=== PATIENT | female | born 1970 | race Caucasian/White ===

== ENCOUNTER 2017-01-28 08:25 | Emergency (ER) | payer BC ==
[~2017-01-28] VITALS: Ht 170.2 cm; Wt 136.0 kg
[~2017-01-28 08:25] MED LIST: ARIP1TAB15 PO; CLON1TAB21 PO; CRG625 PO; CYM60 PO; FRS/40 PO; GLIP10TA10 PO; INSUINJ4 SQ; LACT10SO17 PO; LEVO200T6 PO; LEVO25TA5 PO; MIRT15TA2 PO; OMEP40CA41 PO; RANI150T2 PO; RIFA550T2 PO; SITA1TAB27 PO; SPRN100 PO
[2017-01-28 08:39] VITALS: TEMP 36.5; O2SAT 95
[2017-01-28] MEDS ORDERED: VANCOMYCIN 1GM/270ML NSS IV STA (08:39)
[2017-01-28] MEDS ORDERED: LEVAQUIN 750MG / 150ML D5W IV STA (08:39)
[2017-01-28] MEDS ORDERED: PIPERACILLIN/TAZOBACTAM 4.5 GM/100ML D5W IV STA (08:39)
[2017-01-28] MEDS ORDERED: ALBUT/IPRATROP 3MG/0.5MG NEB 3 ML VIAL INH ONE (08:45)
--- NOTE | 2017-01-28 08:56 | EMERGENCY ROOM VISIT NOTE ---
History Report prepared by Yamil: Yadiel Allen Under the Supervision of: Dr. Allen Ravi M.D. First contact with patient: 08:30 Stated Complaint: U History of Present Illness The patient is a 46 year old female who presents to the Emergency Room with complaints of acute hypoxia that occurred this morning. The patient came to the ED from [facility], where she is seen for paracentesis. Her pulse oximeter reading dipped into the 50s on room air this morning. She does complain of shortness of breath. She currently complains of left rib pain s/p that is rated 5/10 in severity. The patient did not have anything for pain this morning. Complete history is limited secondary to dyspnea and altered mental status. Source of History: patient, nursing staff History Limited By: AMS, dyspnea Onset: this morning Position: other (respistory) Symptom Intensity: 50s pulse ox Quality: other (hypoxic) Timing: other (acute) Associated Symptoms: + SOB Review of Systems ROS is limited secondary to altered mental status. Past Medical & Surgical Medical Problems: (1) Ankle fracture (2) Anxiety (3) Ascites of liver (4) Chronic anemia (5) Depression (6) DM type 2 (diabetes mellitus, type 2) (7) Dyslipidemia (8) GERD (gastroesophageal reflux disease) (9) Hypothyroidism (10) Liver cirrhosis secondary to [place] (11) OCD (obsessive compulsive disorder) Surgical Problems: (1) History of esophagogastroduodenoscopy (EGD) (2) S/P TIPS (transjugular intrahepatic portosystemic shunt) Family History Unobtainable family history due to adoption Social History Smoking Status: Never Smoker Alcohol Use: none Drug Use: none Marital Status: Housing Status: lives with significant other Current/Historical Medications Scheduled Aripiprazole (Aripiprazole), 10 MG PO HS Carvedilol (Carvedilol), 6.25 MG PO BID Duloxetine HCl (Duloxetine HCl), 120 MG PO QAM Furosemide (Lasix), 80 MG PO BID Insulin Glargine (Lantus Solostar), 55 UNITS SC HS Mirtazapine Soltab (Remeron Soltab), 15 MG PO HS Rifaximin (Xifaxan), 550 MG PO BID Spironolactone (Aldactone), 200 MG PO BID Scheduled PRN Clonazepam (Clonazepam Odt), 1-2 MG PO HS PRN for Anxiety Lactulose (Chronulac), 30 GM PO DAILY PRN for Constipation Allergies Coded Allergies: Erythromycin (Verified Allergy, Mild, RASH, 01/17/17) Cat Dander (Verified Allergy, Unknown, UNKNOWN, 01/17/17) Ferrous Sulfate (Verified Allergy, Unknown, IRON SUPPLEMENT--RASH, ABD PAIN AND DIARRHEA, 01/17/17) Physical Exam Vital Signs Date Time Temp Pulse Resp B/P Pulse Ox O2 Delivery O2 Flow Rate FiO2 01/28/17 10:48 89 26 152/73 100 BiPAP 01/28/17 10:32 89 23 149/73 100 BiPAP 01/28/17 10:08 92 24 146/75 100 BiPAP 01/28/17 09:53 92 24 168/69 100 BiPAP 01/28/17 09:49 100 BiPAP 15.0 01/28/17 09:32 94 24 161/77 98 BiPAP 01/28/17 09:09 99 22 133/74 96 BiPAP 01/28/17 09:07 100 96 70 01/28/17 09:07 100 25 96 BiPAP/CPAP 70 01/28/17 08:44 98 01/28/17 08:39 95 Non-Rebreather 15.0 01/28/17 08:39 95 Non-Rebreather 01/28/17 08:39 36.5 98 28 165/87 82 Room Air 01/28/17 08:30 99 163/92 96 Non-Rebreather 15.0 Physical Exam GENERAL: Patient is confused appearing and in acute distress. HEAD: Normocephalic atraumatic EYES: Ocular movements intact pupils equal and react to light OROPHARYNX mucous membranes are moist no exudates present no erythema or edema present NECK: Supple no nuchal rigidity CHEST: Good equal expansion LUNGS: Lung sounds are absent on the left side. CARDIAC: Normal S1 and S2 ABDOMEN: Soft nontender no guarding BACK: No CVA tenderness EXTREMITIES: No pain upon palpation normal muscle strength in all groups no clubbing cyanosis or edema NEURO: Patient is following commands is answering questions appropriately. Alert and oriented x3 Cranial Nerves 2-12 grossly intact Medical Decision & Procedures ER Provider Diagnostic Interpretation: Radiology results as stated below per my review and radiologist interpretation: CHEST ONE VIEW PORTABLE CLINICAL HISTORY: Sepsis dyspnea COMPARISON STUDY: 10/10/2016 FINDINGS: Findings of asymmetric congestive failure. Interval development of a large left pleural effusion. Prominent pulmonary vasculature bilaterally. Cardiac enlargement. IMPRESSION: Asymmetric congestive heart failure. Large left pleural effusion. Electronically signed by: Franklin Serrano M.D. 01/28/2017 9:20 AM Dictated Date/Time: 01/28/2017 9:[address] ANGIOGRAM OF THE CHEST CLINICAL HISTORY: Dyspnea. COMPARISON STUDY: Chest CT dated 06/19/2013. TECHNIQUE: Following the IV administration of 100 cc of Optiray 320, CT angiogram of the chest was performed from the upper abdomen to the thoracic inlet utilizing the pulmonary embolus protocol. Images are reviewed in the axial, sagittal, and coronal planes. 3-D MIPS images are created and assessed. IV contrast was administered without complication. The examination is severely degraded by large body habitus, and by streak artifact from the patient's body wall abutting the CT gantry as well as by the patient's arms which could not be elevated above the abdomen. The examination is also degraded by motion artifact. CT DOSE: 1619.33 mGy.cm FINDINGS: Thyroid: Imaged portions of the thyroid gland are normal in size and attenuation. Thoracic aorta: The thoracic aorta is normal in caliber and demonstrates bovine variant arch anatomy. No dissection is seen. Pulmonary vasculature: The pulmonary trunk is dilated measuring 4.2 cm diameter. This suggests pulmonary artery hypertension. There is no evidence of central pulmonary embolus within the main or lobar pulmonary arteries. Evaluation of the peripheral vessels is severely degraded by streak and motion artifact. Heart: The heart is enlarged and without pericardial effusion. Lungs and pleural spaces: Evaluation of the lung parenchyma is significant degraded by respiratory motion artifact There is a large left pleural effusion with near-complete atelectasis of the left lung. There is a moderate right pleural effusion with near-complete atelectasis of the right lower lung. The visualized right upper lobe lung parenchyma appears clear. The trachea and central airways are patent. Mediastinum: There is no mediastinal lymphadenopathy. Lynn: Clear. Axillae: There is no axillary lymphadenopathy. Upper abdomen: The liver is cirrhotic in morphology and heterogeneous in attenuation. A TIPS catheter is noted. There is a moderate volume of upper abdominal ascites. The spleen appears enlarged. A hiatal hernia is identified. Esophageal varices are suspected. Skeletal structures: No lytic or blastic bony lesions are seen. There are mild superior endplate compression deformities of T4 and T5. Soft tissues: There is body wall edema. IMPRESSION: 1. Significantly motion and streak artifact degraded examination. 2. There is no evidence of central pulmonary embolus in the main or lobar pulmonary arteries. Evaluation of the peripheral vessels is severely degraded by streak and motion artifact. 3. Large left pleural effusion with near-complete atelectasis of the left lung. 4. Moderate right pleural effusion with significant atelectasis of the right lung. 5. Cirrhotic liver morphology with a moderate volume of upper abdominal ascites, a TIPS catheter, and suspect esophageal varices. Electronically signed by: Hayder Castaneda M.D. 01/28/2017 9:17 AM Dictated Date/Time: 01/28/2017 9:[address] CT DOSE: HISTORY: Altered mental status. Fall. TECHNIQUE: Multiaxial CT images of the head were performed without the use of intravenous contrast. Automated exposure control was utilized for this study. Comparison: None. 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 No fluid levels within the frontal sinuses. The mastoid air cells are clear. Mild left periorbital tissue swelling. The calvarium and skull base are intact. The ventricles and sulci are within normal limits. There is no mass, hematoma, midline shift, or acute infarct. Impression: No acute intracranial abnormality. Mild left periorbital soft tissue swelling. Electronically signed by: Austyn Locke M.D. 01/28/2017 9:16 AM Dictated Date/Time: 01/28/2017 9:11 AM Laboratory Results 01/28/17 08:35 Red Blood Count 4.30, Mean Corpuscular Volume 74.0, Mean Corpuscular Hemoglobin 21.2, Mean Corpuscular Hemoglobin Concent 28.6, Mean Platelet Volume 10.1, Neutrophils (%) (Auto) 83.6, Lymphocytes (%) (Auto) 7.7, Monocytes (%) (Auto) 7.2, Eosinophils (%) (Auto) 0.9, Basophils (%) (Auto) 0.1, Neutrophils # (Auto) 13.85, Lymphocytes # (Auto) 1.28, Monocytes # (Auto) 1.20, Eosinophils # (Auto) 0.15, Basophils # (Auto) 0.02 01/28/17 08:35 Test 01/28/17 08:35 01/28/17 09:26 01/28/17 09:45 White Blood Count 16.58 K/uL (4.8-10.8) Red Blood Count 4.30 M/uL (4.2-5.4) Hemoglobin 9.1 g/dL (12.0-16.0) Hematocrit 31.8 % (37-47) Mean Corpuscular Volume 74.0 fL (80-100) Mean Corpuscular Hemoglobin 21.2 pg (25-34) Mean Corpuscular Hemoglobin Concent 28.6 g/dl (32-36) Platelet Count 187 K/uL (130-400) Mean Platelet Volume 10.1 fL (7.4-10.4) Neutrophils (%) (Auto) 83.6 % Lymphocytes (%) (Auto) 7.7 % Monocytes (%) (Auto) 7.2 % Eosinophils (%) (Auto) 0.9 % Basophils (%) (Auto) 0.1 % Neutrophils # (Auto) 13.85 K/uL (1.4-6.5) Lymphocytes # (Auto) 1.28 K/uL (1.2-3.4) Monocytes # (Auto) 1.20 K/uL (0.11-0.59) Eosinophils # (Auto) 0.15 K/uL (0-0.5) Basophils # (Auto) 0.02 K/uL (0-0.2) RDW Standard Deviation 53.7 fL (36.4-46.3) RDW Coefficient of Variation 20.2 % (11.5-14.5) Immature Granulocyte % (Auto) 0.5 % Immature Granulocyte # (Auto) 0.08 K/uL (0.00-0.02) Polychromasia 1+ Anisocytosis PRESENT Prothrombin Time 12.5 SECONDS (9.0-12.0) Prothromb Time International Ratio 1.2 (0.9-1.1) Activated Partial Thromboplast Time 26.8 SECONDS (21.0-31.0) Partial Thromboplastin Ratio 1.0 Anion Gap 11.0 mmol/L (3-11) Est Creatinine Clear Calc Drug Dose 40.6 ml/min Estimated GFR () 25.8 Estimated GFR (Non- 22.3 BUN/Creatinine Ratio 23.9 (10-20) Calcium Level 8.3 mg/dl (8.5-10.1) Total Bilirubin 1.3 mg/dl (0.2-1) Aspartate Amino Transf (AST/SGOT) 17 U/L (15-37) Alanine Aminotransferase (ALT/SGPT) 26 U/L (12-78) Alkaline Phosphatase 347 U/L (45-117) Total Protein 8.4 gm/dl (6.4-8.2) Albumin 3.3 gm/dl (3.4-5.0) Globulin 5.1 gm/dl (2.5-4.0) Albumin/Globulin Ratio 0.6 (0.9-2) Bedside Lactic Acid Venous 1.25 mmol/L (0.90-1.70) Urine Color JENNA Urine Appearance SL CLOUDY (CLEAR) Urine pH 5.5 (4.5-7.5) Urine Specific Allred >= 1.030 (1.000-1.030) Urine Protein 2+ (NEG) Urine Glucose (UA) TRACE (NEG) Urine Ketones NEG (NEG) Urine Occult Blood TRACE (NEG) Urine Nitrite NEG (NEG) Urine Bilirubin NEG (NEG) Urine Urobilinogen NEG (NEG) Urine Leukocyte Esterase NEG (NEG) Urine RBC 0-4 /hpf (0-4) Urine WBC >30 /hpf (0-5) Urine Epithelial Cells >30 /lpf (0-5) Urine Calcium Oxalate Crystals PRESENT (NONE PRSENT) Urine Bacteria 1+ (NEG) Urine Hyaline Casts 5-10 /lpf (0-5) Urine Granular Casts 0-3 /lpf (0) Urine White Blood Cell Casts 1-5 /lpf (0) Labs reviewed by ED physician. Medications Administered Medications (Trade) Dose Ordered Sig/Ana Luisa Route Start Time Stop Time Status Last Admin Dose Admin Piperacillin Sod/ Tazobactam Sod (Zosyn Iv) 4.5 gm ONE STAT IV 01/28/17 08:39 01/28/17 08:43 DC 01/28/17 09:26 4.5 GM Vancomycin HCl (Vancomycin 1gm/ 270ml Nss) 1 gm ONE STAT IV 01/28/17 08:39 01/28/17 08:43 DC 01/28/17 09:51 1 GM Levofloxacin (Levaquin / D5W) 750 mg ONE STAT IV 01/28/17 08:39 01/28/17 08:43 DC 01/28/17 09:28 750 MG Albuterol/ Ipratropium (Duoneb) 12 ml ONE ONCE INH 01/28/17 08:45 01/28/17 08:46 DC 01/28/17 08:45 12 ML ECG Indication: SOB/dyspnea Rate (beats per minute): 97 Rhythm: normal sinus Findings: no acute ischemic change, no ectopy ED Course 0840: Past medical records reviewed. The patient was evaluated in room B1. A complete history and physical examination was performed. 0839: Levofloxacin 750 mg IV, Vancomycin HCl 1 gm IV, Zosyn 4.5 gm IV. 0845: DuoNeb 12 ml INH. 0917: Discussed the case with Dr. Thakur, Thoracic Surgeon. He says there is nothing he can do for the patient. 0924: Discussed the case with Dr. Jamil, Center Punch Operator. She is aware of the case. 0929: Discussed the case with TABATHA Mejia, [facility] Hospitalist. The patient will be evaluated. 0950: The medicine team believes the patient should be transferred to [facility] for a transplant team reevaluation. 1013: Spoke with Dr. Chaidez, [facility] Center Punch Operator. They will accept the patient. Transportation is being arranged. 1100: [facility] is taking the patient. She is currently hemodynamically stable. Medical Decision Differential diagnosis: Etiologies such as infections, reactive airway disease, pneumonia, pneumothorax , COPD, CHF, cardiac ischemia, pulmonary embolism, musculoskeletal, gastrointestinal, as well as others were entertained. This is a 46-year-old female who has history of Muhammad with TIPS procedure performed at [place] who presents to see department in acute distress and hypoxic. Based on the findings the patient was immediately placed on BiPAP and given an hour-long breathing treatment. She was sent for CT to rule out PE however this CT shows a large pleural effusion. Based on the findings I did discuss the case with thoracic surgeon on-call who based on the patient's past medical history believes that the patient should be urgently transferred to [place]. This is also discussed with the hospitalist as well as the pickle cutter who agreed. I did discuss the case with the intensive care doctor at [place] who agreed to accept the patient. The patient was started on Zosyn and Levaquin in the emergency department. She is in acute renal failure does have an elevation in her white blood count. She was placed on BiPAP. Repeat examination revealed improvement patient's symptoms. The patient was transferred via [facility]. Risks and benefits were explained to the family. The benefit of going to [place] is the transplant team. Risks were explained has a [facility]. The patient was given BiPAP for transport. Patient was in agreement with the treatment plan. Consults Time Called: 909 Consulting Physician: Dr. Thakur, Thoracic Surgeon. Returned Call: [phone]: Discussed the case with Dr. Thakur, Thoracic Surgeon. He says there is nothing he can do for the patient. Additional Consults: Time Called: 919 Consulted Physician: Dr. Jamil, Center Punch Operator. Returned Call: [phone] Additional Comments: 923: Discussed the case with Dr. Jamil, Center Punch Operator. She is aware of the case. Time Called: 919 Consulted Physician: TABATHA Mejia [facility] Hospitalist. Returned Call: [phone] Additional Comments: 09: Discussed the case with TABATHA Mejia [facility] Hospitalist. The patient will be evaluated. Impression Primary Impression: Pleural effusion, left Additional Impression: Hypoxia Critical Care I have personally spent greater than 90 minutes of critical care time in the direct management of this patient. This includes bedside care, interpretation of diagnostic studies, and testing, discussion with consultants, patient, and family members, and other required patient management activities. This 90 minutes is in excess of all separately billable procedures. Scribe Attestation The scribe's documentation has been prepared under my direction and personally reviewed by me in its entirety. I confirm that the note above accurately reflects all work, treatment, procedures, and medical decision making performed by me. Departure Information Dispostion Transfer Acute Care Facility Referrals [facility] (PCP) Problem Qualifiers
[2017-01-28 08:58] LABS: HEMATOCRIT 31.8 % (37-47); MEAN CORPUSCULAR HEMOGLOBIN 21.2 pg (25-34); MEAN CORPUSCULAR HGB CONC 28.6 g/dl (32-36); MEAN PLATELET VOLUME 10.1 fL (7.4-10.4); PLATELET COUNT 187 K/uL (130-400); WHITE BLOOD COUNT 16.58 K/uL (4.8-10.8)
[2017-01-28 09:06] LABS: BUN/CREATININE RATIO 23.9 (10-20); CALCIUM 8.3 mg/dl (8.5-10.1); CREATININE 2.5 mg/dl (0.60-1.20); POTASSIUM 5.4 mmol/L (3.5-5.1)
[2017-01-28 09:07] VITALS: PULSE 100; O2SAT 96
[2017-01-28 09:09] LABS: ALB/GLOB RATIO 0.6 (0.9-2); INR 1.2 (0.9-1.1); PROTHROMBIN TIME (PATIENT) 12.5 SECONDS (9.0-12.0)
--- NOTE | 2017-01-28 09:17 | DIAGNOSTIC IMAGING REPORT ---
HEAD CT NONCONTRAST CT DOSE: HISTORY: Altered mental status. Fall. TECHNIQUE: Multiaxial CT images of the head were performed without the use of intravenous contrast. Automated exposure control was utilized for this study. Comparison: None. 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 No fluid levels within the frontal sinuses. The mastoid air cells are clear. Mild left periorbital tissue swelling. The calvarium and skull base are intact. The ventricles and sulci are within normal limits. There is no mass, hematoma, midline shift, or acute infarct. Impression: No acute intracranial abnormality. Mild left periorbital soft tissue swelling. Electronically signed by: Austyn Locke M.D. 01/28/2017 9:16 AM Dictated Date/Time: 01/28/2017 9:11 AM
--- NOTE | 2017-01-28 09:18 | DIAGNOSTIC IMAGING REPORT ---
CT ANGIOGRAM OF THE CHEST CLINICAL HISTORY: Dyspnea. COMPARISON STUDY: Chest CT dated 06/19/2013. TECHNIQUE: Following the IV administration of 100 cc of Optiray 320, CT angiogram of the chest was performed from the upper abdomen to the thoracic inlet utilizing the pulmonary embolus protocol. Images are reviewed in the axial, sagittal, and coronal planes. 3-D MIPS images are created and assessed. IV contrast was administered without complication. The examination is severely degraded by large body habitus, and by streak artifact from the patient's body wall abutting the CT gantry as well as by the patient's arms which could not be elevated above the abdomen. The examination is also degraded by motion artifact. CT DOSE: 1619.33 mGy.cm FINDINGS: Thyroid: Imaged portions of the thyroid gland are normal in size and attenuation. Thoracic aorta: The thoracic aorta is normal in caliber and demonstrates bovine variant arch anatomy. No dissection is seen. Pulmonary vasculature: The pulmonary trunk is dilated measuring 4.2 cm diameter. This suggests pulmonary artery hypertension. There is no evidence of central pulmonary embolus within the main or lobar pulmonary arteries. Evaluation of the peripheral vessels is severely degraded by streak and motion artifact. Heart: The heart is enlarged and without pericardial effusion. Lungs and pleural spaces: Evaluation of the lung parenchyma is significant degraded by respiratory motion artifact There is a large left pleural effusion with near-complete atelectasis of the left lung. There is a moderate right pleural effusion with near-complete atelectasis of the right lower lung. The visualized right upper lobe lung parenchyma appears clear. The trachea and central airways are patent. Mediastinum: There is no mediastinal lymphadenopathy. Lynn: Clear. Axillae: There is no axillary lymphadenopathy. Upper abdomen: The liver is cirrhotic in morphology and heterogeneous in attenuation. A TIPS catheter is noted. There is a moderate volume of upper abdominal ascites. The spleen appears enlarged. A hiatal hernia is identified. Esophageal varices are suspected. Skeletal structures: No lytic or blastic bony lesions are seen. There are mild superior endplate compression deformities of T4 and T5. Soft tissues: There is body wall edema. IMPRESSION: 1. Significantly motion and streak artifact degraded examination. 2. There is no evidence of central pulmonary embolus in the main or lobar pulmonary arteries. Evaluation of the peripheral vessels is severely degraded by streak and motion artifact. 3. Large left pleural effusion with near-complete atelectasis of the left lung. 4. Moderate right pleural effusion with significant atelectasis of the right lung. 5. Cirrhotic liver morphology with a moderate volume of upper abdominal ascites, a TIPS catheter, and suspect esophageal varices. Electronically signed by: Hayder Castaneda M.D. 01/28/2017 9:17 AM Dictated Date/Time: 01/28/2017 9:09 AM
--- NOTE | 2017-01-28 09:21 | DIAGNOSTIC IMAGING REPORT ---
CHEST ONE VIEW PORTABLE CLINICAL HISTORY: Sepsis dyspnea COMPARISON STUDY: 10/10/2016 FINDINGS: Findings of asymmetric congestive failure. Interval development of a large left pleural effusion. Prominent pulmonary vasculature bilaterally. Cardiac enlargement. IMPRESSION: Asymmetric congestive heart failure. Large left pleural effusion. Electronically signed by: Franklin Serrano M.D. 01/28/2017 9:20 AM Dictated Date/Time: 01/28/2017 9:19 AM
[2017-01-28 09:40] LABS: ANISOCYTOSIS PRESENT; BASO % 0.1 %; BASO ABS # 0.02 K/uL (0-0.2); COMPLETE YES; EOS % 0.9 %; IG% 0.5 %; LYMPH % 7.7 %; LYMPH ABS # 1.28 K/uL (1.2-3.4); MONO % 7.2 %; NEUT % 83.6 %; POLYCHROMASIA 1+
[2017-01-28] MEDS ORDERED: INSDGIPEN SC (09:42)
[2017-01-28] MEDS ORDERED: SPIR100T PO (09:42)
[2017-01-28 09:49] VITALS: O2SAT 100; Ht 170.2 cm; Wt 136.0 kg
[2017-01-28 09:58] LABS: MANUAL MICROSCOPIC REQUIRED? YES; URINE APPEARANCE SL CLOUDY (CLEAR); URINE COLOR AMBER; URINE NITRITE NEG (NEG); URINE PH 5.5 (4.5-7.5); URINE SPECIFIC GRAVITY >= 1.030 (1.000-1.030); UROBILINOGEN NEG (NEG)
[2017-01-28 10:13] LABS: REVIEW REQ? NO; URINE BILIRUBIN NEG (NEG)
[2017-01-28 10:22] LABS: URINE GRANULAR CAST 0-3 /lpf (0)
[2017-01-28 10:23] LABS: URINE BACTERIA 1+ (NEG); URINE RBC 0-4 /hpf (0-4); URINE WBC >30 /hpf (0-5)
[2017-01-28 10:25] LABS: ZZURINE CULT IF INDIC CATH YES
[2017-01-28 10:48] VITALS: BP 152/73; PULSE 89; O2SAT 100
--- NOTE | 2017-01-28 15:00 | SURGICAL CONSULTATION ---
DATE OF CONSULTATION: 01/28/2017 REASON FOR CONSULTATION: Large bilateral pleural effusions, left greater than right. HISTORY OF PRESENT ILLNESS: This is an unfortunate 46-year-old female who has a history of MEIER and cirrhosis. She was been diagnosed with a hepatic hydrothorax several months ago. She presented for paracentesis today which is being done on a regular basis and was found to have a very low saturations and mental status changes. Her saturations were apparently in the mid 50s. She was started on CPAP. Her saturations are currently 100%. She is still quite confused. Her ammonia level is high. I was asked to evaluate her from a thoracic surgery standpoint given the fluid and the fact that her left lung is completely atelectatic. PAST MEDICAL HISTORY: 1. Cirrhosis. 2. MEIER. 3. Obesity. 4. Anxiety. 5. Chronic anemia. 6. Depression. 7. Diabetes mellitus. 8. Hypothyroidism. 9. Gastroesophageal reflux disease. 10. Dyslipidemia. 11. Obsessive compulsive disorder. PAST SURGICAL HISTORY: 1. Childbirth. 2. Status post TIPS (transjugular intrahepatic portosystemic shunt) with subsequently endovascular revision. 3. Multiple upper esophagogastroduodenoscopy. MEDICATIONS: 1. Aripiprazole. 2. Spironolactone. 3. Coreg. 4. Xifaxan. 5. Remeron. 6. Lantus. 7. Duloxetine. 8. Lasix. 9. Lantus insulin. ALLERGIES: 1. ERYTHROMYCIN. 2. FERROUS SULFATE? SOCIAL HISTORY: The patient lives with her family and her . She was accompanied by her daughter and her father who are very supportive. She has never smoked cigarettes. FAMILY MEDICAL HISTORY: Daughter is healthy. There is no one else in the family with a history of liver disease. It should be noted the patient was adopted. REVIEW OF SYSTEMS: The patient has been progressively worsening. This woman has been worked up at [facility] for a liver transplant. According to her father, she is on the transplant list but is "way way down the list". She currently has mental status changes and appears to be encephalopathic. She was also hypoxic, although this is better with the CPAP. Apparently, she has been moving her bowels, but takes lactulose daily. She has had hyperammonemia. She has had high ammonia level contributing to her confusion. She has been quite short of breath. Her mentation is also worsened. She has no open wounds. PHYSICAL EXAMINATION: GENERAL: This is a morbidly obese female who is currently on a BiPAP. She stands 5 feet 7 inches tall and weighs 300 pounds. HEENT: Her extraocular movements are intact. Her sclerae are quite injected but anicteric. She has a BiPAP on. Her tongue appears to be midline. Her oral mucosa is dry. NECK: Thick, but supple. She is morbidly obese; however. LUNGS: She does have breath sounds anteriorly in both apices although they are decreased definitely in the left more than the right at the base. HEART: Distant heart sounds, regular rate and rhythm with the heart rate in the 80s-90s. The blood pressure has been stable. ABDOMEN: Huge. It is fairly tense also. She does have some bowel sounds. She had some mild discomfort when we palpated her. EXTREMITIES: She has 2+ edema in her lower legs, but no hemosiderin deposition and I can palpate pulses. There are no joint effusions. NEUROLOGIC: She is moving everything, but she is very slow to respond and is quite confused. ASSESSMENT AND PLAN: Hepatic hydrothorax with a left pleural effusion greater than right. I had a long talk with the patient's daughter and father. Draining an hepatic hydrothorax is not going to gain much in the long run. This woman's transjugular intrahepatic portosystemic shunt does not appear that it helped her. She really needs a liver transplant. She has 100% saturation currently on CPAP. A thoracentesis could help her, but I have stressed to the family that this would only be temporizing. If she needs this done before transfer to [facility], I will be glad to do it. However, this woman needs a transplant or she is not going to survive. The frequency of her paracentesis has gone up dramatically. She is having to be drained for liters of fluid every 2 weeks. She needs more in depth evaluation by the fishing instructor at [facility]. In addition, it is unclear to me whether her transjugular intrahepatic portosystemic shunt is functioning. Unfortunately, other than temporizing with a thoracentesis, I have very little to offer. MTDD
--- NOTE | 2017-01-30 14:13 | Pharmacy Progress Note ---
ED Pharmacist Culture FollowUp Date of Service: Jan 30, 2017. Gardnerella-like bacilli growing in patient's urine cx from 01/28/17. UA revealed likely contamination of urine sample (>30 epis) with vaginal contents. Gardnerella likely normal lacho and not cause of UTI. No action required.
[2017-04-16] MEDS ORDERED: CIPR1TAB11 PO (11:40)
[2017-06-19] MEDS ORDERED: CYM/30 PO (17:19)
[2017-07-10] MEDS ORDERED: LSX40 PO (18:34)
[2017-07-10] MEDS ORDERED: DXY100 PO (18:34)
[2017-07-24] MEDS ORDERED: ROPI0.25 PO (11:42)
[2017-07-24] MEDS ORDERED: ESCI1TAB9 PO (11:42)
[2017-07-24] MEDS ORDERED: TRAM-10 PO (11:42)
[2017-07-24] MEDS ORDERED: CIPR1TAB11 PO (11:42)
[2017-07-24] MEDS ORDERED: RANI150T3 PO (11:42)
[2017-07-24] MEDS ORDERED: SPRN100 PO (11:45)
[2017-07-24] MEDS ORDERED: LCTL45 PO (11:45)
[2017-07-24] MEDS ORDERED: LSX40 PO (11:45)
[2017-07-24] MEDS ORDERED: LSX80 PO (11:45)
== END 2017-01-28 11:12 | disposition short-term general hospital (02) ==
LOC: EDSEX 08:25 → EDBD 08:25 → C.EDB 08:27
DX: R09.02 Hypoxemia (principal); J90 Pleural effusion, not elsewhere classified; K74.60 Unspecified cirrhosis of liver; R41.82 Altered mental status, unspecified; E11.9 Type 2 diabetes mellitus without complications; E03.9 Hypothyroidism, unspecified; Z79.4 Long term (current) use of insulin; E66.9 Obesity, unspecified; Z79.899 Other long term (current) drug therapy

== ENCOUNTER 2017-06-14 09:28 | Emergency (ER) | payer BC ==
[~2017-06-14] VITALS: Ht 170.2 cm; Wt 143.6 kg
[~2017-06-14 09:28] MED LIST changes: +CIPR1TAB11 PO; -CRG625 PO; -GLIP10TA10 PO; +INSDGIPEN SC; -INSUINJ4 SQ; -LEVO200T6 PO; -LEVO25TA5 PO; -OMEP40CA41 PO; -RANI150T2 PO; -SITA1TAB27 PO; +SPIR100T PO; -SPRN100 PO
[2017-06-14 09:39] VITALS: BP 143/66; PULSE 99; TEMP 36.8; O2SAT 97; Ht 170.2 cm; Wt 143.6 kg
[2017-06-14 10:01] VITALS: O2SAT 95
[2017-06-14 10:16] LABS: MEAN CORPUSCULAR HGB CONC 29.3 g/dl (32-36)
[2017-06-14 10:22] LABS: HEMATOCRIT 24.9 % (37-47); MEAN CELL VOLUME 71.8 fL (80-100); RED BLOOD COUNT 3.47 M/uL (4.2-5.4); WHITE BLOOD COUNT 6.76 K/uL (4.8-10.8)
[2017-06-14 10:33] LABS: ALT/SGPT 22 U/L (12-78); BLOOD UREA NITROGEN 59 mg/dl (7-18); BUN/CREATININE RATIO 32.8 (10-20); CARBON DIOXIDE 29 mmol/L (21-32); CHLORIDE 98 mmol/L (98-107); GLUCOSE 215 mg/dl (70-99); INR 1.1 (0.9-1.1); PROTHROMBIN TIME (PATIENT) 12.1 SECONDS (9.0-12.0); SODIUM 133 mmol/L (136-145)
[2017-06-14 10:37] LABS: MEAN PLATELET VOLUME 10.1 fL (7.4-10.4); PLATELET COUNT 122 K/uL (130-400)
[2017-06-14 10:38] LABS: ALB/GLOB RATIO 0.5 (0.9-2); ALKALINE PHOSPHATASE 370 U/L (45-117); ANISOCYTOSIS PRESENT; AST/SGOT 22 U/L (15-37); CKMB/CK RATIO 1.1 (0-3.0); COMPLETE YES; EOS % 0.4 %; HYPOCHROMIA PRESENT; IG% 0.3 %; LYMPH % 7.8 %; LYMPH ABS # 0.53 K/uL (1.2-3.4); MICROCYTOSIS PRESENT; MONO % 7.4 %; NEUT % 84.1 %; PLT ESTIMATE DECREASED
--- NOTE | 2017-06-14 10:58 | DIAGNOSTIC IMAGING REPORT ---
CHEST ONE VIEW PORTABLE CLINICAL HISTORY: sob dyspnea COMPARISON STUDY: 01/28/2017 FINDINGS: Moderate stable cardiomegaly. Mediastinal fullness unchanged in the prior study. Moderate prominence of the pulmonary vasculature. Persistent consolidative change left lung base versus left pleural effusion. This is improved from the prior exam. IMPRESSION: Moderate stable cardiomegaly. Consolidative change left lung base. Pulmonary vascular congestion. The above report was generated using voice recognition software. It may contain grammatical, syntax or spelling errors. Electronically signed by: Franklin Serrano M.D. 06/14/2017 10:57 AM Dictated Date/Time: 06/14/2017 10:55 AM
[2017-06-14] MEDS ORDERED: CONSULT PHARMACY STA (12:26)
[2017-06-14] MEDS ORDERED: POLYETHYLENE (MIRALAX) 17 GM PACK PO PRN (12:30)
[2017-06-14] MEDS ORDERED: ONDANSETRON INJ 2 MG/ML 2 ML VIAL IV PRN (12:30)
--- NOTE | 2017-06-14 12:34 | Gastrointestinal Consultation ---
Gastrointestinal Consultation Date of Consultation: Jun 14, 2017 Attending Physician: Carol Stanford Consulting Physician: Susana López Reason for Consultation: Hx of cirrhosis, volume overload History of Present Illness Patient is a 47 year old female who was referred to ED by TABATHA Duran from [facility] clinic for SOB, hypoxia. She has hx of NAFLD cirrhosis, complicated by refractory ascites despite TIPS placement, hx of hepatic encephalopathy, pleural effusions, non bleeding esophageal varices. She was previously evaluated by Liver Transplant team at [facility], but MELD score was low and thus not listed. Going to have another re-eval this month. She presented to GI clinic this AM for cirrhosis f/u. Had been c/o SOB since Saturday which is worse. Also feels dizzy, weak. She denies any fever, chills, cough, CP. Abd uncomfortable given ascites build up. In fact she is already scheduled for outpt paracentesis this AM. Last large volume paracentesis on 05/28 7.9L removed. She admits poor PO intake but keeping up with hydration, no n/v. Bowel habits unchanged. Admits compliance w home doses of Lactulose 30ml daily, Xifaxan 550mg BID, Lasix 80mg BID, Spironolactone 100mg BID; also on low salt diet. Denies any new med changes. Upon eval in ED, noted to have slight tachycardia, HR 99, O2 sat 76%, increased to 96% on 6L NC. Her CXR showed stable cardiomegaly, + pulmonary congestion, consolidative changes on L lung base. Labs showed no leukocytosis, Hgb 7.3 ( baseline close to 8). Na low at 133, Cr increased to 1.8 (a month ago was <1). LFTs stable: Tbili 1.1, AST/ALT 22/22, AP 370, BNP high at 2367. Past Medical/Surgical History Medical Problems: (1) Anemia Status: Acute (2) Ascites Status: Acute (3) Ascites Status: Acute (4) Diffuse abdominal pain Status: Acute (5) Dyspnea Status: Acute (6) Hypoxia Status: Acute (7) Liver failure Status: Acute (8) Pleural effusion Status: Acute (9) Pleural effusion, left Status: Acute (10) Serum ammonia increased Status: Acute (11) Shortness of breath Status: Acute Past Medical History: See above, also anxiety, chronic anemia, depression, DM II, dyslipidemia, GERD, hypothyroidism, OCD Past Surgical History: TIPS Family History Unobtainable family history due to adoption Social History Smoking Status: Never Smoker Alcohol Use: none Drug Use: none Marital Status: Housing Status: lives with significant other Allergies Coded Allergies: Ferrous Sulfate (Verified Allergy, Intermediate, IRON SUPPLEMENT--RASH, ABD PAIN AND DIARRHEA, 05/28/17) Cat Dander (Verified Allergy, Mild, rash, 05/28/17) Erythromycin (Verified Allergy, Mild, RASH, 05/28/17) Current Medications Home Meds and Scripts Medications Dose Route/Sig Max Daily Dose Days Date Category Dose Instructions Cipro (Ciprofloxacin) 250 Mg Tab 1 Tab PO DAILY 5 04/16/17 Reported Lantus Solostar (Insulin Glargine) 100 Unit/Ml Inj 55 Units SC HS 01/28/17 Reported Aldactone (Spironolactone) 100 Mg Tab 200 Mg PO BID 01/28/17 Reported Remeron Soltab (Mirtazapine) 15 Mg Soltab 15 Mg PO HS 12/19/16 Reported Lasix (Furosemide) 40 Mg Tab 80 Mg PO BID 10/10/16 Reported Chronulac (Lactulose) 10 Gm/15 Ml Syrp 30 Gm PO DAILY PRN 08/28/16 Reported takes additional dose to have 2 bowel movements per day Xifaxan (Rifaximin) 550 Mg Tab 550 Mg PO BID 06/18/16 Reported Aripiprazole 10 Mg Tab 10 Mg PO HS 06/18/16 Reported Duloxetine HCl 60 Mg Cap 120 Mg PO QAM 06/18/16 Reported Clonazepam Odt (Clonazepam) 1 Mg Tab 1-2 Mg PO HS PRN 12/14/15 Reported Review of Systems Constitutional: + weakness, No fever, No chills Respiratory: + shortness of breath, + dyspnea on exertion, + dyspnea at rest, No cough Cardiac: No chest pain, No orthopnea Abdomen: + pain, No nausea, No vomiting, No diarrhea Endo: + fatigue Skin: No rash, No itch, No jaundice Physical Exam Date Time Temp Pulse Resp B/P (MAP) Pulse Ox O2 Delivery O2 Flow Rate FiO2 06/14/17 10:01 95 Nasal Cannula 6.0 06/14/17 10:01 95 Nasal Cannula 6.0 06/14/17 09:39 75 Room Air 06/14/17 09:39 36.8 99 25 143/66 97 Nasal Cannula 6.0 06/14/17 09:33 99 General Appearance: + mild distress, + obese Eyes: normal inspection, PERRL, EOMI Neck: supple, no JVD, trachea midline Respiratory/Chest: + decreased breath sounds (especially on R base), + pertinent finding (slightly tachypnic, shallow inspirations) Cardiovascular: regular rate, rhythm, no gallop, no murmur Abdomen: normal bowel sounds, non tender, + distended (mild) Extremities: + swelling Neurologic/Psych: alert, normal mood/affect, oriented x 3 Skin: no jaundice, warm/dry, no rash, + pallor Laboratory Results Last 24 Hours Test 06/14/17 09:58 White Blood Count 6.76 K/uL Red Blood Count 3.47 M/uL Hemoglobin 7.3 g/dL Hematocrit 24.9 % Mean Corpuscular Volume 71.8 fL Mean Corpuscular Hemoglobin 21.0 pg Mean Corpuscular Hemoglobin Concent 29.3 g/dl Platelet Count 122 K/uL Mean Platelet Volume 10.1 fL Neutrophils (%) (Auto) 84.1 % Lymphocytes (%) (Auto) 7.8 % Monocytes (%) (Auto) 7.4 % Eosinophils (%) (Auto) 0.4 % Basophils (%) (Auto) 0.0 % Neutrophils # (Auto) 5.68 K/uL Lymphocytes # (Auto) 0.53 K/uL Monocytes # (Auto) 0.50 K/uL Eosinophils # (Auto) 0.03 K/uL Basophils # (Auto) 0.00 K/uL RDW Standard Deviation 44.8 fL RDW Coefficient of Variation 17.2 % Immature Granulocyte % (Auto) 0.3 % Immature Granulocyte # (Auto) 0.02 K/uL Platelet Estimate DECREASED Hypochromasia PRESENT Anisocytosis PRESENT Microcytosis PRESENT Prothrombin Time 12.1 SECONDS Prothromb Time International Ratio 1.1 Activated Partial Thromboplast Time 25.7 SECONDS Partial Thromboplastin Ratio 1.0 Sodium Level 133 mmol/L Potassium Level 4.0 mmol/L Chloride Level 98 mmol/L Carbon Dioxide Level 29 mmol/L Anion Gap 6.0 mmol/L Blood Urea Nitrogen 59 mg/dl Creatinine 1.80 mg/dl Est Creatinine Clear Calc Drug Dose 57.6 ml/min Estimated GFR () 38.2 Estimated GFR (Non- 32.9 BUN/Creatinine Ratio 32.8 Random Glucose 215 mg/dl Calcium Level 8.0 mg/dl Total Bilirubin 1.1 mg/dl Aspartate Amino Transf (AST/SGOT) 22 U/L Alanine Aminotransferase (ALT/SGPT) 22 U/L Alkaline Phosphatase 370 U/L Total Creatine Kinase 63 U/L Creatine Kinase MB 0.7 ng/ml Creatine Kinase MB Ratio 1.1 Troponin I < 0.015 ng/ml Pro-B-Type Natriuretic Peptide 2367 pg/ml Total Protein 8.0 gm/dl Albumin 2.7 gm/dl Globulin 5.3 gm/dl Albumin/Globulin Ratio 0.5 Impression Patient is a 47 year old female w NAFLD cirrhosis, complicated by hx of encephalopathy, varices w/o bleeding, refractory ascites despite TIPS placement admitted for volume overload (ascites, pulmonary congestion), and hypoxia, SOB. Noted to have ARF w Cr up to 1.8. MELD 13 Plan - Already arranged for u/s paracentesis w Albumin 25% 25g before and after procedure. Will continue Albumin 25% 12.5g q6hrs x 2 days. - U/S doppler to eval TIPS patency - Given increased Cr would decrease diuretic dose to Lasix 40mg BID, Spironolactone 200mg daily. Monitor renal function, electrolytes. Continue 2g low salt diet - Continue home doses of Xifaxan, Lactulose (to be titrated for goal BM 3-5x a day)., Omeprazole, Ranitidine Cipro for SBP prophylaxis. If tolerable may need to restart Nadolol 20mg BID for large varices. - Last EGD 02/2016: large non bleeding varices, GAVE. - Will benefit from blood transfusion, w cautious rate/volume given fluid overload. - ? possible pneumonia given L base consolidation. Consider infectious workup I saw and evaluated the patient. She has a long history of cirrhosis related to nonalcoholic fatty liver disease. She was sent to the hospital for evaluation of shortness of breath and worsening abdominal distention. Physical examination No obvious distress, obese impression history of cirrhosis with complications of volume overload and hepatic encephalopathy. Recommendations: Low-sodium diet Continue present dosing of diuretics Albumin as noted above Please call with questions or concerns over the weekend Coverage to resume on Saturday with Dr. Cantu.
[2017-06-14] MEDS ORDERED: VANCOMYCIN CONSULT ACTIVE PRN (12:45)
[2017-06-14] MEDS ORDERED: PIPERACILLIN/TAZOBACTAM 4.5 GM/100ML D5W IV ONE (12:45)
[2017-06-14] MEDS ORDERED: PIPERACILL/TAZOBAC CONSULT ACTIVE PRN (12:45)
[2017-06-14] MEDS ORDERED: VANCOMYCIN INJ 2,700 MG in SODIUM CHLORIDE 0.9% 500ML 500 ML IV ONE (12:52)
[2017-06-14] MEDS ORDERED: PIPERACILL/TAZOBAC IV 4.5 GM in DEXTROSE 5% 100ML 100 ML IV ONE (13:00)
--- NOTE | 2017-06-14 16:15 | EMERGENCY ROOM VISIT NOTE ---
History Report prepared by Yamil: Madeleine Paiz Under the Supervision of: Dr. Allen Paz D.O. First contact with patient: 09:41 Chief Complaint: SHORTNESS OF BREATH Stated Complaint: SHORTNESS OF BREATH History of Present Illness The patient is a 47 year old female who presents to the Emergency Room with complaints of persistent SOB starting several days ago. The patient went to her GI doctor today for an appointment where they found that she was hypoxic. They put her on oxygen and decided to send her to the ED. She notes that she has been weak, SOB, and dizzy for the past several days. She denies any fever or recent illness. The patient has a history of MEIER cirrhosis and has paracentesis regularly. She is on diuretics and a low sodium diet. Her last paracentesis was 2 weeks ago. She is scheduled for paracentesis today at 1000. She usually does not get swelling in her legs. She wears 2L of oxygen NC as needed at 5L CPAP at night. Patient had an echocardiogram 2 weeks ago. Source of History: patient Onset: several days ago Position: other (global) Quality: other (SOB) Timing: other (persistent) Associated Symptoms: + weakness, No fevers Note: Pt reports dizziness. Review of Systems See HPI for pertinent positives & negatives. A total of 10 systems reviewed and were otherwise negative. 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 (12) OCD (obsessive compulsive disorder) (13) Shortness of breath Surgical Problems: (1) History of esophagogastroduodenoscopy (EGD) (2) S/P TIPS (transjugular intrahepatic portosystemic shunt) Family History Unobtainable family history due to adoption Social History Smoking Status: Never Smoker Alcohol Use: none Drug Use: none Marital Status: Housing Status: lives with significant other Current/Historical Medications Scheduled Aripiprazole (Aripiprazole), 10 MG PO HS Ciprofloxacin Tab (Cipro), 1 TAB PO DAILY Duloxetine HCl (Duloxetine HCl), 120 MG PO QAM Furosemide (Lasix), 80 MG PO BID Insulin Glargine (Lantus Solostar), 55 UNITS SC HS Mirtazapine Soltab (Remeron Soltab), 15 MG PO HS Rifaximin (Xifaxan), 550 MG PO BID Spironolactone (Aldactone), 200 MG PO BID Scheduled PRN Clonazepam (Clonazepam Odt), 1-2 MG PO HS PRN for Anxiety Lactulose (Chronulac), 30 GM PO DAILY PRN for Constipation Allergies Coded Allergies: Ferrous Sulfate (Verified Allergy, Intermediate, IRON SUPPLEMENT--RASH, ABD PAIN AND DIARRHEA, 05/28/17) Cat Dander (Verified Allergy, Mild, rash, 05/28/17) Erythromycin (Verified Allergy, Mild, RASH, 05/28/17) Physical Exam Vital Signs Date Time Temp Pulse Resp B/P (MAP) Pulse Ox O2 Delivery O2 Flow Rate FiO2 06/14/17 10:01 95 Nasal Cannula 6.0 06/14/17 10:01 95 Nasal Cannula 6.0 06/14/17 09:39 75 Room Air 06/14/17 09:39 36.8 99 25 143/66 97 Nasal Cannula 6.0 06/14/17 09:33 99 Physical Exam CONSTITUTIONAL/VITAL SIGNS: Reviewed / noted above. GENERAL: Non-toxic in appearance. INTEGUMENTARY: Warm, dry, and [place]. HEAD: Normocephalic. EYES: without scleral icterus or trauma. ENT/OROPHARYNX: clear and moist. LYMPHADENOPATHY/NECK: Is supple without lymphadenopathy or meningismus. RESPIRATORY: Diminished breath sounds bilaterally, crackles at the bases bilaterally. CARDIOVASCULAR: Regular rate and rhythm. GI/ABDOMEN: Soft and nontender. No organomegaly or pulsatile mass. No rebound or guarding. Normal bowel sounds. EXTREMITIES: Warm and well perfused. Pedal edema bilaterally. BACK: No CVA tenderness. NEUROLOGICAL: Intact without focal deficits. PSYCHIATRIC: normal affect. MUSCULOSKELETAL: Normally developed with good muscle tone. Medical Decision & Procedures ER Provider Diagnostic Interpretation: X ray results and stated below per my interpretation and radiology interpretation. CHEST ONE VIEW PORTABLE CLINICAL HISTORY: sob dyspnea COMPARISON STUDY: 01/28/2017 FINDINGS: Moderate stable cardiomegaly. Mediastinal fullness unchanged in the prior study. Moderate prominence of the pulmonary vasculature. Persistent consolidative change left lung base versus left pleural effusion. This is improved from the prior exam. IMPRESSION: Moderate stable cardiomegaly. Consolidative change left lung base. Pulmonary vascular congestion. The above report was generated using voice recognition software. It may contain grammatical, syntax or spelling errors. Electronically signed by: Franklin Serrano M.D. 06/14/2017 10:57 AM Dictated Date/Time: 06/14/2017 10:55 AM Laboratory Results 06/14/17 09:58 Red Blood Count 3.47, Mean Corpuscular Volume 71.8, Mean Corpuscular Hemoglobin 21.0, Mean Corpuscular Hemoglobin Concent 29.3, Mean Platelet Volume 10.1, Neutrophils (%) (Auto) 84.1, Lymphocytes (%) (Auto) 7.8, Monocytes (%) (Auto) 7.4, Eosinophils (%) (Auto) 0.4, Basophils (%) (Auto) 0.0, Neutrophils # (Auto) 5.68, Lymphocytes # (Auto) 0.53, Monocytes # (Auto) 0.50, Eosinophils # (Auto) 0.03, Basophils # (Auto) 0.00 06/14/17 09:58 Test 06/14/17 09:58 White Blood Count 6.76 K/uL (4.8-10.8) Red Blood Count 3.47 M/uL (4.2-5.4) Hemoglobin 7.3 g/dL (12.0-16.0) Hematocrit 24.9 % (37-47) Mean Corpuscular Volume 71.8 fL (80-100) Mean Corpuscular Hemoglobin 21.0 pg (25-34) Mean Corpuscular Hemoglobin Concent 29.3 g/dl (32-36) Platelet Count 122 K/uL (130-400) Mean Platelet Volume 10.1 fL (7.4-10.4) Neutrophils (%) (Auto) 84.1 % Lymphocytes (%) (Auto) 7.8 % Monocytes (%) (Auto) 7.4 % Eosinophils (%) (Auto) 0.4 % Basophils (%) (Auto) 0.0 % Neutrophils # (Auto) 5.68 K/uL (1.4-6.5) Lymphocytes # (Auto) 0.53 K/uL (1.2-3.4) Monocytes # (Auto) 0.50 K/uL (0.11-0.59) Eosinophils # (Auto) 0.03 K/uL (0-0.5) Basophils # (Auto) 0.00 K/uL (0-0.2) RDW Standard Deviation 44.8 fL (36.4-46.3) RDW Coefficient of Variation 17.2 % (11.5-14.5) Immature Granulocyte % (Auto) 0.3 % Immature Granulocyte # (Auto) 0.02 K/uL (0.00-0.02) Platelet Estimate DECREASED Hypochromasia PRESENT Anisocytosis PRESENT Microcytosis PRESENT Prothrombin Time 12.1 SECONDS (9.0-12.0) Prothromb Time International Ratio 1.1 (0.9-1.1) Activated Partial Thromboplast Time 25.7 SECONDS (21.0-31.0) Partial Thromboplastin Ratio 1.0 Anion Gap 6.0 mmol/L (3-11) Est Creatinine Clear Calc Drug Dose 57.6 ml/min Estimated GFR () 38.2 Estimated GFR (Non- 32.9 BUN/Creatinine Ratio 32.8 (10-20) Calcium Level 8.0 mg/dl (8.5-10.1) Total Bilirubin 1.1 mg/dl (0.2-1) Aspartate Amino Transf (AST/SGOT) 22 U/L (15-37) Alanine Aminotransferase (ALT/SGPT) 22 U/L (12-78) Alkaline Phosphatase 370 U/L (45-117) Total Creatine Kinase 63 U/L (26-192) Creatine Kinase MB 0.7 ng/ml (0.5-3.6) Creatine Kinase MB Ratio 1.1 (0-3.0) Troponin I < 0.015 ng/ml (0-0.045) Pro-B-Type Natriuretic Peptide 2367 pg/ml (0-450) Total Protein 8.0 gm/dl (6.4-8.2) Albumin 2.7 gm/dl (3.4-5.0) Globulin 5.3 gm/dl (2.5-4.0) Albumin/Globulin Ratio 0.5 (0.9-2) Laboratory results as stated above per my review. ECG Indication: SOB/dyspnea Rate (beats per minute): 95 Rhythm: normal sinus Findings: no ectopy, other (no acute injury) ED Course 0942: Previous medical records were reviewed. The patient was evaluated in room B7. A complete history and physical examination was performed. 1116: I discussed the patient's case with Laura Johnston. The patient will be evaluated for further treatment and disposition. Medical Decision the differential was considered includes acute myocardial infarction, acute coronary syndrome, myocarditis, pericarditis, pericardial effusions /tamponade, esophageal perforation, pulmonary embolism, pneumonia, pneumothorax, cardiomyopathy, congestive heart, anemia , COPD/asthma exacerbation. This is a 47-year-old female who presents to the ED with a chief complaint of shortness of breath. The patient is to have an outpatient thoracentesis today. She was seen by her GI doctor who was ordering the labs and she was found to be hypoxic with oxygen saturations of 75% on room air. The patient was sent to the emergency department for evaluation and to have her thoracentesis done. The patient states that she has been feeling increasingly short of breath over the past couple of weeks and feels somewhat similar to just prior to receiving thoracentesis in the past. She also complains of some weakness and dizziness. The patient's physical exam reveals some diminished breath sounds bilaterally. She has some bibasilar crackles. Chest x-ray reveals consolidation of the left base and some pulmonary vascular congestion. Hemoglobin was 7.3. The BUN is 59 and creatinine is 1.8. The BNP is elevated at 2367. Troponin was negative. EKG shows a normal sinus rhythm. The patient was initially evaluated here. She was stable on oxygen with oxygen saturations in the mid 90s. The patient was sent to the EMT you to have her procedure performed. When the results came back, I spoke with Dr. Stanford about the patient. The patient will be [facility] from [facility]. She will have her procedure done. The patient will likely require antibiotics as well as blood transfusion. Dr. Stanford will place orders for admission for the patient from the [facility]. Medication Reconcilliation Current Medication List: was personally reviewed by me Blood Pressure Screening Patient's blood pressure: Elevated blood pressure Blood pressure disposition: Elevated BP felt to be situational Consults Time Called: 1112 Consulting Physician: Laura Johnstonist Returned Call: [phone] Discussed the patient's case. The patient will be evaluated for further treatment and disposition. Impression Primary Impression: Hypoxia Additional Impressions: Pneumonia CHF (congestive heart failure) THANH (acute kidney injury) Anemia Scribe Attestation The scribe's documentation has been prepared under my direction and personally reviewed by me in its entirety. I confirm that the note above accurately reflects all work, treatment, procedures, and medical decision making performed by me. Departure Information Dispostion Being Evaluated By Hospitalist Referrals Leo Scott M.D. (PCP) Patient Instructions [facility] Problem Qualifiers
[2017-06-15] MEDS ORDERED: LEVO200T6 PO (11:32)
[2017-06-15] MEDS ORDERED: LEVO25TA5 PO (11:32)
[2017-06-15] MEDS ORDERED: SITA50TA3 PO (11:32)
[2017-06-15] MEDS ORDERED: GLIP10TA9 PO (11:33)
[2017-06-15] MEDS ORDERED: OMEP40CA41 PO (11:34)
[2017-06-15] MEDS ORDERED: ROPI0.25 PO (11:34)
[2017-06-19] MEDS ORDERED: CYM/30 PO (17:19)
[2017-07-10] MEDS ORDERED: DXY100 PO (18:34)
[2017-07-10] MEDS ORDERED: LSX40 PO (18:34)
[2017-07-24] MEDS ORDERED: ESCI1TAB9 PO (11:42)
[2017-07-24] MEDS ORDERED: CIPR1TAB11 PO (11:42)
[2017-07-24] MEDS ORDERED: ROPI0.25 PO (11:42)
[2017-07-24] MEDS ORDERED: TRAM-10 PO (11:42)
[2017-07-24] MEDS ORDERED: RANI150T3 PO (11:42)
[2017-07-24] MEDS ORDERED: LSX40 PO (11:45)
[2017-07-24] MEDS ORDERED: LSX80 PO (11:45)
[2017-07-24] MEDS ORDERED: SPRN100 PO (11:45)
[2017-07-24] MEDS ORDERED: LCTL45 PO (11:45)
== END 2017-06-14 11:36 | disposition home or self-care (01) ==
LOC: EDSEX 09:28 → EDBD 09:28 → C.EDB 09:30
DX: J18.9 Pneumonia, unspecified organism (principal); R09.02 Hypoxemia; I50.9 Heart failure, unspecified; N17.9 Acute kidney failure, unspecified; D64.9 Anemia, unspecified; E11.9 Type 2 diabetes mellitus without complications; E78.5 Hyperlipidemia, unspecified; K21.9 Gastro-esophageal reflux disease without esophagitis; F41.9 Anxiety disorder, unspecified; E03.9 Hypothyroidism, unspecified; K74.60 Unspecified cirrhosis of liver; Z87.81 Personal history of (healed) traumatic fracture; Z79.4 Long term (current) use of insulin; Z79.899 Other long term (current) drug therapy; Z88.3 Allergy status to other anti-infective agents; Z88.8 Allergy status to other drugs, medicaments and biological substances; Z91.09 Other allergy status, other than to drugs and biological substances

== ENCOUNTER 2017-06-14 09:30 | Inpatient (IN) | payer BC ==
[2017-06-14] VITALS (18 sets, daily range): BP systolic 111–157; BP diastolic 62–82; PULSE 88–102; TEMP 36.3–37.2; O2SAT 92–97; BMI 49.0; BMI 49.7
[~2017-06-14] VITALS: Ht 170.2 cm; Wt 136.4 kg
[2017-06-14] MEDS: ALBUMIN HUMAN 25% 12.5 GM/50 ML VIAL IV SCH ×5 (11:00→22:00)
[2017-06-14 11:41] LABS: INR 1.1 (0.9-1.1); PARTIAL THROMBOPLASTIN RATIO 0.9; PROTHROMBIN TIME (PATIENT) 12.1 SECONDS (9.0-12.0)
[2017-06-14 12:06] LABS: HEMATOCRIT 24.7 % (37-47); MEAN CORPUSCULAR HEMOGLOBIN 20.7 pg (25-34); MEAN CORPUSCULAR HGB CONC 28.7 g/dl (32-36); MEAN PLATELET VOLUME 9.8 fL (7.4-10.4); PLATELET COUNT 111 K/uL (130-400); RED BLOOD COUNT 3.43 M/uL (4.2-5.4); WHITE BLOOD COUNT 6.66 K/uL (4.8-10.8)
[2017-06-14] MEDS ORDERED: ONDANSETRON INJ 2 MG/ML 2 ML VIAL IV PRN (13:30)
[2017-06-14] MEDS ORDERED: POLYETHYLENE (MIRALAX) 17 GM PACK PO PRN (14:15)
--- NOTE | 2017-06-14 14:19 | Discharge Instructions ---
Discharge Instructions Procedure Procedure Date: Jun 14, 2017. Reason for visit: Pre/Post Albumin Liver Cirrhosis. Discharge Discharge Date: Jun 14, 2017. Discharge Diagnosis: ascites Instructions Activity Recommendations: 1 Day-May resume regular activity Return to School/Work: no limitations Recommended Home Diet: Resume Previous Diet Allergies Coded Allergies: Ferrous Sulfate (Verified Allergy, Intermediate, IRON SUPPLEMENT--RASH, ABD PAIN AND DIARRHEA, 05/28/17) Cat Dander (Verified Allergy, Mild, rash, 05/28/17) Erythromycin (Verified Allergy, Mild, RASH, 05/28/17) [place] Recommendations: Call your doctor if: * Temperature above 101 degrees * Pain not relieved by pain medicine ordered * There is increased drainage or redness from any incision * You have any unanswered questions or concerns. Your Doctors Instructions noted above were prepared by provider Chuck Jurado. Patient Signature Section: Patient Instructions Signature Page Liliana Martinez Patient (or Guardian) Signature/Date: I have read and understand the instructions given to me by my caregivers. Caregiver/RN/Doctor Signature/Date: The above-named patient and/or guardian has received patient instructions on this date. + Original Patient Signature Page (only) stays with chart. Please make copy for patient.
--- NOTE | 2017-06-14 14:21 | DIAGNOSTIC IMAGING REPORT ---
PARACENTESIS UNDER ULTRASOUND GUIDANCE CLINICAL HISTORY: ASCITES COMPARISON STUDY: No previous studies for comparison. FINDINGS: The risks, benefits, and alternatives to the procedure were discussed with the patient. Written informed consent was obtained. Following real-time ultrasound localization, the skin was prepped and draped. Following local anesthesia with Xylocaine, the sheath paracentesis needle was inserted and approximately 4.4 liters of straw-colored fluid was removed by vacuum suction. A right lower quadrant approach was utilized. The patient tolerated the procedure well and left the department in satisfactory condition. IMPRESSION: Successful ultrasound-guided paracentesis with removal of approximately 4.4 liters of ascitic fluid. Electronically signed by: Chuck Jurado M.D. 06/14/2017 2:20 PM Dictated Date/Time: 06/14/2017 2:19 PM
[2017-06-14] MEDS ORDERED: VANCOMYCIN CONSULT ACTIVE PRN (14:22)
[2017-06-14] MEDS ORDERED: PIPERACILL/TAZOBAC CONSULT ACTIVE PRN (14:30)
--- NOTE | 2017-06-14 14:44 | DIAGNOSTIC IMAGING REPORT ---
DUPLEX PORTAL HEPATIC VEINS CLINICAL HISTORY: EVAL TIPS PATENCY TECHNIQUE: Doppler ultrasound COMPARISON STUDY: None FINDINGS: The tips region is patent. No evidence for thrombosis. IMPRESSION: Patent TIPS. Unremarkable venous flow The above report was generated using voice recognition software. It may contain grammatical, syntax or spelling errors. Electronically signed by: Franklin Serrano M.D. 06/14/2017 2:43 PM Dictated Date/Time: 06/14/2017 2:41 PM
[2017-06-14 15:25] LABS: PERIT FL WBC 726 /uL (0-300); PERITONEAL FLUID RBC 15000 /uL
--- NOTE | 2017-06-14 15:27 | Pharmacy Progress Note ---
Pharmacy Abx Initial Consult Date of Service Jun 14, 2017. Pharmacy Dosing Scope Date of Consult: 06/14/17 Consultation requested by: Dr. Stanford Pharmacy is consulted to initiate vancomycin and Zosyn IV dosing therapy, order appropriate labs and adjust drug dose/frequency. Subjective The patient is a 47 year old female admitted on 06/14/2017 for SOB. Objective Height (Feet): 5 Height (Inches): 7 Weight (Kilograms): 144 Vital Signs (Past 12Hrs) Vital Signs Past 12 Hours Date Time Temp Pulse Resp B/P (MAP) Pulse Ox O2 Delivery O2 Flow Rate FiO2 06/14/17 14:40 37.2 95 24 157/67 94 Nasal Cannula 4 06/14/17 11:09 36.8 97 30 137/62 (87) 97 Nasal Cannula 4 Lab Results (24Hrs) Laboratory Tests (24 Hours) Test 06/14/17 11:11 White Blood Count 6.66 K/uL (4.8-10.8) Micro Results Date/Time Source Procedure Growth Status 06/14/17 15:12 Blood Blood Culture Pending Gerardo Batch 06/14/17 13:26 Blood Blood Culture Pending Gerardo Batch 06/14/17 14:38 Nasal MRSA DNA Surveillance Screen Pending Ordered 06/14/17 13:26 Stool Shiga Toxin Test Pending Ordered 06/14/17 13:26 Stool Stool Culture Pending Ordered 06/14/17 13:26 Sputum Expectorated Sputum Gram Stain Pending Ordered 06/14/17 13:26 Sputum Expectorated Sputum Sputum Culture Pending Ordered Risk Factors for Resistance * NAFLD with cirrhosis. Assessment & Plan Assessment 47 year old female with a PMH of NAFLD with cirrhosis s/p TIPS. She was directly admitted from GI office due to SOB. She underwent a paracentesis today which removed 4.4 L after which the patient stated her breathing felt better. Plan vancomycin/Zosyn for treatment of possible PNA Vancomycin IV * Loading dose: 2700 mg (18 mg/kg) * Maintenance dose: 1900 mg IV (13.2 mg/kg) every 16 hours * Goal trough level for pneumonia : 15 to 20 mcg/mL * Trough ordered for prior to the fourth dose * A less than traditional dose has been selected due to likelihood of drug accumulation in obese patient. Piperacillin/tazobactam * 4.5 g bolus administered over 30 minutes, then 4.5 g IV extended infusion every 8 hours for CrCl greater than 20 mL/min * Aggressive dosing selected due to BMI 35. Pharmacy will continue to follow and will adjust dose/frequency as necessary. Thank you.
[2017-06-14] MEDS ORDERED: VANCOMYCIN INJ 2,700 MG in SODIUM CHLORIDE 0.9% 500ML 500 ML IV ONE (17:30)
[2017-06-14] MEDS ORDERED: PIPERACILL/TAZOBAC IV 4.5 GM in DEXTROSE 5% 100ML 100 ML IV ONE (17:30)
[2017-06-14] MEDS ORDERED: LACTULOSE SYRUP 30 GM/45 ML UDP PO PRN (18:00)
--- NOTE | 2017-06-14 18:25 | History and Physical ---
History & Physical Date & Time of Service: Jun 14, 2017 at 18:20 Chief Complaint: Pre/Post Albumin Liver Cirrhosis Primary Care Physician: Leo Scott M.D. History of Present Illness Source: patient, hospital records Patient is a 47 yo female who presented to the ER today after being seen by GI outpatient; she has had a week of cough, worsening SOB, and weakness as well as generalized malaise. She reports gaining about 20 lbs in the last 2 weeks but states she has not been eating or drinking more, and also that she has been taking her diuretics and medications without missing doses. She was scheduled for outpatient paracentesis today which was done and had 4.4 L of fluid removed. She also reports that her urine output has been slightly less this week than previously. No other complaints at this time. She has some abdominal pain which she feels might be worse. She typically gets some SOB before she is due for a paracentesis but this time she states her SOB was more severe than before and was associated with a non-productive cough. She also reports having some dizziness/lightheadedness. Past Medical/Surgical History Medical Problems: (1) Ankle fracture Permanent Comment: s/p repair Status: Chronic (2) Anxiety Status: Chronic (3) Chronic anemia Status: Chronic (4) Depression Status: Chronic (5) DM type 2 (diabetes mellitus, type 2) Status: Chronic (6) Dyslipidemia Status: Chronic (7) GERD (gastroesophageal reflux disease) Status: Chronic (8) Hypothyroidism Status: Chronic (9) Liver cirrhosis secondary to MEIER Status: Chronic (10) OCD (obsessive compulsive disorder) Status: Chronic Surgical Problems: (1) History of esophagogastroduodenoscopy (EGD) Permanent Comment: 02/2016 - large esophageal varices, GAVE Status: Chronic (2) S/P TIPS (transjugular intrahepatic portosystemic shunt) Permanent Comment: 04/2016 then revised in 06/2016 Status: Chronic Family History Unobtainable family history due to adoption Social History Smoking Status: Never Smoker Drug Use: none Marital Status: Immunizations History of Influenza Vaccine: Yes Influenza Vaccine Date: Oct 06, 2014 History of Tetanus Vaccine?: Yes Tetanus Immunization Date: Feb 22, 2009 History of Pneumococcal: Yes Pneumococcal Date: Apr 27, 2009 History of Hepatitis B Vaccine: Yes Hepatitis Immunization Date: March 15, 2014 Allergies Coded Allergies: Ferrous Sulfate (Verified Allergy, Intermediate, IRON SUPPLEMENT--RASH, ABD PAIN AND DIARRHEA, 05/28/17) Cat Dander (Verified Allergy, Mild, rash, 05/28/17) Erythromycin (Verified Allergy, Mild, RASH, 05/28/17) Home Medications Scheduled Aripiprazole (Aripiprazole), 10 MG PO HS Ciprofloxacin Tab (Cipro), 1 TAB PO DAILY Duloxetine HCl (Duloxetine HCl), 120 MG PO QAM Furosemide (Lasix), 80 MG PO BID Insulin Glargine (Lantus Solostar), 55 UNITS SC HS Mirtazapine Soltab (Remeron Soltab), 15 MG PO HS Rifaximin (Xifaxan), 550 MG PO BID Spironolactone (Aldactone), 200 MG PO BID Scheduled PRN Clonazepam (Clonazepam Odt), 1-2 MG PO HS PRN for Anxiety Lactulose (Chronulac), 30 GM PO DAILY PRN for Constipation Review of Systems Constitutional: + weakness, + fatigue, No fever, No chills, No sweats Eyes: No worsening of vision, No eye pain, No redness, No diplopia ENT: No hearing loss, No nasal symptoms, No sore throat, No trouble swallowing Respiratory: + cough, + shortness of breath, + dyspnea on exertion, No sputum, No wheezing, No hemoptysis Cardiovascular: + edema, No chest pain, No claudication, No palpitations Abdomen: + pain, No nausea, No vomiting, No diarrhea, No constipation, No GI bleeding Musculoskeletal: + swelling, No joint pain, No muscle pain, No calf pain Genitourinary - Female: No dysuria, No urinary frequency, No urinary urgency, No urinary incontinence Neurologic: No memory loss, No paralysis, No numbness/tingling, No vertigo Psychiatric: No problem reported Endocrine: No problem reported Hematologic / Lymphatic: No problem reported Integumentary: No rash, No itch, No bleeding, No problem reported Physical Exam Vital Signs Date Time Temp Pulse Resp B/P (MAP) Pulse Ox O2 Delivery O2 Flow Rate FiO2 06/14/17 18:00 88 126/79 (95) 06/14/17 17:29 36.6 88 18 121/73 (89) 96 Nasal Cannula 5.0 06/14/17 17:03 36.9 95 16 111/69 (83) 96 Nasal Cannula 5.0 06/14/17 16:30 36.6 98 18 133/74 (93) 95 Nasal Cannula 5.0 06/14/17 14:40 37.2 95 24 157/67 94 Nasal Cannula 4 06/14/17 11:09 36.8 97 30 137/62 (87) 97 Nasal Cannula 4 General Appearance: WD/WN, no apparent distress Head: normocephalic, atraumatic Eyes: PERRL, EOMI, sclerae normal ENT: hearing grossly normal Neck: supple, no JVD, no carotid bruits, trachea midline Respiratory/Chest: chest non-tender, no respiratory distress, no accessory muscle use, + decreased breath sounds (bilateral bases diminished) Cardiovascular: regular rate, rhythm, no gallop, no JVD, no murmur Abdomen/GI: normal bowel sounds, soft, no organomegaly, + tenderness, + pertinent finding (ascites/distension) Back: no CVA tenderness, normal range of motion Extremities/Musculoskelatal: no calf tenderness, normal capillary refill, + pedal edema Neurologic/Psych: no motor/sensory deficits, alert, normal mood/affect, oriented x 3 Skin: warm/dry, no rash, + pallor Diagnostics Laboratory Results Results Past 24 Hours Test 06/14/17 00:00 06/14/17 11:11 06/14/17 13:26 06/14/17 16:59 Range/Units Peritoneal Fluid Color YELLOW Peritoneal Fluid Appearance BLOODY Peritoneal Fluid WBC 726 0-300 /uL Peritoneal Fluid RBC 57974 /uL Peritoneal Fld Mononuclear WBCs (%) 95.4 % Peritoneal Fld Polynuclear WBCs (%) 4.6 % White Blood Count 6.66 4.8-10.8 K/uL Red Blood Count 3.43 4.2-5.4 M/uL Hemoglobin 7.1 12.0-16.0 g/dL Hematocrit 24.7 37-47 % Mean Corpuscular Volume 72.0 80-100 fL Mean Corpuscular Hemoglobin 20.7 25-34 pg Mean Corpuscular Hemoglobin Concent 28.7 32-36 g/dl RDW Standard Deviation 44.9 36.4-46.3 fL RDW Coefficient of Variation 17.0 11.5-14.5 % Platelet Count 111 130-400 K/uL Mean Platelet Volume 9.8 7.4-10.4 fL Prothrombin Time 12.1 9.0-12.0 SECONDS Prothromb Time International Ratio 1.1 0.9-1.1 Activated Partial Thromboplast Time 23.4 21.0-31.0 SECONDS Partial Thromboplastin Ratio 0.9 Bedside Glucose 182 70-90 mg/dl Microbiology Results 06/14/17 Blood Culture, Received Pending 06/14/17 Blood Culture, Received Pending 06/14/17 MRSA DNA Surveillance Screen, Received Pending 06/14/17 Shiga Toxin Test, Ordered Pending 06/14/17 Stool Culture, Ordered Pending 06/14/17 Gram Stain, Ordered Pending 06/14/17 Sputum Culture, Ordered Pending Impression Assessment and Plan WORSENING SOB: POSSIBLE PNEUMONIA PER CXR -patient reports more severe SOB for the past week than she normally gets prior to a paracentesis -CXR: left base consolidative change, pulmonary vascular congestion, mild cardiomegaly -start on empiric abx for HCAP with zosyn + vanco; obtain MRSA swab -no significant improvement following paracentesis -repeat CXR in AM, has had previous thoracentesis, if CXR worsens, may need CT chest to determine if pleural effusion increasing -sputum culture if patient able to produce ANEMIA: ACUTE ON CHRONIC ANEMIA: -Hb 7.1 which is below her baseline of ~9 -will transfuse with 2 units PRBCs -no reports of melena or hematochezia to suggest bleeding -does have a hx of non bleeding esophageal varices, and is to go back on nadolol per GI when able to tolerate -monitor closely -may require additional lasix in between units of blood NAFLD CIRRHOSIS: -has refractory ascites despite previous TIPS placement; US done to check patency of TIPS catheter -also has a prior hx of hepatic encephalopathy but presently at baseline and ammonia is not elevated; continue lactulose and rifaximin -also had pleural effusions previously but does not appear on CXR from today -has non bleeding esophageal varices from previous endoscopy, to return on Nadolol per GI -was previously evaluated by Liver Transplant team at [facility] but was told her MELD score was too low; is scheduled for another evaluation this month per GI -GI consulted -spironolactone and lasix continued -on albumin infusions pre and post paracentesis for 2 days -paracentesis drained 4.4 L and previous paracentesis on May 28 yielded 7.9 L THANH: -Cr elevated to 1.8, and baseline is usually below 1 -possibly related to intravascular depletion or as a result of portal HTN -will monitor closely on albumin + diuretics -check UA -avoid nephrotoxins DM TYPE II: -resume lantus insulin -diabetic diet -BSG AC and HS DEPRESSION AND OCD: -continue home meds Level of Care Med/Surg Resuscitation Status FULL RESUSCITATION VTE Prophylaxis VTE Risk Assessment Done? Y/N: Yes Risk Level: Moderate Given or contraindicated: SCD's
[2017-06-14] MEDS: FUROSEMIDE 40 MG TAB PO SCH (18:52)
[2017-06-14] MEDS ORDERED: DEXTROSE 50% 50 ML SYR IV PRN (19:00)
[2017-06-14] MEDS ORDERED: GLUCOSE 40% GEL 15 GM TUBE PO PRN (19:00)
[2017-06-14] MEDS ORDERED: GLUCOSE 10 TABS/TUBE PO PRN (19:00)
[2017-06-14] MEDS ORDERED: GLUCAGON FOR INJ 1 MG VIAL SQ PRN (19:00)
[2017-06-14] MEDS ORDERED: FUROSEMIDE INJ 20 MG in SYRINGE 0 ML IV ONE (19:30)
[2017-06-14] MEDS ORDERED: INSULIN GLARGINE SOLOSTAR 100 UNITS/ML 3 ML PEN SC SCH (21:00)
[2017-06-14] MEDS: MIRTAZAPINE TAB 15 MG TAB PO SCH (22:35)
[2017-06-14] MEDS: CLONAZEPAM 1 MG TAB PO PRN (22:35)
[2017-06-14] MEDS: ARIPIprazole TAB 10 MG TAB PO SCH (22:35)
[2017-06-14] MEDS: RIFAXIMIN TAB 550 MG TAB PO SCH (22:35)
[2017-06-14] MEDS: PIPERACILL/TAZOBAC IV 4.5 GM in DEXTROSE 5% 100ML 100 ML IV SCH (23:01)
[2017-06-15] VITALS (15 sets, daily range): BP systolic 112–159; BP diastolic 58–82; PULSE 91–100; TEMP 36.4–36.8; O2SAT 88–100
[2017-06-15] MEDS: ALBUMIN HUMAN 25% 12.5 GM/50 ML VIAL IV SCH ×2 (01:58→07:15)
[2017-06-15 03:47] LABS: URINE APPEARANCE CLEAR (CLEAR); URINE BILIRUBIN NEG (NEG); URINE COLOR YELLOW; URINE NITRITE NEG (NEG); URINE SPECIFIC GRAVITY 1.021 (1.000-1.030); UROBILINOGEN NEG (NEG); ZZUR CULT IF INDIC CLEAN CATCH NO
[2017-06-15 03:50] LABS: MANUAL MICROSCOPIC REQUIRED? NO; REVIEW REQ? NO
[2017-06-15] MEDS: PIPERACILL/TAZOBAC IV 4.5 GM in DEXTROSE 5% 100ML 100 ML IV SCH ×3 (05:59→22:18)
[2017-06-15 06:21] LABS: HEMATOCRIT 27.7 % (37-47); MEAN CELL VOLUME 74.7 fL (80-100); MEAN CORPUSCULAR HEMOGLOBIN 22.1 pg (25-34); MEAN CORPUSCULAR HGB CONC 29.6 g/dl (32-36); MEAN PLATELET VOLUME 10.2 fL (7.4-10.4); PLATELET COUNT 115 K/uL (130-400); RED BLOOD COUNT 3.71 M/uL (4.2-5.4)
[2017-06-15 06:50] LABS: BUN/CREATININE RATIO 31.6 (10-20); CALCIUM 7.9 mg/dl (8.5-10.1); CREATININE 1.7 mg/dl (0.60-1.20)
[2017-06-15] MEDS: DULOXETINE HCL 60 MG CAP PO SCH (08:49)
[2017-06-15] MEDS: RIFAXIMIN TAB 550 MG TAB PO SCH ×2 (08:50→21:09)
[2017-06-15] MEDS: FUROSEMIDE 40 MG TAB PO SCH (08:51)
[2017-06-15] MEDS ORDERED: SPIRONOLACTONE 100 MG TAB PO SCH ×2 (09:00→17:00)
[2017-06-15] MEDS ORDERED: VANCOMYCIN INJ 1,900 MG in SODIUM CHLORIDE 0.9% 500ML 500 ML IV SCH (10:00)
--- NOTE | 2017-06-15 10:53 | DIAGNOSTIC IMAGING REPORT ---
CHEST ONE VIEW PORTABLE CLINICAL HISTORY: respiratory distress COMPARISON STUDY: 06/14/2017 FINDINGS: The heart remains enlarged. There is dilatation of the main pulmonary artery segment. There is radiographic evidence of congestive failure/fluid overload. There are left lung airspace opacities, likely representing asymmetric edema. A pneumonia could appear similar. There is a suspected left pleural effusion.[ IMPRESSION: Cardiomegaly and radiographic evidence of congestive failure/fluid overload. Small left pleural effusion. Left lung airspace opacities likely reflecting a symmetric edema although a pneumonia could appear similar Electronically signed by: Chuck Jurado M.D. 06/15/2017 10:52 AM Dictated Date/Time: 06/15/2017 10:50 AM
[2017-06-15] MEDS ORDERED: FUROSEMIDE INJ 40 MG in SYRINGE 0 ML IV ONE (11:30)
[2017-06-15] MEDS ORDERED: LEVO200T6 PO (11:32)
[2017-06-15] MEDS ORDERED: LEVO25TA5 PO (11:32)
[2017-06-15] MEDS ORDERED: SITA50TA3 PO (11:32)
[2017-06-15] MEDS ORDERED: GLIP10TA9 PO (11:33)
[2017-06-15] MEDS ORDERED: ROPI0.25 PO (11:34)
[2017-06-15] MEDS ORDERED: OMEP40CA41 PO (11:34)
[2017-06-15] MEDS ORDERED: LEVOTHYROXINE 25 MCG TAB PO ONE (11:35)
[2017-06-15] MEDS ORDERED: LEVOTHYROXINE 200 MCG TAB PO ONE (11:35)
[2017-06-15] MEDS ORDERED: DEXTROSE 50% 50 ML SYR IV PRN (11:45)
[2017-06-15] MEDS ORDERED: GLUCOSE 40% GEL 15 GM TUBE PO PRN (11:45)
[2017-06-15] MEDS ORDERED: GLUCOSE 10 TABS/TUBE PO PRN (11:45)
[2017-06-15] MEDS ORDERED: GLUCAGON FOR INJ 1 MG VIAL SQ PRN (11:45)
[2017-06-15] MEDS: PANTOprazole SOD 40 MG TAB PO SCH (12:19)
[2017-06-15] MEDS: INSULIN GLARGINE SOLOSTAR 100 UNITS/ML 3 ML PEN SC SCH ×2 (12:21→21:13)
[2017-06-15] MEDS: INSULIN ASPART 100 UNITS/ML 3 ML PEN SC SCH ×3 (13:04→21:00)
--- NOTE | 2017-06-15 14:39 | GASTROENTEROLOGY PROGRESS NOTE ---
DATE: 06/15/2017 AGE: 47. SEX: Female. RACE: . SUBJECTIVE: I had the pleasure of seeing Liliana Martinez at her bedside today. She has a history of MEIER cirrhosis and is complicated by refractory ascites, status post TIPS placement. She also has a history of hepatic encephalopathy, bilateral pleural effusions and nonbleeding esophageal varices. She has been seen by [facility] transplant service at [place] and she has not required transplantation as of this time secondary to low MELD score. She presented to the Department of Emergency Medicine yesterday and was tachycardic and had increased oxygen requirements. Her hemoglobin was noted to be 7.3. Her BNP was noted to be 2367. I was contacted by Dr. Hanson this morning regarding her diuretics as she has continued to have increasing O2 requirements since she has been here and she was placed on Zosyn and vancomycin therapy for questionable left-sided pneumonia. She had a liver ultrasound yesterday to evaluate patency of her TIPS, which was patent and no other remarkable findings were noticed. Since I saw the patient, she continues to complain of some shortness of breath. She did have a Valentin catheter placed and did receive an additional dose of Lasix today of 80 mg IV x1. She states that she has had some improvement in her breathing, though continues to have dyspnea at present. Her ascitic fluid showed no evidence of SBP. She denies any hematemesis, melena, hematochezia, fevers, chills, nausea or vomiting. She does complain of some mild abdominal pain, which she describes as a chronic ache in the left lower quadrant, 3/10 in intensity, nonradiating. She has no further complaints. REVIEW OF SYSTEMS: Negative x10 system review other than pertinent positives listed in the HPI. PHYSICAL EXAMINATION: VITAL SIGNS: Include a temp of 36.8, pulse 91, respirations 22, blood pressure 127/58, and pulse ox 93% on 4 liters via nasal cannula. GENERAL: She is awake, cooperative, and obese. No acute distress. HEAD: Normocephalic and atraumatic. CHEST: Decreased breath sounds at bilateral bases. CARDIOVASCULAR SYSTEM: Regular rate and rhythm. ABDOMEN: Soft. Tender in left lower quadrant. Nondistended. There are positive bowel sounds. There is no appreciable hepatosplenomegaly. EXTREMITIES: No clubbing, cyanosis, or edema. LABORATORY STUDIES: From today include a hemoglobin of 8.2, hematocrit of 27.7. This is following blood transfusion of 2 units yesterday. IMPRESSION: A 47-year-old female with nonalcoholic steatohepatitis cirrhosis complicated by refractory ascites despite TIPS placement and esophageal varices as well as hepatic encephalopathy. PLAN: At the present time, I would recommend that the patient have measurement of strict I's and O's. I also discussed this case with Dr. Hanson and did agree with the additional dose of IV Lasix and we will attempt to increase her diuretic therapy slowly during this hospitalization to see if this will improve her symptoms. If she has worsening symptoms or progression of her ascites, consideration could be given to performing large volume paracentesis to aid in removal of ascitic fluid. I did recommend also that we decrease her albumin therapy at this time as it may be contributing to volume overload status. I will follow her clinical course and make further recommendations as needed. Once again, thanks for allowing me to participate in the care of this patient. If you have any further questions, please do not hesitate in contacting me.
[2017-06-15] MEDS: FUROSEMIDE INJ 80 MG in SYRINGE 0 ML IV SCH (17:09)
[2017-06-15] MEDS: ARIPIprazole TAB 10 MG TAB PO SCH (21:09)
[2017-06-15] MEDS: MIRTAZAPINE TAB 15 MG TAB PO SCH (21:10)
[2017-06-15] MEDS: CLONAZEPAM 1 MG TAB PO PRN (21:13)
[2017-06-15] MEDS ORDERED: PNEUMOCOCCAL POLYSACCHARIDES 25 MCG/0.5 ML VIAL/SYR IM. ONE (21:15)
[2017-06-15] MEDS ORDERED: PNEUMOCOCCAL ADMINISTRATION CHARGE ONE (21:15)
--- NOTE | 2017-06-15 23:10 | Progress Note ---
Medicine Progress Note Date & Time of Visit: Jun 15, 2017 at 11:43. Subjective 47 yo with h/o MEIER cirrhosis presents s/p paracentesis for worsened respiratory distress and anemia. -pt is on nasal canula at this time and not working hard to breathe -no conversational dyspnea is present right now -she reports feeling more short of breath over the last week -denies fevers or chills -denies chest pain -increased swelling over the past week Objective Last 8 Hrs Date Time Temp Pulse Resp B/P (MAP) Pulse Ox O2 Delivery O2 Flow Rate FiO2 06/15/17 11:26 36.5 95 22 92 2.0 06/15/17 10:39 36.5 95 22 149/82 (104) 92 Nasal Cannula 2.0 06/15/17 08:14 36.6 96 24 135/78 (97) 98 Nasal Cannula 5.0 06/15/17 07:32 36.5 99 16 159/72 (101) 100 5.0 06/15/17 07:19 36.5 94 18 149/78 (101) 99 Oxymask 5.0 Humidified Oxygen Physical Exam: GEN: obese, in no acute distress, alert and appropriate, nasal canula in place HEENT: NC/AT, PERRL, normal sclerae CARDIO: reg rate, S1/2 heard without m/g/r, no edema LUNGS: coarse rhonchi throughout, no wheezes or rales. ABD: soft, non-tender, non-distended, no rebound or guarding, +fluid wave. EXTREMITY: RP and DP palpable 2+ bilat, extremities are warm and well-perfused NEURO: CN 2-12 grossly intact, sensation intact throughout, no gross focal deficits MUSC: moves all extremities equally SKIN: warm and dry Laboratory Results: 06/15/17 05:56 06/15/17 05:56 Test 06/14/17 00:00 06/14/17 11:11 06/15/17 03:00 06/15/17 05:56 Peritoneal Fluid Color YELLOW Peritoneal Fluid Appearance BLOODY Peritoneal Fluid WBC 726 /uL (0-300) Peritoneal Fluid RBC 80682 /uL Peritoneal Fld Mononuclear WBCs (%) 95.4 % Peritoneal Fld Polynuclear WBCs (%) 4.6 % Prothrombin Time 12.1 SECONDS (9.0-12.0) Prothromb Time International Ratio 1.1 (0.9-1.1) Activated Partial Thromboplast Time 23.4 SECONDS (21.0-31.0) Partial Thromboplastin Ratio 0.9 Urine Color YELLOW Urine Appearance CLEAR (CLEAR) Urine pH 5.0 (4.5-7.5) Urine Specific [place] 1.021 (1.000-1.030) Urine Protein NEG (NEG) Urine Glucose (UA) NEG (NEG) Urine Ketones NEG (NEG) Urine Occult Blood NEG (NEG) Urine Nitrite NEG (NEG) Urine Bilirubin NEG (NEG) Urine Urobilinogen NEG (NEG) Urine Leukocyte Esterase NEG (NEG) Red Blood Count 3.71 M/uL (4.2-5.4) Mean Corpuscular Volume 74.7 fL (80-100) Mean Corpuscular Hemoglobin 22.1 pg (25-34) Mean Corpuscular Hemoglobin Concent 29.6 g/dl (32-36) RDW Standard Deviation 48.5 fL (36.4-46.3) RDW Coefficient of Variation 17.5 % (11.5-14.5) Mean Platelet Volume 10.2 fL (7.4-10.4) Anion Gap 6.0 mmol/L (3-11) Est Creatinine Clear Calc Drug Dose 61.1 ml/min Estimated GFR () 40.9 Estimated GFR (Non- 35.3 BUN/Creatinine Ratio 31.6 (10-20) Calcium Level 7.9 mg/dl (8.5-10.1) Test 06/15/17 13:26 06/15/17 16:00 06/15/17 20:07 Urine Random Sodium 6 mEq/L Bedside Glucose 167 mg/dl (70-90) Date/Time Source Procedure Growth Status 06/14/17 15:26 Blood Blood Culture Pending Received 06/14/17 17:30 Nasal MRSA DNA Surveillance Screen - Final Specimen Negative for MRSA by DNA Probe Complete Last 24 Hours Test 06/14/17 13:26 06/14/17 16:59 06/14/17 22:23 06/15/17 03:00 Bedside Glucose 182 mg/dl 212 mg/dl Urine Color YELLOW Urine Appearance CLEAR Urine pH 5.0 Urine Specific [place] 1.021 Urine Protein NEG Urine Glucose (UA) NEG Urine Ketones NEG Urine Occult Blood NEG Urine Nitrite NEG Urine Bilirubin NEG Urine Urobilinogen NEG Urine Leukocyte Esterase NEG Test 06/15/17 05:56 06/15/17 08:07 White Blood Count 7.80 K/uL Red Blood Count 3.71 M/uL Hemoglobin 8.2 g/dL Hematocrit 27.7 % Mean Corpuscular Volume 74.7 fL Mean Corpuscular Hemoglobin 22.1 pg Mean Corpuscular Hemoglobin Concent 29.6 g/dl RDW Standard Deviation 48.5 fL RDW Coefficient of Variation 17.5 % Platelet Count 115 K/uL Mean Platelet Volume 10.2 fL Sodium Level 135 mmol/L Potassium Level 4.0 mmol/L Chloride Level 100 mmol/L Carbon Dioxide Level 29 mmol/L Anion Gap 6.0 mmol/L Blood Urea Nitrogen 54 mg/dl Creatinine 1.70 mg/dl Est Creatinine Clear Calc Drug Dose 61.1 ml/min Estimated GFR () 40.9 Estimated GFR (Non- 35.3 BUN/Creatinine Ratio 31.6 Random Glucose 200 mg/dl Calcium Level 7.9 mg/dl Bedside Glucose 233 mg/dl Date/Time Source Procedure Growth Status 06/14/17 15:26 Blood Blood Culture Pending Received 06/14/17 15:12 Blood Blood Culture Pending Received 06/14/17 17:30 Nasal MRSA DNA Surveillance Screen - Final Specimen Negative for MRSA by DNA Probe Complete Assessment & Plan 47 yo with h/o MEIER cirrhosis presents s/p paracentesis for worsened respiratory distress and anemia. 1. Acute respiratory distress 2/2 acute diastolic heart failure 2/2 volume overload in setting of possible HCAP-diuretics were adjusted to her home doses and Lasix was made IV. Albumin was stopped. On broad spectrum abx in setting of a cough for the last week, however, she denies fevers or chills and is not ill-appearing. Will cont abx for now until her respiratory status improves. Pt was moved to telemetry with waxing and waning respiratory distress requiring supplemental oxygen by facemask overnight. Feel diuresis will help with this, but should be monitored more closely. 2. 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 Appreciate recs. 3. ACD-blood transfusion day of admission and she was receiving scheduled albumin every 6 hours-stopped albumin now, discussed with GI who agrees with this. No reports of melena or hematochezia to suggest bleeding. Does have a hx of non bleeding esophageal varices, and is to go back on nadolol per GI when able to tolerate Blood products likely contributing to fluid overload, cont diuretics as above. CBC in am. 4. NAFLD CIRRHOSIS: has refractory ascites despite previous TIPS placement; US done to check patency of TIPS catheter which is in the correct spot. Has h/ o HE, not present now, ammonia WNL, continue lactulose and rifaximin. Has non bleeding esophageal varices from previous endoscopy, to return on Nadolol per GI. Was previously evaluated by Liver Transplant team at [facility]. Paracentesis drained 4.4 L yesterday and previous paracentesis on May 28 yielded 7.9 L 5. DMII-No coverage given since admission, Lantus given last night, however, she is trending up >220 this morning. Will change Lantus to BID and Novolog for ISS/carb coverage. 6. Hypothyroidism-Synthroid at 225mcg PO daily-added to regimen and Home Meds list. 7. Depression/Anxiety-appears stable, Cont home Cymbalta at 120mg daily, Remeron and Abilify-both taken nightly. Clonazepam PRN 8. Obesity Full Code DVT prophylaxis-SCDs while pt anemic and requiring transfusions. Apprec GI input into the need for heparin in her case. Dispo-to telemetry. Discussed the move with her who was in the room at the time of transfer. Natalya Hanson DO [facility] Hospitalist Consultants: GI-Case Nephro-Oncu Current Inpatient Medications: Current Inpatient Medications Medications (Trade) Dose Ordered Sig/Ana Luisa Route Start Time Stop Time Status Last Admin Dose Admin Polyethylene (Miralax Powder Packet) 17 gm DAILY PRN PO 06/14/17 14:15 07/14/17 14:14 Ondansetron HCl (Zofran Inj) 4 mg Q6H PRN IV 06/14/17 13:30 07/14/17 13:29 06/14/17 22:22 4 MG Vancomycin HCl (Consult) 1 ea UD PRN N/A 06/14/17 14:22 07/14/17 14:21 Piperacillin Sod/ Tazobactam Sod (Consult) 1 ea UD PRN N/A 06/14/17 14:30 07/14/17 14:29 Vancomycin HCl 1900 mg/Sodium Chloride 538 ml @ 200 mls/hr Q16H IV 06/15/17 10:00 06/22/17 09:59 06/15/17 09:48 200 MLS/HR Piperacillin Sod/ Tazobactam Sod 4.5 gm/Dextrose 120 ml @ 30 mls/hr Q8H IV 06/14/17 22:00 06/21/17 21:59 06/15/17 05:59 30 MLS/HR Aripiprazole (Abilify Tab) 10 mg HS PO 06/14/17 21:00 07/14/17 20:59 06/14/17 22:35 10 MG Clonazepam (Klonopin Tab) 1 mg HS PRN PO 06/14/17 18:00 07/14/17 17:59 06/14/17 22:35 1 MG Duloxetine HCl (Cymbalta Cap) 120 mg QAM PO 06/15/17 09:00 07/15/17 08:59 06/15/17 08:49 120 MG Insulin Glargine (Lantus Solostar Pen) 55 units HS SC 06/14/17 21:00 07/14/17 20:59 06/14/17 22:37 55 UNITS Lactulose (Chronulac Syrup) 30 gm DAILY PRN PO 06/14/17 18:00 07/14/17 17:59 Rifaximin (Xifaxan Tab) 550 mg BID PO 06/14/17 21:00 07/14/17 20:59 06/15/17 08:50 550 MG Mirtazapine (Remeron Tab) 15 mg HS PO 06/14/17 21:00 07/14/17 20:59 06/14/17 22:35 15 MG Glucose (Glucose 40% Gel) 15-30 GRAMS 15 GRAMS... UD PRN PO 06/14/17 19:00 07/14/17 18:59 Glucose (Glucose Chew Tab) 4-8 Tablets 4 Tabl... UD PRN PO 06/14/17 19:00 07/14/17 18:59 Dextrose (Dextrose 50% 50ML Syringe) 25-50ML OF 50% DW IV FOR... UD PRN IV 06/14/17 19:00 07/14/17 18:59 Glucagon (Glucagon Inj) 1 mg UD PRN SQ 06/14/17 19:00 07/14/17 18:59 Furosemide 80 mg/ Syringe 8 ml @ 4 mls/min BID17 IV 06/15/17 17:00 07/15/17 16:59 Spironolactone (Aldactone Tab) 100 mg BID17 PO 06/16/17 09:00 07/15/17 16:59 UNV
[2017-06-16 00:17] VITALS: BP 127/57; PULSE 100; TEMP 37.5; O2SAT 95
[2017-06-16] MEDS ORDERED: ACETAMINOPHEN 325 MG TAB PO PRN (03:30)
[2017-06-16] MEDS ORDERED: TRAMADOL HCL 50 MG TAB PO PRN (03:30)
[2017-06-16 04:40] VITALS: BP 142/60; PULSE 102; TEMP 36.8; O2SAT 95
[2017-06-16] MEDS: LEVOTHYROXINE 200 MCG TAB PO SCH (06:27)
[2017-06-16] MEDS: LEVOTHYROXINE 25 MCG TAB PO SCH (06:27)
[2017-06-16] MEDS: PIPERACILL/TAZOBAC IV 4.5 GM in DEXTROSE 5% 100ML 100 ML IV SCH ×2 (06:28→14:52)
[2017-06-16 07:41] LABS: HEMATOCRIT 27.1 % (37-47); MEAN CELL VOLUME 75.5 fL (80-100); MEAN CORPUSCULAR HEMOGLOBIN 21.7 pg (25-34); MEAN CORPUSCULAR HGB CONC 28.8 g/dl (32-36); MEAN PLATELET VOLUME 10.2 fL (7.4-10.4); PLATELET COUNT 104 K/uL (130-400); RED BLOOD COUNT 3.59 M/uL (4.2-5.4); WHITE BLOOD COUNT 6.92 K/uL (4.8-10.8)
[2017-06-16 07:47] VITALS: BP 132/65; PULSE 102; TEMP 37.3; O2SAT 93
[2017-06-16 07:53] LABS: BUN/CREATININE RATIO 34.2 (10-20); CALCIUM 7.9 mg/dl (8.5-10.1); CREATININE 1.3 mg/dl (0.60-1.20); POTASSIUM 4.1 mmol/L (3.5-5.1)
[2017-06-16] MEDS: FUROSEMIDE INJ 80 MG in SYRINGE 0 ML IV SCH ×2 (09:35→18:27)
[2017-06-16] MEDS: SPIRONOLACTONE 100 MG TAB PO SCH ×2 (09:36→17:52)
[2017-06-16] MEDS: PANTOprazole SOD 40 MG TAB PO SCH (09:36)
[2017-06-16] MEDS: RIFAXIMIN TAB 550 MG TAB PO SCH ×2 (09:55→21:08)
[2017-06-16] MEDS: DULOXETINE HCL 60 MG CAP PO SCH (09:55)
[2017-06-16] MEDS: INSULIN GLARGINE SOLOSTAR 100 UNITS/ML 3 ML PEN SC SCH ×2 (09:57→21:23)
[2017-06-16] MEDS: INSULIN ASPART 100 UNITS/ML 3 ML PEN SC SCH ×4 (09:58→21:23)
--- NOTE | 2017-06-16 10:27 | NEPHROLOGY CONSULTATION ---
DATE OF CONSULTATION: 06/16/2017 ATTENDING OF RECORD: Dr. Hanson. REASON FOR CONSULTATION: Hepatorenal syndrome. HISTORY OF PRESENT ILLNESS: This is a 47-year-old female who has liver cirrhosis secondary to MEIER, who presented with worsening weight gain, gained about 20 pounds in last 2 weeks with poor appetite and decrease in urination. The patient's shoulder was bothering her from her previous injury and the patient was taking Motrin twice a day for the past 2 weeks prior to coming in. The patient underwent a paracentesis, where they removed over 4 liters, which has helped with her abdominal distention. The patient also is requiring chronic oxygen at home at 2 liters and then wears a CPAP at night to help her sleep. The patient states that shortness of breath is okay at rest, but worsens with exertion. The patient was given 25 grams of albumin b.i.d. on the 4th and then 12.5 IV q. 6 hours on the 5th. The patient also received 20 of IV Lasix on the 4th as well as 40 of IV Lasix on the as well as 2 more additional dose of 80 IV b.i.d. Lasix on the . The patient was negative 600 mL on the 6th so far, but still positive 2 liters based on the I's and O's; however, is down 3 kilos based on weights. PAST MEDICAL HISTORY: Type 2 diabetes for over 10 years, hyperlipidemia, hypothyroidism, liver cirrhosis secondary to MEIER, and being evaluated for liver transplant at the end of this month. PAST SURGICAL HISTORY: TIPS. 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 FAMILY HISTORY: The patient is adopted. SOCIAL HISTORY: No smoking, no alcohol, and no drugs. . HOME MEDICATIONS: Significant for Lasix 80 mg p.o. b.i.d. and spironolactone 200 mg p.o. b.i.d. CURRENT MEDICATIONS: Abilify 10 mg at night, Cymbalta 120 p.o. daily, Lasix 80 IV b.i.d., sliding scale insulin, levothyroxine 225 mcg daily, Remeron 15 mg at night, Protonix 40 mg p.o. daily, Zosyn 4.5 grams IV q. 8 hours, rifaximin 550 mg p.o. b.i.d., and spironolactone 100 mg p.o. b.i.d. REVIEW OF SYSTEMS: Positive fatigue. Positive shortness of breath with exertion. No chest pain. No nausea or vomiting. No diarrhea or constipation. Urinating well with a Valentin catheter. No headaches. No blurry vision. No dysphagia. No itching. All other review of systems otherwise negative. PHYSICAL EXAMINATION: VITAL SIGNS: Temperature 37.3, pulse 102, respiratory rate is 20, blood pressure 132/65, and satting 93% on 4 liters. GENERAL: Awake, alert, and oriented x3, obese. EYES: No scleral icterus. ENT: Moist mucous membranes. NECK: Supple. PULMONARY: Decreased breath sounds at the bases. CARDIAC: Tachy. ABDOMEN: Bowel sounds positive. Soft. Mildly distended. EXTREMITIES: No clubbing, cyanosis or edema noted. NEUROLOGICALLY: Nonfocal. DERMATOLOGIC: No rash or ulcers noted. LABORATORY DATA: Sodium level is 135, potassium 4.1, chloride is 100, bicarbonate is 32, BUN is 44, creatinine is 1.3, glucose 166, and calcium 7.9. White count 6.9, H&H 7.8 and 27.1, and platelet count 104. INR is 1.1. Urine random sodium of 6 on the 5th. UA was bland with specific gravity of 1.021. Chest x-ray shows cardiomegaly with radiographic evidence of congestive failure, fluid overload, and small left pleural effusion on the 4th. Blood cultures are negative. ASSESSMENT AND PLAN: THANH-The patient presents with elevated creatinine of 1.8 on the 4th. It was 1.7 on the 5th and is now 1.3. Previous baselines appear to be around 0.8-0.9 as of last year. The patient with signs of congestive heart failure and was given albumin and Lasix and continues with spironolactone and lasix. The patient's breathing is better, but still has shortness of breath with exertion, which is worse than her baseline. Would like to continue the Lasix and albumin in addition to the spironolactone. Random urine sodium is low; however, would continue with the albumin and hold off on the midodrine and octreotide since creatinine is improving. Perhaps, creatinine will continue to improve with the albumin, difficult to probate judge volume status in this morbidly obese patient. There are signs of volume overload on chest x-ray. For now, restart the albumin and would continue the Lasix and spironolactone, trying to optimize her breathing even more. We will discuss the case further with the primary hospitalist. Difficult and complicated patient with multiple comorbidities with signs of volume overload as well as worsening kidney function, both of which have improved up to this point. Would like to eventually get the creatinine back down to baseline of 0.8-0.9 with use of albumin plus or minus Lasix to help optimize breathing. The patient will hopefully get back down to baseline. I appreciate the consultation. PHOEBE
[2017-06-16] MEDS: ALBUMIN HUMAN 25% 12.5 GM/50 ML VIAL IV SCH ×2 (10:37→21:09)
[2017-06-16 13:48] VITALS: BP 135/55; PULSE 98; TEMP 37.1; O2SAT 93
[2017-06-16 15:58] VITALS: BP 128/61; PULSE 99; TEMP 36.5; O2SAT 91
--- NOTE | 2017-06-16 16:32 | GASTROENTEROLOGY PROGRESS NOTE ---
DATE: 06/16/2017 Cross coverage for [facility]. RACE: . I had the pleasure of seeing Liliana Martinez at her bedside today. She states that she does feel slightly improved and is not having any shortness of breath at present. She is eating her lunch without difficulty and denies any hematemesis, melena, or hematochezia. She denies any further complaints overnight. REVIEW OF SYSTEMS: Negative [id number] review other than pertinent positives listed in the HPI. PHYSICAL EXAMINATION: VITAL SIGNS: Include a temp of 37.3, pulse 102, respirations 20, blood pressure 132/65, and pulse ox 92% on 4 liters via nasal cannula. GENERAL: She is awake, cooperative, chronic ill appearing, in no acute distress. CHEST: Decreased breath sounds at bilateral bases. CARDIOVASCULAR SYSTEM: Regular rate and rhythm. ABDOMEN: Soft, nontender, and nondistended. Positive bowel sounds. There is no appreciable hepatosplenomegaly. EXTREMITIES: No clubbing, cyanosis, or edema. LABORATORY STUDIES: From today include an H&H of 7.8 and 27.1. Her sodium is 135, potassium 4.1, chloride 100, bicarb 32, BUN 44, creatinine 1.3 and blood glucose level of 200. IMPRESSION: A 47-year-old female with nonalcoholic steatohepatitis induced cirrhosis, complicated by refractory ascites despite TIPS placement, esophageal varices, hepatic encephalopathy and shortness of breath. PLAN: The patient did improve overnight following additional administration of Lasix with most likely cause being worsening of heart failure. She was seen by nephrology and I appreciate their input. I would recommend continuing her on her current regimen of Lasix, Aldactone and albumin as per nephrology's guidance. I will follow along and [facility] will resume her care on Saturday. If you have any further questions, please do not hesitate in contacting me.
[2017-06-16] MEDS ORDERED: PHARMACY GLYCEMIC MGMT CONSULT SCH (16:37)
[2017-06-16] MEDS ORDERED: VANCOMYCIN TROUGH SCH (17:30)
[2017-06-16] MEDS ORDERED: LACTULOSE SYRUP 30 GM/45 ML UDP PO STA (18:16)
--- NOTE | 2017-06-16 18:18 | Progress Note ---
Medicine Progress Note Date & Time of Visit: Jun 16, 2017 at 11:57. Subjective 47 yo with h/o MEIER cirrhosis presents s/p paracentesis for worsened respiratory distress and anemia. -reports her breathing has improved since yesterday -she slept well and is tolerating PO -she has not been out of bed yet and is encouraged to get OOB to chair and ambulate with assist. PT/OT ordered -denies pain -noted no BM since admission-starting Lactulose scheduled -still requiring oxygen--at home requires oxygen intermittently Objective Last 8 Hrs Date Time Temp Pulse Resp B/P (MAP) Pulse Ox O2 Delivery O2 Flow Rate FiO2 06/16/17 07:47 37.3 102 20 132/65 (87) 93 Nasal Cannula 4.0 06/16/17 04:40 36.8 102 18 142/60 (87) 95 Nasal Cannula 06/16/17 04:00 Nasal Cannula 4.0 Physical Exam: GEN: obese, in no acute distress, alert and appropriate, nasal canula in place HEENT: NC/AT, PERRL, normal sclerae CARDIO: reg rate, S1/2 heard without m/g/r, no edema LUNGS: coarse rhonchi throughout, no wheezes or rales. ABD: soft, non-tender, non-distended, no rebound or guarding, +fluid wave. EXTREMITY: RP and DP palpable 2+ bilat, extremities are warm and well-perfused NEURO: CN 2-12 grossly intact, sensation intact throughout, no gross focal deficits MUSC: moves all extremities equally SKIN: warm and dry Laboratory Results: 06/16/17 07:08 06/16/17 07:08 Test 06/14/17 00:00 06/14/17 11:11 06/15/17 03:00 06/15/17 16:00 Peritoneal Fluid Color YELLOW Peritoneal Fluid Appearance BLOODY Peritoneal Fluid WBC 726 /uL (0-300) Peritoneal Fluid RBC [address] /uL Peritoneal Fld Mononuclear WBCs (%) 95.4 % Peritoneal Fld Polynuclear WBCs (%) 4.6 % Prothrombin Time 12.1 SECONDS (9.0-12.0) Prothromb Time International Ratio 1.1 (0.9-1.1) Activated Partial Thromboplast Time 23.4 SECONDS (21.0-31.0) Partial Thromboplastin Ratio 0.9 Urine Color YELLOW Urine Appearance CLEAR (CLEAR) Urine pH 5.0 (4.5-7.5) Urine Specific [place] 1.021 (1.000-1.030) Urine Protein NEG (NEG) Urine Glucose (UA) NEG (NEG) Urine Ketones NEG (NEG) Urine Occult Blood NEG (NEG) Urine Nitrite NEG (NEG) Urine Bilirubin NEG (NEG) Urine Urobilinogen NEG (NEG) Urine Leukocyte Esterase NEG (NEG) Urine Random Sodium 6 mEq/L Test 06/16/17 07:08 06/16/17 13:26 06/16/17 16:00 Red Blood Count 3.59 M/uL (4.2-5.4) Mean Corpuscular Volume 75.5 fL (80-100) Mean Corpuscular Hemoglobin 21.7 pg (25-34) Mean Corpuscular Hemoglobin Concent 28.8 g/dl (32-36) RDW Standard Deviation 48.5 fL (36.4-46.3) RDW Coefficient of Variation 17.7 % (11.5-14.5) Mean Platelet Volume 10.2 fL (7.4-10.4) Anion Gap 3.0 mmol/L (3-11) Est Creatinine Clear Calc Drug Dose 79.0 ml/min Estimated GFR () 56.6 Estimated GFR (Non- 48.8 BUN/Creatinine Ratio 34.2 (10-20) Calcium Level 7.9 mg/dl (8.5-10.1) Bedside Glucose 213 mg/dl (70-90) Date/Time Source Procedure Growth Status 06/14/17 15:26 Blood Blood Culture - Preliminary NO GROWTH TO DATE. Resulted 06/14/17 17:30 Nasal MRSA DNA Surveillance Screen - Final Specimen Negative for MRSA by DNA Probe Complete Last 24 Hours Test 06/15/17 12:24 06/15/17 13:26 06/15/17 16:00 06/15/17 16:14 Bedside Glucose 211 mg/dl 174 mg/dl Urine Random Sodium 6 mEq/L Test 06/15/17 20:07 06/16/17 06:56 06/16/17 07:08 06/16/17 11:34 Bedside Glucose 167 mg/dl 170 mg/dl 200 mg/dl White Blood Count 6.92 K/uL Red Blood Count 3.59 M/uL Hemoglobin 7.8 g/dL Hematocrit 27.1 % Mean Corpuscular Volume 75.5 fL Mean Corpuscular Hemoglobin 21.7 pg Mean Corpuscular Hemoglobin Concent 28.8 g/dl RDW Standard Deviation 48.5 fL RDW Coefficient of Variation 17.7 % Platelet Count 104 K/uL Mean Platelet Volume 10.2 fL Sodium Level 135 mmol/L Potassium Level 4.1 mmol/L Chloride Level 100 mmol/L Carbon Dioxide Level 32 mmol/L Anion Gap 3.0 mmol/L Blood Urea Nitrogen 44 mg/dl Creatinine 1.30 mg/dl Est Creatinine Clear Calc Drug Dose 79.0 ml/min Estimated GFR () 56.6 Estimated GFR (Non- 48.8 BUN/Creatinine Ratio 34.2 Random Glucose 166 mg/dl Calcium Level 7.9 mg/dl Assessment & Plan 47 yo with h/o MEIER cirrhosis presents s/p paracentesis for worsened respiratory distress and anemia. 1. Acute respiratory distress 2/2 acute diastolic heart failure 2/2 volume overload in setting of possible HCAP-diuretics were adjusted to her home doses and Lasix was made IV. Albumin was stopped yesterday and restarted again today in the setting of HRS. Stopped Zosyn at this time--no cough, fevers, chills present. Pt was moved to telemetry with waxing and waning respiratory distress requiring supplemental oxygen by facemask overnight--she is breathing somewhat easier after 3-4 L out in last 24 hours, however, she still has an oxygen requirement and rhonchi throughout all lung rivero. Will cont diuresis with current meds for one more day as there is improvement in both her breathing and her kidney function, and will be more aggressive if needed tomorrow. 2. 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 At this time restarted albumin per Nephro who feels no role for midodrine or octreotide at this point. Improved today from 2 to 1.3. PRP in am. 3. ACD-blood transfusion day of admission and she was receiving scheduled albumin every 6 hours-albumin stopped yesterday and r/s today as above. No reports of melena or hematochezia to suggest bleeding. Does have a hx of non bleeding esophageal varices, and is to go back on nadolol per GI when able to tolerate. Would cont to hold as respiratory status is still not optimized. 4. NAFLD CIRRHOSIS: has refractory ascites despite previous TIPS placement; Doppler US performed on admission and TIPS catheter is patent. Continue lactulose and rifaximin. Has non bleeding esophageal varices from previous endoscopy, to return on Nadolol per GI. Was previously evaluated by Liver Transplant team at [facility]. Paracentesis drained 4.4 L just LE[facility] and previous paracentesis on May 28 yielded 7.9 L 5. DMII-uncontrolled on current dosing but not by much. Pharmacy consult requested to titrate Lantus and ISS while inpatient. Appreciate recs. 6. Hypothyroidism-Synthroid at 225mcg PO daily 7. Depression/Anxiety-appears stable, Cont home Cymbalta at 120mg daily, Remeron and Abilify-both taken nightly. Clonazepam PRN 8. Obesity Full Code DVT prophylaxis-SCDs while pt anemic and requiring transfusions. Apprec GI input into the need for heparin in her case. Dispo-telemetry until hypoxia resolves [facility] Hospital[facility] Consultants: GI-Case Nephro-Oncu Current Inpatient Medications: Current Inpatient Medications Medications (Trade) Dose Ordered Sig/Ana Luisa Route Start Time Stop Time Status Last Admin Dose Admin Polyethylene (Miralax Powder Packet) 17 gm DAILY PRN PO 06/14/17 14:15 07/14/17 14:14 Ondansetron HCl (Zofran Inj) 4 mg Q6H PRN IV 06/14/17 13:30 07/14/17 13:29 06/14/17 22:22 4 MG Piperacillin Sod/ Tazobactam Sod (Consult) 1 ea UD PRN N/A 06/14/17 14:30 07/14/17 14:29 Piperacillin Sod/ Tazobactam Sod 4.5 gm/Dextrose 120 ml @ 30 mls/hr Q8H IV 06/14/17 22:00 06/21/17 21:59 06/16/17 06:28 30 MLS/HR Aripiprazole (Abilify Tab) 10 mg HS PO 06/14/17 21:00 07/14/17 20:59 06/15/17 21:09 10 MG Clonazepam (Klonopin Tab) 1 mg HS PRN PO 06/14/17 18:00 07/14/17 17:59 06/15/17 21:13 1 MG Duloxetine HCl (Cymbalta Cap) 120 mg QAM PO 06/15/17 09:00 07/15/17 08:59 06/16/17 09:55 120 MG Lactulose (Chronulac Syrup) 30 gm DAILY PRN PO 06/14/17 18:00 07/14/17 17:59 Rifaximin (Xifaxan Tab) 550 mg BID PO 06/14/17 21:00 07/14/17 20:59 06/16/17 09:55 550 MG Mirtazapine (Remeron Tab) 15 mg HS PO 06/14/17 21:00 07/14/17 20:59 06/15/17 21:10 15 MG Furosemide 80 mg/ Syringe 8 ml @ 4 mls/min BID17 IV 06/15/17 17:00 07/15/17 16:59 06/16/17 09:35 4 MLS/MIN Spironolactone (Aldactone Tab) 100 mg BID17 PO 06/16/17 09:00 07/15/17 16:59 06/16/17 09:36 100 MG Levothyroxine Sodium (Synthroid Tab) 25 mcg DAILYBB PO 06/16/17 06:00 07/16/17 05:59 06/16/17 06:27 25 MCG Levothyroxine Sodium (Synthroid Tab) 200 mcg DAILYBB PO 06/16/17 06:00 07/16/17 05:59 06/16/17 06:27 200 MCG Pantoprazole Sodium (Protonix Tab) 40 mg QAM PO 06/15/17 11:45 07/15/17 11:44 06/16/17 09:36 40 MG Insulin Glargine (Lantus Solostar Pen) 25 units Q12 SC 06/15/17 11:45 07/15/17 11:44 06/16/17 09:57 25 UNITS Insulin Aspart (novoLOG ASPART) SLIDING SCALE If C... ACHS SC 06/15/17 12:00 07/15/17 11:59 06/16/17 09:58 6 UNITS Glucose (Glucose 40% Gel) 15-30 GRAMS 15 GRAMS... UD PRN PO 06/15/17 11:45 07/15/17 11:44 Glucose (Glucose Chew Tab) 4-8 Tablets 4 Tabl... UD PRN PO 06/15/17 11:45 07/15/17 11:44 Dextrose (Dextrose 50% 50ML Syringe) 25-50ML OF 50% DW IV FOR... UD PRN IV 06/15/17 11:45 07/15/17 11:44 Glucagon (Glucagon Inj) 1 mg UD PRN SQ 06/15/17 11:45 07/15/17 11:44 Acetaminophen (Tylenol Tab) 325 mg Q6H PRN PO 06/16/17 03:30 07/16/17 03:29 Tramadol HCl (Ultram Tab) 25 mg Q6H PRN PO 06/16/17 03:30 07/16/17 03:29 06/16/17 04:30 25 MG Albumin Human (Albumin 25%) 25 gm BID IV 06/16/17 10:00 06/19/17 20:59 06/16/17 10:37 25 GM
--- NOTE | 2017-06-16 19:09 | Pharmacy Progress Note ---
Glycemic Control Intl Consult Date of Service Jun 16, 2017. Scope Glycemic Pharmacist consulted by Dr Hanson on 06/16/17 for glycemic control and to write orders per [facility] inpatient glycemic control protocol Objective Weight (Kilograms): 141.400 Accuchecks BSG (last 24hrs): Test 06/15/17 20:07 06/16/17 06:56 06/16/17 07:08 06/16/17 11:34 Bedside Glucose 167 mg/dl (70-90) 170 mg/dl (70-90) 200 mg/dl (70-90) Random Glucose 166 mg/dl (70-99) Test 06/16/17 16:00 Bedside Glucose 213 mg/dl (70-90) Laboratory Data (last 24hrs) Test 06/16/17 07:08 Anion Gap 3.0 mmol/L BUN/Creatinine Ratio 34.2 Blood Urea Nitrogen 44 mg/dl Creatinine 1.30 mg/dl Potassium Level 4.1 mmol/L Sodium Level 135 mmol/L White Blood Count 6.92 K/uL Recent Pertinent Medications Outpatient Anti-diabetic Regimen: * Lantus 55 units HS * A1c = 5.6 % 08/29/16 - updated A1c ordered with AM labs The patient is currently receiving: * Basal insulin: Lantus 25 units every 12 hours * Correctional Insulin: Novolog Correction per scale ACHS Goal Range: Low 140 mg/dL - High 180 mg/dL Correction Factor: 25 mg/dL/unit * Prandial insulin: Per carb ratio of 1 unit per 5 grams CHO consumed Risk Factors for Insulin Resistance: * Infection: was previously on IV Vancomycin and Zosyn * Diet: Type 2 DM Assessment & Plan ASSESSMENT: * 47 yo with h/o MEIER cirrhosis presents s/p paracentesis for worsened respiratory distress and anemia * Type 2 diabetic, pretty well controlled so far as inpatient, just requires tighter correction and a slight increase in basal. * Also check a blood sugar overnight to determine if patient needs additional basal. * A1c from 08/2016, ordered for AM labs tomorrow * ADA & AACE recommend a goal blood sugar range 140-180 mg/dl for the majority of critically ill & non-critically ill patients. However, more stringent targets may be selected in individual cases. Will use 110-140mg/dL for patient' s age. PLAN FOR INPATIENT GLYCEMIC CONTROL: * Increasing Lantus to 28 units SQ BID * Changing correction factor to 15 mg/dl/unit * Continue carb ratio: 1 unit per 5 grams CHO consumed * Changing goal range to Low 110 mg/dL - High 140 mg/dL * additional accucheck overnight tonight at 0200 * Please note that the plan above was derived based on current level of insulin resistance and hospital stress. These recommendations are appropriate for inpatient admission only. Plan of care upon discharge will need to be reassessed to avoid potential outpatient hypo/hyperglycemia. Thank you.
[2017-06-16 20:08] VITALS: BP 135/63; PULSE 100; TEMP 36.9; O2SAT 92
[2017-06-16] MEDS: MIRTAZAPINE TAB 15 MG TAB PO SCH (21:08)
[2017-06-16] MEDS: CLONAZEPAM 1 MG TAB PO PRN (21:08)
[2017-06-16] MEDS: ARIPIprazole TAB 10 MG TAB PO SCH (21:08)
[2017-06-17] VITALS: BP 148/68; PULSE 98; TEMP 36.7; O2SAT 93
[2017-06-17] MEDS ORDERED: INSULIN ASPART 100 UNITS/ML 3 ML PEN SC SCH (02:00)
[2017-06-17 03:49] VITALS: BP 138/62; PULSE 98; TEMP 36.7; O2SAT 92
[2017-06-17] MEDS: LEVOTHYROXINE 200 MCG TAB PO SCH (06:27)
[2017-06-17] MEDS: LEVOTHYROXINE 25 MCG TAB PO SCH (06:27)
--- NOTE | 2017-06-17 08:00 | Nephrology Progress Note ---
Nephrology Progress Note Date of Service: Jun 17, 2017. Subjective 47 yo female with thanh/HRS with signs of volume overload. currently on spironolactone/lasix/albumin-pt breathing better and eating breakfast this morning. pt states she feels good enough to go home now. Objective Date Time Temp Pulse Resp B/P (MAP) Pulse Ox O2 Delivery O2 Flow Rate FiO2 06/17/17 04:00 Nasal Cannula 4.0 06/17/17 03:49 36.7 98 18 138/62 (87) 92 Nasal Cannula 4.0 06/17/17 00:00 36.7 98 18 148/68 (94) 93 Nasal Cannula 4.0 06/17/17 00:00 Nasal Cannula 4.0 06/16/17 20:08 36.9 100 20 135/63 (87) 92 Nasal Cannula 3.0 06/16/17 20:00 Nasal Cannula 4.0 06/16/17 16:00 Nasal Cannula 4.0 06/16/17 15:58 36.5 99 20 128/61 (83) 91 Nasal Cannula 4.0 06/16/17 13:48 37.1 98 20 135/55 (81) 93 Nasal Cannula 4.0 06/16/17 12:00 Nasal Cannula 4.0 06/16/17 08:00 Nasal Cannula 4.0 Physical Exam: General-aaox3, obese Eyes-no scleral icterus ENT-mmm Neck-supple Lungs-cta Heart-rrr Abdomen-bs+ s/nt/nd Extremities-no c/c/e Neuro-nonfocal Current Inpatient Medications Medications (Trade) Dose Ordered Sig/Ana Luisa Route Start Time Stop Time Status Last Admin Dose Admin Polyethylene (Miralax Powder Packet) 17 gm DAILY PRN PO 06/14/17 14:15 07/14/17 14:14 Ondansetron HCl (Zofran Inj) 4 mg Q6H PRN IV 06/14/17 13:30 07/14/17 13:29 06/14/17 22:22 4 MG Aripiprazole (Abilify Tab) 10 mg HS PO 06/14/17 21:00 07/14/17 20:59 06/16/17 21:08 10 MG Clonazepam (Klonopin Tab) 1 mg HS PRN PO 06/14/17 18:00 07/14/17 17:59 06/16/17 21:08 1 MG Duloxetine HCl (Cymbalta Cap) 120 mg QAM PO 06/15/17 09:00 07/15/17 08:59 06/16/17 09:55 120 MG Rifaximin (Xifaxan Tab) 550 mg BID PO 06/14/17 21:00 07/14/17 20:59 06/16/17 21:08 550 MG Mirtazapine (Remeron Tab) 15 mg HS PO 06/14/17 21:00 07/14/17 20:59 06/16/17 21:08 15 MG Furosemide 80 mg/ Syringe 8 ml @ 4 mls/min BID17 IV 06/15/17 17:00 07/15/17 16:59 06/16/17 18:27 4 MLS/MIN Spironolactone (Aldactone Tab) 100 mg BID17 PO 06/16/17 09:00 07/15/17 16:59 06/16/17 17:52 100 MG Levothyroxine Sodium (Synthroid Tab) 25 mcg DAILYBB PO 06/16/17 06:00 07/16/17 05:59 06/17/17 06:27 25 MCG Levothyroxine Sodium (Synthroid Tab) 200 mcg DAILYBB PO 06/16/17 06:00 07/16/17 05:59 06/17/17 06:27 200 MCG Pantoprazole Sodium (Protonix Tab) 40 mg QAM PO 06/15/17 11:45 07/15/17 11:44 06/16/17 09:36 40 MG Insulin Aspart (novoLOG ASPART) SLIDING SCALE If C... ACHS SC 06/15/17 12:00 07/15/17 11:59 06/16/17 21:23 5 UNITS Glucose (Glucose 40% Gel) 15-30 GRAMS 15 GRAMS... UD PRN PO 06/15/17 11:45 07/15/17 11:44 Glucose (Glucose Chew Tab) 4-8 Tablets 4 Tabl... UD PRN PO 06/15/17 11:45 07/15/17 11:44 Dextrose (Dextrose 50% 50ML Syringe) 25-50ML OF 50% DW IV FOR... UD PRN IV 06/15/17 11:45 07/15/17 11:44 Glucagon (Glucagon Inj) 1 mg UD PRN SQ 06/15/17 11:45 07/15/17 11:44 Acetaminophen (Tylenol Tab) 325 mg Q6H PRN PO 06/16/17 03:30 07/16/17 03:29 Tramadol HCl (Ultram Tab) 25 mg Q6H PRN PO 06/16/17 03:30 07/16/17 03:29 06/16/17 04:30 25 MG Albumin Human (Albumin 25%) 25 gm BID IV 06/16/17 10:00 06/19/17 20:59 06/16/17 21:09 25 GM Miscellaneous Information (Consult Glycemic Management Pharmacy) 1 ea UD N/A 06/16/17 16:37 07/16/17 16:36 Insulin Glargine (Lantus Solostar Pen) 28 units Q12 SC 06/16/17 21:00 07/16/17 20:59 06/16/17 21:23 28 UNITS Lactulose (Chronulac Syrup) 30 gm 0800 PO 06/17/17 08:00 07/17/17 07:59 Last 24 Hours Test 06/16/17 11:34 06/16/17 16:00 06/16/17 20:10 06/17/17 02:21 Bedside Glucose 200 mg/dl 213 mg/dl 206 mg/dl 172 mg/dl Test 06/17/17 05:56 06/17/17 06:30 06/17/17 07:49 Bedside Glucose 161 mg/dl Assessment & Plan THANH/HRS-bmp pending for this am. currently on lasix/albumin/spironolactone. creatinine improving and volume status also improved. breathing better. continue current regimen till deemed stable to go home. pt clinically improving.
[2017-06-17 08:11] VITALS: BP 148/68; PULSE 102; TEMP 36.7; O2SAT 93
[2017-06-17 08:15] LABS: ESTIMATED AVERAGE GLUCOSE 189 mg/dl; HA1C FLAG Normal (Normal)
--- NOTE | 2017-06-17 08:37 | Gastroenterology Progress Note ---
Progress Note Date of Service: Jun 17, 2017 Subjective Pt evaluation today including: conversation w/ patient, physical exam, chart review, lab review Pt was sen and evaluated this AM. She tells me she feels well from a GI standpoint. She is moving her bowels well, no black/bloody stools. No abdominal pain. Paracentesis on Saturday without any evidence of SBP. She is still having mildly increased SOB. Nephrology is following for suspected HRS. Wants to go home. No fever, chills, chest pain, abdominal pain, black/bloody stools. Review of Systems Constitutional: No fever, No chills Respiratory: + shortness of breath, No cough Cardiac: No chest pain Abdomen: No pain, No nausea, No vomiting, No diarrhea, No constipation, No GI bleeding Medications Current Inpatient Medications Medications (Trade) Dose Ordered Sig/Ana Luisa Route Start Time Stop Time Status Last Admin Dose Admin Polyethylene (Miralax Powder Packet) 17 gm DAILY PRN PO 06/14/17 14:15 07/14/17 14:14 Ondansetron HCl (Zofran Inj) 4 mg Q6H PRN IV 06/14/17 13:30 07/14/17 13:29 06/14/17 22:22 4 MG Aripiprazole (Abilify Tab) 10 mg HS PO 06/14/17 21:00 07/14/17 20:59 06/16/17 21:08 10 MG Clonazepam (Klonopin Tab) 1 mg HS PRN PO 06/14/17 18:00 07/14/17 17:59 06/16/17 21:08 1 MG Duloxetine HCl (Cymbalta Cap) 120 mg QAM PO 06/15/17 09:00 07/15/17 08:59 06/16/17 09:55 120 MG Rifaximin (Xifaxan Tab) 550 mg BID PO 06/14/17 21:00 07/14/17 20:59 06/16/17 21:08 550 MG Mirtazapine (Remeron Tab) 15 mg HS PO 06/14/17 21:00 07/14/17 20:59 06/16/17 21:08 15 MG Furosemide 80 mg/ Syringe 8 ml @ 4 mls/min BID17 IV 06/15/17 17:00 07/15/17 16:59 06/16/17 18:27 4 MLS/MIN Spironolactone (Aldactone Tab) 100 mg BID17 PO 06/16/17 09:00 07/15/17 16:59 06/16/17 17:52 100 MG Levothyroxine Sodium (Synthroid Tab) 25 mcg DAILYBB PO 06/16/17 06:00 07/16/17 05:59 06/17/17 06:27 25 MCG Levothyroxine Sodium (Synthroid Tab) 200 mcg DAILYBB PO 06/16/17 06:00 07/16/17 05:59 06/17/17 06:27 200 MCG Pantoprazole Sodium (Protonix Tab) 40 mg QAM PO 06/15/17 11:45 07/15/17 11:44 06/16/17 09:36 40 MG Insulin Aspart (novoLOG ASPART) SLIDING SCALE If C... ACHS SC 06/15/17 12:00 07/15/17 11:59 06/16/17 21:23 5 UNITS Glucose (Glucose 40% Gel) 15-30 GRAMS 15 GRAMS... UD PRN PO 06/15/17 11:45 07/15/17 11:44 Glucose (Glucose Chew Tab) 4-8 Tablets 4 Tabl... UD PRN PO 06/15/17 11:45 07/15/17 11:44 Dextrose (Dextrose 50% 50ML Syringe) 25-50ML OF 50% DW IV FOR... UD PRN IV 06/15/17 11:45 07/15/17 11:44 Glucagon (Glucagon Inj) 1 mg UD PRN SQ 06/15/17 11:45 07/15/17 11:44 Acetaminophen (Tylenol Tab) 325 mg Q6H PRN PO 06/16/17 03:30 07/16/17 03:29 Tramadol HCl (Ultram Tab) 25 mg Q6H PRN PO 06/16/17 03:30 07/16/17 03:29 06/16/17 04:30 25 MG Albumin Human (Albumin 25%) 25 gm BID IV 06/16/17 10:00 06/19/17 20:59 06/16/17 21:09 25 GM Miscellaneous Information (Consult Glycemic Management Pharmacy) 1 ea UD N/A 06/16/17 16:37 07/16/17 16:36 Insulin Glargine (Lantus Solostar Pen) 28 units Q12 SC 06/16/17 21:00 07/16/17 20:59 06/16/17 21:23 28 UNITS Lactulose (Chronulac Syrup) 30 gm 0800 PO 06/17/17 08:00 07/17/17 07:59 Objective Vital Signs Date Time Temp Pulse Resp B/P (MAP) Pulse Ox O2 Delivery O2 Flow Rate FiO2 06/17/17 08:11 36.7 102 20 148/68 (94) 93 Nasal Cannula 4.0 06/17/17 04:00 Nasal Cannula 4.0 06/17/17 03:49 36.7 98 18 138/62 (87) 92 Nasal Cannula 4.0 06/17/17 00:00 36.7 98 18 148/68 (94) 93 Nasal Cannula 4.0 06/17/17 00:00 Nasal Cannula 4.0 06/16/17 20:08 36.9 100 20 135/63 (87) 92 Nasal Cannula 3.0 06/16/17 20:00 Nasal Cannula 4.0 06/16/17 16:00 Nasal Cannula 4.0 06/16/17 15:58 36.5 99 20 128/61 (83) 91 Nasal Cannula 4.0 06/16/17 13:48 37.1 98 20 135/55 (81) 93 Nasal Cannula 4.0 06/16/17 12:00 Nasal Cannula 4.0 Physical Exam General Appearance: no apparent distress Eyes: PERRL ENT: hearing grossly normal Neck: supple Respiratory/Chest: lungs clear Cardiovascular: regular rate, rhythm Abdomen: normal bowel sounds, non tender, soft, + pertinent finding (obese) Neurologic/Psych: alert, normal mood/affect, oriented x 3 Skin: normal color Laboratory Results Last 24 Hours Test 06/16/17 11:34 06/16/17 16:00 06/16/17 20:10 06/17/17 02:21 Bedside Glucose 200 mg/dl 213 mg/dl 206 mg/dl 172 mg/dl Test 06/17/17 05:56 06/17/17 06:30 06/17/17 07:49 Estimated Average Glucose 189 mg/dl Hemoglobin A1c 8.2 % Bedside Glucose 161 mg/dl Assessment and Plan 47 year old female with MEIER cirrhosis decompensated by varices, hepatic encephalopathy and ascites s/p TIPS with refractory ascites. MELD admitted follow outpatient paracentesis w/ sherly/HRS with signs of volume overload. Kidney function slowly improved overnight. Nephrology is following and is currently on spironolactone/lasix/albumin. - Low NA diet as tolerated - Continue lasix/spironolactone/albumin per nephrology - Continue lactulose/xifaxain - NO BM in 2 days, increase lactulose or add miralax Please call with any questions or concerns. GI will watch peripherally. ATTESTATION: I have performed a history and physical examination of this patient and reviewed the electronic record. Specifically, on physical examination patient is alert and oriented and abdomen is soft and non tender. I have discussed the case with TABATHA Cormier. The above note reflects my findings, conclusions, and recommendations. Greg Cantu MD
[2017-06-17] MEDS ORDERED: FUROSEMIDE INJ 40 MG in SYRINGE 0 ML IV SCH (09:00)
[2017-06-17 09:08] LABS: BUN/CREATININE RATIO 29.6 (10-20); CALCIUM 8.3 mg/dl (8.5-10.1); CREATININE 1.3 mg/dl (0.60-1.20); POTASSIUM 4.1 mmol/L (3.5-5.1)
[2017-06-17] MEDS: ALBUMIN HUMAN 25% 12.5 GM/50 ML VIAL IV SCH ×2 (09:34→21:45)
[2017-06-17] MEDS: PANTOprazole SOD 40 MG TAB PO SCH (09:35)
[2017-06-17] MEDS: RIFAXIMIN TAB 550 MG TAB PO SCH ×2 (09:35→21:45)
[2017-06-17] MEDS: FUROSEMIDE INJ 80 MG in SYRINGE 0 ML IV SCH ×2 (09:35→17:59)
[2017-06-17] MEDS: LACTULOSE SYRUP 30 GM/45 ML UDP PO SCH (09:35)
[2017-06-17] MEDS: DULOXETINE HCL 60 MG CAP PO SCH (09:35)
[2017-06-17] MEDS: SPIRONOLACTONE 100 MG TAB PO SCH ×2 (09:36→17:59)
[2017-06-17] MEDS: INSULIN ASPART 100 UNITS/ML 3 ML PEN SC SCH ×4 (09:40→21:47)
[2017-06-17] MEDS: INSULIN GLARGINE SOLOSTAR 100 UNITS/ML 3 ML PEN SC SCH ×2 (09:42→21:47)
[2017-06-17 12:09] VITALS: BP 136/65; PULSE 106; TEMP 36.4; O2SAT 91
[2017-06-17 13:07] VITALS: Ht 170.2 cm; Wt 136.4 kg
[2017-06-17] MEDS ORDERED: GLIP5TAB11 PO (13:59)
[2017-06-17 16:03] VITALS: BP 157/64; PULSE 98; TEMP 36.7; O2SAT 95
[2017-06-17] MEDS: POLYETHYLENE (MIRALAX) 17 GM PACK PO SCH (17:00)
[2017-06-17 20:53] VITALS: BP 147/72; PULSE 101; TEMP 36.4; O2SAT 94
--- NOTE | 2017-06-17 21:14 | Progress Note ---
Medicine Progress Note Date & Time of Visit: Jun 17, 2017 at 1500. Subjective 47 yo with h/o MEIER cirrhosis presents s/p paracentesis for worsened respiratory distress and anemia. -asymptomatic at this time -tolerating PO -denies CP or SOB but still has oxygen requirement -not ambulating much-PT/OT ordered to evaluate -no BM since admission-scheduled lactulose started last night. Objective Last 8 Hrs Date Time Temp Pulse Resp B/P (MAP) Pulse Ox O2 Delivery O2 Flow Rate FiO2 06/17/17 16:03 36.7 98 22 157/64 (95) 95 Nasal Cannula 4.0 06/17/17 16:00 Nasal Cannula 4.0 06/17/17 12:09 36.4 106 22 136/65 (88) 91 Nasal Cannula 4.0 06/17/17 12:00 Nasal Cannula 4.0 Physical Exam: GEN: obese, in no acute distress, alert and appropriate, nasal canula in place, no conversational dyspnea HEENT: NC/AT, normal sclerae, MMM CARDIO: reg rate, S1/2 heard without m/g/r, no edema LUNGS: CTAB, no crackles, wheezes or rales. ABD: soft, non-tender, non-distended, no rebound or guarding, +fluid wave., +BS EXTREMITY: RP and DP palpable 2+ bilat, extremities are warm and well-perfused NEURO: +asterixis, CN 2-12 grossly intact, sensation intact throughout, no gross focal deficits, mentating clearly MUSC: moves all extremities equally SKIN: warm and dry Laboratory Results: 06/16/17 07:08 06/17/17 05:56 Test 06/14/17 00:00 06/14/17 11:11 06/15/17 03:00 06/15/17 16:00 Peritoneal Fluid Color YELLOW Peritoneal Fluid Appearance BLOODY Peritoneal Fluid WBC 726 /uL (0-300) Peritoneal Fluid RBC 84190 /uL Peritoneal Fld Mononuclear WBCs (%) 95.4 % Peritoneal Fld Polynuclear WBCs (%) 4.6 % Prothrombin Time 12.1 SECONDS (9.0-12.0) Prothromb Time International Ratio 1.1 (0.9-1.1) Activated Partial Thromboplast Time 23.4 SECONDS (21.0-31.0) Partial Thromboplastin Ratio 0.9 Urine Color YELLOW Urine Appearance CLEAR (CLEAR) Urine pH 5.0 (4.5-7.5) Urine Specific [place] 1.021 (1.000-1.030) Urine Protein NEG (NEG) Urine Glucose (UA) NEG (NEG) Urine Ketones NEG (NEG) Urine Occult Blood NEG (NEG) Urine Nitrite NEG (NEG) Urine Bilirubin NEG (NEG) Urine Urobilinogen NEG (NEG) Urine Leukocyte Esterase NEG (NEG) Urine Random Sodium 6 mEq/L Test 06/16/17 07:08 06/17/17 05:56 06/17/17 20:55 Red Blood Count 3.59 M/uL (4.2-5.4) Mean Corpuscular Volume 75.5 fL (80-100) Mean Corpuscular Hemoglobin 21.7 pg (25-34) Mean Corpuscular Hemoglobin Concent 28.8 g/dl (32-36) RDW Standard Deviation 48.5 fL (36.4-46.3) RDW Coefficient of Variation 17.7 % (11.5-14.5) Mean Platelet Volume 10.2 fL (7.4-10.4) Anion Gap 4.0 mmol/L (3-11) Est Creatinine Clear Calc Drug Dose 78.9 ml/min Estimated GFR () 56.6 Estimated GFR (Non- 48.8 BUN/Creatinine Ratio 29.6 (10-20) Estimated Average Glucose 189 mg/dl Hemoglobin A1c 8.2 % (4.5-5.6) Calcium Level 8.3 mg/dl (8.5-10.1) Bedside Glucose 194 mg/dl (70-90) Date/Time Source Procedure Growth Status 06/14/17 15:26 Blood Blood Culture - Preliminary NO GROWTH TO DATE. Resulted 06/14/17 17:30 Nasal MRSA DNA Surveillance Screen - Final Specimen Negative for MRSA by DNA Probe Complete Last 24 Hours Test 06/16/17 20:10 06/17/17 02:21 06/17/17 05:56 06/17/17 06:30 Bedside Glucose 206 mg/dl 172 mg/dl 161 mg/dl Sodium Level 138 mmol/L Potassium Level 4.1 mmol/L Chloride Level 99 mmol/L Carbon Dioxide Level 35 mmol/L Anion Gap 4.0 mmol/L Blood Urea Nitrogen 39 mg/dl Creatinine 1.30 mg/dl Est Creatinine Clear Calc Drug Dose 78.9 ml/min Estimated GFR () 56.6 Estimated GFR (Non- 48.8 BUN/Creatinine Ratio 29.6 Random Glucose 153 mg/dl Estimated Average Glucose 189 mg/dl Hemoglobin A1c 8.2 % Calcium Level 8.3 mg/dl Test 06/17/17 11:13 06/17/17 16:04 Bedside Glucose 209 mg/dl 188 mg/dl Assessment & Plan 47 yo with h/o MEIER cirrhosis presents s/p paracentesis for worsened respiratory distress and anemia. 1. Acute respiratory distress 2/2 acute diastolic heart failure 2/2 volume overload in setting of possible HCAP-diuretics were adjusted to her home doses and Lasix was made IV. Albumin was stopped yesterday and restarted again today in the setting of HRS. Stopped Zosyn at this time--no cough, fevers, chills present. Pt was moved to telemetry with waxing and waning respiratory distress requiring supplemental oxygen by facemask overnight--she is breathing somewhat easier after 3-4 L out in last 24 hours, however, she still has an oxygen requirement and rhonchi throughout all lung rivero. Will cont diuresis with current meds for one more day as there is improvement in both her breathing and her kidney function, and will be more aggressive if needed tomorrow. 06/17: diuresed well overnight, lungs sound clear today, however, she still has a consistent oxygen requirement. No decompensation since stopping the abx. 2. 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 Continued albumin per Nephro with stable creatinine at 1.3 today. 3. ACD-s/p 2 Units PLODDER OPERATOR on day of admission. No reports of melena or hematochezia to suggest bleeding. Does have a hx of non bleeding esophageal varices, and is to go back on nadolol per GI when able to tolerate. Would cont to hold until respiratory status is optimized. 4. Hepatic encephalopathy 2/2 NAFLD CIRRHOSIS: has refractory ascites despite previous TIPS placement; Doppler US performed on admission and TIPS catheter is patent. Continue lactulose and rifaximin. Has non bleeding esophageal varices from previous endoscopy, to return on Nadolol per GI. Was previously evaluated by Liver Transplant team at [facility]. Paracentesis drained 4.4 L just PLODDER OPERATOR and previous paracentesis on May 28 yielded 7.9 L. 06/17: somewhat more confused today; still no BM after several doses of lactulose , which are scheduled. GI put her on Miralax daily. Fall precautions. 5. DMII-uncontrolled with A1C 8.2. adaptive physical educator saw patient today and recommends taking FSG more often at home on discharge for better titration as outpatient. Pharmacy consult requested to titrate Lantus and ISS while inpatient. Appreciate recs. 6. Hypothyroidism-Synthroid at 225mcg PO daily 7. Depression/Anxiety-appears stable, Cont home Cymbalta at 120mg daily, Remeron and Abilify-both taken nightly. Clonazepam PRN 8. Obesity Full Code DVT prophylaxis-SCDs while pt anemic and requiring transfusions. Apprec GI input into the need for heparin in her case. Dispo-telemetry until hypoxia resolves DO [email or web address] Consultants: GI-Case Nephro-Oncu Current Inpatient Medications: Current Inpatient Medications Medications (Trade) Dose Ordered Sig/[place] Route Start Time Stop Time Status Last Admin Dose Admin Ondansetron HCl (Zofran Inj) 4 mg Q6H PRN IV 06/14/17 13:30 07/14/17 13:29 06/14/17 22:22 4 MG Aripiprazole (Abilify Tab) 10 mg HS PO 06/14/17 21:00 07/14/17 20:59 06/16/17 21:08 10 MG Clonazepam (Klonopin Tab) 1 mg HS PRN PO 06/14/17 18:00 07/14/17 17:59 06/16/17 21:08 1 MG Duloxetine HCl (Cymbalta Cap) 120 mg QAM PO 06/15/17 09:00 07/15/17 08:59 06/17/17 09:35 120 MG Rifaximin (Xifaxan Tab) 550 mg BID PO 06/14/17 21:00 07/14/17 20:59 06/17/17 09:35 550 MG Mirtazapine (Remeron Tab) 15 mg HS PO 06/14/17 21:00 07/14/17 20:59 06/16/17 21:08 15 MG Furosemide 80 mg/ Syringe 8 ml @ 4 mls/min BID17 IV 06/15/17 17:00 07/15/17 16:59 06/17/17 17:59 4 MLS/MIN Spironolactone (Aldactone Tab) 100 mg BID17 PO 06/16/17 09:00 07/15/17 16:59 06/17/17 17:59 100 MG Levothyroxine Sodium (Synthroid Tab) 25 mcg DAILYBB PO 06/16/17 06:00 07/16/17 05:59 06/17/17 06:27 25 MCG Levothyroxine Sodium (Synthroid Tab) 200 mcg DAILYBB PO 06/16/17 06:00 07/16/17 05:59 06/17/17 06:27 200 MCG Pantoprazole Sodium (Protonix Tab) 40 mg QAM PO 06/15/17 11:45 07/15/17 11:44 06/17/17 09:35 40 MG Insulin Aspart (novoLOG ASPART) SLIDING SCALE If C... ACHS SC 06/15/17 12:00 07/15/17 11:59 06/17/17 18:05 12 UNITS Glucose (Glucose 40% Gel) 15-30 GRAMS 15 GRAMS... UD PRN PO 06/15/17 11:45 07/15/17 11:44 Glucose (Glucose Chew Tab) 4-8 Tablets 4 Tabl... UD PRN PO 06/15/17 11:45 07/15/17 11:44 Dextrose (Dextrose 50% 50ML Syringe) 25-50ML OF 50% DW IV FOR... UD PRN IV 06/15/17 11:45 07/15/17 11:44 Glucagon (Glucagon Inj) 1 mg UD PRN SQ 06/15/17 11:45 07/15/17 11:44 Acetaminophen (Tylenol Tab) 325 mg Q6H PRN PO 06/16/17 03:30 07/16/17 03:29 Tramadol HCl (Ultram Tab) 25 mg Q6H PRN PO 06/16/17 03:30 07/16/17 03:29 06/16/17 04:30 25 MG Albumin Human (Albumin 25%) 25 gm BID IV 06/16/17 10:00 06/19/17 20:59 06/17/17 09:34 25 GM Miscellaneous Information (Consult Glycemic Management Pharmacy) 1 ea UD N/A 06/16/17 16:37 07/16/17 16:36 Insulin Glargine (Lantus Solostar Pen) 28 units Q12 SC 06/16/17 21:00 07/16/17 20:59 06/17/17 09:42 28 UNITS Lactulose (Chronulac Syrup) 30 gm 0800 PO 06/17/17 08:00 07/17/17 07:59 06/17/17 09:35 30 GM Polyethylene (Miralax Powder Packet) 17 gm DAILY PO 06/17/17 17:00 07/17/17 16:59
[2017-06-17] MEDS: MIRTAZAPINE TAB 15 MG TAB PO SCH (21:45)
[2017-06-17] MEDS: ARIPIprazole TAB 10 MG TAB PO SCH (22:19)
[2017-06-18] VITALS (28 sets, daily range): BP systolic 123–171; BP diastolic 55–88; PULSE 100–114; TEMP 36.8–37.3; O2SAT 91–96
[2017-06-18] MEDS: LEVOTHYROXINE 25 MCG TAB PO SCH (05:57)
[2017-06-18] MEDS: LEVOTHYROXINE 200 MCG TAB PO SCH (05:57)
[2017-06-18 07:06] LABS: MEAN CELL VOLUME 75.8 fL (80-100); MEAN CORPUSCULAR HEMOGLOBIN 21.1 pg (25-34); MEAN CORPUSCULAR HGB CONC 27.8 g/dl (32-36); PLATELET COUNT 96 K/uL (130-400); PLT ESTIMATE DECREASED; RED BLOOD COUNT 3.56 M/uL (4.2-5.4); WHITE BLOOD COUNT 8.24 K/uL (4.8-10.8)
[2017-06-18 07:09] LABS: CALCIUM 8.7 mg/dl (8.5-10.1); CREATININE 0.98 mg/dl (0.60-1.20)
[2017-06-18] MEDS: DULOXETINE HCL 60 MG CAP PO SCH (07:55)
[2017-06-18] MEDS: PANTOprazole SOD 40 MG TAB PO SCH (07:55)
[2017-06-18] MEDS: RIFAXIMIN TAB 550 MG TAB PO SCH ×2 (07:55→22:07)
[2017-06-18] MEDS: FUROSEMIDE INJ 80 MG in SYRINGE 0 ML IV SCH (07:56)
[2017-06-18] MEDS: LACTULOSE SYRUP 30 GM/45 ML UDP PO SCH (07:56)
[2017-06-18] MEDS: INSULIN ASPART 100 UNITS/ML 3 ML PEN SC SCH ×4 (08:01→22:05)
[2017-06-18] MEDS: CLONAZEPAM 1 MG TAB PO PRN (08:02)
[2017-06-18] MEDS: INSULIN GLARGINE SOLOSTAR 100 UNITS/ML 3 ML PEN SC SCH ×2 (08:02→22:16)
[2017-06-18] MEDS: SPIRONOLACTONE 100 MG TAB PO SCH ×2 (08:03→16:51)
[2017-06-18] MEDS: POLYETHYLENE (MIRALAX) 17 GM PACK PO SCH (08:03)
[2017-06-18] MEDS: ALBUMIN HUMAN 25% 12.5 GM/50 ML VIAL IV SCH (08:03)
--- NOTE | 2017-06-18 09:00 | Gastroenterology Progress Note ---
Progress Note Date of Service: Jun 18, 2017 Subjective Pt evaluation today including: conversation w/ patient, physical exam, chart review, lab review Pt was seen and examined this AM. She tells me around 2am she started having worsening SOB. This AM she is SOB, and diaphoretic. She is not wearing her O2. Dr. Hanson aware and pt is going for imaging to rule out PE. Respiratory paged. Blood sugar rechecked and WNL. Had BMs last night w/ scheduled lactulose. Denies any abdominal pain, no black/ bloody stools. H&H continues to drop. Mentation is improved. Review of Systems Constitutional: No fever Respiratory: + shortness of breath, + dyspnea at rest, No cough Cardiac: No chest pain Abdomen: No pain, No nausea, No vomiting, No diarrhea, No constipation, No GI bleeding Medications Current Inpatient Medications Medications (Trade) Dose Ordered Sig/[place] Route Start Time Stop Time Status Last Admin Dose Admin Ondansetron HCl (Zofran Inj) 4 mg Q6H PRN IV 06/14/17 13:30 07/14/17 13:29 06/14/17 22:22 4 MG Aripiprazole (Abilify Tab) 10 mg HS PO 06/14/17 21:00 07/14/17 20:59 06/17/17 22:19 10 MG Clonazepam (Klonopin Tab) 1 mg HS PRN PO 06/14/17 18:00 07/14/17 17:59 06/18/17 08:02 1 MG Duloxetine HCl (Cymbalta Cap) 120 mg QAM PO 06/15/17 09:00 07/15/17 08:59 06/18/17 07:55 120 MG Rifaximin (Xifaxan Tab) 550 mg BID PO 06/14/17 21:00 07/14/17 20:59 06/18/17 07:55 550 MG Mirtazapine (Remeron Tab) 15 mg HS PO 06/14/17 21:00 07/14/17 20:59 06/17/17 21:45 15 MG Furosemide 80 mg/ Syringe 8 ml @ 4 mls/min BID17 IV 06/15/17 17:00 07/15/17 16:59 06/18/17 07:56 4 MLS/MIN Spironolactone (Aldactone Tab) 100 mg BID17 PO 06/16/17 09:00 07/15/17 16:59 06/18/17 08:03 100 MG Levothyroxine Sodium (Synthroid Tab) 25 mcg DAILYBB PO 06/16/17 06:00 07/16/17 05:59 06/18/17 05:57 25 MCG Levothyroxine Sodium (Synthroid Tab) 200 mcg DAILYBB PO 06/16/17 06:00 07/16/17 05:59 06/18/17 05:57 200 MCG Pantoprazole Sodium (Protonix Tab) 40 mg QAM PO 06/15/17 11:45 07/15/17 11:44 06/18/17 07:55 40 MG Insulin Aspart (novoLOG ASPART) SLIDING SCALE If C... ACHS SC 06/15/17 12:00 07/15/17 11:59 06/18/17 08:01 7 UNITS Glucose (Glucose 40% Gel) 15-30 GRAMS 15 GRAMS... UD PRN PO 06/15/17 11:45 07/15/17 11:44 Glucose (Glucose Chew Tab) 4-8 Tablets 4 Tabl... UD PRN PO 06/15/17 11:45 07/15/17 11:44 Dextrose (Dextrose 50% 50ML Syringe) 25-50ML OF 50% DW IV FOR... UD PRN IV 06/15/17 11:45 07/15/17 11:44 Glucagon (Glucagon Inj) 1 mg UD PRN SQ 06/15/17 11:45 07/15/17 11:44 Acetaminophen (Tylenol Tab) 325 mg Q6H PRN PO 06/16/17 03:30 07/16/17 03:29 Tramadol HCl (Ultram Tab) 25 mg Q6H PRN PO 06/16/17 03:30 07/16/17 03:29 06/16/17 04:30 25 MG Miscellaneous Information (Consult Glycemic Management Pharmacy) 1 ea UD N/A 06/16/17 16:37 07/16/17 16:36 Insulin Glargine (Lantus Solostar Pen) 28 units Q12 SC 06/16/17 21:00 07/16/17 20:59 06/18/17 08:02 28 UNITS Lactulose (Chronulac Syrup) 30 gm 0800 PO 06/17/17 08:00 07/17/17 07:59 06/18/17 07:56 30 GM Polyethylene (Miralax Powder Packet) 17 gm DAILY PO 06/17/17 17:00 07/17/17 16:59 Objective Vital Signs Date Time Temp Pulse Resp B/P (MAP) Pulse Ox O2 Delivery O2 Flow Rate FiO2 06/18/17 07:12 37.3 105 20 131/66 (87) 93 Nasal Cannula 4.0 06/18/17 04:33 36.9 106 20 124/59 (80) 93 Nasal Cannula 4.0 06/18/17 04:00 Nasal Cannula 4.0 06/18/17 00:19 36.9 102 18 133/56 (81) 91 Nasal Cannula 06/18/17 00:00 Nasal Cannula 4.0 06/17/17 20:53 36.4 101 20 147/72 (97) 94 Nasal Cannula 4.0 06/17/17 20:00 Nasal Cannula 4.0 06/17/17 16:03 36.7 98 22 157/64 (95) 95 Nasal Cannula 4.0 06/17/17 16:00 Nasal Cannula 4.0 06/17/17 12:09 36.4 106 22 136/65 (88) 91 Nasal Cannula 4.0 06/17/17 12:00 Nasal Cannula 4.0 Physical Exam General Appearance: + moderate distress (SOB, diaphoretic) Eyes: PERRL ENT: hearing grossly normal Neck: supple Respiratory/Chest: + decreased breath sounds Cardiovascular: no murmur, + tachycardia Abdomen: normal bowel sounds, non tender, soft, no organomegaly Neurologic/Psych: alert, oriented x 3, + pertinent finding (anxious) Skin: normal color Laboratory Results Last 24 Hours Test 06/17/17 11:13 06/17/17 16:04 06/17/17 20:55 06/18/17 06:16 Bedside Glucose 209 mg/dl 188 mg/dl 194 mg/dl White Blood Count 8.24 K/uL Red Blood Count 3.56 M/uL Hemoglobin 7.5 g/dL Hematocrit 27.0 % Mean Corpuscular Volume 75.8 fL Mean Corpuscular Hemoglobin 21.1 pg Mean Corpuscular Hemoglobin Concent 27.8 g/dl RDW Standard Deviation 51.6 fL RDW Coefficient of Variation 18.9 % Platelet Count 96 K/uL Mean Platelet Volume 10.0 fL Platelet Estimate DECREASED Sodium Level 138 mmol/L Potassium Level 4.0 mmol/L Chloride Level 99 mmol/L Carbon Dioxide Level 34 mmol/L Anion Gap 5.0 mmol/L Blood Urea Nitrogen 35 mg/dl Creatinine 0.98 mg/dl Est Creatinine Clear Calc Drug Dose 104.8 ml/min Estimated GFR () 79.6 Estimated GFR (Non- 68.7 BUN/Creatinine Ratio 36.0 Random Glucose 158 mg/dl Calcium Level 8.7 mg/dl Test 06/18/17 06:19 06/18/17 06:38 Ammonia 71.0 umol/L Bedside Glucose 179 mg/dl Assessment and Plan 47 year old female with MEIER cirrhosis decompensated by varices, hepatic encephalopathy and ascites s/p TIPS with refractory ascites. MELD admitted follow outpatient paracentesis w/ sherly/HRS with signs of volume overload. Kidney function slowly improved overnight. Nephrology is following and is currently on spironolactone/lasix/albumin. - Rule out PE - Low NA diet as tolerated - Continue lasix/spironolactone/albumin per nephrology - Continue scheduled lactulose/Xifaxan - Trend H&H - No S/S of GI blood loss - Consider transfusion I have seen , examined and agree with the plan as outlined by TABATHA Do as above. -Clinical decompensation today with hypoxia -Now with clinical left upper lobe infiltrate -Recommend continuation of IV diuresis -ABG -Echo with contrast or aggitated saline to evaluation for Hepatopulmonary Syndrome -If has HRS would get 22 MELD exception points and would transfer patient to OLT center ([facility] [place]) -BL paracentesis is quite unconventional and may cause persistent draining via cutaneous -Cardiac enzymes
[2017-06-18] MEDS ORDERED: OPTIRAY 320 IV PRN (09:15)
[2017-06-18] MEDS ORDERED: ALPRAZOLAM 0.5 MG TAB PO SCH (09:45)
--- NOTE | 2017-06-18 10:08 | DIAGNOSTIC IMAGING REPORT ---
CT ANGIOGRAM OF THE CHEST CLINICAL HISTORY: Shortness of breath. Cirrhosis. COMPARISON STUDY: 01/28/2017 TECHNIQUE: Following the IV administration of 106 mL of Optiray-320, CT angiogram of the thorax was performed from the thoracic inlet to the lung bases utilizing the pulmonary embolus protocol. Images are reviewed in the axial, sagittal, and coronal planes. IV contrast was administered without complication. MIP imaging was performed. A dose lowering technique was utilized adhering to the principles of ALARA. CT DOSE: 719.98 mGy.cm FINDINGS: The liver has a cirrhotic morphology. There is upper abdominal ascites. There is splenomegaly. There is indwelling TIPS catheter. No pathologically enlarged axillary mediastinal or hilar lymph nodes were visualized. There was no evidence of thoracic aortic dilatation. There is significant motion artifact. No central emboli are visualized. There are moderate bilateral pleural effusions right larger than left. There are by basilar compressive atelectatic changes. There are extensive left upper lobe airspace opacities, infectious versus asymmetric edema. Groundglass opacities are also present within the right upper lobe. IMPRESSION: 1. No central emboli identified. Limited evaluation of segmental and subsegmental artery branches 2. Moderate bilateral pleural effusions right greater than left 3. Bilateral asymmetric airspace opacities left greater than right. Asymmetric edema versus pneumonia. Clinical and radiographic follow-up is recommended 4. Cirrhosis, splenomegaly and ascites. Electronically signed by: Chuck Jurado M.D. 06/18/2017 10:07 AM Dictated Date/Time: 06/18/2017 10:03 AM
[2017-06-18] MEDS ORDERED: INSULIN GLARGINE SOLOSTAR 100 UNITS/ML 3 ML PEN SC ONE (10:30)
--- NOTE | 2017-06-18 12:56 | Pharmacy Progress Note ---
Glycemic: Assessment & Plan Date of Service Jun 18, 2017. Assessment & Plan ASSESSMENT: * Patient received a total of 101 units of insulin yesterday, with BSGs persistently above goal range, despite increase to basal insulin and tightening of correction factor. * Will provide supplemental dose of Lantus x1 and then increase scheduled dose moving forward. If this is insufficient, will adjust Novolog parameters tomorrow and consider further increasing Lantus. PLAN: * Basal insulin: Lantus 30 units SQ BID - plus additional 5 units today at ~noon * Correctional Insulin: Novolog Correction per scale ACHS Goal Range: Low 110 mg/dL - High 140 mg/dL Correction Factor: 15 mg/dL/unit * Prandial insulin: Per carb ratio of 1 unit per 5 grams CHO consumed Considerations for discharge: * Patient's current A1c (8.2%) suggests that her glycemic management is suboptimal as an outpatient. * Might consider adjustment in Lantus dose on discharge, or maximizing her oral agents (as long as renal function remains appropriate). * Recommend close f/u with PCP and increased monitoring after any changes. Pharmacy will continue to monitor patient daily and write orders per [facility] inpatient glycemic control protocol. Thanks. * Please note that the plan above was derived based on current level of insulin resistance and hospital stress. These recommendations are appropriate for inpatient admission only. Plan of care upon discharge will need to be reassessed to avoid potential outpatient hypo/hyperglycemia.
[2017-06-18] MEDS: FUROSEMIDE INJ 120 MG in SYRINGE 0 ML IV SCH ×2 (13:00→22:08)
[2017-06-18] MEDS ORDERED: METOLAZONE 5 MG TAB PO ONE (13:00)
--- NOTE | 2017-06-18 13:20 | Critical Care Consultation ---
Critical Care Consultation Date of Consultation: Jun 18, 2017. Attending Physician: Natalya Hanson DO Reason for Consultation: respiratory failure. Past Medical/Surgical History MEIER, s/p TIPPS procedure with recurrent ascites, s/p paracentesis, now in HRS . diabetes. depression. hx of sbp. Family History Unobtainable family history due to adoption Social History Smoking Status: Never Smoker Drug Use: none Marital Status: Housing Status: lives with significant other Allergies Coded Allergies: Ferrous Sulfate (Verified Allergy, Intermediate, IRON SUPPLEMENT--RASH, ABD PAIN AND DIARRHEA, 05/28/17) Cat Dander (Verified Allergy, Mild, rash, 05/28/17) Erythromycin (Verified Allergy, Mild, RASH, 05/28/17) Home Medications Scheduled Aripiprazole (Aripiprazole), 10 MG PO HS Ciprofloxacin Tab (Cipro), 1 TAB PO DAILY Duloxetine HCl (Duloxetine HCl), 120 MG PO QAM Furosemide (Lasix), 80 MG PO BID Glipizide (Glucotrol), 0.5 TAB PO BID Insulin Glargine (Lantus Solostar), 55 UNITS SC HS Levothyroxine Sodium (Levothyroxine Sodium), 1 TAB PO QAM@0600 Levothyroxine Sodium (Levothyroxine Sodium), 1 TAB PO QAM@0600 Mirtazapine Soltab (Remeron Soltab), 15 MG PO HS Omeprazole (Prilosec), 40 MG PO DAILY Rifaximin (Xifaxan), 550 MG PO BID Ropinirole Hydrochloride (Requip), 0.25 MG PO HS Sitagliptin (Januvia), 50 MG PO DAILY Spironolactone (Aldactone), 100 MG PO BID Scheduled PRN Clonazepam (Clonazepam Odt), 1-2 MG PO HS PRN for Anxiety Lactulose (Chronulac), 30 GM PO DAILY PRN for Constipation Current Inpatient Medications Current Inpatient Medications Medications (Trade) Dose Ordered Sig/[place] Route Start Time Stop Time Status Last Admin Dose Admin Ondansetron HCl (Zofran Inj) 4 mg Q6H PRN IV 06/14/17 13:30 07/14/17 13:29 06/14/17 22:22 4 MG Aripiprazole (Abilify Tab) 10 mg HS PO 06/14/17 21:00 07/14/17 20:59 06/17/17 22:19 10 MG Clonazepam (Klonopin Tab) 1 mg HS PRN PO 06/14/17 18:00 07/14/17 17:59 06/18/17 08:02 1 MG Duloxetine HCl (Cymbalta Cap) 120 mg QAM PO 06/15/17 09:00 07/15/17 08:59 06/18/17 07:55 120 MG Rifaximin (Xifaxan Tab) 550 mg BID PO 06/14/17 21:00 07/14/17 20:59 06/18/17 07:55 550 MG Mirtazapine (Remeron Tab) 15 mg HS PO 06/14/17 21:00 07/14/17 20:59 06/17/17 21:45 15 MG Spironolactone (Aldactone Tab) 100 mg BID17 PO 06/16/17 09:00 07/15/17 16:59 06/18/17 08:03 100 MG Levothyroxine Sodium (Synthroid Tab) 25 mcg DAILYBB PO 06/16/17 06:00 07/16/17 05:59 06/18/17 05:57 25 MCG Levothyroxine Sodium (Synthroid Tab) 200 mcg DAILYBB PO 06/16/17 06:00 07/16/17 05:59 06/18/17 05:57 200 MCG Pantoprazole Sodium (Protonix Tab) 40 mg QAM PO 06/15/17 11:45 07/15/17 11:44 06/18/17 07:55 40 MG Insulin Aspart (novoLOG ASPART) SLIDING SCALE If C... ACHS SC 06/15/17 12:00 07/15/17 11:59 06/18/17 11:48 9 UNITS Glucose (Glucose 40% Gel) 15-30 GRAMS 15 GRAMS... UD PRN PO 06/15/17 11:45 07/15/17 11:44 Glucose (Glucose Chew Tab) 4-8 Tablets 4 Tabl... UD PRN PO 06/15/17 11:45 07/15/17 11:44 Dextrose (Dextrose 50% 50ML Syringe) 25-50ML OF 50% DW IV FOR... UD PRN IV 06/15/17 11:45 07/15/17 11:44 Glucagon (Glucagon Inj) 1 mg UD PRN SQ 06/15/17 11:45 07/15/17 11:44 Acetaminophen (Tylenol Tab) 325 mg Q6H PRN PO 06/16/17 03:30 07/16/17 03:29 Tramadol HCl (Ultram Tab) 25 mg Q6H PRN PO 06/16/17 03:30 07/16/17 03:29 06/16/17 04:30 25 MG Miscellaneous Information (Consult Glycemic Management Pharmacy) 1 ea UD N/A 06/16/17 16:37 07/16/17 16:36 Lactulose (Chronulac Syrup) 30 gm 0800 PO 06/17/17 08:00 07/17/17 07:59 06/18/17 07:56 30 GM Polyethylene (Miralax Powder Packet) 17 gm DAILY PO 06/17/17 17:00 07/17/17 16:59 Alprazolam (Xanax Tab) 0.5 mg TODAY@0945 PO 06/18/17 09:45 06/18/17 18:00 Ioversol (Optiray 320) 100 ml UD PRN IV 06/18/17 09:15 06/22/17 09:14 Insulin Glargine (Lantus Solostar Pen) 30 units Q12 SC 06/18/17 21:00 07/18/17 20:59 Furosemide 120 mg/ Syringe 12 ml @ 4 mls/min Q8H IV 06/18/17 14:00 07/18/17 12:29 06/18/17 13:00 4 MLS/MIN Review of Systems Constitutional: + fatigue Eyes: No worsening of vision, No eye pain, No redness, No discharge, No diplopia, No problem reported ENT: No hearing loss, No unusual epistaxis, No nasal symptoms, No sore throat, No tinnitus, No dental problems, No trouble swallowing, No problem reported Respiratory: + cough, + shortness of breath, + dyspnea on exertion, + dyspnea at rest Cardiovascular: No chest pain, No orthopnea, No PND, No edema, No claudication , No palpitations, No problem reported Abdomen: + problem reported Musculoskeletal: No joint pain, No muscle pain, No swelling, No calf pain, No problem reported Genitourinary - Female: + urinary urgency Neurologic: + memory loss, + numbness/tingling Psychiatric: + depression symptoms Endocrine: + fatigue Integumentary: No rash, No itch, No new/changing skin lesions, No color change , No bleeding, No problem reported Allergic / Immunologic: No environmental allergies, No seasonal allergies, No pet sensitivities, No food allergies, No hives, No frequent infections, No poor healing, No prolonged convalescence, No problem reported Physical Exam Date Time Temp Pulse Resp B/P (MAP) Pulse Ox O2 Delivery O2 Flow Rate FiO2 06/18/17 12:00 91 Oxymask 6.0 06/18/17 11:35 37.2 114 20 157/72 (100) 06/18/17 08:00 91 Nasal Cannula 4.0 06/18/17 07:12 37.3 105 20 131/66 (87) 93 Nasal Cannula 4.0 06/18/17 04:33 36.9 106 20 124/59 (80) 93 Nasal Cannula 4.0 06/18/17 04:00 Nasal Cannula 4.0 06/18/17 00:19 36.9 102 18 133/56 (81) 91 Nasal Cannula 06/18/17 00:00 Nasal Cannula 4.0 06/17/17 20:53 36.4 101 20 147/72 (97) 94 Nasal Cannula 4.0 06/17/17 20:00 Nasal Cannula 4.0 06/17/17 16:03 36.7 98 22 157/64 (95) 95 Nasal Cannula 4.0 06/17/17 16:00 Nasal Cannula 4.0 General Appearance: moderate distress Eyes: PERRLA, no discharge, EOMI ENT: normal sinus exam, epistaxsis present Neck: normal range of motion Respiratory: rales Cardiovasular: regular rate/rhythm, normal S1S2, no M/G/R, no murmur, no gallop Abdomen: non tender, hemorrhoids, hernia, other Back: normal inspection Upper Extremities: edema Edema: Bilateral UE (2+) Neuro: alert, oriented x 3, normal motor exam, normal sensation Psychiatric: normal affect Laboratory Results Last 24 Hours Test 06/17/17 16:04 06/17/17 20:55 06/18/17 06:16 06/18/17 06:19 Bedside Glucose 188 mg/dl 194 mg/dl White Blood Count 8.24 K/uL Red Blood Count 3.56 M/uL Hemoglobin 7.5 g/dL Hematocrit 27.0 % Mean Corpuscular Volume 75.8 fL Mean Corpuscular Hemoglobin 21.1 pg Mean Corpuscular Hemoglobin Concent 27.8 g/dl RDW Standard Deviation 51.6 fL RDW Coefficient of Variation 18.9 % Platelet Count 96 K/uL Mean Platelet Volume 10.0 fL Platelet Estimate DECREASED Sodium Level 138 mmol/L Potassium Level 4.0 mmol/L Chloride Level 99 mmol/L Carbon Dioxide Level 34 mmol/L Anion Gap 5.0 mmol/L Blood Urea Nitrogen 35 mg/dl Creatinine 0.98 mg/dl Est Creatinine Clear Calc Drug Dose 104.8 ml/min Estimated GFR () 79.6 Estimated GFR (Non- 68.7 BUN/Creatinine Ratio 36.0 Random Glucose 158 mg/dl Calcium Level 8.7 mg/dl Ammonia 71.0 umol/L Test 06/18/17 06:38 06/18/17 08:50 Bedside Glucose 179 mg/dl 189 mg/dl Diagnostic Results ct chest reviewed personally with no evidence of PE, bilateral pleural effusion , ascites, HSM. small atelectasis bilaterally. Assessment & Plan 1- fluid overloaded secondary to liver cirrhosis. 2- HRS. 3- diabetes. 4- acute resp failure due to pleural effusion. 5- morbid obesity. Plan: 1- agree with ICU transfer. 2- appreciate Dr. Sainz and Dr. Hanson input. 3- aggressive diuresis. 4- thoracentesis, urgent. 5- continue O2 via cool mist. 6- continue current meds and adjust to renal function. 7- renal diet. 8- daily labs. 9- DVT prophylaxis and Gi prophylaxis. 10- discussed in details with the staff and with Dr. Hanson. CCT 45 min excluding procedure time.
[2017-06-18 16:31] LABS: PLEURAL FLUID GLUCOSE 163 mg/dl
--- NOTE | 2017-06-18 16:31 | DIAGNOSTIC IMAGING REPORT ---
CHEST ONE VIEW PORTABLE CLINICAL HISTORY: thoracentesis right sided postthoracentesis COMPARISON STUDY: 06/15/2017 FINDINGS: No evidence pneumothorax status post thoracentesis. Persistent parenchymal infiltrative changes bilaterally. Stable cardiomegaly. IMPRESSION: No evidence pneumothorax status post thoracentesis. Persistent findings of congestive failure versus pulmonary edema The above report was generated using voice recognition software. It may contain grammatical, syntax or spelling errors. Electronically signed by: Franklin Serrano M.D. 06/18/2017 4:30 PM Dictated Date/Time: 06/18/2017 4:29 PM
[2017-06-18 16:36] LABS: PLEURAL FLUID TOTAL PROTEIN 3.1 g/dl
--- NOTE | 2017-06-18 16:52 | Procedure Note ---
Procedure Note Procedure Date Jun 18, 2017. Procedure Description Procedure Name: thoracentesis. consent verbally from the pt and her at the bed side. agreed to the procedure. the pt placed in upright position. US used with findings consisted with multipocketed septated pleural effusion on the right and the left. under strict sterile field , at the level of the 8th ICS posteriorly, the skin was prepped with chlorhexidine then injected with 10 ml of 1% lido, scalple used and a catheter with Medversant tech, the catheter inserted into the right pleural space, dark yellow fluid aspirated using Arrow system with 1500 ml removed, the catheter emoved afterward and pressure applied to the insertion site without bleeding, tolerated the procedure well. although there is pleural effusion with septation on the left she elected not to have done. CXR is pending, will review, will send the fluid for analysis.
[2017-06-18 16:55] LABS: PLEURAL FLUID APPEARANCE CLOUDY; PLEURAL FLUID COLOR AMBER; PLEURAL FLUID MONONUC RELAT 96.1 %; PLEURAL FLUID POLYNUC 3.9 %; PLEURAL FLUID WBC (A) 342 /uL
[2017-06-18 17:05] LABS: PLEURAL FLUID SOURCE RIGHT LUNG
[2017-06-18] MEDS: ARIPIprazole TAB 10 MG TAB PO SCH (22:07)
[2017-06-19] VITALS (31 sets, daily range): BP systolic 98–151; BP diastolic 49–71; PULSE 99–105; TEMP 36.6–36.9; O2SAT 91–97
[2017-06-19 05:25] LABS: HEMATOCRIT 24.7 % (37-47); MEAN CELL VOLUME 76.2 fL (80-100); MEAN CORPUSCULAR HEMOGLOBIN 21.9 pg (25-34); MEAN CORPUSCULAR HGB CONC 28.7 g/dl (32-36); MEAN PLATELET VOLUME 9.5 fL (7.4-10.4); PLATELET COUNT 81 K/uL (130-400); RED BLOOD COUNT 3.24 M/uL (4.2-5.4); WHITE BLOOD COUNT 5.55 K/uL (4.8-10.8)
[2017-06-19 05:27] LABS: BUN/CREATININE RATIO 34.3 (10-20); CALCIUM 8.6 mg/dl (8.5-10.1); POTASSIUM 3.7 mmol/L (3.5-5.1)
[2017-06-19] MEDS: FUROSEMIDE INJ 120 MG in SYRINGE 0 ML IV SCH ×2 (05:40→14:38)
[2017-06-19] MEDS: LEVOTHYROXINE 200 MCG TAB PO SCH ×2 (05:43→06:42)
[2017-06-19] MEDS: LEVOTHYROXINE 25 MCG TAB PO SCH ×2 (05:43→06:42)
[2017-06-19] MEDS: INSULIN ASPART 100 UNITS/ML 3 ML PEN SC SCH ×3 (06:09→17:13)
--- NOTE | 2017-06-19 08:19 | Nephrology Progress Note ---
Nephrology Progress Note Date of Service: Jun 19, 2017. Subjective 47 yo female with sherly/HRS with signs of volume overload and elevated creatinine on admission and diuresed aggressively and given albumin. creatinine improved to normal. pt yesterday became suddenly sob. no pe. pt transferred to icu and underwent thoracentesis on the right side and found to have exudative effusion. we also increased diuretics aggressively. pt eating well this morning and much more alert and comfortable. Objective Date Time Temp Pulse Resp B/P (MAP) Pulse Ox O2 Delivery O2 Flow Rate FiO2 06/19/17 06:01 101 24 135/57 (83) 95 CPAP 8.0 06/19/17 05:46 99 25 123/61 (81) 97 CPAP 8.0 06/19/17 05:31 100 19 141/56 (84) 96 CPAP 8.0 06/19/17 05:16 100 25 121/55 (77) 95 CPAP 8.0 06/19/17 05:01 101 18 98/60 (73) 97 CPAP 8.0 06/19/17 04:46 101 21 121/65 (83) 96 CPAP 8.0 06/19/17 04:31 100 23 123/56 (78) 95 CPAP 8.0 06/19/17 04:30 100 96 8.0 06/19/17 04:16 36.8 100 23 125/60 (81) 97 CPAP 8.0 06/19/17 04:01 99 23 123/54 (77) 94 CPAP 8.0 06/19/17 04:00 CPAP 8.0 06/19/17 03:46 99 23 121/49 (73) 95 CPAP 8.0 06/19/17 03:31 99 24 113/51 (71) 95 CPAP 8.0 06/19/17 03:16 100 21 124/51 (75) 95 CPAP 8.0 06/19/17 03:04 100 43 117/71 (86) 94 CPAP 8.0 06/19/17 02:20 104 23 118/62 (80) 95 CPAP 8.0 06/19/17 02:01 103 23 131/57 (81) 91 CPAP 8.0 06/19/17 01:46 103 24 131/55 (80) 91 CPAP 8.0 06/19/17 01:31 103 24 127/58 (81) 92 CPAP 8.0 8/9/17 01:16 102 21 146/57 (86) 92 CPAP 8.0 8/9/17 01:16 36.8 102 21 146/57 (86) 92 8/9/17 01:01 102 23 129/60 (83) 92 CPAP 8.0 8/9/17 00:46 102 22 133/59 (83) 92 CPAP 8.0 8/9/17 00:31 104 26 129/57 (81) 92 CPAP 8.0 8/9/17 00:16 102 21 128/58 (81) 93 CPAP 8.0 8/9/17 00:01 CPAP 8.0 8/9/17 00:01 36.9 101 21 123/61 (81) 96 CPAP 8.0 8/8/17 23:46 102 20 129/59 (82) 96 CPAP 8.0 8/8/17 23:31 101 21 133/63 (86) 94 CPAP 8.0 8/8/17 23:18 101 95 8.0 8/8/17 23:16 101 22 137/59 (85) 94 CPAP 8.0 8/8/17 23:01 102 21 137/65 (89) 94 CPAP 8.0 8/8/17 22:46 100 30 152/76 (101) 92 CPAP 8.0 8/8/17 22:31 100 23 139/59 (85) 95 CPAP 8.0 8/8/17 22:16 102 24 123/56 (78) 96 CPAP 8.0 8/8/17 22:01 102 24 132/60 (84) 95 CPAP 8.0 8/8/17 21:46 102 23 129/59 (82) 92 CPAP 8.0 8/8/17 21:31 102 26 136/57 (83) 94 CPAP 8.0 8/8/17 21:16 102 26 134/55 (81) 92 CPAP 8.0 8/8/17 21:13 102 27 127/58 (81) 92 CPAP 8.0 8/8/17 21:01 100 24 168/71 (103) 93 CPAP 8.0 8/8/17 20:57 103 24 171/69 (103) 93 CPAP 8.0 8/8/17 20:56 104 94 8.0 8/8/17 20:01 36.8 105 28 151/76 (101) 95 CPAP 8.0 8/8/17 20:00 93 CPAP 8.0 06/18/17 19:01 107 35 148/88 (108) 93 Oxymask 8.0 06/18/17 18:16 37.0 106 24 126/65 (85) 94 Nasal Cannula 6.0 06/18/17 16:00 Oxymask 10.0 06/18/17 16:00 37.0 108 20 168/80 (109) 95 Oxymask 10.0 06/18/17 14:24 37.2 114 20 91 6.0 06/18/17 12:00 91 Oxymask 6.0 06/18/17 11:35 37.2 114 20 157/72 (100) Physical Exam: General-aaox3, obese Eyes-no scleral icterus ENT-mmm Neck-supple Lungs-decreased at both bases Heart-tachy Abdomen-bs+ s/nt/nd Extremities-no c/c/e Neuro-nonfocal Current Inpatient Medications Medications (Trade) Dose Ordered Sig/[place] Route Start Time Stop Time Status Last Admin Dose Admin Ondansetron HCl (Zofran Inj) 4 mg Q6H PRN IV 06/14/17 13:30 07/14/17 13:29 06/14/17 22:22 4 MG Aripiprazole (Abilify Tab) 10 mg HS PO 06/14/17 21:00 07/14/17 20:59 06/17/17 22:19 10 MG Clonazepam (Klonopin Tab) 1 mg HS PRN PO 06/14/17 18:00 07/14/17 17:59 06/18/17 08:02 1 MG Rifaximin (Xifaxan Tab) 550 mg BID PO 06/14/17 21:00 07/14/17 20:59 06/18/17 07:55 550 MG Spironolactone (Aldactone Tab) 100 mg BID17 PO 06/16/17 09:00 07/15/17 16:59 06/18/17 16:51 100 MG Levothyroxine Sodium (Synthroid Tab) 25 mcg DAILYBB PO 06/16/17 06:00 07/16/17 05:59 06/19/17 06:42 25 MCG Levothyroxine Sodium (Synthroid Tab) 200 mcg DAILYBB PO 06/16/17 06:00 07/16/17 05:59 06/19/17 06:42 200 MCG Pantoprazole Sodium (Protonix Tab) 40 mg QAM PO 06/15/17 11:45 07/15/17 11:44 06/18/17 07:55 40 MG Insulin Aspart (novoLOG ASPART) SLIDING SCALE If C... ACHS SC 06/15/17 12:00 07/15/17 11:59 06/18/17 22:05 2 UNITS Glucose (Glucose 40% Gel) 15-30 GRAMS 15 GRAMS... UD PRN PO 06/15/17 11:45 07/15/17 11:44 Glucose (Glucose Chew Tab) 4-8 Tablets 4 Tabl... UD PRN PO 06/15/17 11:45 07/15/17 11:44 Dextrose (Dextrose 50% 50ML Syringe) 25-50ML OF 50% DW IV FOR... UD PRN IV 06/15/17 11:45 07/15/17 11:44 Glucagon (Glucagon Inj) 1 mg UD PRN SQ 06/15/17 11:45 07/15/17 11:44 Acetaminophen (Tylenol Tab) 325 mg Q6H PRN PO 06/16/17 03:30 07/16/17 03:29 Tramadol HCl (Ultram Tab) 25 mg Q6H PRN PO 06/16/17 03:30 07/16/17 03:29 06/16/17 04:30 25 MG Miscellaneous Information (Consult Glycemic Management Pharmacy) 1 ea UD N/A 06/16/17 16:37 07/16/17 16:36 Lactulose (Chronulac Syrup) 30 gm 0800 PO 06/17/17 08:00 07/17/17 07:59 06/18/17 07:56 30 GM Polyethylene (Miralax Powder Packet) 17 gm DAILY PO 06/17/17 17:00 07/17/17 16:59 Ioversol (Optiray 320) 100 ml UD PRN IV 06/18/17 09:15 06/22/17 09:14 Insulin Glargine (Lantus Solostar Pen) 30 units Q12 SC 06/18/17 21:00 07/18/17 20:59 06/18/17 22:16 30 UNITS Furosemide 120 mg/ Syringe 12 ml @ 4 mls/min Q8H IV 06/18/17 14:00 07/18/17 12:29 06/19/17 05:40 4 MLS/MIN Last 24 Hours Test 06/18/17 08:50 06/18/17 11:34 06/18/17 15:30 06/18/17 16:22 Bedside Glucose 189 mg/dl 178 mg/dl 175 mg/dl Pleural Fluid Source RIGHT LUNG Pleural Fluid Color JENNA Pleural Fluid Appearance CLOUDY Pleural Fluid WBC 342 /uL Pleural Fluid RBC 53727 /uL Pleural Fluid pH 7.44 Pleural Fluid Polynuclear WBCs % 3.9 % Pleural Fluid Mononuclear WBCs % 96.1 % Pleural Fluid Total Protein 3.1 g/dl Pleural Fluid Albumin 1.4 g/dl Pleural Fluid LDH 104 IU Pleural Fluid Glucose 163 mg/dl Pleural Fluid Triglycerides 29 mg/dl Test 06/18/17 17:14 06/18/17 21:19 06/19/17 05:04 06/19/17 06:07 Lactate Dehydrogenase 159 U/L Total Protein 7.6 gm/dl Bedside Glucose 165 mg/dl 138 mg/dl White Blood Count 5.55 K/uL Red Blood Count 3.24 M/uL Hemoglobin 7.1 g/dL Hematocrit 24.7 % Mean Corpuscular Volume 76.2 fL Mean Corpuscular Hemoglobin 21.9 pg Mean Corpuscular Hemoglobin Concent 28.7 g/dl RDW Standard Deviation 53.6 fL RDW Coefficient of Variation 19.4 % Platelet Count 81 K/uL Mean Platelet Volume 9.5 fL Sodium Level 142 mmol/L Potassium Level 3.7 mmol/L Chloride Level 102 mmol/L Carbon Dioxide Level 38 mmol/L Anion Gap 2.0 mmol/L Blood Urea Nitrogen 34 mg/dl Creatinine 1.00 mg/dl Est Creatinine Clear Calc Drug Dose 102.7 ml/min Estimated GFR () 77.7 Estimated GFR (Non- 67.0 BUN/Creatinine Ratio 34.3 Random Glucose 122 mg/dl Calcium Level 8.6 mg/dl Ammonia 73.0 umol/L Test 06/19/17 08:08 Date/Time Source Procedure Growth Status 06/18/17 15:30 Pleural Fluid (Thoracentesis) Right Gram Stain Pending Received 06/18/17 15:30 Pleural Fluid (Thoracentesis) Right Bacterial Culture Pending Received Assessment & Plan SHERLY/HRS-creatinine has normalized. pt though at risk for contrast induced nephrotoxicity with the ct scan with contrast and concominant but necessary diuresis. continue to diurese on lasix 120 iv q8 to help optimize volume status. creatinine stable. will monitor creatinine, likely to see worsening creatinine in the next day or two if any contrast injury. Exudative effusion-defer to primary hospitalist and pulmonary. checking random prot/cr ratio to be thorough. will also check an spep with the anemia and low albumin.
[2017-06-19] MEDS ORDERED: DULOXETINE (CYMBALTA) 30 MG CAP PO SCH (09:00)
[2017-06-19] MEDS: POLYETHYLENE (MIRALAX) 17 GM PACK PO SCH (09:52)
[2017-06-19] MEDS: PANTOprazole SOD 40 MG TAB PO SCH (09:52)
[2017-06-19] MEDS: RIFAXIMIN TAB 550 MG TAB PO SCH (09:52)
[2017-06-19] MEDS: SPIRONOLACTONE 100 MG TAB PO SCH ×2 (09:52→17:12)
[2017-06-19] MEDS: LACTULOSE SYRUP 30 GM/45 ML UDP PO SCH (09:53)
[2017-06-19] MEDS: INSULIN GLARGINE SOLOSTAR 100 UNITS/ML 3 ML PEN SC SCH (09:54)
--- NOTE | 2017-06-19 10:02 | Gastroenterology Progress Note ---
Progress Note Date of Service: Jun 19, 2017 Subjective Pt evaluation today including: conversation w/ patient, physical exam, chart review, lab review Pt was seen and evaluated. No acute events overnight. Yesterday decompensation from a respiratory standpoint - no evidence of PE but bilateral pleural effusions. Had right thoracentesis - fluid sent and pending. She is feeling better this am. No chest pain, SOB, abdominal pain, black/bloody stools.Diuretic increased by Dr. Sainz. Discussed transfer at length today - transfer candidate for liver transplant evaluation and for TIPS management as she should not be requiring paracentesis following this procedure. She is not agreeable to transfer at this time. Has a lot of financial concerns and tells me she cannot make [place] a reality unless absolutely necessary. Review of Systems Constitutional: No fever Respiratory: No cough, No shortness of breath Cardiac: No chest pain Abdomen: No pain, No nausea, No vomiting, No diarrhea Medications Current Inpatient Medications Medications (Trade) Dose Ordered Sig/Ana Luisa Route Start Time Stop Time Status Last Admin Dose Admin Ondansetron HCl (Zofran Inj) 4 mg Q6H PRN IV 06/14/17 13:30 07/14/17 13:29 06/14/17 22:22 4 MG Aripiprazole (Abilify Tab) 10 mg HS PO 06/14/17 21:00 07/14/17 20:59 06/17/17 22:19 10 MG Clonazepam (Klonopin Tab) 1 mg HS PRN PO 06/14/17 18:00 07/14/17 17:59 06/18/17 08:02 1 MG Rifaximin (Xifaxan Tab) 550 mg BID PO 06/14/17 21:00 07/14/17 20:59 06/18/17 07:55 550 MG Spironolactone (Aldactone Tab) 100 mg BID17 PO 06/16/17 09:00 07/15/17 16:59 06/18/17 16:51 100 MG Levothyroxine Sodium (Synthroid Tab) 25 mcg DAILYBB PO 06/16/17 06:00 07/16/17 05:59 06/19/17 06:42 25 MCG Levothyroxine Sodium (Synthroid Tab) 200 mcg DAILYBB PO 06/16/17 06:00 07/16/17 05:59 06/19/17 06:42 200 MCG Pantoprazole Sodium (Protonix Tab) 40 mg QAM PO 06/15/17 11:45 07/15/17 11:44 06/18/17 07:55 40 MG Insulin Aspart (novoLOG ASPART) SLIDING SCALE If C... ACHS SC 06/15/17 12:00 07/15/17 11:59 06/18/17 22:05 2 UNITS Glucose (Glucose 40% Gel) 15-30 GRAMS 15 GRAMS... UD PRN PO 06/15/17 11:45 07/15/17 11:44 Glucose (Glucose Chew Tab) 4-8 Tablets 4 Tabl... UD PRN PO 06/15/17 11:45 07/15/17 11:44 Dextrose (Dextrose 50% 50ML Syringe) 25-50ML OF 50% DW IV FOR... UD PRN IV 06/15/17 11:45 07/15/17 11:44 Glucagon (Glucagon Inj) 1 mg UD PRN SQ 06/15/17 11:45 07/15/17 11:44 Acetaminophen (Tylenol Tab) 325 mg Q6H PRN PO 06/16/17 03:30 07/16/17 03:29 Tramadol HCl (Ultram Tab) 25 mg Q6H PRN PO 06/16/17 03:30 07/16/17 03:29 06/16/17 04:30 25 MG Miscellaneous Information (Consult Glycemic Management Pharmacy) 1 ea UD N/A 06/16/17 16:37 07/16/17 16:36 Lactulose (Chronulac Syrup) 30 gm 0800 PO 06/17/17 08:00 07/17/17 07:59 06/18/17 07:56 30 GM Polyethylene (Miralax Powder Packet) 17 gm DAILY PO 06/17/17 17:00 07/17/17 16:59 Ioversol (Optiray 320) 100 ml UD PRN IV 06/18/17 09:15 06/22/17 09:14 Insulin Glargine (Lantus Solostar Pen) 30 units Q12 SC 06/18/17 21:00 07/18/17 20:59 06/18/17 22:16 30 UNITS Furosemide 120 mg/ Syringe 12 ml @ 4 mls/min Q8H IV 06/18/17 14:00 07/18/17 12:29 06/19/17 05:40 4 MLS/MIN Objective Vital Signs Date Time Temp Pulse Resp B/P (MAP) Pulse Ox O2 Delivery O2 Flow Rate FiO2 06/19/17 06:01 101 24 135/57 (83) 95 CPAP 8.0 06/19/17 05:46 99 25 123/61 (81) 97 CPAP 8.0 06/19/17 05:31 100 19 141/56 (84) 96 CPAP 8.0 06/19/17 05:16 100 25 121/55 (77) 95 CPAP 8.0 06/19/17 05:01 101 18 98/60 (73) 97 CPAP 8.0 06/19/17 04:46 101 21 121/65 (83) 96 CPAP 8.0 06/19/17 04:31 100 23 123/56 (78) 95 CPAP 8.0 06/19/17 04:30 100 96 8.0 06/19/17 04:16 36.8 100 23 125/60 (81) 97 CPAP 8.0 06/19/17 04:01 99 23 123/54 (77) 94 CPAP 8.0 06/19/17 04:00 CPAP 8.0 06/19/17 03:46 99 23 121/49 (73) 95 CPAP 8.0 06/19/17 03:31 99 24 113/51 (71) 95 CPAP 8.0 06/19/17 03:16 100 21 124/51 (75) 95 CPAP 8.0 06/19/17 03:04 100 43 117/71 (86) 94 CPAP 8.0 06/19/17 02:20 104 23 118/62 (80) 95 CPAP 8.0 06/19/17 02:01 103 23 131/57 (81) 91 CPAP 8.0 06/19/17 01:46 103 24 131/55 (80) 91 CPAP 8.0 06/19/17 01:31 103 24 127/58 (81) 92 CPAP 8.0 06/19/17 01:16 102 21 146/57 (86) 92 CPAP 8.0 06/19/17 01:16 36.8 102 21 146/57 (86) 92 06/19/17 01:01 102 23 129/60 (83) 92 CPAP 8.0 8/9/17 00:46 102 22 133/59 (83) 92 CPAP 8.0 8/9/17 00:31 104 26 129/57 (81) 92 CPAP 8.0 8/9/17 00:16 102 21 128/58 (81) 93 CPAP 8.0 8/9/17 00:01 CPAP 8.0 8/9/17 00:01 36.9 101 21 123/61 (81) 96 CPAP 8.0 8/8/17 23:46 102 20 129/59 (82) 96 CPAP 8.0 8/8/17 23:31 101 21 133/63 (86) 94 CPAP 8.0 8/8/17 23:18 101 95 8.0 8/8/17 23:16 101 22 137/59 (85) 94 CPAP 8.0 8/8/17 23:01 102 21 137/65 (89) 94 CPAP 8.0 8/8/17 22:46 100 30 152/76 (101) 92 CPAP 8.0 8/8/17 22:31 100 23 139/59 (85) 95 CPAP 8.0 8/8/17 22:16 102 24 123/56 (78) 96 CPAP 8.0 8/8/17 22:01 102 24 132/60 (84) 95 CPAP 8.0 8/8/17 21:46 102 23 129/59 (82) 92 CPAP 8.0 8/8/17 21:31 102 26 136/57 (83) 94 CPAP 8.0 8/8/17 21:16 102 26 134/55 (81) 92 CPAP 8.0 8/8/17 21:13 102 27 127/58 (81) 92 CPAP 8.0 8/8/17 21:01 100 24 168/71 (103) 93 CPAP 8.0 8/8/17 20:57 103 24 171/69 (103) 93 CPAP 8.0 8/8/17 20:56 104 94 8.0 8/8/17 20:01 36.8 105 28 151/76 (101) 95 CPAP 8.0 8/8/17 20:00 93 CPAP 8.0 8/8/17 19:01 107 35 148/88 (108) 93 Oxymask 8.0 8/8/17 18:16 37.0 106 24 126/65 (85) 94 Nasal Cannula 6.0 06/18/17 16:00 Oxymask 10.0 06/18/17 16:00 37.0 108 20 168/80 (109) 95 Oxymask 10.0 06/18/17 14:24 37.2 114 20 91 6.0 06/18/17 12:00 91 Oxymask 6.0 06/18/17 11:35 37.2 114 20 157/72 (100) Physical Exam General Appearance: no apparent distress Eyes: PERRL Respiratory/Chest: lungs clear, normal breath sounds Cardiovascular: regular rate, rhythm Abdomen: normal bowel sounds, non tender, soft, no organomegaly Neurologic/Psych: alert, normal mood/affect, oriented x 3 Skin: normal color Laboratory Results Last 24 Hours Test 06/18/17 11:34 06/18/17 15:30 06/18/17 16:22 06/18/17 17:14 Bedside Glucose 178 mg/dl 175 mg/dl Pleural Fluid Source RIGHT LUNG Pleural Fluid Color JENNA Pleural Fluid Appearance CLOUDY Pleural Fluid WBC 342 /uL Pleural Fluid RBC 89972 /uL Pleural Fluid pH 7.44 Pleural Fluid Polynuclear WBCs % 3.9 % Pleural Fluid Mononuclear WBCs % 96.1 % Pleural Fluid Total Protein 3.1 g/dl Pleural Fluid Albumin 1.4 g/dl Pleural Fluid LDH 104 IU Pleural Fluid Glucose 163 mg/dl Pleural Fluid Triglycerides 29 mg/dl Lactate Dehydrogenase 159 U/L Total Protein 7.6 gm/dl Test 06/18/17 21:19 06/19/17 05:04 06/19/17 06:07 06/19/17 08:08 Bedside Glucose 165 mg/dl 138 mg/dl White Blood Count 5.55 K/uL Red Blood Count 3.24 M/uL Hemoglobin 7.1 g/dL Hematocrit 24.7 % Mean Corpuscular Volume 76.2 fL Mean Corpuscular Hemoglobin 21.9 pg Mean Corpuscular Hemoglobin Concent 28.7 g/dl RDW Standard Deviation 53.6 fL RDW Coefficient of Variation 19.4 % Platelet Count 81 K/uL Mean Platelet Volume 9.5 fL Sodium Level 142 mmol/L Potassium Level 3.7 mmol/L Chloride Level 102 mmol/L Carbon Dioxide Level 38 mmol/L Anion Gap 2.0 mmol/L Blood Urea Nitrogen 34 mg/dl Creatinine 1.00 mg/dl Est Creatinine Clear Calc Drug Dose 102.7 ml/min Estimated GFR () 77.7 Estimated GFR (Non- 67.0 BUN/Creatinine Ratio 34.3 Random Glucose 122 mg/dl Calcium Level 8.6 mg/dl Ammonia 73.0 umol/L Assessment and Plan 47 year old female with MEIER cirrhosis decompensated by varices, hepatic encephalopathy and ascites s/p TIPS with refractory ascites. MELD admitted follow outpatient paracentesis w/ sherly/HRS with signs of volume overload. Kidney function slowly improved overnight. Nephrology is following and is currently on spironolactone/lasix/albumin. Respiratory decompensation yesterday secondary to fluid overload --> transferred to ICU with right sided thoracentesis. Fluid to the lab. Diuretics increased by Dr. Sainz. - Low NA diet as tolerated - Continue lasix/spironolactone/albumin per Dr. Sainz - Continue scheduled lactulose/Xifaxan - Trend H&H - Transfuse as needed when fluid status is achieved - No S/S of GI blood loss - Consider transfusion for TIPS and transplant evaluation - discussed at length this AM and she is currently not agreeable. Please call with any questions or concerns. GI will watch peripherally. ATTESTATION: I have performed a history and physical examination of this patient and reviewed the electronic record. Specifically, on physical examination patient is alert and oriented without abdominal tenderness. After review of hospital course and discussion with primary hospitalist, I have recommended transfer to [facility] I have discussed the case with TABATHA Cormier. The above note reflects my findings, conclusions, and recommendations. Greg Cantu MD
--- NOTE | 2017-06-19 11:00 | Critical Care Progress Note ---
Critical Care Progress Note Date of Service Jun 19, 2017. ICU Day ICU Day Number: [address] Briggs Subjective Patient is a 47-year-old female who was transferred to the ICU last evening secondary to respiratory distress in the setting of suspected volume overload coupled with hepatorenal syndrome. Patient underwent emergent RIGHT-sided thoracentesis with market improvement in symptoms. There were no overnight events reported. The patient is much more alert today. She complains of no pain at this time. She feels her breathing is much better, however she does not remember being transferred to the ICU last evening. She is currently eating her breakfast and appears generally well. She denies any headaches, dizziness, chest pain, palpitations, shortness of breath, pleuritic pain, nausea, vomiting, or abdominal pain. Objective VITAL SIGNS - Vital signs and nursing notes were reviewed. GENERAL - 47-year-old female appearing her stated age who is in no acute distress. Communicates well with provider. Patient is alert to year and name. She knows her PCPs name. She is unsure of the date. EYES - PERRL with EOMI bilaterally. Sclera anicteric. Palpebral conjunctiva pink and moist with no injection noted. MOUTH/OROPHARYNX - Without perioral cyanosis. Buccal mucosa pink and dry. NECK - Neck with FROM. Supple to palpation. No nuchal rigidity. LUNGS - Chest wall symmetric without accessory muscle use, intercostals retractions, or central cyanosis. Normal vesicular breath sounds CTA B/L. Improved RIGHT sided lung sounds. LEFT sided basilar rales appreciated. No wheezes or rhonchi noted. CARDIAC - RRR with S1/S2. No murmur, rubs, or gallops appreciated. ABDOMEN - Abdominal contour obese and without pulsations or visible masses. BS normoactive all four quadrants. No tenderness to palpation appreciated throughout. EXTREMITIES - No clubbing or peripheral cyanosis. No pretibial edema present. +3 /5 radial and dorsalis pedis pulses palpated throughout. PSYCH - A&O to person and place. Unsure of date. Knows the year. Cooperates fully with examiner. Pt is very pleasant and interacts well with examiner. Much improved from yesterday. Current SOFA Score SOFA Score Response (Comments) Value Platelets (x10) < 100 2 Bilirubin (mg/dL) < 1.2 0 Fabiana Coma Score 13 - 14 1 Level of Hypotension No Hypotension 0 Creatinine (mg/dL) < 1.2 0 Total 3 Assessment & Plan (1) Exudative pleural effusion (2) Hypoxia (3) Ascites of liver (4) Shortness of breath (5) Anemia (6) THANH (acute kidney injury) (7) Liver cirrhosis secondary to MEIER (8) S/P TIPS (transjugular intrahepatic portosystemic shunt) (9) DM type 2 (diabetes mellitus, type 2) Reason Critically Ill: 47-year-old female in acute respiratory failure secondary to volume overload and exudative pleural effusions. Neuro - * Mentating much better today. Appears more comfortable. Able to carry on a conversation, however she does become confused with certain answers at times. * Complaining of no pain at this point. * Discontinued Cymbalta, Xanax, Remeron. Questionable contribute to the patient 's altered level of consciousness yesterday. Cardiac - * No history of cardiac disease reported. * Blood pressures remained stable. * Continue to monitor on telemetry. Respiratory - * Bilateral pleural effusions resulting in need for thoracentesis. RIGHT-sided thoracentesis reveals exudative pleural effusion. * Breathing greatly improved. * Continue to monitor. * Consider LEFT sided thoracentesis if respiratory status decompensates. * Continue to titrate to home O2 levels. GI - * History of MEIER Cirrhosis s/p TIPS procedure. * Currently Hepatorenal Syndrome - Managed by Nephro/GI. * Ammonia Level 73 - Uncertain of baseline. On current aggressive treatment with Lactulose/Xifaxan. * Continue per GI recommendations. * Apparently patient currently opposed to transfer to [place] at this time for transplant evaluation. Will follow per GI recommendation. RENAL/LYTES - * HRS - managed by Nephro/GI. * Continue aggressive diuresis per Nephro - 120 mg Lasix q8h. * Monitor Cr for renal insult 2/2 IV contrast. - * Valentin Catheter remains for strict I&O assessment. ENDO - * h/o DM * ISS as needed. HEME - * H&H low but stable per baseline at 7.1/24.7. * 2 U PRBCs made on hold overnight. * Transfuse if needed. * Currently asymptomatic. ID - * No indication for antibiotics at this point. * Continue to monitor fever curve. LINES/IV ACCESS - * PIVs intact. * Valentin Catheter in place. I have personally spent 35 minutes of critical care time in the direct management of this patient. This is a life/limb threatening event. This includes time spent evaluating patient, direct bedside care, chart review, placing orders, interpretation of diagnostic studies, discussion with consultants, patient, and family members, as well as other required patient management activities. This time is exclusive of all separately billable procedures, and teaching time and separate from and in addition to any other critical care service time. Thank you for this consultation allow us to be part of this patient's care. Please refer to my attending physician's documentation for any further recommendations. Attending note. the pt was seen , examined independently, chart reviewed with the staff on rounds, the pt is more awake today, following commands, no chest pain or sob, slept overnight with her own cpap. PE: VSS, sat 92% on oxygen ( 4 lpm , home dose). S1S2 RRR, lungs with distant bs bilaterally. abdomen is benign, edema in the periphery. neuro is more alert, non focal. Labs reviewed , ammonia 73 ( BL). pleural fluid are EXUDATE, not transudate, repeated US with Dr. Hanson , showed the septated complex pleural effusion on the left. the fluid are predominantly Monocytes, awaiting cytology. A/P: 1- complex parapneumonia effusion, exudative by Light criteria and by US criteria. 2- hepatic encephalopathy and also Iatrogenic ( Duloxetine, Remeron...). 3- MEIER . 4- HRS. 5- likely PNA with bilateral effusion. 6- dominant Monocytes on the pleural fluid awaiting determination by cell block. 7- JAQUELINE on CPAP of 14 with 4 lpm. Plan: 1- follow pleural fluid cytology. 2- Thoracic consult. Drain, Vs TPA Vs VATS. this type of pleural fluid are diuretic resistant. 3- dc Remeron. 4- dc Cymbalta. 5- dc Tramadol. 6- Continue Klonopin to avoid Benzos withdrawal. 7- oral feeding. 8- continue diuresis per HRS treatment. will not be effective for pleural effusion . 9- Rifaximin. 10- Avoid SSRI except Quetiapine ( not renally excreted). 11- appreciate Dr. Sainz, Dr. Hanson and Dr. Freeman input. 12- disposition plan per the principle team. 13- continue Home CPAP nocturnally. discussed with the staff on rounds and with the family in details. CCT 45 min. Consults & Procedures Consultants: GI - Dr. Dorado/TABATHA Bethea Nephro - [facility] Hospitalist - Dr. Hanson Procedures: None Data Medications: Current Inpatient Medications Medications (Trade) Dose Ordered Sig/Ana Luisa Route Start Time Stop Time Status Last Admin Dose Admin Ondansetron HCl (Zofran Inj) 4 mg Q6H PRN IV 06/14/17 13:30 07/14/17 13:29 06/14/17 22:22 4 MG Aripiprazole (Abilify Tab) 10 mg HS PO 06/14/17 21:00 07/14/17 20:59 06/17/17 22:19 10 MG Clonazepam (Klonopin Tab) 1 mg HS PRN PO 06/14/17 18:00 07/14/17 17:59 06/18/17 08:02 1 MG Rifaximin (Xifaxan Tab) 550 mg BID PO 06/14/17 21:00 07/14/17 20:59 06/19/17 09:52 550 MG Spironolactone (Aldactone Tab) 100 mg BID17 PO 06/16/17 09:00 07/15/17 16:59 06/19/17 09:52 100 MG Levothyroxine Sodium (Synthroid Tab) 25 mcg DAILYBB PO 06/16/17 06:00 07/16/17 05:59 06/19/17 06:42 25 MCG Levothyroxine Sodium (Synthroid Tab) 200 mcg DAILYBB PO 06/16/17 06:00 07/16/17 05:59 06/19/17 06:42 200 MCG Pantoprazole Sodium (Protonix Tab) 40 mg QAM PO 06/15/17 11:45 07/15/17 11:44 06/19/17 09:52 40 MG Insulin Aspart (novoLOG ASPART) SLIDING SCALE If C... ACHS SC 06/15/17 12:00 07/15/17 11:59 06/18/17 22:05 2 UNITS Glucose (Glucose 40% Gel) 15-30 GRAMS 15 GRAMS... UD PRN PO 06/15/17 11:45 07/15/17 11:44 Glucose (Glucose Chew Tab) 4-8 Tablets 4 Tabl... UD PRN PO 06/15/17 11:45 07/15/17 11:44 Dextrose (Dextrose 50% 50ML Syringe) 25-50ML OF 50% DW IV FOR... UD PRN IV 06/15/17 11:45 07/15/17 11:44 Glucagon (Glucagon Inj) 1 mg UD PRN SQ 06/15/17 11:45 07/15/17 11:44 Acetaminophen (Tylenol Tab) 325 mg Q6H PRN PO 06/16/17 03:30 07/16/17 03:29 Tramadol HCl (Ultram Tab) 25 mg Q6H PRN PO 06/16/17 03:30 07/16/17 03:29 06/16/17 04:30 25 MG Miscellaneous Information (Consult Glycemic Management Pharmacy) 1 ea UD N/A 06/16/17 16:37 07/16/17 16:36 Lactulose (Chronulac Syrup) 30 gm 0800 PO 06/17/17 08:00 07/17/17 07:59 06/19/17 09:53 30 GM Polyethylene (Miralax Powder Packet) 17 gm DAILY PO 06/17/17 17:00 07/17/17 16:59 06/19/17 09:52 17 GM Ioversol (Optiray 320) 100 ml UD PRN IV 06/18/17 09:15 06/22/17 09:14 Insulin Glargine (Lantus Solostar Pen) 30 units Q12 SC 06/18/17 21:00 07/18/17 20:59 06/19/17 09:54 30 UNITS Furosemide 120 mg/ Syringe 12 ml @ 4 mls/min Q8H IV 06/18/17 14:00 07/18/17 12:29 06/19/17 05:40 4 MLS/MIN Vital Signs: Date Time Temp Pulse Resp B/P (MAP) Pulse Ox O2 Delivery O2 Flow Rate FiO2 06/19/17 10:00 103 31 116/62 (80) 94 Nasal Cannula 4.0 06/19/17 08:00 36.7 102 30 126/53 (77) 92 Nasal Cannula 4.0 06/19/17 06:01 101 24 135/57 (83) 95 CPAP 8.0 06/19/17 05:46 99 25 123/61 (81) 97 CPAP 8.0 8/9/17 05:31 100 19 141/56 (84) 96 CPAP 8.0 8/9/17 05:16 100 25 121/55 (77) 95 CPAP 8.0 8/9/17 05:01 101 18 98/60 (73) 97 CPAP 8.0 8/9/17 04:46 101 21 121/65 (83) 96 CPAP 8.0 8/9/17 04:31 100 23 123/56 (78) 95 CPAP 8.0 8/9/17 04:30 100 96 8.0 8/9/17 04:16 36.8 100 23 125/60 (81) 97 CPAP 8.0 8/9/17 04:01 99 23 123/54 (77) 94 CPAP 8.0 8/9/17 04:00 CPAP 8.0 8/9/17 03:46 99 23 121/49 (73) 95 CPAP 8.0 8/9/17 03:31 99 24 113/51 (71) 95 CPAP 8.0 8/9/17 03:16 100 21 124/51 (75) 95 CPAP 8.0 8/9/17 03:04 100 43 117/71 (86) 94 CPAP 8.0 8/9/17 02:20 104 23 118/62 (80) 95 CPAP 8.0 8/9/17 02:01 103 23 131/57 (81) 91 CPAP 8.0 8/9/17 01:46 103 24 131/55 (80) 91 CPAP 8.0 8/9/17 01:31 103 24 127/58 (81) 92 CPAP 8.0 8/9/17 01:16 102 21 146/57 (86) 92 CPAP 8.0 8/9/17 01:16 36.8 102 21 146/57 (86) 92 8/9/17 01:01 102 23 129/60 (83) 92 CPAP 8.0 8/9/17 00:46 102 22 133/59 (83) 92 CPAP 8.0 8/9/17 00:31 104 26 129/57 (81) 92 CPAP 8.0 8/9/17 00:16 102 21 128/58 (81) 93 CPAP 8.0 8/9/17 00:01 CPAP 8.0 8/9/17 00:01 36.9 101 21 123/61 (81) 96 CPAP 8.0 88/17 23:46 102 20 129/59 (82) 96 CPAP 8.0 8/8/17 23:31 101 21 133/63 (86) 94 CPAP 8.0 8/8/17 23:18 101 95 8.0 8/8/17 23:16 101 22 137/59 (85) 94 CPAP 8.0 8/817 23:01 102 21 137/65 (89) 94 CPAP 8.0 88/17 22:46 100 30 152/76 (101) 92 CPAP 8.0 8817 22:31 100 23 139/59 (85) 95 CPAP 8.0 8/8/17 22:16 102 24 123/56 (78) 96 CPAP 8.0 8817 22:01 102 24 132/60 (84) 95 CPAP 8.0 88/17 21:46 102 23 129/59 (82) 92 CPAP 8.0 8817 21:31 102 26 136/57 (83) 94 CPAP 8.0 8817 21:16 102 26 134/55 (81) 92 CPAP 8.0 88/17 21:13 102 27 127/58 (81) 92 CPAP 8.0 8817 21:01 100 24 168/71 (103) 93 CPAP 8.0 17 20:57 103 24 171/69 (103) 93 CPAP 8.0 8 20:56 104 94 8.0 06/18/17 20:01 36.8 105 28 151/76 (101) 95 CPAP 8.0 17 20:00 93 CPAP 8.0 8817 19:01 107 35 148/88 (108) 93 Oxymask 8.0 06/18/17 18:16 37.0 106 24 126/65 (85) 94 Nasal Cannula 6.0 06/18/17 16:00 Oxymask 10.0 06/18/17 16:00 37.0 108 20 168/80 (109) 95 Oxymask 10.0 06/18/17 14:24 37.2 114 20 91 6.0 06/18/17 12:00 91 Oxymask 6.0 8/8/17 11:35 37.2 114 20 157/72 (100) Laboratory Results: Last 24 Hours Test 06/18/17 11:34 06/18/17 15:30 06/18/17 16:22 06/18/17 17:14 Bedside Glucose 178 mg/dl 175 mg/dl Pleural Fluid Source RIGHT LUNG Pleural Fluid Color JENNA Pleural Fluid Appearance CLOUDY Pleural Fluid WBC 342 /uL Pleural Fluid RBC 27516 /uL Pleural Fluid pH 7.44 Pleural Fluid Polynuclear WBCs % 3.9 % Pleural Fluid Mononuclear WBCs % 96.1 % Pleural Fluid Total Protein 3.1 g/dl Pleural Fluid Albumin 1.4 g/dl Pleural Fluid LDH 104 IU Pleural Fluid Glucose 163 mg/dl Pleural Fluid Triglycerides 29 mg/dl Lactate Dehydrogenase 159 U/L Total Protein 7.6 gm/dl Test 06/18/17 21:19 06/19/17 05:04 06/19/17 06:07 06/19/17 08:08 Bedside Glucose 165 mg/dl 138 mg/dl White Blood Count 5.55 K/uL Red Blood Count 3.24 M/uL Hemoglobin 7.1 g/dL Hematocrit 24.7 % Mean Corpuscular Volume 76.2 fL Mean Corpuscular Hemoglobin 21.9 pg Mean Corpuscular Hemoglobin Concent 28.7 g/dl RDW Standard Deviation 53.6 fL RDW Coefficient of Variation 19.4 % Platelet Count 81 K/uL Mean Platelet Volume 9.5 fL Sodium Level 142 mmol/L Potassium Level 3.7 mmol/L Chloride Level 102 mmol/L Carbon Dioxide Level 38 mmol/L Anion Gap 2.0 mmol/L Blood Urea Nitrogen 34 mg/dl Creatinine 1.00 mg/dl Est Creatinine Clear Calc Drug Dose 102.7 ml/min Estimated GFR () 77.7 Estimated GFR (Non- 67.0 BUN/Creatinine Ratio 34.3 Random Glucose 122 mg/dl Calcium Level 8.6 mg/dl Ammonia 73.0 umol/L Problem Qualifiers (1) Anemia: Anemia type: unspecified type Qualified Codes: D64.9 - Anemia, unspecified (2) DM type 2 (diabetes mellitus, type 2): Diabetes mellitus complication status: with unspecified complications
[2017-06-19 16:47] LABS: URINE TOTAL PROTEIN < 5.0 mg/dl (0-11.9)
[2017-06-19] MEDS ORDERED: CYM/30 PO (17:19)
--- NOTE | 2017-06-19 17:38 | Discharge Instructions ---
Discharge Instructions Date of Service Jun 19, 2017. Admission Reason for Admission: Pre/Post Albumin Liver Cirrhosis Discharge Discharge Diagnosis / Problem: Hepatorenal syndrome, cirrhosis, hepatopulmonary syndrome Discharge Goals Goal(s): Therapeutic intervention Activity Recommendations Activity Level: Assistance Required . Additional Information Patient informed of condition: Yes Advance Directives: No DNR: No Level of Care: Other (inpatient SCU) Communicable Disease: No Prognosis: Deteriorating Oxygen at (LPM): 4-5 Valentin Catheter: Yes Instructions / Follow-Up Instructions / Follow-Up ADMIT/TRANSFER: [facility] (Accepting physician is Dr. Mary Pat) DIAGNOSIS: Hepatorenal syndrome, Hepatopulmonary syndrome, Anemia CONDITION: guarded DIET: ADA (diabetic), low sodium INS AND OUTS: routine IVF: KVO DRAINS: Valentin to gravity MEDS: see attached list. ALLERGIES: cat dander, erythromycin, Ferrous sulfate RESPIRATORY CARE: 4L via NC, titrate to maintain to keep oxygen sat >92% Current Inpatient Medications Medications (Trade) Dose Ordered Sig/Ana Luisa Route Start Time Stop Time Status Last Admin Dose Admin Ondansetron HCl (Zofran Inj) 4 mg Q6H PRN IV 06/14/17 13:30 07/14/17 13:29 06/14/17 22:22 4 MG Aripiprazole (Abilify Tab) 10 mg HS PO 06/14/17 21:00 07/14/17 20:59 06/17/17 22:19 10 MG Clonazepam (Klonopin Tab) 1 mg HS PRN PO 06/14/17 18:00 07/14/17 17:59 06/18/17 08:02 1 MG Rifaximin (Xifaxan Tab) 550 mg BID PO 06/14/17 21:00 07/14/17 20:59 06/19/17 09:52 550 MG Spironolactone (Aldactone Tab) 100 mg BID17 PO 06/16/17 09:00 07/15/17 16:59 06/19/17 17:12 100 MG Levothyroxine Sodium (Synthroid Tab) 25 mcg DAILYBB PO 06/16/17 06:00 07/16/17 05:59 06/19/17 06:42 25 MCG Levothyroxine Sodium (Synthroid Tab) 200 mcg DAILYBB PO 06/16/17 06:00 07/16/17 05:59 06/19/17 06:42 200 MCG Pantoprazole Sodium (Protonix Tab) 40 mg QAM PO 06/15/17 11:45 07/15/17 11:44 06/19/17 09:52 40 MG Insulin Aspart (novoLOG ASPART) SLIDING SCALE If C... ACHS SC 06/15/17 12:00 07/15/17 11:59 06/19/17 17:13 9 UNITS Glucose (Glucose 40% Gel) 15-30 GRAMS 15 GRAMS... UD PRN PO 06/15/17 11:45 07/15/17 11:44 Glucose (Glucose Chew Tab) 4-8 Tablets 4 Tabl... UD PRN PO 06/15/17 11:45 07/15/17 11:44 Dextrose (Dextrose 50% 50ML Syringe) 25-50ML OF 50% DW IV FOR... UD PRN IV 06/15/17 11:45 07/15/17 11:44 Glucagon (Glucagon Inj) 1 mg UD PRN SQ 06/15/17 11:45 07/15/17 11:44 Acetaminophen (Tylenol Tab) 325 mg Q6H PRN PO 06/16/17 03:30 07/16/17 03:29 Miscellaneous Information (Consult Glycemic Management Pharmacy) 1 ea UD N/A 06/16/17 16:37 07/16/17 16:36 Lactulose (Chronulac Syrup) 30 gm 0800 PO 06/17/17 08:00 07/17/17 07:59 06/19/17 09:53 30 GM Polyethylene (Miralax Powder Packet) 17 gm DAILY PO 06/17/17 17:00 07/17/17 16:59 06/19/17 09:52 17 GM Ioversol (Optiray 320) 100 ml UD PRN IV 06/18/17 09:15 06/22/17 09:14 Insulin Glargine (Lantus Solostar Pen) 30 units Q12 SC 06/18/17 21:00 07/18/17 20:59 06/19/17 09:54 30 UNITS Furosemide 120 mg/ Syringe 12 ml @ 4 mls/min Q8H IV 06/18/17 14:00 07/18/17 12:29 06/19/17 14:38 4 MLS/MIN Current Hospital Diet Patient's current hospital diet: Low Sodium Diet (2gm Na), Diabetes Type 2 Diet Discharge Diet Recommended Diet: AHA Diet (Heart Healthy), Low Sodium Diet (2gm Na) Procedures Procedures Performed: 06/19/17: R Thoracentesis with 1.5L out Pending Studies Studies pending at discharge: yes List of pending studies: Pleural fluid culture-pending at discharge Preliminary blood cultures are negative; final read pending. Laboratory Results Hemoglobin A1c Test 06/17/17 05:56 Range/Units Estimated Average Glucose 189 mg/dl Hemoglobin A1c 8.2 H 4.5-5.6 % Medical Emergencies . Who to Call and When: Medical Emergencies: If at any time you feel your situation is an emergency, please call 911 immediately. . Non-Emergent Contact Non-Emergency issues call your: Primary Care Provider . . "Provider Documentation" section prepared by Natalya Hanson. . Core Measure Problem Core Measures: None
--- NOTE | 2017-06-19 17:59 | Discharge Summary ---
Discharge Summary Date of Service Jun 19, 2017. Discharge Summary Admission Date: Jun 14, 2017 at 13:28 Discharge Date: Jun 19, 2017 Discharge Disposition: Acute care facility Principal Diagnosis: Acute respiratory distress 2/2 hepatopulmonary syndrome THANH 2/2 hepatorenal syndrome Anemia-multifactorial including ACD, acute blood loss anemia NAFLD cirrhosis Hepatic encephalopathy 2/2 constipation-resolved DMII Hypothyroidism Depression/Anxiety Obesity Procedures: paracentesis on 06/14 2 units pRBCs on 06/14 R thoracentesis on 06/19 Vaccinations: None. Consultations: GI-Case Nephro-Oncu Pending Studies/Follow-Up: see instructions below. Medication Reconciliation New Medications: Duloxetine HCl (Cymbalta) 30 Mg Cap 1 CAP PO DAILY for 30 Days, #30 CAP Continued Medications: Aripiprazole (Aripiprazole) 10 Mg Tab 10 MG PO HS Ciprofloxacin Tab (Cipro) 250 Mg Tab 1 TAB PO DAILY for 5 Days, #5 TAB Clonazepam (Clonazepam Odt) 1 Mg Tab 1-2 MG PO HS PRN for Anxiety Furosemide (Lasix) 40 Mg Tab 80 MG PO BID, TAB Glipizide (Glucotrol) 5 Mg Tab 0.5 TAB PO BID for 30 Days, #30 TAB 3 Refills Insulin Glargine (Lantus Solostar) 100 Unit/Ml Inj 55 UNITS SC HS, PEN Lactulose (Chronulac) 10 Gm/15 Ml Syrp 30 GM PO DAILY PRN for Constipation takes additional dose to have 2 bowel movements per day Levothyroxine Sodium (Levothyroxine Sodium) 25 Mcg Tab 1 TAB PO QAM@0600, TAB 5 Refills Take total 225mcg PO daily Levothyroxine Sodium (Levothyroxine Sodium) 200 Mcg Tab 1 TAB PO QAM@0600 Take total 225mcg PO daily. Omeprazole (Prilosec) 40 Mg Cap 40 MG PO DAILY, CAP Rifaximin (Xifaxan) 550 Mg Tab 550 MG PO BID Sitagliptin (Januvia) 50 Mg Tab 50 MG PO DAILY, TAB Spironolactone (Aldactone) 100 Mg Tab 100 MG PO BID, TAB Discontinued Medications: Duloxetine HCl (Duloxetine HCl) 60 Mg Cap 120 MG PO QAM Mirtazapine Soltab (Remeron Soltab) 15 Mg Soltab 15 MG PO HS, TAB Ropinirole Hydrochloride (Requip) 0.25 Mg Tab 0.25 MG PO HS, TAB Admission Information HPI (per Admitting provider): Patient is a 47 yo female who presented to the ER today after being seen by GI outpatient; she has had a week of cough, worsening SOB, and weakness as well as generalized malaise. She reports gaining about 20 lbs in the last 2 weeks but states she has not been eating or drinking more, and also that she has been taking her diuretics and medications without missing doses. She was scheduled for outpatient paracentesis today which was done and had 4.4 L of fluid removed. She also reports that her urine output has been slightly less this week than previously. No other complaints at this time. She has some abdominal pain which she feels might be worse. She typically gets some SOB before she is due for a paracentesis but this time she states her SOB was more severe than before and was associated with a non-productive cough. She also reports having some dizziness/lightheadedness. Physical Exam (per Admitting): General Appearance: WD/WN, no apparent distress Head: normocephalic, atraumatic Eyes: PERRL, EOMI, sclerae normal ENT: hearing grossly normal Neck: supple, no JVD, no carotid bruits, trachea midline Respiratory/Chest: chest non-tender, no respiratory distress, no accessory muscle use, + decreased breath sounds (bilateral bases diminished) Cardiovascular: regular rate, rhythm, no gallop, no JVD, no murmur Abdomen/GI: normal bowel sounds, soft, no organomegaly, + tenderness, + pertinent finding (ascites/distension) Back: no CVA tenderness, normal range of motion Extremities/Musculoskelatal: no calf tenderness, normal capillary refill, + pedal edema Neurologic/Psych: no motor/sensory deficits, alert, normal mood/affect, oriented x 3 Skin: warm/dry, no rash, + pallor Hospital Course 47 yo F who arrived from the GI outpatient clinic where she had been schedueld for a paracentesis. Approx 4.4L was removed and she was noted to be significantly more tachypneic than usual. She also reported lightheadedness and dizziness. Labs revealed an H/H 7.1/24 and she was transfused 2 units of PRBCs. She has a n/o MEIER cirrhosis with nonbleeding esophageal varices. CXR also revealed some pulmonary congestions and left base consolidation, so she was started on HCAP therapy with broad spectrum abx. For refractory ascites she underwent a TIPS catheter placement, and an US with Doppler revealed the catheter was open. Creatinine was also noted to be elevated to 1.8 from 1. GI was consulted. As patient was not improved, she was placed on more aggrressive diuresis and schedueld albumin was stopped. Nephrology was consulted and started treatment for hepatorenal syndrome ([place] was 6). Over the next couple of days, her creatinine improved to baseline and her lungs became more clear, however, she was still significantly short of breath. A CTA revealed no blood clot but showed a significant amount of volume. At this point, she was becoming difficult to oxygenate and was sent down to the ICU and placed on CPAP. She underwent a thoracentesis taking 1.5 L off on the right side. Pleural fluid appeared to be transudative, however, the question of an exudate was present because of septations noted around both lungs. complicated parapneumonic effusion was entertained. On further examination of the lung imaging by our wet end operator, however, it appeared to be more consistent with bilateral trapped lung with likely hepatopulmonary syndrome. On day of disharge to the ICU she had her Lasix increased from 80mg IV q12 to 120mg IV q6h with one dose of metolazone given. She remains on this with only some improvement in breathing and still hypoxic. She was thought to benefit from transfer to a higher level of care in order to expedite reevaluation for possible liver transplant with the progression of her disease process. Total time spent on discharge = 60 minutes This includes examination of the patient, discharge planning, medication reconciliation, and communication with other providers. Discharge Instructions [facility] [address] [place] [address] Discharge Transfer Non-Acute Patient Name: Liliana Martinez Unit Number: [id number] Date of : 1970 Patient Status: Admitted Inpatient Attending Doctor: Natalya Hanson DO DI: Transfer Non Acute v4 Discharge Instructions Date of Service Jun 19, 2017. Admission Reason for Admission: Pre/Post Albumin Liver Cirrhosis Discharge Discharge Diagnosis / Problem: Hepatorenal syndrome, cirrhosis, hepatopulmonary syndrome Discharge Goals Goal(s): Therapeutic intervention Activity Recommendations Activity Level: Assistance Required . Additional Information Patient informed of condition: Yes Advance Directives: No DNR: No Level of Care: Other (inpatient SCU) Communicable Disease: No Prognosis: Deteriorating Oxygen at (LPM): 4-5 Valentin Catheter: Yes Instructions / Follow-Up Instructions / Follow-Up ADMIT/TRANSFER: [facility] (Accepting physician is Dr. Mary Pat) DIAGNOSIS: Hepatorenal syndrome, Hepatopulmonary syndrome, Anemia CONDITION: guarded DIET: ADA (diabetic), low sodium INS AND OUTS: routine IVF: KVO DRAINS: Valentin to gravity MEDS: see attached list. ALLERGIES: cat dander, erythromycin, Ferrous sulfate RESPIRATORY CARE: 4L via NC, titrate to maintain to keep oxygen sat >92% Current Inpatient Medications Medications (Trade) Dose Ordered Sig/Ana Luisa Route Start Time Stop Time Status Last Admin Dose Admin Ondansetron HCl (Zofran Inj) 4 mg Q6H PRN IV 06/14/17 13:30 07/14/17 13:29 06/14/17 22:22 4 MG Aripiprazole (Abilify Tab) 10 mg HS PO 06/14/17 21:00 07/14/17 20:59 06/17/17 22:19 10 MG Clonazepam (Klonopin Tab) 1 mg HS PRN PO 06/14/17 18:00 07/14/17 17:59 06/18/17 08:02 1 MG Rifaximin (Xifaxan Tab) 550 mg BID PO 06/14/17 21:00 07/14/17 20:59 06/19/17 09:52 550 MG Spironolactone (Aldactone Tab) 100 mg BID17 PO 06/16/17 09:00 07/15/17 16:59 06/19/17 17:12 100 MG Levothyroxine Sodium (Synthroid Tab) 25 mcg DAILYBB PO 06/16/17 06:00 07/16/17 05:59 06/19/17 06:42 25 MCG Levothyroxine Sodium (Synthroid Tab) 200 mcg DAILYBB PO 06/16/17 06:00 07/16/17 05:59 06/19/17 06:42 200 MCG Pantoprazole Sodium (Protonix Tab) 40 mg QAM PO 06/15/17 11:45 07/15/17 11:44 06/19/17 09:52 40 MG Insulin Aspart (novoLOG ASPART) SLIDING SCALE If C... ACHS SC 06/15/17 12:00 07/15/17 11:59 06/19/17 17:13 9 UNITS Glucose (Glucose 40% Gel) 15-30 GRAMS 15 GRAMS... UD PRN PO 06/15/17 11:45 07/15/17 11:44 Glucose (Glucose Chew Tab) 4-8 Tablets 4 Tabl... UD PRN PO 06/15/17 11:45 07/15/17 11:44 Dextrose (Dextrose 50% 50ML Syringe) 25-50ML OF 50% DW IV FOR... UD PRN IV 06/15/17 11:45 07/15/17 11:44 Glucagon (Glucagon Inj) 1 mg UD PRN SQ 06/15/17 11:45 07/15/17 11:44 Acetaminophen (Tylenol Tab) 325 mg Q6H PRN PO 06/16/17 03:30 07/16/17 03:29 Miscellaneous Information (Consult Glycemic Management Pharmacy) 1 ea UD N/A 06/16/17 16:37 07/16/17 16:36 Lactulose (Chronulac Syrup) 30 gm 0800 PO 06/17/17 08:00 07/17/17 07:59 06/19/17 09:53 30 GM Polyethylene (Miralax Powder Packet) 17 gm DAILY PO 06/17/17 17:00 07/17/17 16:59 06/19/17 09:52 17 GM Ioversol (Optiray 320) 100 ml UD PRN IV 06/18/17 09:15 06/22/17 09:14 Insulin Glargine (Lantus Solostar Pen) 30 units Q12 SC 06/18/17 21:00 07/18/17 20:59 06/19/17 09:54 30 UNITS Furosemide 120 mg/ Syringe 12 ml @ 4 mls/min Q8H IV 06/18/17 14:00 07/18/17 12:29 06/19/17 14:38 4 MLS/MIN Current Hospital Diet Patient's current hospital diet: Low Sodium Diet (2gm Na), Diabetes Type 2 Diet Discharge Diet Recommended Diet: AHA Diet (Heart Healthy), Low Sodium Diet (2gm Na) Procedures Procedures Performed: 06/19/17: R Thoracentesis with 1.5L out Pending Studies Studies pending at discharge: yes List of pending studies: Pleural fluid culture-pending at discharge Preliminary blood cultures are negative; final read pending. Laboratory Results Hemoglobin A1c Test 06/17/17 05:56 Range/Units Estimated Average Glucose 189 mg/dl Hemoglobin A1c 8.2 H 4.5-5.6 % Medical Emergencies . Who to Call and When: Medical Emergencies: If at any time you feel your situation is an emergency, please call 911 immediately. . Non-Emergent Contact Non-Emergency issues call your: Primary Care Provider . . "Provider Documentation" section prepared by Natalya Hanson. . Core Measure Problem Core Measures: None Additional Copies To Leo Scott M.D.
[2017-06-19] MEDS: CLONAZEPAM 1 MG TAB PO PRN (19:18)
--- NOTE | 2017-06-19 23:36 | Progress Note ---
Medicine Progress Note Date & Time of Visit: Jun 18, 2017 at 09:57. Subjective worsening shortness of breath and difficulty laying flat. After 2 days of diuresis want to evaluate for PE. She will also nee 2 more units of blood today with Lasix in bete. -albumin stopped by renal. -pt not coughing and without fevers and chills -3 BMs last night with improvement in confusion today despite elevated NH3 level. Cont to titrate for 2-3 BMs daily Objective Last 8 Hrs Date Time Temp Pulse Resp B/P (MAP) Pulse Ox O2 Delivery O2 Flow Rate FiO2 06/18/17 08:00 91 Nasal Cannula 4.0 06/18/17 07:12 37.3 105 20 131/66 (87) 93 Nasal Cannula 4.0 06/18/17 04:33 36.9 106 20 124/59 (80) 93 Nasal Cannula 4.0 06/18/17 04:00 Nasal Cannula 4.0 Physical Exam: GEN: obese, in slight respiratory distress/appears somewhat anxious, alert and appropriate, oxymask in place. HEENT: NC/AT, normal sclerae, MMM CARDIO: reg rate, S1/2 heard without m/g/r, no edema LUNGS: CTAB except for sparse rhonchi at the bases. ABD: soft, non-tender, non-distended, no rebound or guarding, +fluid wave., +BS EXTREMITY: RP and DP palpable 2+ bilat, extremities are warm and well-perfused NEURO: CN 2-12 grossly intact, sensation intact throughout, no gross focal deficits, mentating clearly MUSC: moves all extremities equally SKIN: warm and dry Laboratory Results: 06/19/17 05:04 06/19/17 05:04 Test 06/14/17 00:00 06/14/17 11:11 06/15/17 03:00 06/15/17 16:00 Peritoneal Fluid Color YELLOW Peritoneal Fluid Appearance BLOODY Peritoneal Fluid WBC 726 /uL (0-300) Peritoneal Fluid RBC 71155 /uL Peritoneal Fld Mononuclear WBCs (%) 95.4 % Peritoneal Fld Polynuclear WBCs (%) 4.6 % Prothrombin Time 12.1 SECONDS (9.0-12.0) Prothromb Time International Ratio 1.1 (0.9-1.1) Activated Partial Thromboplast Time 23.4 SECONDS (21.0-31.0) Partial Thromboplastin Ratio 0.9 Urine Color YELLOW Urine Appearance CLEAR (CLEAR) Urine pH 5.0 (4.5-7.5) Urine Specific [place] 1.021 (1.000-1.030) Urine Protein NEG (NEG) Urine Glucose (UA) NEG (NEG) Urine Ketones NEG (NEG) Urine Occult Blood NEG (NEG) Urine Nitrite NEG (NEG) Urine Bilirubin NEG (NEG) Urine Urobilinogen NEG (NEG) Urine Leukocyte Esterase NEG (NEG) Urine Random Sodium 6 mEq/L Test 06/17/17 05:56 06/18/17 06:16 06/18/17 15:30 06/18/17 17:14 Estimated Average Glucose 189 mg/dl Hemoglobin A1c 8.2 % (4.5-5.6) Platelet Estimate DECREASED Pleural Fluid Source RIGHT LUNG Pleural Fluid Color JENNA Pleural Fluid Appearance CLOUDY Pleural Fluid WBC 342 /u[place] [address] /uL Pleural Fluid pH 7.44 (7.3-7.4) Pleural Fluid Polynuclear WBCs % 3.9 % Pleural Fluid Mononuclear WBCs % 96.1 % Pleural Fluid Total Protein 3.1 g/dl Pleural Fluid Albumin 1.4 g/dl Pleural Fluid LDH 104 IU Pleural Fluid Glucose 163 mg/dl Pleural Fluid Triglycerides 29 mg/dl Lactate Dehydrogenase 159 U/L (84-246) Total Protein 7.6 gm/dl (6.4-8.2) Test 06/19/17 05:04 06/19/17 16:00 06/19/17 16:17 Red Blood Count 3.24 M/uL (4.2-5.4) Mean Corpuscular Volume 76.2 fL (80-100) Mean Corpuscular Hemoglobin 21.9 pg (25-34) Mean Corpuscular Hemoglobin Concent 28.7 g/dl (32-36) RDW Standard Deviation 53.6 fL (36.4-46.3) RDW Coefficient of Variation 19.4 % (11.5-14.5) Mean Platelet Volume 9.5 fL (7.4-10.4) Anion Gap 2.0 mmol/L (3-11) Est Creatinine Clear Calc Drug Dose 102.7 ml/min Estimated GFR () 77.7 Estimated GFR (Non- 67.0 BUN/Creatinine Ratio 34.3 (10-20) Calcium Level 8.6 mg/dl (8.5-10.1) Ammonia 73.0 umol/L (11-32) Urine Random Creatinine 16.0 mg/dl Urine Random Total Protein < 5.0 mg/dl (0-11.9) Urine Protein/Creatinine Ratio (0-0.2) Bedside Glucose 161 mg/dl (70-90) Date/Time Source Procedure Growth Status 06/14/17 15:26 Blood Blood Culture - Preliminary NO GROWTH TO DATE. Resulted 06/14/17 17:30 Nasal MRSA DNA Surveillance Screen - Final Specimen Negative for MRSA by DNA Probe Complete 06/18/17 15:30 Pleural Fluid (Thoracentesis) Right Gram Stain - Final Resulted 06/18/17 15:30 Pleural Fluid (Thoracentesis) Right Bacterial Culture - Preliminary NO GROWTH TO DATE. Resulted 06/18/17 06:16 06/18/17 06:16 Test 06/14/17 00:00 06/14/17 11:11 06/15/17 03:00 06/15/17 16:00 Peritoneal Fluid Color YELLOW Peritoneal Fluid Appearance BLOODY Peritoneal Fluid WBC 726 /uL (0-300) Peritoneal Fluid RBC [address]605 /uL Peritoneal Fld Mononuclear WBCs (%) 95.4 % Peritoneal Fld Polynuclear WBCs (%) 4.6 % Prothrombin Time 12.1 SECONDS (9.0-12.0) Prothromb Time International Ratio 1.1 (0.9-1.1) Activated Partial Thromboplast Time 23.4 SECONDS (21.0-31.0) Partial Thromboplastin Ratio 0.9 Urine Color YELLOW Urine Appearance CLEAR (CLEAR) Urine pH 5.0 (4.5-7.5) Urine Specific [place] 1.021 (1.000-1.030) Urine Protein NEG (NEG) Urine Glucose (UA) NEG (NEG) Urine Ketones NEG (NEG) Urine Occult Blood NEG (NEG) Urine Nitrite NEG (NEG) Urine Bilirubin NEG (NEG) Urine Urobilinogen NEG (NEG) Urine Leukocyte Esterase NEG (NEG) Urine Random Sodium 6 mEq/L Test 06/17/17 05:56 06/18/17 06:16 06/18/17 06:19 06/18/17 08:50 Estimated Average Glucose 189 mg/dl Hemoglobin A1c 8.2 % (4.5-5.6) Red Blood Count 3.56 M/uL (4.2-5.4) Mean Corpuscular Volume 75.8 fL (80-100) Mean Corpuscular Hemoglobin 21.1 pg (25-34) Mean Corpuscular Hemoglobin Concent 27.8 g/dl (32-36) RDW Standard Deviation 51.6 fL (36.4-46.3) RDW Coefficient of Variation 18.9 % (11.5-14.5) Mean Platelet Volume 10.0 fL (7.4-10.4) Platelet Estimate DECREASED Anion Gap 5.0 mmol/L (3-11) Est Creatinine Clear Calc Drug Dose 104.8 ml/min Estimated GFR () 79.6 Estimated GFR (Non- 68.7 BUN/Creatinine Ratio 36.0 (10-20) Calcium Level 8.7 mg/dl (8.5-10.1) Ammonia 71.0 umol/L (11-32) Bedside Glucose 189 mg/dl (70-90) Date/Time Source Procedure Growth Status 06/14/17 15:26 Blood Blood Culture - Preliminary NO GROWTH TO DATE. Resulted 06/14/17 17:30 Nasal MRSA DNA Surveillance Screen - Final Specimen Negative for MRSA by DNA Probe Complete Last 24 Hours Test 06/17/17 11:13 06/17/17 16:04 06/17/17 20:55 06/18/17 06:16 Bedside Glucose 209 mg/dl 188 mg/dl 194 mg/dl White Blood Count 8.24 K/uL Red Blood Count 3.56 M/uL Hemoglobin 7.5 g/dL Hematocrit 27.0 % Mean Corpuscular Volume 75.8 fL Mean Corpuscular Hemoglobin 21.1 pg Mean Corpuscular Hemoglobin Concent 27.8 g/dl RDW Standard Deviation 51.6 fL RDW Coefficient of Variation 18.9 % Platelet Count 96 K/uL Mean Platelet Volume 10.0 fL Platelet Estimate DECREASED Sodium Level 138 mmol/L Potassium Level 4.0 mmol/L Chloride Level 99 mmol/L Carbon Dioxide Level 34 mmol/L Anion Gap 5.0 mmol/L Blood Urea Nitrogen 35 mg/dl Creatinine 0.98 mg/dl Est Creatinine Clear Calc Drug Dose 104.8 ml/min Estimated GFR () 79.6 Estimated GFR (Non- 68.7 BUN/Creatinine Ratio 36.0 Random Glucose 158 mg/dl Calcium Level 8.7 mg/dl Test 06/18/17 06:19 06/18/17 06:38 06/18/17 08:50 Ammonia 71.0 umol/L Bedside Glucose 179 mg/dl 189 mg/dl Diagnostic Imaging: CT ANGIOGRAM OF THE CHEST CLINICAL HISTORY: Shortness of breath. Cirrhosis. COMPARISON STUDY: 01/28/2017 TECHNIQUE: Following the IV administration of 106 mL of Optiray-320, CT angiogram of the thorax was performed from the thoracic inlet to the lung bases utilizing the pulmonary embolus protocol. Images are reviewed in the axial, sagittal, and coronal planes. IV contrast was administered without complication. MIP imaging was performed. A dose lowering technique was utilized adhering to the principles of ALARA. CT DOSE: 719.98 mGy.cm FINDINGS: The liver has a cirrhotic morphology. There is upper abdominal ascites. There is splenomegaly. There is indwelling TIPS catheter. No pathologically enlarged axillary mediastinal or hilar lymph nodes were visualized. There was no evidence of thoracic aortic dilatation. There is significant motion artifact. No central emboli are visualized. There are moderate bilateral pleural effusions right larger than left. There are by basilar compressive atelectatic changes. There are extensive left upper lobe airspace opacities, infectious versus asymmetric edema. Groundglass opacities are also present within the right upper lobe. IMPRESSION: 1. No central emboli identified. Limited evaluation of segmental and subsegmental artery branches 2. Moderate bilateral pleural effusions right greater than left 3. Bilateral asymmetric airspace opacities left greater than right. Asymmetric edema versus pneumonia. Clinical and radiographic follow-up is recommended 4. Cirrhosis, splenomegaly and ascites. Electronically signed by: Chuck Jurado M.D. 06/18/2017 10:07 AM Dictated Date/Time: 06/18/2017 10:03 AM Assessment & Plan 47 yo with h/o MEIER cirrhosis presents s/p paracentesis for worsened respiratory distress and anemia. 1. Acute respiratory distress 2/2 acute diastolic heart failure 2/2 volume overload in setting of possible HCAP-diuretics were adjusted to her home doses and Lasix was made IV. Albumin was stopped yesterday and restarted again today in the setting of HRS. Stopped Zosyn at this time--no cough, fevers, chills present. Pt was moved to telemetry with waxing and waning respiratory distress requiring supplemental oxygen by facemask overnight--she is breathing somewhat easier after 3-4 L out in last 24 hours, however, she still has an oxygen requirement and rhonchi throughout all lung rivero. Will cont diuresis with current meds for one more day as there is improvement in both her breathing and her kidney function, and will be more aggressive if needed tomorrow. 06/17: diuresed well overnight, lungs sound clear today, however, she still has a consistent oxygen requirement. No decompensation since stopping the abx. 06/18: worsening SOB with significant respiratory distress--required transfer to ICU, PE considered but CTA performed and was negative. Thoracentesis planned per ICU team. CPAP for respiratory support. Cont diuresis efforts. 2. 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 Continued albumin per Nephro with stable creatinine at 1.3 today. 3. ACD-s/p 2 Units [employer] on day of admission. No reports of melena or hematochezia to suggest bleeding. Does have a hx of non bleeding esophageal varices, and is to go back on nadolol per GI when able to tolerate. Would cont to hold until respiratory status is optimized. 4. Hepatic encephalopathy 2/2 NAFLD CIRRHOSIS: has refractory ascites despite previous TIPS placement; Doppler US performed on admission and TIPS catheter is patent. Continue lactulose and rifaximin. Has non bleeding esophageal varices from previous endoscopy, to return on Nadolol per GI. Was previously evaluated by Liver Transplant team at [facility]. Paracentesis drained 4.4 L just [employer] and previous paracentesis on May 28 yielded 7.9 L. 06/17: somewhat more confused today; still no BM after several doses of lactulose , which are scheduled. GI put her on Miralax daily. Fall precautions. 06/18: confusion has resolved. Multiple home psychotropic meds were stopped by ICU attending with good result. 5. DMII-uncontrolled with A1C 8.2. para educator saw patient today and recommends taking FSG more often at home on discharge for better titration as outpatient. Pharmacy consult requested to titrate Lantus and ISS while inpatient. Appreciate recs. 6. Hypothyroidism-Synthroid at 225mcg PO daily 7. Depression/Anxiety-appears stable, Cont home Cymbalta at 120mg daily, Remeron and Abilify-both taken nightly. Clonazepam PRN 8. Obesity Full Code DVT prophylaxis-SCDs while pt anemic and requiring transfusions. Apprec GI input into the need for heparin in her case. Dispo-telemetry until hypoxia resolves DO [facility] Hospitalist Consultants: GI-Case Nephro-Oncu Current Inpatient Medications: Current Inpatient Medications Medications (Trade) Dose Ordered Sig/[place] Route Start Time Stop Time Status Last Admin Dose Admin Ondansetron HCl (Zofran Inj) 4 mg Q6H PRN IV 06/14/17 13:30 07/14/17 13:29 06/14/17 22:22 4 MG Aripiprazole (Abilify Tab) 10 mg HS PO 06/14/17 21:00 07/14/17 20:59 06/17/17 22:19 10 MG Clonazepam (Klonopin Tab) 1 mg HS PRN PO 06/14/17 18:00 07/14/17 17:59 06/18/17 08:02 1 MG Duloxetine HCl (Cymbalta Cap) 120 mg QAM PO 06/15/17 09:00 07/15/17 08:59 06/18/17 07:55 120 MG Rifaximin (Xifaxan Tab) 550 mg BID PO 06/14/17 21:00 07/14/17 20:59 06/18/17 07:55 550 MG Mirtazapine (Remeron Tab) 15 mg HS PO 06/14/17 21:00 07/14/17 20:59 06/17/17 21:45 15 MG Furosemide 80 mg/ Syringe 8 ml @ 4 mls/min BID17 IV 06/15/17 17:00 07/15/17 16:59 06/18/17 07:56 4 MLS/MIN Spironolactone (Aldactone Tab) 100 mg BID17 PO 06/16/17 09:00 07/15/17 16:59 06/18/17 08:03 100 MG Levothyroxine Sodium (Synthroid Tab) 25 mcg DAILYBB PO 06/16/17 06:00 07/16/17 05:59 06/18/17 05:57 25 MCG Levothyroxine Sodium (Synthroid Tab) 200 mcg DAILYBB PO 06/16/17 06:00 07/16/17 05:59 06/18/17 05:57 200 MCG Pantoprazole Sodium (Protonix Tab) 40 mg QAM PO 06/15/17 11:45 07/15/17 11:44 06/18/17 07:55 40 MG Insulin Aspart (novoLOG ASPART) SLIDING SCALE If C... ACHS SC 06/15/17 12:00 07/15/17 11:59 06/18/17 08:01 7 UNITS Glucose (Glucose 40% Gel) 15-30 GRAMS 15 GRAMS... UD PRN PO 06/15/17 11:45 07/15/17 11:44 Glucose (Glucose Chew Tab) 4-8 Tablets 4 Tabl... UD PRN PO 06/15/17 11:45 07/15/17 11:44 Dextrose (Dextrose 50% 50ML Syringe) 25-50ML OF 50% DW IV FOR... UD PRN IV 06/15/17 11:45 07/15/17 11:44 Glucagon (Glucagon Inj) 1 mg UD PRN SQ 06/15/17 11:45 07/15/17 11:44 Acetaminophen (Tylenol Tab) 325 mg Q6H PRN PO 06/16/17 03:30 07/16/17 03:29 Tramadol HCl (Ultram Tab) 25 mg Q6H PRN PO 06/16/17 03:30 07/16/17 03:29 06/16/17 04:30 25 MG Miscellaneous Information (Consult Glycemic Management Pharmacy) 1 ea UD N/A 06/16/17 16:37 07/16/17 16:36 Insulin Glargine (Lantus Solostar Pen) 28 units Q12 SC 06/16/17 21:00 07/16/17 20:59 06/18/17 08:02 28 UNITS Lactulose (Chronulac Syrup) 30 gm 0800 PO 06/17/17 08:00 07/17/17 07:59 06/18/17 07:56 30 GM Polyethylene (Miralax Powder Packet) 17 gm DAILY PO 06/17/17 17:00 07/17/17 16:59 Alprazolam (Xanax Tab) 0.5 mg TODAY@0945 PO 06/18/17 09:45 06/18/17 18:00 Ioversol (Optiray 320) 100 ml UD PRN IV 06/18/17 09:15 06/22/17 09:14
[2017-07-10] MEDS ORDERED: LSX40 PO (18:34)
[2017-07-10] MEDS ORDERED: DXY100 PO (18:34)
[2017-07-24] MEDS ORDERED: ROPI0.25 PO (11:42)
[2017-07-24] MEDS ORDERED: CIPR1TAB11 PO (11:42)
[2017-07-24] MEDS ORDERED: TRAM-10 PO (11:42)
[2017-07-24] MEDS ORDERED: ESCI1TAB9 PO (11:42)
[2017-07-24] MEDS ORDERED: RANI150T3 PO (11:42)
[2017-07-24] MEDS ORDERED: LSX80 PO (11:45)
[2017-07-24] MEDS ORDERED: LSX40 PO (11:45)
[2017-07-24] MEDS ORDERED: SPRN100 PO (11:45)
[2017-07-24] MEDS ORDERED: LCTL45 PO (11:45)
== END 2017-06-19 20:03 | disposition short-term general hospital (02) | DRG 441 ==
LOC: C.ACU 09:30 → C.MSN 13:28 → ENRESERV 15:13 → C.2E 06-15 12:01 → ENRESERV 06-18 14:27 → C.MSICU 06-18 14:28
PROVIDERS: ADMIT Internal Medicine; ATTEND Hospitalist
PROC: 0W993ZX Drainage of Right Pleural Cavity, Percutaneous Approach, Diagnostic (ICD-10-PCS; principal; 2017-06-18)
DX: K76.7 Hepatorenal syndrome (principal); I50.31 Acute diastolic (congestive) heart failure; K57.81 Diverticulitis of intestine, part unspecified, with perforation and abscess with bleeding; J18.9 Pneumonia, unspecified organism; N17.9 Acute kidney failure, unspecified; D62 Acute posthemorrhagic anemia; Z68.42 Body mass index [BMI] 45.0-49.9, adult; R18.8 Other ascites; J90 Pleural effusion, not elsewhere classified; I85.00 Esophageal varices without bleeding; K76.81 Hepatopulmonary syndrome; D63.8 Anemia in other chronic diseases classified elsewhere; K72.90 Hepatic failure, unspecified without coma; K59.00 Constipation, unspecified; E11.9 Type 2 diabetes mellitus without complications; R06.00 Dyspnea, unspecified; E03.9 Hypothyroidism, unspecified; F32.9 Major depressive disorder, single episode, unspecified; F41.9 Anxiety disorder, unspecified; F42.9 Obsessive-compulsive disorder, unspecified; E66.01 Morbid (severe) obesity due to excess calories; K74.60 Unspecified cirrhosis of liver; R09.02 Hypoxemia; E87.70 Fluid overload, unspecified; G47.33 Obstructive sleep apnea (adult) (pediatric); Z99.89 Dependence on other enabling machines and devices; Z96.89 Presence of other specified functional implants; Z79.899 Other long term (current) drug therapy; Z79.84 Long term (current) use of oral hypoglycemic drugs; Z79.4 Long term (current) use of insulin; I50.9 Heart failure, unspecified; D64.9 Anemia, unspecified; E78.5 Hyperlipidemia, unspecified; K21.9 Gastro-esophageal reflux disease without esophagitis; Z87.81 Personal history of (healed) traumatic fracture; Z88.3 Allergy status to other anti-infective agents; Z88.8 Allergy status to other drugs, medicaments and biological substances; Z91.09 Other allergy status, other than to drugs and biological substances

== ENCOUNTER 2017-07-07 21:50 | Inpatient (IN) | payer BC ==
[~2017-07-07] VITALS: Ht 170.2 cm; Wt 125.8 kg
[~2017-07-07 21:50] MED LIST changes: +CYM/30 PO; -CYM60 PO; +GLIP5TAB11 PO; +LEVO200T6 PO; +LEVO25TA5 PO; -MIRT15TA2 PO; +OMEP40CA41 PO; +SITA50TA3 PO
[2017-07-07] MEDS ORDERED: GLIP10TA3 PO (22:21)
--- NOTE | 2017-07-07 22:25 | EMERGENCY ROOM VISIT NOTE ---
History Report prepared by Yamil: Kaitlynn Barragan Under the Supervision of: Dr. Greg Kelly D.O. First contact with patient: 22:08 Chief Complaint: SHORTNESS OF BREATH Stated Complaint: FLUID IN LUNGS, CANT BREATH Nursing Triage Summary: pt c/o non alcoholic cirrhosis. pt c/o increased stomach bloating and SOB. pt [id number] at home usually. patient states she had to increase oxygen to 3LNC since yesterday. History of Present Illness The patient is a 47 year old female who presents to the Emergency Room with complaints of persistent shortness of breath that began prior to arrival. She currently rates her discomfort as 3/10 in severity. The patient states that she has a history of MEIER sclerosis. She states that recently she has noticed that her abdomen is increasingly distended and harder, but denies any abdominal pain. The patient states that recently she has had increased difficulty breathing with lying down and chest pain. The patient's reports that she had a paracentesis done on June and was then evaluated in the hospital. He states that the patient was transferred to [place] for several weeks, noting that she had a catheterization and was started on diuretics. The patient states that she previously has had fluid drained from her lungs. She states that she is typically on 2 liters of supplemental nasal cannula oxygen, but states that recently she bumped up her use. The patient states that she has noticed a dry cough and has been urinating less than usual. She denies any fever. Source of History: patient, spouse/significant other () Onset: prior to arrival Position: other (global) Symptom Intensity: 3/10 Quality: other (shortness of breath) Timing: other (persistent) Associated Symptoms: + chest pain, + urinary symptoms (urinating less than usual), No abdominal pain Note: Associated Symptoms: abdominal distension Review of Systems See HPI for pertinent positives & negatives. A total of 10 systems reviewed and were otherwise negative. 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 (12) OCD (obsessive compulsive disorder) (13) Pleural effusion (14) SOB (shortness of breath) Surgical Problems: (1) History of esophagogastroduodenoscopy (EGD) (2) S/P TIPS (transjugular intrahepatic portosystemic shunt) Family History Unobtainable family history due to adoption Social History Smoking Status: Never Smoker Alcohol Use: none Drug Use: none Marital Status: Housing Status: lives with significant other Current/Historical Medications Scheduled Aripiprazole (Aripiprazole), 10 MG PO HS Ciprofloxacin Tab (Cipro), 250 MG PO DAILY Furosemide (Lasix), 80 MG PO BID Glipizide (Glucotrol), 10 MG PO BID Insulin Glargine (Lantus Solostar), 55 UNITS SC HS Levothyroxine Sodium (Levothyroxine Sodium), 1 TAB PO QAM@0600 Levothyroxine Sodium (Levothyroxine Sodium), 1 TAB PO QAM@0600 Omeprazole (Prilosec), 40 MG PO DAILY Rifaximin (Xifaxan), 550 MG PO BID Sitagliptin (Januvia), 50 MG PO DAILY Spironolactone (Aldactone), 100 MG PO BID Scheduled PRN Clonazepam (Clonazepam Odt), 1-2 MG PO HS PRN for Anxiety Lactulose (Chronulac), 30 GM PO DAILY PRN for Constipation Allergies Coded Allergies: Ferrous Sulfate (Verified Allergy, Intermediate, IRON SUPPLEMENT--RASH, ABD PAIN AND DIARRHEA, 07/07/17) Cat Dander (Verified Allergy, Mild, rash, 07/07/17) Erythromycin (Verified Allergy, Mild, RASH, 07/07/17) Physical Exam Vital Signs Date Time Temp Pulse Resp B/P (MAP) Pulse Ox O2 Delivery O2 Flow Rate FiO2 07/07/17 23:25 85 33 97 Nasal Cannula 3.0 07/07/17 23:20 84 25 07/07/17 23:01 128/61 07/07/17 22:50 85 27 07/07/17 22:31 122/57 07/07/17 22:20 94 Nasal Cannula 3.0 07/07/17 22:20 85 20 07/07/17 22:11 85 07/07/17 22:09 94 Nasal Cannula 3.0 07/07/17 22:09 Nasal Cannula 3.0 07/07/17 22:06 87 36 129/66 90 Nasal Cannula 2.0 07/07/17 22:06 129/66 07/07/17 22:00 91 Nasal Cannula 3.0 07/07/17 21:56 36.8 84 24 117/68 91 Nasal Cannula 3.0 Physical Exam GENERAL: Patient is awake, alert, and in no acute distress. Patient is resting comfortably and showing no signs of anxiety EYES: The conjunctivae are clear. The pupils are round and reactive. EARS, NOSE, MOUTH AND THROAT: The nose is without any evidence of any deformity. Mucous membranes are moist tongue is midline NECK: The neck is nontender and supple. RESPIRATORY: Shallow respirations noted, diminished breath sounds noted in both lower lung rivero. CARDIOVASCULAR: Heart sounds are distant with regular rate and rhythm noted to auscultation GASTROINTESTINAL: Abdomen is moderately tender but soft, no tenderness, guarding , or rigidity. MUSCULOSKELETAL/EXTREMITIES: There is no evidence of gross deformity full range of motion is noted in the hips and shoulders SKIN: There is no obvious evidence of any rash. There are no petechiae, pallor or cyanosis noted. NEUROLOGIC: Patient is awake alert and oriented x3. Medical Decision & Procedures ER Provider Diagnostic Interpretation: X-ray results as stated below per interpretation by me and the radiologist. CHEST ONE VIEW PORTABLE HISTORY: 47 years-old Female EVALUATE RESPIRATORY DISTRESS.DYSPNEA follow-up study. COMPARISON: Portable chest radiograph and CTA of the chest 06/18/2017 TECHNIQUE: Portable upright AP view of the chest FINDINGS: Cardiac silhouette is again enlarged. There is pulmonary vascular congestion with background interstitial coarsening. No pneumothorax. Lungs are somewhat mildly hypoinflated with persistent right basilar and multifocal left lung alveolar opacities. Small left and trace right pleural effusions are present. There is improved aeration of the bilateral lungs from comparison study. The bones are grossly intact. IMPRESSION: 1. Improved aeration of the bilateral lungs. 2. Cardiomegaly with persistent left greater than right mixed interstitial alveolar and opacities with small left and trace right pleural effusions. Again, these findings suggest pulmonary edema with atelectasis and/or multifocal pneumonia. The above report was generated using voice recognition software. It may contain grammatical, syntax or spelling errors. Electronically signed by: Rinku Stock M.D. 07/07/2017 10:52 PM Dictated Date/Time: 07/07/2017 10:49 PM Laboratory Results 07/07/17 22:20 Red Blood Count 3.54, Mean Corpuscular Volume 74.3, Mean Corpuscular Hemoglobin 21.8, Mean Corpuscular Hemoglobin Concent 29.3, Mean Platelet Volume 10.2, Neutrophils (%) (Auto) 82.5, Lymphocytes (%) (Auto) 7.4, Monocytes (%) (Auto) 8.4, Eosinophils (%) (Auto) 1.3, Basophils (%) (Auto) 0.1, Neutrophils # (Auto) 5.69, Lymphocytes # (Auto) 0.51, Monocytes # (Auto) 0.58, Eosinophils # (Auto) 0.09, Basophils # (Auto) 0.01 07/07/17 22:20 Test 07/07/17 22:20 07/08/17 00:00 White Blood Count 6.90 K/uL (4.8-10.8) Red Blood Count 3.54 M/uL (4.2-5.4) Hemoglobin 7.7 g/dL (12.0-16.0) Hematocrit 26.3 % (37-47) Mean Corpuscular Volume 74.3 fL (80-100) Mean Corpuscular Hemoglobin 21.8 pg (25-34) Mean Corpuscular Hemoglobin Concent 29.3 g/dl (32-36) Platelet Count 122 K/uL (130-400) Mean Platelet Volume 10.2 fL (7.4-10.4) Neutrophils (%) (Auto) 82.5 % Lymphocytes (%) (Auto) 7.4 % Monocytes (%) (Auto) 8.4 % Eosinophils (%) (Auto) 1.3 % Basophils (%) (Auto) 0.1 % Neutrophils # (Auto) 5.69 K/uL (1.4-6.5) Lymphocytes # (Auto) 0.51 K/uL (1.2-3.4) Monocytes # (Auto) 0.58 K/uL (0.11-0.59) Eosinophils # (Auto) 0.09 K/uL (0-0.5) Basophils # (Auto) 0.01 K/uL (0-0.2) RDW Standard Deviation 58.6 fL (36.4-46.3) RDW Coefficient of Variation 21.8 % (11.5-14.5) Immature Granulocyte % (Auto) 0.3 % Immature Granulocyte # (Auto) 0.02 K/uL (0.00-0.02) Polychromasia 1+ Hypochromasia PRESENT Microcytosis PRESENT Prothrombin Time 12.4 SECONDS (9.0-12.0) Prothromb Time International Ratio 1.2 (0.9-1.1) Activated Partial Thromboplast Time 25.6 SECONDS (21.0-31.0) Partial Thromboplastin Ratio 1.0 Anion Gap 6.0 mmol/L (3-11) Est Creatinine Clear Calc Drug Dose 81.2 ml/min Estimated GFR () 62.3 Estimated GFR (Non- 53.8 BUN/Creatinine Ratio 40.8 (10-20) Calcium Level 8.3 mg/dl (8.5-10.1) Total Bilirubin 1.0 mg/dl (0.2-1) Aspartate Amino Transf (AST/SGOT) 27 U/L (15-37) Alanine Aminotransferase (ALT/SGPT) 31 U/L (12-78) Alkaline Phosphatase 401 U/L (45-117) Total Creatine Kinase 25 U/L (26-192) Creatine Kinase MB < 0.5 ng/ml (0.5-3.6) Creatine Kinase MB Ratio (0-3.0) Troponin I < 0.015 ng/ml (0-0.045) Pro-B-Type Natriuretic Peptide 970 pg/ml (0-450) Total Protein 8.4 gm/dl (6.4-8.2) Albumin 2.9 gm/dl (3.4-5.0) Globulin 5.5 gm/dl (2.5-4.0) Albumin/Globulin Ratio 0.5 (0.9-2) Urine Color YELLOW Urine Appearance CLEAR (CLEAR) Urine pH 5.0 (4.5-7.5) Urine Specific [place] 1.021 (1.000-1.030) Urine Protein NEG (NEG) Urine Glucose (UA) NEG (NEG) Urine Ketones NEG (NEG) Urine Occult Blood NEG (NEG) Urine Nitrite NEG (NEG) Urine Bilirubin NEG (NEG) Urine Urobilinogen NEG (NEG) Urine Leukocyte Esterase TRACE (NEG) Urine WBC (Auto) 1-5 /hpf (0-5) Urine RBC (Auto) 0-4 /hpf (0-4) Urine Hyaline Casts (Auto) 10-30 /lpf (0-5) Urine Epithelial Cells (Auto) >30 /lpf (0-5) Urine Bacteria (Auto) NEG (NEG) Laboratory results per my review. Medications Administered Medications (Trade) Dose Ordered Sig/Ana Luisa Route Start Time Stop Time Status Last Admin Dose Admin Furosemide (Lasix Inj) 40 mg STK-MED ONCE .ROUTE 07/08/17 00:13 07/08/17 00:14 DC 07/08/17 00:15 40 MG ECG Indication: SOB/dyspnea Rate (beats per minute): 84 Rhythm: normal sinus Findings: RBBB (incomplete), no ectopy Comparison ECG Date: 06/14/17 ED Course 2213: The patient was evaluated in room B3B. A complete history and physical examination were performed. 2320: I reevaluated the patient and she is resting. I discussed the exam findings with her and I discussed the treatment plan. She verbalized complete understanding and agreement. She is going to be evaluated for further treatment. 2331: I discussed the patient's case with Laura Chin. She is going to evaluate the patient for further treatment. Medical Decision Differential diagnosis: Etiologies such as infections, reactive airway disease, pneumonia, pneumothorax , COPD, CHF, cardiac ischemia, pulmonary embolism, musculoskeletal, gastrointestinal, as well as others were entertained. Nursing notes reviewed. The patient's previous electronic medical records reviewed. The patient is a 47-year-old female who has a history of underlying liver disorder. She presented to the emergency department for an evaluation of shortness of breath. The patient has a history of pleural effusions as well as ascites because of her underlying liver condition. She was recently admitted to our facility and had paracentesis as well as thoracentesis she has continued and worsening symptoms at this time. Currently the patient does use supplemental oxygen but she states it she's needed to increase her oxygen because of worsening dyspnea on exertion. The patient's oxygen saturation was low but acceptable at rest. The patient does become very short of breath with any movement. I discussed the patient's laboratory and radiographic studies with her. I also discussed her case with the on-call Laura hospitalist group. They've agreed to evaluate the patient in emergency apartment for further management and disposition. Medication Reconcilliation Current Medication List: was personally reviewed by me Blood Pressure Screening Patient's blood pressure: Normal blood pressure Blood pressure disposition: Did not require urgent referral Consults Time Called: [phone] Consulting Physician: Laura Chin Returned Call: [phone] I discussed the patient's case with Laura Chin. She is going to evaluate the patient for further treatment. Impression Primary Impression: Shortness of breath Additional Impressions: Pleural effusion Anemia Hypoxia Scribe Attestation The scribe's documentation has been prepared under my direction and personally reviewed by me in its entirety. I confirm that the note above accurately reflects all work, treatment, procedures, and medical decision making performed by me. Departure Information Dispostion Being Evaluated By Hospitalist Referrals Leo Scott M.D. (PCP) Problem Qualifiers Additional Impressions: Anemia Anemia type: unspecified type Qualified Codes: D64.9 - Anemia, unspecified
[2017-07-07 22:50] LABS: BASO % 0.1 %; BASO ABS # 0.01 K/uL (0-0.2); EOS % 1.3 %; HEMATOCRIT 26.3 % (37-47); IG% 0.3 %; LYMPH % 7.4 %; LYMPH ABS # 0.51 K/uL (1.2-3.4); MEAN CELL VOLUME 74.3 fL (80-100); MEAN CORPUSCULAR HEMOGLOBIN 21.8 pg (25-34); MEAN CORPUSCULAR HGB CONC 29.3 g/dl (32-36); MEAN PLATELET VOLUME 10.2 fL (7.4-10.4); MONO % 8.4 %; NEUT % 82.5 %; PLATELET COUNT 122 K/uL (130-400); RED BLOOD COUNT 3.54 M/uL (4.2-5.4)
--- NOTE | 2017-07-07 22:54 | DIAGNOSTIC IMAGING REPORT ---
CHEST ONE VIEW PORTABLE HISTORY: 47 years-old Female EVALUATE RESPIRATORY DISTRESS.DYSPNEA follow-up study. COMPARISON: Portable chest radiograph and CTA of the chest 06/18/2017 TECHNIQUE: Portable upright AP view of the chest FINDINGS: Cardiac silhouette is again enlarged. There is pulmonary vascular congestion with background interstitial coarsening. No pneumothorax. Lungs are somewhat mildly hypoinflated with persistent right basilar and multifocal left lung alveolar opacities. Small left and trace right pleural effusions are present. There is improved aeration of the bilateral lungs from comparison study. The bones are grossly intact. IMPRESSION: 1. Improved aeration of the bilateral lungs. 2. Cardiomegaly with persistent left greater than right mixed interstitial alveolar and opacities with small left and trace right pleural effusions. Again, these findings suggest pulmonary edema with atelectasis and/or multifocal pneumonia. The above report was generated using voice recognition software. It may contain grammatical, syntax or spelling errors. Electronically signed by: Rinku Stock M.D. 07/07/2017 10:52 PM Dictated Date/Time: 07/07/2017 10:49 PM
[2017-07-07 23:07] LABS: INR 1.2 (0.9-1.1); PROTHROMBIN TIME (PATIENT) 12.4 SECONDS (9.0-12.0)
[2017-07-07 23:13] LABS: COMPLETE YES; HYPOCHROMIA PRESENT; MICROCYTOSIS PRESENT; POLYCHROMASIA 1+
[2017-07-07 23:14] LABS: ALT/SGPT 31 U/L (12-78); AST/SGOT 27 U/L (15-37); BLOOD UREA NITROGEN 49 mg/dl (7-18); BUN/CREATININE RATIO 40.8 (10-20); CALCIUM 8.3 mg/dl (8.5-10.1); CARBON DIOXIDE 33 mmol/L (21-32); CHLORIDE 95 mmol/L (98-107); GLUCOSE 193 mg/dl (70-99); POTASSIUM 4.9 mmol/L (3.5-5.1); SODIUM 134 mmol/L (136-145)
[2017-07-07 23:20] LABS: ALB/GLOB RATIO 0.5 (0.9-2); ALKALINE PHOSPHATASE 401 U/L (45-117)
[2017-07-08] VITALS (16 sets, daily range): BP systolic 120–165; BP diastolic 69–80; PULSE 84–93; TEMP 36.3–36.9; O2SAT 90–96; Ht 170.2 cm; Wt 125.8 kg
[2017-07-08] MEDS ORDERED: FUROSEMIDE 40 MG/4 ML VIAL IV STA (00:08)
[2017-07-08] MEDS ORDERED: FUROSEMIDE 40 MG/4 ML VIAL ONE (00:13)
[2017-07-08 00:16] LABS: URINE APPEARANCE CLEAR (CLEAR); URINE BILIRUBIN NEG (NEG); URINE COLOR YELLOW; URINE EPITHELIAL CELL AUTO >30 /lpf (0-5); URINE NITRITE NEG (NEG); URINE SPECIFIC GRAVITY 1.021 (1.000-1.030); UROBILINOGEN NEG (NEG)
[2017-07-08 00:22] LABS: MANUAL MICROSCOPIC REQUIRED? NO; REVIEW REQ? NO
[2017-07-08] MEDS ORDERED: DEXTROSE 50% 50 ML SYR IV PRN (04:15)
[2017-07-08] MEDS ORDERED: LACTULOSE SYRUP 30 GM/45 ML UDP PO PRN (04:15)
[2017-07-08] MEDS ORDERED: MAGNESIUM HYDROXIDE SUSP 30 ML UDC PO PRN (04:15)
[2017-07-08] MEDS ORDERED: CLONAZEPAM 1 MG TAB PO PRN (04:15)
[2017-07-08] MEDS ORDERED: GLUCOSE 40% GEL 15 GM TUBE PO PRN (04:15)
[2017-07-08] MEDS ORDERED: ALUMINUM/MAGNESIUM/SIMETH (MAALOX MAX) 30 ML UDC PO PRN (04:15)
[2017-07-08] MEDS ORDERED: GLUCOSE 10 TABS/TUBE PO PRN (04:15)
[2017-07-08] MEDS ORDERED: ONDANSETRON INJ 2 MG/ML 2 ML VIAL IV PRN (04:15)
[2017-07-08] MEDS ORDERED: GLUCAGON FOR INJ 1 MG VIAL SQ PRN (04:15)
[2017-07-08] MEDS ORDERED: POLYETHYLENE (MIRALAX) 17 GM PACK PO PRN (04:15)
--- NOTE | 2017-07-08 04:19 | History and Physical ---
History & Physical Date & Time of Service: Jul 08, 2017 at 04:18 Chief Complaint: Pleural Effusion, Sob Primary Care Physician: Leo Scott M.D. History of Present Illness Source: patient This is a 47 yo F with complex medical hx of MEIER Cirrhosis . Esophageal varices /GAVE s/p TIPS procedure on 04/2016 then revised on 06/2016 . anemia of chronic disease , chronic pleural effusion , chronic respiratory failure on 2 L o2 via nasal canula , Type 2 DM , GERD . Hypothyroidism , Depression /OCD presented to ED with progressive SOB , WALKER , worsening of abdominal girth , swelling , wt gain Pt had prior thoracentesis and paracentesis most recent was on 06/14 with paracentesis of 4.4 L of ascitic fluid ; had rt sided thoracentesis on 06/15/17 was transported to [place] for possible hepatorenal syndrome pt later developed severe depression , suicidal ideation -required inpatient Psych admission Pt presents to ED with similar symptoms like previous admission , WALKER, Orthopnea , increased abdominal girth , wt gain was found to be Hypoxic Spo2 86 % , required increased 02 supplement Cxray shows bilateral pleural effusion , will be admitted to [facility] chest USG ordered to assess pleural effusion , Pulmonology consulted for thoracentesis given extra dose of IV Lasix in ED Past Medical/Surgical History Medical Problems: (1) Ankle fracture Permanent Comment: s/p repair Status: Chronic (2) Anxiety Status: Chronic (3) Ascites of liver Status: Chronic (4) Chronic anemia Status: Chronic (5) Depression Status: Chronic (6) DM type 2 (diabetes mellitus, type 2) Status: Chronic (7) Dyslipidemia Status: Chronic (8) GERD (gastroesophageal reflux disease) Status: Chronic (9) Hypothyroidism Status: Chronic (10) Liver cirrhosis secondary to MEIER Status: Chronic (11) OCD (obsessive compulsive disorder) Status: Chronic Surgical Problems: (1) History of esophagogastroduodenoscopy (EGD) Permanent Comment: 02/2016 - large esophageal varices, GAVE Status: Chronic (2) S/P TIPS (transjugular intrahepatic portosystemic shunt) Permanent Comment: 04/2016 then revised in 06/2016 Status: Chronic Family History Unobtainable family history due to adoption Social History Smoking Status: Never Smoker Drug Use: none Marital Status: Immunizations History of Influenza Vaccine: Yes Influenza Vaccine Date: Oct 06, 2014 History of Tetanus Vaccine?: Yes Tetanus Immunization Date: Feb 22, 2009 History of Pneumococcal: Yes Pneumococcal Date: Apr 27, 2009 History of Hepatitis B Vaccine: Yes Hepatitis Immunization Date: March 15, 2014 Allergies Coded Allergies: Ferrous Sulfate (Verified Allergy, Intermediate, IRON SUPPLEMENT--RASH, ABD PAIN AND DIARRHEA, 07/07/17) Cat Dander (Verified Allergy, Mild, rash, 07/07/17) Erythromycin (Verified Allergy, Mild, RASH, 07/07/17) Home Medications Scheduled Aripiprazole (Aripiprazole), 10 MG PO HS Ciprofloxacin Tab (Cipro), 250 MG PO DAILY Furosemide (Lasix), 80 MG PO BID Glipizide (Glucotrol), 10 MG PO BID Insulin Glargine (Lantus Solostar), 55 UNITS SC HS Levothyroxine Sodium (Levothyroxine Sodium), 1 TAB PO QAM@0600 Levothyroxine Sodium (Levothyroxine Sodium), 1 TAB PO QAM@0600 Omeprazole (Prilosec), 40 MG PO DAILY Rifaximin (Xifaxan), 550 MG PO BID Sitagliptin (Januvia), 50 MG PO DAILY Spironolactone (Aldactone), 100 MG PO BID Scheduled PRN Clonazepam (Clonazepam Odt), 1-2 MG PO HS PRN for Anxiety Lactulose (Chronulac), 30 GM PO DAILY PRN for Constipation Review of Systems Constitutional: + weakness, + fatigue Respiratory: + cough, + sputum, + wheezing, + shortness of breath, + dyspnea on exertion, + dyspnea at rest Cardiovascular: + chest pain, + orthopnea, + edema, + palpitations Abdomen: + pain, + problem reported (increased abdominal disention /ascities ) Neurologic: + weakness, + numbness/tingling, + vertigo, + balance problems Psychiatric: + depression symptoms, + anxiety Endocrine: + fatigue Physical Exam Vital Signs Date Time Temp Pulse Resp B/P (MAP) Pulse Ox O2 Delivery O2 Flow Rate FiO2 07/08/17 01:12 Nasal Cannula 3.0 07/08/17 00:36 87 27 96 3.0 07/08/17 00:31 128/62 07/08/17 00:25 86 26 96 3.0 07/08/17 00:02 132/62 07/07/17 23:55 87 30 07/07/17 23:31 127/60 07/07/17 23:25 85 34 97 3.0 07/07/17 23:25 85 33 97 Nasal Cannula 3.0 07/07/17 23:20 84 25 07/07/17 23:01 128/61 07/07/17 22:50 85 27 07/07/17 22:31 122/57 07/07/17 22:20 94 Nasal Cannula 3.0 07/07/17 22:20 85 20 07/07/17 22:11 85 07/07/17 22:09 94 Nasal Cannula 3.0 07/07/17 22:09 Nasal Cannula 3.0 07/07/17 22:06 87 36 129/66 90 Nasal Cannula 2.0 07/07/17 22:06 129/66 07/07/17 22:00 91 Nasal Cannula 3.0 07/07/17 21:56 36.8 84 24 117/68 91 Nasal Cannula 3.0 General Appearance: + pertinent finding (chronically ill appearing ) Eyes: normal inspection Neck: + JVD Respiratory/Chest: + decreased breath sounds, + crackles, + rales Cardiovascular: regular rate, rhythm, + JVD Abdomen/GI: + distended Extremities/Musculoskelatal: + pedal edema, + swelling Neurologic/Psych: alert, oriented x 3, + depressed affect Diagnostics Laboratory Results Results Past 24 Hours Test 07/07/17 22:20 07/08/17 00:00 07/08/17 04:11 Range/Units White Blood Count 6.90 4.8-10.8 K/uL Red Blood Count 3.54 4.2-5.4 M/uL Hemoglobin 7.7 12.0-16.0 g/dL Hematocrit 26.3 37-47 % Mean Corpuscular Volume 74.3 80-100 fL Mean Corpuscular Hemoglobin 21.8 25-34 pg Mean Corpuscular Hemoglobin Concent 29.3 32-36 g/dl Platelet Count 122 130-400 K/uL Mean Platelet Volume 10.2 7.4-10.4 fL Neutrophils (%) (Auto) 82.5 % Lymphocytes (%) (Auto) 7.4 % Monocytes (%) (Auto) 8.4 % Eosinophils (%) (Auto) 1.3 % Basophils (%) (Auto) 0.1 % Neutrophils # (Auto) 5.69 1.4-6.5 K/uL Lymphocytes # (Auto) 0.51 1.2-3.4 K/uL Monocytes # (Auto) 0.58 0.11-0.59 K/uL Eosinophils # (Auto) 0.09 0-0.5 K/uL Basophils # (Auto) 0.01 0-0.2 K/uL RDW Standard Deviation 58.6 36.4-46.3 fL RDW Coefficient of Variation 21.8 11.5-14.5 % Immature Granulocyte % (Auto) 0.3 % Immature Granulocyte # (Auto) 0.02 0.00-0.02 K/uL Polychromasia 1+ Hypochromasia PRESENT Microcytosis PRESENT Prothrombin Time 12.4 9.0-12.0 SECONDS Prothromb Time International Ratio 1.2 0.9-1.1 Activated Partial Thromboplast Time 25.6 21.0-31.0 SECONDS Partial Thromboplastin Ratio 1.0 Sodium Level 134 136-145 mmol/L Potassium Level 4.9 3.5-5.1 mmol/L Chloride Level 95 98-107 mmol/L Carbon Dioxide Level 33 21-32 mmol/L Anion Gap 6.0 3-11 mmol/L Blood Urea Nitrogen 49 7-18 mg/dl Creatinine 1.20 0.60-1.20 mg/dl Est Creatinine Clear Calc Drug Dose 81.2 ml/min Estimated GFR () 62.3 Estimated GFR (Non- 53.8 BUN/Creatinine Ratio 40.8 10-20 Random Glucose 193 70-99 mg/dl Calcium Level 8.3 8.5-10.1 mg/dl Total Bilirubin 1.0 0.2-1 mg/dl Aspartate Amino Transf (AST/SGOT) 27 15-37 U/L Alanine Aminotransferase (ALT/SGPT) 31 12-78 U/L Alkaline Phosphatase 401 45-117 U/L Total Creatine Kinase 25 26-192 U/L Creatine Kinase MB < 0.5 0.5-3.6 ng/ml Creatine Kinase MB Ratio 0-3.0 Troponin I < 0.015 0-0.045 ng/ml Pro-B-Type Natriuretic Peptide 970 0-450 pg/ml Total Protein 8.4 6.4-8.2 gm/dl Albumin 2.9 3.4-5.0 gm/dl Globulin 5.5 2.5-4.0 gm/dl Albumin/Globulin Ratio 0.5 0.9-2 Urine Color YELLOW Urine Appearance CLEAR CLEAR Urine pH 5.0 4.5-7.5 Urine Specific [place] 1.021 1.000-1.030 Urine Protein NEG NEG Urine Glucose (UA) NEG NEG Urine Ketones NEG NEG Urine Occult Blood NEG NEG Urine Nitrite NEG NEG Urine Bilirubin NEG NEG Urine Urobilinogen NEG NEG Urine Leukocyte Esterase TRACE NEG Urine WBC (Auto) 1-5 0-5 /hpf Urine RBC (Auto) 0-4 0-4 /hpf Urine Hyaline Casts (Auto) 10-30 0-5 /lpf Urine Epithelial Cells (Auto) >30 0-5 /lpf Urine Bacteria (Auto) NEG NEG Diagnostic Radiology CHEST XRAY : IMPRESSION: 1. Improved aeration of the bilateral lungs. 2. Cardiomegaly with persistent left greater than right mixed interstitial alveolar and opacities with small left and trace right pleural effusions. Again, these findings suggest pulmonary edema with atelectasis and/or multifocal pneumonia. Impression Assessment and Plan HYPOXIA/RESPIRATORY DISTRESS /BILATERAL PLEURAL EFFUSION : cont Lasix 80 mg BID given extra 40 mg IV Lasix in ED possible transudative due to decompensated liver disease /hypoalbuminemia hx of CHF with Diastolic dysfunction ECHO ordered will y need thoracentesis USG of lung Pulmonology eval requested cont 02 supplement will add empiric Abx with Doxycycline as Cxray mentions of possible infiltrate suggestive of pneumonia MEIER CIRRHOSIS : with advanced CLD with hepatorenal syndrome , esophageal varices, GAVE has refractory ascites despite previous TIPS procedure on 04/2016 , s/p revision on 06/2016 -GI eval requested -pt follows with Dr Dorado will need paracentesis pt is continued with rifaximin , Aldactone , lactulose on Lasix 80 mg BID Cont on Nadolol -hx of non bleeding esophageal varices -Low Na diet pt been evaluated by transplant team in [facility] CKD STAGE 3 : Renal function approx baseline follow PRP TYPE 2 DM ; cont Basal Lantus , insulin SSI hold oral hypoglycemics ordered for HB A1c to be checked HYPOTHYROIDISM : Cont Levothyroxine DEPRESSION : Recent in patient admission in [place] for suicidal ideation pt denies of any suicidal ideation at present depressed due to ongoing illness cont Abilify ANEMIA OF CHRONIC DISEASE : monitor H&H FULL CODE very poor prognosis Code status may need to be addressed by GI team DVT PROPHYLAXIS: SCD AND TEDS anticoagulation avoided due to thrombocytopenia associated with chronic liver disease DISPOSITION : to be determined very advanced liver disease with multiple co -morbidities very poor functional status PT/OT eval prior to discharge Social service consulted for discharge planning Level of Care Telemetry Advanced Directives Existing Living Will: No Existing Power of Fitting Supervisor: No Resuscitation Status FULL RESUSCITATION VTE Prophylaxis VTE Risk Assessment Done? Y/N: Yes Risk Level: Moderate Given or contraindicated: Elizabeth Stockings, SCD's Additional Copies To Tre Dorado MD
[2017-07-08 05:10] LABS: HEMATOCRIT 25.1 % (37-47); MEAN CORPUSCULAR HEMOGLOBIN 21.5 pg (25-34); MEAN CORPUSCULAR HGB CONC 29.1 g/dl (32-36); MEAN PLATELET VOLUME 9.7 fL (7.4-10.4); PLATELET COUNT 118 K/uL (130-400); RED BLOOD COUNT 3.39 M/uL (4.2-5.4); WHITE BLOOD COUNT 7.16 K/uL (4.8-10.8)
[2017-07-08] MEDS: LEVOTHYROXINE 25 MCG TAB PO SCH (05:30)
[2017-07-08] MEDS: LEVOTHYROXINE 200 MCG TAB PO SCH (05:31)
[2017-07-08] MEDS: DOXYCYCLINE HYCLATE 100 MG CAP PO SCH ×3 (05:31→21:23)
[2017-07-08 05:34] LABS: BUN/CREATININE RATIO 41.6 (10-20); CALCIUM 8.4 mg/dl (8.5-10.1); CREATININE 1.2 mg/dl (0.60-1.20); POTASSIUM 4.7 mmol/L (3.5-5.1)
--- NOTE | 2017-07-08 07:04 | DIAGNOSTIC IMAGING REPORT ---
EFFUSION-CHEST/MEDIASTINUM ultrasound CLINICAL HISTORY: PLEURAL EFFUSUSION /short of breath COMPARISON STUDY: Chest 07/07/2017. FINDINGS: Left pleural effusion with a volume of 445 cc. This appears to be multi septated. There is a right pleural effusion with 670 cc. Neither site was marked for thoracentesis. IMPRESSION: Bilateral pleural effusions, right greater than left as described above. The left pleural effusion is multiseptated. Electronically signed by: Austyn Locke M.D. 07/08/2017 7:03 AM Dictated Date/Time: 07/08/2017 7:01 AM
[2017-07-08] MEDS ORDERED: PERFLUTREN LIPID MICROSPHERE (DEFINITY) IV ONE (07:33)
[2017-07-08 07:57] LABS: ESTIMATED AVERAGE GLUCOSE 160 mg/dl; HA1C FLAG Normal (Normal)
[2017-07-08] MEDS: RIFAXIMIN TAB 550 MG TAB PO SCH ×2 (08:37→21:24)
[2017-07-08] MEDS: PANTOprazole SOD 40 MG TAB PO SCH (08:37)
[2017-07-08] MEDS: SPIRONOLACTONE 100 MG TAB PO SCH ×2 (08:40→19:00)
[2017-07-08] MEDS: INSULIN ASPART 100 UNITS/ML 3 ML PEN SC SCH ×4 (08:42→21:48)
[2017-07-08] MEDS ORDERED: FUROSEMIDE 40 MG TAB PO SCH (09:00)
[2017-07-08] MEDS ORDERED: CIPROFLOXACIN 250 MG TAB PO SCH (09:00)
--- NOTE | 2017-07-08 09:53 | DIAGNOSTIC IMAGING REPORT ---
CHEST ONE VIEW PORTABLE CLINICAL HISTORY: SOB COMPARISON STUDY: 07/07/2017 FINDINGS: The heart remains enlarged. There is mild mediastinal prominence. There are bilateral pleural effusions. There are bilateral pulmonary airspace opacities left greater than right.[ IMPRESSION: No significant change from the prior study. Persistent cardiomegaly, bilateral pulmonary airspace opacities/edema. Bilateral pleural effusions. Electronically signed by: Chuck Jurado M.D. 07/08/2017 9:52 AM Dictated Date/Time: 07/08/2017 9:50 AM
--- NOTE | 2017-07-08 11:43 | Procedure Note ---
Procedure Note Date of Service Jul 08, 2017. Procedure Note Procedures: Left sided Thoracentesis Consent: obtained via the patient and placed into the chart Pre-Procedural Dx: Left-sided pleural effusion Post-Procedural Dx: Left-sided loculated pleural effusion Analgesia: 8cc of 1% Liquid Lidocaine Procedure: The patient was placed in an upright position and thoracic US was used to select a spot for the procedure. A spot along the posterior axillary line was marked in the 7th intercostal space. The patient was then draped and prepped in a sterile fashion. A modified Seldinger technique was then used for catheter placement. No fluid was aspirated. The patient was then cleaned and placed at a 60 degree angle in the bed were the US was used to evaluate for possible pneumothorax. The US showed good lung sliding and [place] signs. Post procedure chest x-ray was ordered. EBL: none Complications: none
--- NOTE | 2017-07-08 12:08 | Pulmonary Consultation ---
History General Date of Service: Jul 08, 2017. Stated Complaint: Pleural Effusion, Sob HPI The patient is a 47 year old female who presents to [facility] with complaints of Pleural Effusion, Sob. The patient's primary care provider is Leo Scott M.D.. Ms. Martinez is a 47-year-old female with past medical history of MEIER, complicated by esophageal varices s/p TIPS, hepatic encephalopathy, ascites and recurrent pleural effusions, JAQUELINE on CPAP, chronic hypoxemic respiratory failure currently on 2 L nasal home oxygen who presents to [facility] with complaints of worsening shortness of breath and increased oxygen requirements to 2 L nasal cannula. She denies any fevers, chills, or chest pain. She states that the shortness of breath is exacerbated with lying flat and exertion. She also endorses a dry nonproductive cough. She also states that she's noticed that she's had increasing abdominal girth but denies any abdominal pain. Vital signs on admission showed a temperature 36.8C, pulse is 84, respiratory rate of 24 blood pressure 117/68 saturating 91% on 3 L nasal cannula. CBC on admission showed a white blood cell count of 6.9, hemoglobin of 7.7, and a platelet count of 122. Chemistry showed sodium of 134, potassium 4.9, chloride 95, carbon dioxide level of 33, BUS of 49 and creatinine of 1.2. Her random glucose was 193, calcium 8.3 total bili 1, AST 27, ALTs 31, alkaline phosphatase 401. Troponin was less than 0.015, pro-BNP 970, total protein 8.4, and albumin 2.9. Chest x-ray on 07/07/2017 showed persistent left greater than right with mixed interstitial alveolar opacities. There is also small left and trace right pleural effusions. Patient had thoracic ultrasound done on any 07/08/2017 which showed a left pleural effusion the volume of about 445 mL with multiple septae and a right pleural effusion with 670 mL. She was admitted for acute on chronic respiratory insufficiency secondary to bilateral pleural effusions. She is current medications reviewed and she is on omeprazole 10 mg by mouth at bedtime, insulin glargine 55 units subcutaneous at bedtime, insulin sliding scale, Cipro 250 mg by mouth daily, Lasix 80 mg twice a day, rifaximin 550 mg twice a day, spironolactone 100 mg twice a day, pantoprazole 40 mg by mouth daily, Synthroid tab to 225 g by mouth a.m., and doxycycline 100 mg by mouth twice a day. Of note, she was recently admitted on 06/14/2017 at that time she was noted to have large volume ascites and underwent paracentesis of 4.4 L. She also had bilateral pleural effusions, greater on the right than the left with respiratory distress and transferred to ICU. 1500 mL pleural fluid was removed by right thoracentesis on 06/18/2017 which met Light's criteria for exudate, showed no bacterial growth and was negative for malignant cells. The left pleural effusion was noted to have septations at that time, but she elected not to have left thoracentesis done. She was also managed for hepatorenal syndrome at that time and transferred to [facility] for further management. Previous studies: Thoracentesis 06/30/2017-no bacterial growth Thoracentesis 06/08/2016-no bacterial growth, no fungal growth, no acid-fast bacilli associated Onset: just prior to arrival Severity: moderate Complaint Status: persistent Review of Systems Constitutional: + fatigue Eyes: No worsening of vision, No eye pain, No redness, No discharge, No diplopia, No problem reported ENT: No hearing loss, No unusual epistaxis, No nasal symptoms, No sore throat, No tinnitus, No dental problems, No trouble swallowing, No problem reported Respiratory: + cough, + shortness of breath, + dyspnea on exertion, + dyspnea at rest Cardiovascular: No chest pain, No orthopnea, No PND, No edema, No claudication , No palpitations, No problem reported Abdomen: + problem reported Musculoskeletal: No joint pain, No muscle pain, No swelling, No calf pain, No problem reported Genitourinary - Female: + urinary urgency Neurologic: + memory loss, + numbness/tingling Psychiatric: + depression symptoms Endocrine: + fatigue Integumentary: No rash, No itch, No new/changing skin lesions, No color change , No bleeding, No problem reported Allergic / Immunologic: No environmental allergies, No seasonal allergies, No pet sensitivities, No food allergies, No hives, No frequent infections, No poor healing, No prolonged convalescence, No problem reporte Past Medical History Past Medical History: Type 2 diabetes Hyperlipidemia Hypothyroidism Liver 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 Social History Past medical history she is a lifetime nonsmoker, denies any alcohol abuse or drug abuse. She is and lives with . Hx Tobacco Use In Past Year?: No Smoking Status: Never Smoker Marital status: Immunizations History of Influenza Vaccine: Yes Influenza Vaccine Date: Oct 06, 2014 History of Tetanus Vaccine?: Yes Tetanus Immunization Date: Feb 22, 2009 History of Pneumococcal: Yes Pneumococcal Date: Apr 27, 2009 History of Hepatitis B Vaccine: Yes Hepatitis Immunization Date: March 15, 2014 Allergies Coded Allergies: Ferrous Sulfate (Verified Allergy, Intermediate, IRON SUPPLEMENT--RASH, ABD PAIN AND DIARRHEA, 07/07/17) Cat Dander (Verified Allergy, Mild, rash, 07/07/17) Erythromycin (Verified Allergy, Mild, RASH, 07/07/17) Current Medications Reported Home Medications Medications Dose Route/Sig Max Daily Dose Days Date Category Dose Instructions Glucotrol (Glipizide) 10 Mg Tab 10 Mg PO BID 07/07/17 Reported Prilosec (Omeprazole) 40 Mg Cap 40 Mg PO DAILY 06/15/17 Reported Levothyroxine Sodium 200 Mcg Tab 1 Tab PO QAM@0600 06/15/17 Reported Take total 225mcg PO daily. Levothyroxine Sodium 25 Mcg Tab 1 Tab PO QAM@0600 06/15/17 Reported Take total 225mcg PO daily Januvia (Sitagliptin) 50 Mg Tab 50 Mg PO DAILY 06/15/17 Reported Cipro (Ciprofloxacin) 250 Mg Tab 250 Mg PO DAILY 5 04/16/17 Reported Lantus Solostar (Insulin Glargine) 100 Unit/Ml Inj 55 Units SC HS 01/28/17 Reported Aldactone (Spironolactone) 100 Mg Tab 100 Mg PO BID 01/28/17 Reported Lasix (Furosemide) 40 Mg Tab 80 Mg PO BID 10/10/16 Reported Chronulac (Lactulose) 10 Gm/15 Ml Syrp 30 Gm PO DAILY PRN 08/28/16 Reported takes additional dose to have 2 bowel movements per day Xifaxan (Rifaximin) 550 Mg Tab 550 Mg PO BID 06/18/16 Reported Aripiprazole 10 Mg Tab 10 Mg PO HS 06/18/16 Reported Clonazepam Odt (Clonazepam) 1 Mg Tab 1-2 Mg PO HS PRN 12/14/15 Reported Physical Physical Exam Vital Signs: Date Time Temp Pulse Resp B/P (MAP) Pulse Ox O2 Delivery O2 Flow Rate FiO2 07/08/17 07:25 36.3 84 20 130/79 (96) 94 Nasal Cannula 3.0 07/08/17 04:30 36.3 88 22 120/80 (93) 96 Room Air 07/08/17 04:00 Nasal Cannula 3.0 07/08/17 01:12 Nasal Cannula 3.0 07/08/17 00:36 87 27 96 3.0 07/08/17 00:31 128/62 07/08/17 00:25 86 26 96 3.0 07/08/17 00:02 132/62 07/07/17 23:55 87 30 07/07/17 23:31 127/60 07/07/17 23:25 85 34 97 3.0 07/07/17 23:25 85 33 97 Nasal Cannula 3.0 07/07/17 23:20 84 25 07/07/17 23:01 128/61 07/07/17 22:50 85 27 07/07/17 22:31 122/57 07/07/17 22:20 94 Nasal Cannula 3.0 07/07/17 22:20 85 20 07/07/17 22:11 85 07/07/17 22:09 94 Nasal Cannula 3.0 07/07/17 22:09 Nasal Cannula 3.0 07/07/17 22:06 87 36 129/66 90 Nasal Cannula 2.0 07/07/17 22:06 129/66 07/07/17 22:00 91 Nasal Cannula 3.0 07/07/17 21:56 36.8 84 24 117/68 91 Nasal Cannula 3.0 General Appearance: WD/WN, NO APPARENT DISTRESS, obese Head: NORMOCEPHALIC, ATRAUMATIC Eyes: PERRLA, NO DISCHARGE, EOMI, SCLERAE NORMAL, CONJUNCTIVAE NORMAL ENT: NORMAL MOUTH EXAM Neck: NO TENDERNESS, TRACHEA MIDLINE, SUPPLE, NO LYMPHADENOPATHY, NO NUCHAL RIGIDITY Respiratory: other (Decreased breath sounds bilaterally at bases. Otherwise goo air entry.) Cardiovasular: REGULAR RATE/RHYTHM, NORMAL S1S2, NO M/G/R, NORMAL PERIPHERAL PULSES Abdomen: NON TENDER, NO REBOUND, NO GUARDING, hypoactive bowel sounds, other Back: NORMAL INSPECTION, NO CVA TENDERNESS Upper Extremities: edema Lower Extremities: edema Pulses: dorsalis pedis (R) (2+), dorsalis pedis (L) (2+) Neuro: ALERT, ORIENTED x 3, NORMAL MOTOR EXAM, NORMAL SPEECH Psychiatric: NORMAL AFFECT, NO SUICIDAL IDEATION, CONTRACTS FOR SAFETY Diagnostics Labs Results Past 24 Hours Test 07/07/17 22:20 07/08/17 00:00 07/08/17 04:34 07/08/17 07:51 Range/Units White Blood Count 6.90 7.16 4.8-10.8 K/uL Red Blood Count 3.54 3.39 4.2-5.4 M/uL Hemoglobin 7.7 7.3 12.0-16.0 g/dL Hematocrit 26.3 25.1 37-47 % Mean Corpuscular Volume 74.3 74.0 80-100 fL Mean Corpuscular Hemoglobin 21.8 21.5 25-34 pg Mean Corpuscular Hemoglobin Concent 29.3 29.1 32-36 g/dl Platelet Count 122 118 130-400 K/uL Mean Platelet Volume 10.2 9.7 7.4-10.4 fL Neutrophils (%) (Auto) 82.5 % Lymphocytes (%) (Auto) 7.4 % Monocytes (%) (Auto) 8.4 % Eosinophils (%) (Auto) 1.3 % Basophils (%) (Auto) 0.1 % Neutrophils # (Auto) 5.69 1.4-6.5 K/uL Lymphocytes # (Auto) 0.51 1.2-3.4 K/uL Monocytes # (Auto) 0.58 0.11-0.59 K/uL Eosinophils # (Auto) 0.09 0-0.5 K/uL Basophils # (Auto) 0.01 0-0.2 K/uL RDW Standard Deviation 58.6 58.9 36.4-46.3 fL RDW Coefficient of Variation 21.8 21.9 11.5-14.5 % Immature Granulocyte % (Auto) 0.3 % Immature Granulocyte # (Auto) 0.02 0.00-0.02 K/uL Polychromasia 1+ Hypochromasia PRESENT Microcytosis PRESENT Prothrombin Time 12.4 9.0-12.0 SECONDS Prothromb Time International Ratio 1.2 0.9-1.1 Activated Partial Thromboplast Time 25.6 21.0-31.0 SECONDS Partial Thromboplastin Ratio 1.0 Sodium Level 134 134 136-145 mmol/L Potassium Level 4.9 4.7 3.5-5.1 mmol/L Chloride Level 95 97 98-107 mmol/L Carbon Dioxide Level 33 33 21-32 mmol/L Anion Gap 6.0 4.0 3-11 mmol/L Blood Urea Nitrogen 49 50 7-18 mg/dl Creatinine 1.20 1.20 0.60-1.20 mg/dl Est Creatinine Clear Calc Drug Dose 81.2 80.7 ml/min Estimated GFR () 62.3 62.3 Estimated GFR (Non- 53.8 53.8 BUN/Creatinine Ratio 40.8 41.6 10-20 Random Glucose 193 204 70-99 mg/dl Calcium Level 8.3 8.4 8.5-10.1 mg/dl Total Bilirubin 1.0 0.2-1 mg/dl Aspartate Amino Transf (AST/SGOT) 27 15-37 U/L Alanine Aminotransferase (ALT/SGPT) 31 12-78 U/L Alkaline Phosphatase 401 45-117 U/L Total Creatine Kinase 25 26-192 U/L Creatine Kinase MB < 0.5 0.5-3.6 ng/ml Creatine Kinase MB Ratio 0-3.0 Troponin I < 0.015 0-0.045 ng/ml Pro-B-Type Natriuretic Peptide 970 0-450 pg/ml Total Protein 8.4 6.4-8.2 gm/dl Albumin 2.9 3.4-5.0 gm/dl Globulin 5.5 2.5-4.0 gm/dl Albumin/Globulin Ratio 0.5 0.9-2 Urine Color YELLOW Urine Appearance CLEAR CLEAR Urine pH 5.0 4.5-7.5 Urine Specific [place] 1.021 1.000-1.030 Urine Protein NEG NEG Urine Glucose (UA) NEG NEG Urine Ketones NEG NEG Urine Occult Blood NEG NEG Urine Nitrite NEG NEG Urine Bilirubin NEG NEG Urine Urobilinogen NEG NEG Urine Leukocyte Esterase TRACE NEG Urine WBC (Auto) 1-5 0-5 /hpf Urine RBC (Auto) 0-4 0-4 /hpf Urine Hyaline Casts (Auto) 10-30 0-5 /lpf Urine Epithelial Cells (Auto) >30 0-5 /lpf Urine Bacteria (Auto) NEG NEG Estimated Average Glucose 160 mg/dl Hemoglobin A1c 7.2 4.5-5.6 % Bedside Glucose 177 70-90 mg/dl Microbiology Results 07/08/17 Blood Culture, Received Pending 07/08/17 Blood Culture, Received Pending Diagnostic Radiology Thoracic ultrasound 07/08/2017 FINDINGS: Left pleural effusion with a volume of 445 cc. This appears to be multi septated. There is a right pleural effusion with 670 cc. Neither site was marked for thoracentesis. IMPRESSION: Bilateral pleural effusions, right greater than left as described above. The left pleural effusion is multiseptated. Chest x-ray 07/07/2017 FINDINGS: Cardiac silhouette is again enlarged. There is pulmonary vascular congestion with background interstitial coarsening. No pneumothorax. Lungs are somewhat mildly hypoinflated with persistent right basilar and multifocal left lung alveolar opacities. Small left and trace right pleural effusions are present. There is improved aeration of the bilateral lungs from comparison study. The bones are grossly intact. IMPRESSION: 1. Improved aeration of the bilateral lungs. 2. Cardiomegaly with persistent left greater than right mixed interstitial alveolar and opacities with small left and trace right pleural effusions. Again, these findings suggest pulmonary edema with atelectasis and/or multifocal pneumonia. CT chest with contrast 06/18/2017 IMPRESSION: 1. No central emboli identified. Limited evaluation of segmental and subsegmental artery branches 2. Moderate bilateral pleural effusions right greater than left 3. Bilateral asymmetric airspace opacities left greater than right. Asymmetric edema versus pneumonia. Clinical and radiographic follow-up is recommended 4. Cirrhosis, splenomegaly and ascites. EKG NSR 86 bpm. Impression Assessment and Plan Dyspnea Acute on chronic Hypoxemia Bilateral effusions MEIER with cirrhosis Ascites Anemia Diastolic CHF Dyspnea is multifactorial in nature. Most likely due to increased abdominal distension from ascites as well as bilateral pleural effusions. Pleural effusions are mostly likely secondary to translocation of ascitic fluid across the diaphragm. She also has elevated proBNP and hypoalbuminemia that my be contributing. She is s/p thoracentesis of right pleural effusion on last admission that met Light's Criteria for exudate, possibly secondary to lasix, no bacteria or malignant cells were seen. Left sided effusion showed multiple septate at that time, but thoracentesis was not performed. Consent for diagnostic left sided thoracentesis was obtained. Bedside thoracentesis performed, but no fluid was aspirated. This may be a loculated effusion. Post procedure CXR ordered. Recommend CT with out contrast to further evaluate. In the meantime, I would continue with nasal canula to maintain O2 saturation > 92%. Continue with diuresis. I agree with TTE, would also get Bubble study to rule out hepatopulmonary syndrome. Can continue with empiric antibiotics, although pneumonia is unlikely, with normal WBC, no fever and nonproductive cough. If hemoglobin drops less than 7, consider transfusion of PRBCs. I appreciate the consult.
--- NOTE | 2017-07-08 12:17 | DIAGNOSTIC IMAGING REPORT ---
CHEST ONE VIEW PORTABLE CLINICAL HISTORY: s/p thoracentesis, dry tap COMPARISON STUDY: 07/08/2017 FINDINGS: The heart remains enlarged. There is stable mediastinal prominence. There are bilateral pleural effusions. There are bilateral pulmonary airspace opacities left greater than right. No pneumothorax is visualized.[ IMPRESSION: No change from the preceding study. Bilateral airspace opacities left greater than right persist. No pneumothorax status post attempted thoracentesis. Electronically signed by: Chuck Jurado M.D. 07/08/2017 12:15 PM Dictated Date/Time: 07/08/2017 12:14 PM
--- NOTE | 2017-07-08 13:22 | ECHOCARDIOGRAM REPORT ---
*NOTICE TO RECEIVING CONSTITUTION PARTY AGENCY This information is strictly Confidential and protected under [place] law. [place] law prohibits you from making any further disclosure of this information unless further disclosure is expressly permitted by the written consent of the person to whom it pertains or is authorized by law. A general authorization for the release of medical or other information is not sufficient for this purpose. Hospital accepts no responsibility if the information is made available to any other person, INCLUDING THE PATIENT. Interpretation Summary * Name: PERICO MENG Study Date: 07/08/2017 07:03 AM BP: 120/80 mmHg * Patient Location: [facility]\S\N286\S\1 HR: 88 * : 1970 (M/d/yyyy) Gender: Female Height: 67 in * Age: 47 yrs Ethnicity: [place] Weight: 282 lb * Ordering Physician: Farnaz Tenorio * Referring Physician: Self, Referred * Performed By: Josh Molina RCS * * Reason For Study: Pleural Effusion, Eval. LV Function * BSA: 2.3 m2 * -- Conclusions -- * The left ventricle is normal in size. * There is mild concentric left ventricular hypertrophy. * Left ventricular systolic function is normal. * The left ventricular wall motion is normal. * Ejection Fraction = 60-65%. * The right ventricle is mildly dilated. * There is trace mitral regurgitation. * There is mild to moderate tricuspid regurgitation. * Right ventricular systolic pressure is elevated at 40-50mmHg. Procedure Details * A complete two-dimensional transthoracic echocardiogram was performed (2D, M-mode, Doppler and color flow Doppler). * A contrast injection of Definity was performed to improve assessment of LV function. * Contrast was injected into an intravenous site in the right arm. * One vial of Definity ultrasound contrast was diluted in normal saline to a total volume of 10 ml. A total of '3' ml of solution was administered during imaging. * Lot # [id number] of Definity utilized for procedure. * Expiration date . * The attending nurse who injected the contrast agent was Moris Rocha RN. Left Ventricle * The left ventricle is normal in size. * There is mild concentric left ventricular hypertrophy. * Ejection Fraction = 60-65%. * Left ventricular systolic function is normal. * The left ventricular wall motion is normal. Right Ventricle * The right ventricle is mildly dilated. * The right ventricular systolic function is normal. Atria * The left atrial size is normal. * Right atrial size is normal. * No ASD detected; PFO is not assessed. Mitral Valve * The mitral valve leaflets are mildly thickened * There is no mitral valve stenosis. * There is trace mitral regurgitation. Tricuspid Valve * The tricuspid valve is normal. * There is no tricuspid stenosis. * There is mild to moderate tricuspid regurgitation. * Right ventricular systolic pressure is elevated at 40-50mmHg. Aortic Valve * The aortic valve is trileaflet. * No hemodynamically significant valvular aortic stenosis. * No aortic regurgitation is present. Pulmonic Valve * The pulmonic valve is not well visualized. * Trace pulmonic valvular regurgitation. Great Vessels * The aortic root is normal size. Pericardium/Pleural * There is no pericardial effusion. Great Vessels * Normal inferior vena cava diameter and respiratory variation suggests normal central venous pressure. MMode 2D Measurements and Calculations IVSd 1.1 cm IVSs 1.3 cm LVIDd 4.9 cm LVIDs 3.2 cm LVPWd 1.1 cm LVPWs 1.4 cm IVS/LVPW 0.97 FS 34.7 % EDV(Teich) 114.0 ml ESV(Teich) 41.3 ml EF(Teich) 63.7 % EDV(cubed) 119.3 ml ESV(cubed) 33.1 ml EF(cubed) 72.2 % % IVS thick 23.1 % % LVPW thick 25.2 % LV mass(C)d 204.6 grams LV mass(C)dI 87.4 grams/m\S\2 LV mass(C)s 150.0 grams LV mass(C)sI 64.1 grams/m\S\2 CO(Teich) 6.4 l/min CI(Teich) 2.7 l/min/m\S\2 SV(Teich) 72.7 ml SI(Teich) 31.1 ml/m\S\2 CO(cubed) 7.6 l/min CI(cubed) 3.2 l/min/m\S\2 SV(cubed) 86.1 ml SI(cubed) 36.8 ml/m\S\2 Ao root diam 3.4 cm Ao root area 9.0 cm\S\2 ACS 2.0 cm LA dimension 4.3 cm asc Aorta Diam 3.2 cm LA/Ao 1.3 LVAd ap4 51.8 cm\S\2 LVLd ap4 10.2 cm EDV(MOD-sp4) 215.0 ml LVAs ap4 25.7 cm\S\2 LVLs ap4 7.6 cm ESV(MOD-sp4) 72.0 ml EF(MOD-sp4) 66.5 % LVAd ap2 32.0 cm\S\2 LVLd ap2 8.4 cm EDV(MOD-sp2) 100.0 ml LVAs ap2 19.8 cm\S\2 LVLs ap2 7.2 cm ESV(MOD-sp2) 46.0 ml EF(MOD-sp2) 54.0 % CO(MOD-sp4) 12.6 l/min CI(MOD-sp4) 5.4 l/min/m\S\2 SV(MOD-sp4) 143.0 ml SI(MOD-sp4) 61.1 ml/m\S\2 CO(MOD-sp2) 4.8 l/min CI(MOD-sp2) 2.0 l/min/m\S\2 SV(MOD-sp2) 54.0 ml SI(MOD-sp2) 23.1 ml/m\S\2 Doppler Measurements and Calculations MV E max vanessa 133.0 cm/sec MV A max vanessa 106.3 cm/sec MV E/A 1.3 MV P1/2t max vanessa 171.9 cm/sec MV P1/2t 89.0 msec MVA(P1/2t) 2.5 cm\S\2 MV dec slope 565.8 cm/sec\S\2 MV dec time 0.27 sec Ao V2 max 181.3 cm/sec Ao max PG 13.2 mmHg Ao max PG (full) 3.8 mmHg LV V1 max PG 9.4 mmHg LV V1 max 153.0 cm/sec PA V2 max 144.6 cm/sec PA max PG 8.4 mmHg PI max vanessa 241.6 cm/sec PI max PG 23.4 mmHg PI dec slope 161.5 cm/sec\S\2 PI P1/2t 438.2 msec TR max vanessa 321.3 cm/sec
[2017-07-08] MEDS ORDERED: ALBUMIN HUMAN 25% 12.5 GM/50 ML VIAL IV ONE (14:15)
[2017-07-08] MEDS ORDERED: ALBUMIN HUMAN 25% 12.5 GM/50 ML VIAL IV SCH (16:00)
--- NOTE | 2017-07-08 16:50 | Gastrointestinal Consultation ---
Gastrointestinal Consultation Date of Consultation: Jul 08, 2017 Attending Physician: Dr. Elizabeth Consulting Physician: Dr. Torres Reason for Consultation: Cirrhosis, ascites History of Present Illness Patient is a 47 year old female patient of Dr. Christensen with a hx of DM, NAFLD cirrhosis, complicated by prior hepatic encephalopathy, esophageal varices (not on beta salvatore due to falls), refractory ascites S/P TIPs and revision. She who presented to the ED today for SOB and increasing ascites. She has also had recent admission to [facility] for this issues as well as suicidal ideations. There, she underwent right heart cath with pulmonary hypertension. She also underwent US of the TIPS which was patent with a main portal vein velocity slightly low at 28cm/second. On arrival, T bili 1.0, WBC 6.9, Hb 7.7, platelets 122, Cr 1.2. US imaging of the lungs w/o a drainable effusion. She is seen and examined while she is resting in bed. She has O2 at 2 L and no longer feels SOB. She is awake alert and oriented. She denies any recent fevers, confusion, melena, hematochezia, nausea or vomiting. Past Medical/Surgical History Medical Problems: (1) Anemia Status: Acute (2) Ascites Status: Acute (3) Ascites Status: Acute (4) Diffuse abdominal pain Status: Acute (5) Dyspnea Status: Acute (6) Hypoxia Status: Acute (7) Hypoxia Status: Acute (8) Liver failure Status: Acute (9) Pleural effusion Status: Acute (10) Pleural effusion, left Status: Acute (11) Serum ammonia increased Status: Acute (12) Shortness of breath Status: Acute (13) Shortness of breath Status: Acute Past Medical History: 1. DM 2. Cirrhosis, hepatic encephalopathy, ascites 3. Obesity 4. Hyperlipidemia 5. Depression/OCD 6. Hypothyroidism Past Surgical History: 1. TIPS 2. Multiple paracentesis 3. Right thoracentesis 4. EGD 02/16/16 Dr. Dorado: medium to large varices in the lower esophagus. Family History Unobtainable family history due to adoption Social History Smoking Status: Never Smoker Alcohol Use: none Drug Use: none Marital Status: Housing Status: lives with significant other Allergies Coded Allergies: Ferrous Sulfate (Verified Allergy, Intermediate, IRON SUPPLEMENT--RASH, ABD PAIN AND DIARRHEA, 07/07/17) Cat Dander (Verified Allergy, Mild, rash, 07/07/17) Erythromycin (Verified Allergy, Mild, RASH, 07/07/17) Current Medications Home Meds and Scripts Medications Dose Route/Sig Max Daily Dose Days Date Category Dose Instructions Glucotrol (Glipizide) 10 Mg Tab 10 Mg PO BID 07/07/17 Reported Prilosec (Omeprazole) 40 Mg Cap 40 Mg PO DAILY 06/15/17 Reported Levothyroxine Sodium 200 Mcg Tab 1 Tab PO QAM@0600 06/15/17 Reported Take total 225mcg PO daily. Levothyroxine Sodium 25 Mcg Tab 1 Tab PO QAM@0600 06/15/17 Reported Take total 225mcg PO daily Januvia (Sitagliptin) 50 Mg Tab 50 Mg PO DAILY 06/15/17 Reported Cipro (Ciprofloxacin) 250 Mg Tab 250 Mg PO DAILY 5 04/16/17 Reported Lantus Solostar (Insulin Glargine) 100 Unit/Ml Inj 55 Units SC HS 01/28/17 Reported Aldactone (Spironolactone) 100 Mg Tab 100 Mg PO BID 01/28/17 Reported Lasix (Furosemide) 40 Mg Tab 80 Mg PO BID 10/10/16 Reported Chronulac (Lactulose) 10 Gm/15 Ml Syrp 30 Gm PO DAILY PRN 08/28/16 Reported takes additional dose to have 2 bowel movements per day Xifaxan (Rifaximin) 550 Mg Tab 550 Mg PO BID 06/18/16 Reported Aripiprazole 10 Mg Tab 10 Mg PO HS 06/18/16 Reported Clonazepam Odt (Clonazepam) 1 Mg Tab 1-2 Mg PO HS PRN 12/14/15 Reported Review of Systems Constitutional: No fever Respiratory: + shortness of breath Cardiac: No chest pain Abdomen: + problem reported (enlarging ascites), No pain, No nausea, No vomiting, No diarrhea Neuro: No memory loss Psych: + depression symptoms (denies any current thoughts of self harm) Endo: + fatigue Skin: No rash Physical Exam Date Time Temp Pulse Resp B/P (MAP) Pulse Ox O2 Delivery O2 Flow Rate FiO2 07/08/17 11:17 36.4 85 20 126/76 (93) 90 Nasal Cannula 3.0 07/08/17 08:00 94 Nasal Cannula 3.0 07/08/17 07:25 36.3 84 20 130/79 (96) 94 Nasal Cannula 3.0 07/08/17 04:30 36.3 88 22 120/80 (93) 96 Room Air 07/08/17 04:00 Nasal Cannula 3.0 07/08/17 01:12 Nasal Cannula 3.0 07/08/17 00:36 87 27 96 3.0 07/08/17 00:31 128/62 07/08/17 00:25 86 26 96 3.0 07/08/17 00:02 132/62 07/07/17 23:55 87 30 07/07/17 23:31 127/60 07/07/17 23:25 85 34 97 3.0 07/07/17 23:25 85 33 97 Nasal Cannula 3.0 07/07/17 23:20 84 25 07/07/17 23:01 128/61 07/07/17 22:50 85 27 07/07/17 22:31 122/57 07/07/17 22:20 94 Nasal Cannula 3.0 07/07/17 22:20 85 20 07/07/17 22:11 85 07/07/17 22:09 94 Nasal Cannula 3.0 07/07/17 22:09 Nasal Cannula 3.0 07/07/17 22:06 87 36 129/66 90 Nasal Cannula 2.0 07/07/17 22:06 129/66 07/07/17 22:00 91 Nasal Cannula 3.0 07/07/17 21:56 36.8 84 24 117/68 91 Nasal Cannula 3.0 General Appearance: no apparent distress Eyes: normal inspection, EOMI Neck: supple, no adenopathy, thyroid normal Respiratory/Chest: chest non-tender, normal breath sounds, no accessory muscle use, + decreased breath sounds (very dimished in the bases) Cardiovascular: regular rate, rhythm, no JVD, + systolic murmur (2/6) Abdomen: normal bowel sounds, non tender, soft, no organomegaly, + pertinent finding (moderate ascites) Extremities: normal inspection, no pedal edema, normal capillary refill Neurologic/Psych: alert, normal mood/affect, oriented x 3 Skin: normal color, no jaundice, warm/dry, no rash Laboratory Results Last 24 Hours Test 07/07/17 22:20 07/08/17 00:00 07/08/17 04:34 07/08/17 07:51 White Blood Count 6.90 K/uL 7.16 K/uL Red Blood Count 3.54 M/uL 3.39 M/uL Hemoglobin 7.7 g/dL 7.3 g/dL Hematocrit 26.3 % 25.1 % Mean Corpuscular Volume 74.3 fL 74.0 fL Mean Corpuscular Hemoglobin 21.8 pg 21.5 pg Mean Corpuscular Hemoglobin Concent 29.3 g/dl 29.1 g/dl Platelet Count 122 K/uL 118 K/uL Mean Platelet Volume 10.2 fL 9.7 fL Neutrophils (%) (Auto) 82.5 % Lymphocytes (%) (Auto) 7.4 % Monocytes (%) (Auto) 8.4 % Eosinophils (%) (Auto) 1.3 % Basophils (%) (Auto) 0.1 % Neutrophils # (Auto) 5.69 K/uL Lymphocytes # (Auto) 0.51 K/uL Monocytes # (Auto) 0.58 K/uL Eosinophils # (Auto) 0.09 K/uL Basophils # (Auto) 0.01 K/uL RDW Standard Deviation 58.6 fL 58.9 fL RDW Coefficient of Variation 21.8 % 21.9 % Immature Granulocyte % (Auto) 0.3 % Immature Granulocyte # (Auto) 0.02 K/uL Polychromasia 1+ Hypochromasia PRESENT Microcytosis PRESENT Prothrombin Time 12.4 SECONDS Prothromb Time International Ratio 1.2 Activated Partial Thromboplast Time 25.6 SECONDS Partial Thromboplastin Ratio 1.0 Sodium Level 134 mmol/L 134 mmol/L Potassium Level 4.9 mmol/L 4.7 mmol/L Chloride Level 95 mmol/L 97 mmol/L Carbon Dioxide Level 33 mmol/L 33 mmol/L Anion Gap 6.0 mmol/L 4.0 mmol/L Blood Urea Nitrogen 49 mg/dl 50 mg/dl Creatinine 1.20 mg/dl 1.20 mg/dl Est Creatinine Clear Calc Drug Dose 81.2 ml/min 80.7 ml/min Estimated GFR () 62.3 62.3 Estimated GFR (Non- 53.8 53.8 BUN/Creatinine Ratio 40.8 41.6 Random Glucose 193 mg/dl 204 mg/dl Calcium Level 8.3 mg/dl 8.4 mg/dl Total Bilirubin 1.0 mg/dl Aspartate Amino Transf (AST/SGOT) 27 U/L Alanine Aminotransferase (ALT/SGPT) 31 U/L Alkaline Phosphatase 401 U/L Total Creatine Kinase 25 U/L Creatine Kinase MB < 0.5 ng/ml Creatine Kinase MB Ratio Troponin I < 0.015 ng/ml Pro-B-Type Natriuretic Peptide 970 pg/ml Total Protein 8.4 gm/dl Albumin 2.9 gm/dl Globulin 5.5 gm/dl Albumin/Globulin Ratio 0.5 Urine Color YELLOW Urine Appearance CLEAR Urine pH 5.0 Urine Specific [place] 1.021 Urine Protein NEG Urine Glucose (UA) NEG Urine Ketones NEG Urine Occult Blood NEG Urine Nitrite NEG Urine Bilirubin NEG Urine Urobilinogen NEG Urine Leukocyte Esterase TRACE Urine WBC (Auto) 1-5 /hpf Urine RBC (Auto) 0-4 /hpf Urine Hyaline Casts (Auto) 10-30 /lpf Urine Epithelial Cells (Auto) >30 /lpf Urine Bacteria (Auto) NEG Estimated Average Glucose 160 mg/dl Hemoglobin A1c 7.2 % Bedside Glucose 177 mg/dl Impression Patient is a 47 year old female with NAFLD cirrhosis, with SOB from ascites and pleural effusions. Plan 1. Will order large volume paracentesis with albumin before and after. Fluid for cell count and culture. 2. Would maintain pt on furosemide 40mg BID and spironolactone 100mg BID. 3. 2 gram NA diet. 4. Will continue to follow pt closely. I have personally seen and examined the patient with TABATHA Duran on . Her note reflects my exam and findings. I agree with her impression and plan. Abdomen feels full so I would arrange imaging and possible paracentesis. Follow renal function closely. Pedro Pablo Torres M.D.
--- NOTE | 2017-07-08 18:24 | Progress Note ---
Internal Med Progress Note Date of Service: Jul 08, 2017. Provider Documentation: SUBJECTIVE: The patient was seen and examined Complains tiredness and SOB on minimal exertion Swelling of legs and abdomen OBJECTIVE: Vital Signs-as noted below Exam: General-Minimal distress at rest Looks pale Eyes-normal ENT-Normal Neck-supple Lungs-Decreased breath sound bilaterally at the bases Heart-Regular,no murmur Abdomen-Distended,soft Extremities-1+ edema bilaterally Neuro-AAOx3 Lab data as noted below. ASSESSMENT & PLAN: BILATERAL PLEURAL EFFUSION :Ongoing Secondary to Hepatic Hydrothorax Was given extra 40 mg IV Lasix in ED and has been on Lasix 80mg BID Has H/O CHF with Diastolic dysfunction ECHO: * The left ventricle is normal in size. * There is mild concentric left ventricular hypertrophy. * Left ventricular systolic function is normal. * The left ventricular wall motion is normal. * Ejection Fraction = 60-65%. * The right ventricle is mildly dilated. * There is trace mitral regurgitation. * There is mild to moderate tricuspid regurgitation. * Right ventricular systolic pressure is elevated at 40-50mmHg. USG of lung-Rt-670 and Lt-445 mls of effusion Appreciate Pulmonary input Failed any Thoracentesis -likely secondary to layering of fluid and loculation Cont 02 supplement Doxycycline for possible infiltration 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/2016 , s/p revision on 06/2016 GI eval requested -pt follows with Dr Dorado Continued with rifaximin , Aldactone , lactulose On Lasix 80 mg BID ,changed to 40mg BID by the GI Cont on Nadolol -hx of non bleeding esophageal varices Low Na diet Pt been evaluated by transplant team in [facility] CKD STAGE 3 : Renal function approx baseline follow PRP TYPE 2 DM ; Cont Basal Lantus , insulin SSI Hold oral hypoglycemics Ordered for HB A1c ;7.2 HYPOTHYROIDISM : Cont Levothyroxine DEPRESSION : Recent in patient admission in [place] for suicidal ideation Pt denies of any suicidal ideation at present Depressed due to ongoing illness Cont Abilify ANEMIA OF CHRONIC DISEASE : Monitor H&H Dropped to 7.3 Will transfuse 1 unit PRBC FULL CODE very poor prognosis Code status may need to be addressed by GI team DVT PROPHYLAXIS: SCD AND TEDS anticoagulation avoided due to thrombocytopenia associated with chronic liver disease DISPOSITION : PT/OT eval prior to discharge Social service consulted for discharge planning Vital Signs: Date Time Temp Pulse Resp B/P (MAP) Pulse Ox O2 Delivery O2 Flow Rate FiO2 07/08/17 16:00 91 Nasal Cannula 3.0 07/08/17 15:55 36.5 89 18 165/72 (103) 90 Nasal Cannula 3.0 07/08/17 12:00 92 Nasal Cannula 3.0 07/08/17 11:17 36.4 85 20 126/76 (93) 90 Nasal Cannula 3.0 07/08/17 08:00 94 Nasal Cannula 3.0 07/08/17 07:25 36.3 84 20 130/79 (96) 94 Nasal Cannula 3.0 07/08/17 04:30 36.3 88 22 120/80 (93) 96 Room Air 07/08/17 04:00 Nasal Cannula 3.0 07/08/17 01:12 Nasal Cannula 3.0 07/08/17 00:36 87 27 96 3.0 07/08/17 00:31 128/62 07/08/17 00:25 86 26 96 3.0 07/08/17 00:02 132/62 07/07/17 23:55 87 30 07/07/17 23:31 127/60 07/07/17 23:25 85 34 97 3.0 07/07/17 23:25 85 33 97 Nasal Cannula 3.0 07/07/17 23:20 84 25 07/07/17 23:01 128/61 07/07/17 22:50 85 27 07/07/17 22:31 122/57 07/07/17 22:20 94 Nasal Cannula 3.0 07/07/17 22:20 85 20 07/07/17 22:11 85 07/07/17 22:09 94 Nasal Cannula 3.0 07/07/17 22:09 Nasal Cannula 3.0 07/07/17 22:06 87 36 129/66 90 Nasal Cannula 2.0 07/07/17 22:06 129/66 07/07/17 22:00 91 Nasal Cannula 3.0 07/07/17 21:56 36.8 84 24 117/68 91 Nasal Cannula 3.0 Lab Results: Results Past 24 Hours Test 07/07/17 22:20 07/08/17 00:00 07/08/17 04:34 07/08/17 07:51 Range/Units White Blood Count 6.90 7.16 4.8-10.8 K/uL Red Blood Count 3.54 3.39 4.2-5.4 M/uL Hemoglobin 7.7 7.3 12.0-16.0 g/dL Hematocrit 26.3 25.1 37-47 % Mean Corpuscular Volume 74.3 74.0 80-100 fL Mean Corpuscular Hemoglobin 21.8 21.5 25-34 pg Mean Corpuscular Hemoglobin Concent 29.3 29.1 32-36 g/dl Platelet Count 122 118 130-400 K/uL Mean Platelet Volume 10.2 9.7 7.4-10.4 fL Neutrophils (%) (Auto) 82.5 % Lymphocytes (%) (Auto) 7.4 % Monocytes (%) (Auto) 8.4 % Eosinophils (%) (Auto) 1.3 % Basophils (%) (Auto) 0.1 % Neutrophils # (Auto) 5.69 1.4-6.5 K/uL Lymphocytes # (Auto) 0.51 1.2-3.4 K/uL Monocytes # (Auto) 0.58 0.11-0.59 K/uL Eosinophils # (Auto) 0.09 0-0.5 K/uL Basophils # (Auto) 0.01 0-0.2 K/uL RDW Standard Deviation 58.6 58.9 36.4-46.3 fL RDW Coefficient of Variation 21.8 21.9 11.5-14.5 % Immature Granulocyte % (Auto) 0.3 % Immature Granulocyte # (Auto) 0.02 0.00-0.02 K/uL Polychromasia 1+ Hypochromasia PRESENT Microcytosis PRESENT Prothrombin Time 12.4 9.0-12.0 SECONDS Prothromb Time International Ratio 1.2 0.9-1.1 Activated Partial Thromboplast Time 25.6 21.0-31.0 SECONDS Partial Thromboplastin Ratio 1.0 Sodium Level 134 134 136-145 mmol/L Potassium Level 4.9 4.7 3.5-5.1 mmol/L Chloride Level 95 97 98-107 mmol/L Carbon Dioxide Level 33 33 21-32 mmol/L Anion Gap 6.0 4.0 3-11 mmol/L Blood Urea Nitrogen 49 50 7-18 mg/dl Creatinine 1.20 1.20 0.60-1.20 mg/dl Est Creatinine Clear Calc Drug Dose 81.2 80.7 ml/min Estimated GFR () 62.3 62.3 Estimated GFR (Non- 53.8 53.8 BUN/Creatinine Ratio 40.8 41.6 10-20 Random Glucose 193 204 70-99 mg/dl Calcium Level 8.3 8.4 8.5-10.1 mg/dl Total Bilirubin 1.0 0.2-1 mg/dl Aspartate Amino Transf (AST/SGOT) 27 15-37 U/L Alanine Aminotransferase (ALT/SGPT) 31 12-78 U/L Alkaline Phosphatase 401 45-117 U/L Total Creatine Kinase 25 26-192 U/L Creatine Kinase MB < 0.5 0.5-3.6 ng/ml Creatine Kinase MB Ratio 0-3.0 Troponin I < 0.015 0-0.045 ng/ml Pro-B-Type Natriuretic Peptide 970 0-450 pg/ml Total Protein 8.4 6.4-8.2 gm/dl Albumin 2.9 3.4-5.0 gm/dl Globulin 5.5 2.5-4.0 gm/dl Albumin/Globulin Ratio 0.5 0.9-2 Urine Color YELLOW Urine Appearance CLEAR CLEAR Urine pH 5.0 4.5-7.5 Urine Specific [place] 1.021 1.000-1.030 Urine Protein NEG NEG Urine Glucose (UA) NEG NEG Urine Ketones NEG NEG Urine Occult Blood NEG NEG Urine Nitrite NEG NEG Urine Bilirubin NEG NEG Urine Urobilinogen NEG NEG Urine Leukocyte Esterase TRACE NEG Urine WBC (Auto) 1-5 0-5 /hpf Urine RBC (Auto) 0-4 0-4 /hpf Urine Hyaline Casts (Auto) 10-30 0-5 /lpf Urine Epithelial Cells (Auto) >30 0-5 /lpf Urine Bacteria (Auto) NEG NEG Estimated Average Glucose 160 mg/dl Hemoglobin A1c 7.2 4.5-5.6 % Bedside Glucose 177 70-90 mg/dl Test 07/08/17 11:54 07/08/17 16:15 Range/Units Bedside Glucose 174 186 70-90 mg/dl Microbiology Results 07/08/17 Blood Culture, Received Pending 07/08/17 Blood Culture, Received Pending
--- NOTE | 2017-07-08 19:23 | DIAGNOSTIC IMAGING REPORT ---
ULTRASOUND GUIDED DIAGNOSTIC AND THERAPEUTIC PARACENTESIS CLINICAL HISTORY: Ascites, NAFLD cirrhosis PROCEDURE: The risks, benefits, and alternatives to the procedure were discussed with the patient including the risk of bleeding, infection and injury to adjacent structures. The patient agreed to the procedure and informed written consent was obtained. Following real-time ultrasound localization, the skin of the left lower quadrant was prepped and draped. Following local anesthesia with Xylocaine, the sheath paracentesis needle was inserted and approximately 4 liters of straw-colored fluid was removed by vacuum suction. The patient tolerated the procedure well and no immediate complications were evident. IMPRESSION: Ultrasound-guided diagnostic and therapeutic paracentesis with removal of 4 liters of ascites. One bottle of ascites sent to the laboratory for analysis as ordered. Electronically signed by: Luis M Mcgarry M.D. 07/08/2017 7:22 PM Dictated Date/Time: 07/08/2017 7:21 PM
[2017-07-08] MEDS ORDERED: NITROGLYCERIN 0.4 MG SL PER TAB CHARGE SL STA (20:36)
[2017-07-08 20:37] LABS: PERIT FL WBC 1026 /uL (0-300); PERITONEAL FLUID RBC 15000 /uL
[2017-07-08] MEDS ORDERED: ALBUT/IPRATROP 3MG/0.5MG NEB 3 ML VIAL INH PRN (20:45)
[2017-07-08] MEDS ORDERED: ALBUT/IPRATROP 3MG/0.5MG NEB 3 ML VIAL INH STA (20:52)
[2017-07-08] MEDS ORDERED: FUROSEMIDE INJ 40 MG in SYRINGE 0 ML IV ONE (21:00)
[2017-07-08] MEDS: ARIPIprazole TAB 10 MG TAB PO SCH (21:23)
[2017-07-08] MEDS: INSULIN GLARGINE SOLOSTAR 100 UNITS/ML 3 ML PEN SC SCH (21:29)
--- NOTE | 2017-07-08 21:53 | DIAGNOSTIC IMAGING REPORT ---
CHEST ONE VIEW PORTABLE CLINICAL HISTORY: Shortness of breath. Pleural effusion. COMPARISON STUDY: Chest radiograph July 08, 2017 at 12:00 PM. FINDINGS: There is no pneumothorax. Lung volumes are diminished. Bilateral pleural effusions, right larger left, persists. Diffuse interstitial thickening and airspace opacities, greater within the left lung, are unchanged. IMPRESSION: 1. No significant change in interstitial thickening and bilateral opacities, greater within the left lung. The findings favor pulmonary edema with possible superimposed left lung pneumonia. 2. Persistent bilateral pleural effusions, right larger than left. Electronically signed by: Luis M Mcgarry M.D. 07/08/2017 9:51 PM Dictated Date/Time: 07/08/2017 9:49 PM
[2017-07-08] MEDS ORDERED: PIPERACILLIN/TAZOBACTAM 4.5 GM/100ML D5W IV STA (22:01)
--- NOTE | 2017-07-08 22:01 | Progress Note ---
Internal Med Progress Note Date of Service: Jul 08, 2017. Provider Documentation: Made aware by RN of chest pain, shortness of breath, respiratory distress during blood transfusion. Dry cough symptoms as per patient. Chest pain similar to symptoms on admission as per patient. CXR congestion, possible pneumonia left AP SOB Multifactorial : Pulmonary congestion/decompensated cirrhosis HCAP No sepsis Stat IV Lasix Nebs stat, when necessary Zosyn for HCAP (okay to DC Cipro for now) Hold PRBC transfusion now, resume once respiratory distress resolved, IV Lasix post blood transfusion. Will relay to AM provider. Vital Signs: Date Time Temp Pulse Resp B/P (MAP) Pulse Ox O2 Delivery O2 Flow Rate FiO2 07/09/17 04:05 Nasal Cannula 3.0 07/09/17 02:45 36.6 85 20 120/74 (89) 91 Nasal Cannula 4.5 07/09/17 00:05 Nasal Cannula 3.0 07/08/17 23:13 36.8 87 18 126/70 (88) 96 Nasal Cannula 5.0 07/08/17 21:56 90 18 94 Nasal Cannula 4.5 07/08/17 21:52 36.7 91 20 121/71 (88) 93 Nasal Cannula 4.0 07/08/17 20:52 123/72 (89) 07/08/17 20:15 36.8 93 22 126/75 91 3.0 07/08/17 20:09 91 Nasal Cannula 3.0 07/08/17 20:00 36.8 93 22 149/69 91 3.0 07/08/17 19:42 36.8 89 22 162/80 07/08/17 19:02 36.9 20 141/72 (95) 91 Nasal Cannula 2.0 07/08/17 16:00 91 Nasal Cannula 3.0 07/08/17 15:55 36.5 89 18 165/72 (103) 90 Nasal Cannula 3.0 07/08/17 12:00 92 Nasal Cannula 3.0 07/08/17 11:17 36.4 85 20 126/76 (93) 90 Nasal Cannula 3.0 07/08/17 08:00 94 Nasal Cannula 3.0 07/08/17 07:25 36.3 84 20 130/79 (96) 94 Nasal Cannula 3.0 Lab Results: Results Past 24 Hours Test 07/08/17 07:51 07/08/17 11:54 07/08/17 16:15 07/08/17 20:48 Range/Units Bedside Glucose 177 174 186 263 70-90 mg/dl Test 07/08/17 22:13 07/09/17 05:26 07/09/17 05:28 Range/Units White Blood Count 6.05 5.73 4.8-10.8 K/uL Red Blood Count 3.37 3.88 4.2-5.4 M/uL Hemoglobin 7.3 8.2 12.0-16.0 g/dL Hematocrit 24.8 29.3 37-47 % Mean Corpuscular Volume 73.6 75.5 80-100 fL Mean Corpuscular Hemoglobin 21.7 21.1 25-34 pg Mean Corpuscular Hemoglobin Concent 29.4 28.0 32-36 g/dl Platelet Count 99 112 130-400 K/uL Mean Platelet Volume 9.8 9.7 7.4-10.4 fL Neutrophils (%) (Auto) 79.2 % Lymphocytes (%) (Auto) 9.4 % Monocytes (%) (Auto) 9.8 % Eosinophils (%) (Auto) 1.3 % Basophils (%) (Auto) 0.0 % Neutrophils # (Auto) 4.79 1.4-6.5 K/uL Lymphocytes # (Auto) 0.57 1.2-3.4 K/uL Monocytes # (Auto) 0.59 0.11-0.59 K/uL Eosinophils # (Auto) 0.08 0-0.5 K/uL Basophils # (Auto) 0.00 0-0.2 K/uL RDW Standard Deviation 58.7 61.0 36.4-46.3 fL RDW Coefficient of Variation 21.9 22.1 11.5-14.5 % Immature Granulocyte % (Auto) 0.3 % Immature Granulocyte # (Auto) 0.02 0.00-0.02 K/uL Platelet Estimate DECREASED Hypochromasia PRESENT Anisocytosis PRESENT Target Cells 1+ Stomatocytes 1+ Sodium Level 133 135 136-145 mmol/L Potassium Level 4.7 4.6 3.5-5.1 mmol/L Chloride Level 96 96 98-107 mmol/L Carbon Dioxide Level 33 36 21-32 mmol/L Anion Gap 4.0 3.0 3-11 mmol/L Blood Urea Nitrogen 47 41 7-18 mg/dl Creatinine 1.40 1.20 0.60-1.20 mg/dl Est Creatinine Clear Calc Drug Dose 69.3 80.9 ml/min Estimated GFR () 51.7 62.3 Estimated GFR (Non- 44.6 53.8 BUN/Creatinine Ratio 33.4 33.8 10-20 Random Glucose 243 149 70-99 mg/dl Calcium Level 8.2 8.5 8.5-10.1 mg/dl Magnesium Level 2.3 1.8-2.4 mg/dl Troponin I < 0.015 0-0.045 ng/ml Urine Color YELLOW Urine Appearance CLEAR CLEAR Urine pH 5.0 4.5-7.5 Urine Specific [place] 1.021 1.000-1.030 Urine Protein NEG NEG Urine Glucose (UA) NEG NEG Urine Ketones NEG NEG Urine Occult Blood NEG NEG Urine Nitrite NEG NEG Urine Bilirubin NEG NEG Urine Urobilinogen NEG NEG Urine Leukocyte Esterase TRACE NEG Urine WBC (Auto) 1-5 0-5 /hpf Urine RBC (Auto) 0-4 0-4 /hpf Urine Hyaline Casts (Auto) 0 0-5 /lpf Urine Epithelial Cells (Auto) >30 0-5 /lpf Urine Bacteria (Auto) NEG NEG
[2017-07-08 22:28] LABS: HEMATOCRIT 24.8 % (37-47); MEAN CELL VOLUME 73.6 fL (80-100); MEAN CORPUSCULAR HEMOGLOBIN 21.7 pg (25-34); MEAN CORPUSCULAR HGB CONC 29.4 g/dl (32-36); RED BLOOD COUNT 3.37 M/uL (4.2-5.4); WHITE BLOOD COUNT 6.05 K/uL (4.8-10.8)
[2017-07-08] MEDS ORDERED: PIPERACILL/TAZOBAC IV 4.5 GM in DEXTROSE 5% 100ML IV ONE (22:30)
[2017-07-08 22:46] LABS: ANISOCYTOSIS PRESENT; COMPLETE YES; EOS % 1.3 %; HYPOCHROMIA PRESENT; IG% 0.3 %; LYMPH % 9.4 %; LYMPH ABS # 0.57 K/uL (1.2-3.4); MEAN PLATELET VOLUME 9.8 fL (7.4-10.4); MONO % 9.8 %; NEUT % 79.2 %; PLATELET COUNT 99 K/uL (130-400); PLT ESTIMATE DECREASED; STOMATOCYTE 1+; TARGET CELLS 1+
[2017-07-08 22:54] LABS: BLOOD UREA NITROGEN 47 mg/dl (7-18); BUN/CREATININE RATIO 33.4 (10-20); CALCIUM 8.2 mg/dl (8.5-10.1); CARBON DIOXIDE 33 mmol/L (21-32); CHLORIDE 96 mmol/L (98-107); GLUCOSE 243 mg/dl (70-99); MAGNESIUM 2.3 mg/dl (1.8-2.4); POTASSIUM 4.7 mmol/L (3.5-5.1); SODIUM 133 mmol/L (136-145)
[2017-07-09] VITALS (14 sets, daily range): BP systolic 105–142; BP diastolic 67–76; PULSE 78–85; TEMP 36.5–37; O2SAT 91–99
[2017-07-09] MEDS ORDERED: FUROSEMIDE INJ 40 MG in SYRINGE 0 ML IV ONE
[2017-07-09] MEDS: PIPERACILL/TAZOBAC IV 4.5 GM in DEXTROSE 5% 100ML IV SCH ×3 (01:54→18:06)
[2017-07-09] MEDS: LEVOTHYROXINE 200 MCG TAB PO SCH (05:41)
[2017-07-09] MEDS: LEVOTHYROXINE 25 MCG TAB PO SCH (05:41)
[2017-07-09] MEDS: ACETAMINOPHEN 325 MG TAB PO PRN ×2 (05:41→13:34)
[2017-07-09 05:47] LABS: URINE APPEARANCE CLEAR (CLEAR); URINE BILIRUBIN NEG (NEG); URINE COLOR YELLOW; URINE EPITHELIAL CELL AUTO >30 /lpf (0-5); URINE NITRITE NEG (NEG); URINE SPECIFIC GRAVITY 1.021 (1.000-1.030); UROBILINOGEN NEG (NEG); ZZUR CULT IF INDIC CLEAN CATCH NO
[2017-07-09 05:48] LABS: MANUAL MICROSCOPIC REQUIRED? NO; REVIEW REQ? NO
[2017-07-09 06:12] LABS: HEMATOCRIT 29.3 % (37-47); MEAN CELL VOLUME 75.5 fL (80-100); MEAN CORPUSCULAR HEMOGLOBIN 21.1 pg (25-34); MEAN PLATELET VOLUME 9.7 fL (7.4-10.4); PLATELET COUNT 112 K/uL (130-400); RED BLOOD COUNT 3.88 M/uL (4.2-5.4); WHITE BLOOD COUNT 5.73 K/uL (4.8-10.8)
[2017-07-09 06:25] LABS: BUN/CREATININE RATIO 33.8 (10-20); CALCIUM 8.5 mg/dl (8.5-10.1); CREATININE 1.2 mg/dl (0.60-1.20); POTASSIUM 4.6 mmol/L (3.5-5.1)
--- NOTE | 2017-07-09 07:09 | DIAGNOSTIC IMAGING REPORT ---
CHEST ONE VIEW PORTABLE CLINICAL HISTORY: 47 years-old Female presenting with pleural effusion . TECHNIQUE: Portable upright AP view of the chest was obtained. COMPARISON: 07/08/2017. FINDINGS: Persistent prominence of the cardiomediastinal silhouette with enlargement of the main pulmonary artery. Pulmonary vascular prominence. Mildly low lung volumes with elevation of the right hemidiaphragm. Persistent patchy diffuse opacities throughout the left lung and also involving the right lung to a lesser degree. Decreased pleural effusions. Osseous structures normal. Upper abdomen normal. IMPRESSION: 1. Multifocal patchy opacities involving the left lung to a greater degree than the right. Given the presence of cardiomegaly and pulmonary vascular prominence, pulmonary edema cannot be excluded. However, multifocal pneumonia could appear similarly. 2. Decreased pleural effusions. Electronically signed by: Leo Allison M.D. 07/09/2017 7:07 AM Dictated Date/Time: 07/09/2017 7:06 AM
[2017-07-09] MEDS: RIFAXIMIN TAB 550 MG TAB PO SCH ×2 (08:08→20:34)
[2017-07-09] MEDS: SPIRONOLACTONE 100 MG TAB PO SCH ×2 (08:08→17:40)
[2017-07-09] MEDS: PANTOprazole SOD 40 MG TAB PO SCH (08:08)
[2017-07-09] MEDS: FUROSEMIDE 40 MG TAB PO SCH ×2 (08:09→17:41)
[2017-07-09] MEDS: DOXYCYCLINE HYCLATE 100 MG CAP PO SCH ×2 (08:09→20:34)
[2017-07-09] MEDS: INSULIN ASPART 100 UNITS/ML 3 ML PEN SC SCH ×4 (08:10→21:13)
[2017-07-09] MEDS ORDERED: PIPERACILL/TAZOBAC CONSULT ACTIVE PRN (09:00)
--- NOTE | 2017-07-09 11:52 | Gastroenterology Progress Note ---
Progress Note Date of Service: Jul 09, 2017 Subjective Pt evaluation today including: conversation w/ patient, physical exam, chart review, lab review, review of studies, review of inpatient medication list Ms. Martinez is a 47-year-old female with an ASA LD cirrhosis status post TIPS complicated by ascites, prior hepatic encephalopathy, prior acute renal failure , pleural effusions. She presented to the emergency department very early yesterday morning. Since then she is undergone ultrasound of the lungs with < 1 liter fluid in both lungs, neither drainable. Yesterday she underwent paracentesis of 4 L of fluid. Fluid analysis with 14,000 red blood cells, 1026 white blood cells, 2% neutrophils giving an adjusted 20 white blood cells in the tap. She had been maintained on Cipro 250 mg daily for prevention of SBP. On arrival she received a few doses of Cipro Flagyl IV and then early this morning was placed on Zosyn. She is seen and examined while she is sitting up in bed. She is awake alert oriented. She states she feels much better and is interested discharged today. Labs today hemoglobin 8.2 after a 1 unit transfusion, creatinine 1.2. Review of Systems Constitutional: No fever Respiratory: + shortness of breath, No cough Cardiac: + chest pain (with blood transfusion yesterday, now resolved) Abdomen: No pain, No nausea, No vomiting, No diarrhea, No constipation, No GI bleeding, No jaundice Female : No dysuria Neuro: No memory loss Psych: No depression symptoms Heme: No abnormal bleeding/bruising Endo: No fatigue Skin: No rash Medications Current Inpatient Medications Medications (Trade) Dose Ordered Sig/Ana Luisa Route Start Time Stop Time Status Last Admin Dose Admin Acetaminophen (Tylenol Tab) 650 mg Q4H PRN PO 07/08/17 04:15 08/07/17 04:14 07/09/17 05:41 650 MG Al Hydrox/Mg Hydrox/Simethicone (Maalox Max Susp) 15 ml Q4H PRN PO 07/08/17 04:15 08/07/17 04:14 07/08/17 16:28 15 ML Magnesium Hydroxide (Milk Of Magnesia Susp) 30 ml Q6H PRN PO 07/08/17 04:15 08/07/17 04:14 Polyethylene (Miralax Powder Packet) 17 gm DAILY PRN PO 07/08/17 04:15 08/07/17 04:14 Ondansetron HCl (Zofran Inj) 4 mg Q6H PRN IV 07/08/17 04:15 08/07/17 04:14 Aripiprazole (Abilify Tab) 10 mg HS PO 07/08/17 21:00 08/07/17 20:59 07/08/17 21:23 10 MG Clonazepam (Klonopin Tab) 1 mg HS PRN PO 07/08/17 04:15 08/07/17 04:14 Insulin Glargine (Lantus Solostar Pen) 55 units HS SC 07/08/17 21:00 08/07/17 20:59 07/08/17 21:29 55 UNITS Lactulose (Chronulac Syrup) 30 gm DAILY PRN PO 07/08/17 04:15 08/07/17 04:14 Levothyroxine Sodium (Synthroid Tab) 25 mcg QAM@0600 PO 07/08/17 06:00 08/07/17 05:59 07/09/17 05:41 25 MCG Levothyroxine Sodium (Synthroid Tab) 200 mcg QAM@0600 PO 07/08/17 06:00 08/07/17 05:59 07/09/17 05:41 200 MCG Rifaximin (Xifaxan Tab) 550 mg BID PO 07/08/17 09:00 08/07/17 08:59 07/09/17 08:08 550 MG Spironolactone (Aldactone Tab) 100 mg BID17 PO 07/08/17 09:00 08/07/17 08:59 07/09/17 08:08 100 MG Pantoprazole Sodium (Protonix Tab) 40 mg DAILY PO 07/08/17 09:00 08/07/17 08:59 07/09/17 08:08 40 MG Insulin Aspart (novoLOG ASPART) SLIDING SCALE If C... ACHS SC 07/08/17 06:30 08/07/17 06:29 07/09/17 08:10 4 UNITS Glucose (Glucose 40% Gel) 15-30 GRAMS 15 GRAMS... UD PRN PO 07/08/17 04:15 08/07/17 04:14 Glucose (Glucose Chew Tab) 4-8 Tablets 4 Tabl... UD PRN PO 07/08/17 04:15 08/07/17 04:14 Dextrose (Dextrose 50% 50ML Syringe) 25-50ML OF 50% DW IV FOR... UD PRN IV 07/08/17 04:15 08/07/17 04:14 Glucagon (Glucagon Inj) 1 mg UD PRN SQ 07/08/17 04:15 08/07/17 04:14 Doxycycline Hyclate (Vibramycin Cap) 100 mg BID PO 07/08/17 04:30 07/15/17 04:29 07/09/17 08:09 100 MG Furosemide (Lasix Tab) 40 mg BID17 PO 07/09/17 09:00 08/07/17 08:59 07/09/17 08:09 40 MG Albuterol/ Ipratropium (Duoneb) 3 ml Q2H PRN INH 07/08/17 20:45 08/07/17 20:44 Piperacillin Sod/ Tazobactam Sod (Consult) 1 ea UD PRN N/A 07/09/17 09:00 08/08/17 08:59 Piperacillin Sod/ Tazobactam Sod 4.5 gm/Dextrose 120 ml @ 30 mls/hr Q8H IV 07/09/17 02:00 07/16/17 01:59 07/09/17 10:08 30 MLS/HR Objective Vital Signs Date Time Temp Pulse Resp B/P (MAP) Pulse Ox O2 Delivery O2 Flow Rate FiO2 07/09/17 11:33 37.0 82 20 125/73 (90) 97 Nasal Cannula 5.0 07/09/17 08:00 94 Nasal Cannula 3.0 07/09/17 07:24 36.5 81 20 139/76 (97) 97 Nasal Cannula 5.0 07/09/17 04:05 Nasal Cannula 3.0 07/09/17 02:45 36.6 85 20 120/74 (89) 91 Nasal Cannula 4.5 07/09/17 00:05 Nasal Cannula 3.0 07/08/17 23:13 36.8 87 18 126/70 (88) 96 Nasal Cannula 5.0 07/08/17 21:56 90 18 94 Nasal Cannula 4.5 07/08/17 21:52 36.7 91 20 121/71 (88) 93 Nasal Cannula 4.0 07/08/17 20:52 123/72 (89) 07/08/17 20:15 36.8 93 22 126/75 91 3.0 07/08/17 20:09 91 Nasal Cannula 3.0 07/08/17 20:00 36.8 93 22 149/69 91 3.0 07/08/17 19:42 36.8 89 22 162/80 07/08/17 19:02 36.9 20 141/72 (95) 91 Nasal Cannula 2.0 07/08/17 16:00 91 Nasal Cannula 3.0 07/08/17 15:55 36.5 89 18 165/72 (103) 90 Nasal Cannula 3.0 07/08/17 12:00 92 Nasal Cannula 3.0 Physical Exam General Appearance: no apparent distress Neck: no JVD Respiratory/Chest: + decreased breath sounds (at both bases) Cardiovascular: regular rate, rhythm, + systolic murmur (2/6) Abdomen: non tender, soft Extremities: non-tender Neurologic/Psych: alert, normal mood/affect, oriented x 3 Skin: normal color, no jaundice Laboratory Results Last 24 Hours Test 07/08/17 11:54 07/08/17 16:15 07/08/17 20:48 07/08/17 22:13 Bedside Glucose 174 mg/dl 186 mg/dl 263 mg/dl White Blood Count 6.05 K/uL Red Blood Count 3.37 M/uL Hemoglobin 7.3 g/dL Hematocrit 24.8 % Mean Corpuscular Volume 73.6 fL Mean Corpuscular Hemoglobin 21.7 pg Mean Corpuscular Hemoglobin Concent 29.4 g/dl Platelet Count 99 K/uL Mean Platelet Volume 9.8 fL Neutrophils (%) (Auto) 79.2 % Lymphocytes (%) (Auto) 9.4 % Monocytes (%) (Auto) 9.8 % Eosinophils (%) (Auto) 1.3 % Basophils (%) (Auto) 0.0 % Neutrophils # (Auto) 4.79 K/uL Lymphocytes # (Auto) 0.57 K/uL Monocytes # (Auto) 0.59 K/uL Eosinophils # (Auto) 0.08 K/uL Basophils # (Auto) 0.00 K/uL RDW Standard Deviation 58.7 fL RDW Coefficient of Variation 21.9 % Immature Granulocyte % (Auto) 0.3 % Immature Granulocyte # (Auto) 0.02 K/uL Platelet Estimate DECREASED Hypochromasia PRESENT Anisocytosis PRESENT Target Cells 1+ Stomatocytes 1+ Sodium Level 133 mmol/L Potassium Level 4.7 mmol/L Chloride Level 96 mmol/L Carbon Dioxide Level 33 mmol/L Anion Gap 4.0 mmol/L Blood Urea Nitrogen 47 mg/dl Creatinine 1.40 mg/dl Est Creatinine Clear Calc Drug Dose 69.3 ml/min Estimated GFR () 51.7 Estimated GFR (Non- 44.6 BUN/Creatinine Ratio 33.4 Random Glucose 243 mg/dl Calcium Level 8.2 mg/dl Magnesium Level 2.3 mg/dl Troponin I < 0.015 ng/ml Test 07/09/17 05:26 07/09/17 05:28 07/09/17 07:44 Urine Color YELLOW Urine Appearance CLEAR Urine pH 5.0 Urine Specific [place] 1.021 Urine Protein NEG Urine Glucose (UA) NEG Urine Ketones NEG Urine Occult Blood NEG Urine Nitrite NEG Urine Bilirubin NEG Urine Urobilinogen NEG Urine Leukocyte Esterase TRACE Urine WBC (Auto) 1-5 /hpf Urine RBC (Auto) 0-4 /hpf Urine Hyaline Casts (Auto) 0 /lpf Urine Epithelial Cells (Auto) >30 /lpf Urine Bacteria (Auto) NEG White Blood Count 5.73 K/uL Red Blood Count 3.88 M/uL Hemoglobin 8.2 g/dL Hematocrit 29.3 % Mean Corpuscular Volume 75.5 fL Mean Corpuscular Hemoglobin 21.1 pg Mean Corpuscular Hemoglobin Concent 28.0 g/dl RDW Standard Deviation 61.0 fL RDW Coefficient of Variation 22.1 % Platelet Count 112 K/uL Mean Platelet Volume 9.7 fL Sodium Level 135 mmol/L Potassium Level 4.6 mmol/L Chloride Level 96 mmol/L Carbon Dioxide Level 36 mmol/L Anion Gap 3.0 mmol/L Blood Urea Nitrogen 41 mg/dl Creatinine 1.20 mg/dl Est Creatinine Clear Calc Drug Dose 80.9 ml/min Estimated GFR () 62.3 Estimated GFR (Non- 53.8 BUN/Creatinine Ratio 33.8 Random Glucose 149 mg/dl Calcium Level 8.5 mg/dl Bedside Glucose 153 mg/dl Assessment and Plan Ms. Martinez is a 47-year-old female with an NAFLD cirrhosis, status post TIPS, admitted with pleural effusions and moderate ascites causing shortness of breath. Plan 1. Thus far after calculation fluid is negative for SBP, no clear indication for escalating antibiotics but would continue Cipro 250 mg one tablet daily for prevention of SBP. 2. Patient may require some home O2. 3. No further procedures planned at this time. 4. Continue outpatient GI management of diuretics in clinic. At time of discharge Lasix 40 twice daily and spironolactone 100 mg twice daily. Patient was reminded of the no salt diet. Would also discharge on Xifaxan 551 tablet twice daily and lactulose, one dose daily. I have personally seen and examined the patient with TABATHA Duran. Her note reflects my exam and findings. I agree with her impression and plan. No SBP. Patient desires to go home and I agree. Out patient follow up. Pedro Pablo Torres M.D.
--- NOTE | 2017-07-09 14:52 | Pulmonology Progress Note ---
Pulmonary Progress Note Date of Service Jul 09, 2017. Attending Dr. Valentin Subjective Patient seen and examined at bedside. She states that she is ready to go home. She states that she feels fine at rest but has increased dyspnea on exertion. She feels that her breathing is improved somewhat. She is status post paracentesis and removal of 4 L of ascitic fluid. She is status post transfusion of 1 unit PRBCs overnight. During evaluation patient became tearful and states that she doesn't want any further procedures done, she is now feeling anxious. Objective He Vital signs reviewed. MAXIMUM TEMPERATURE 37, BP 121/74-139/76, pulse 81-85 , respiratory rate 20, saturating 91-97% on 3L nasal cannula General: Obese female sitting in bed with 2 L nasal cannula CVS: S1-S2, regular rate and rhythm Chest/lungs: Decreased breath sounds bilaterally at bilateral bases Abdomen: Distended, nontender, soft, decreased bowel sounds Extremities: Trace peripheral edema bilaterally, no cyanosis, no clubbing Labs reviewed. CO2 36, creatinine 1.2. Medications reviewed Lasix 40 mg by mouth twice a day Zosyn 4.5 g every 8 hours Abilify 10 mg by mouth daily at bedtime. Insulin glargine 55 units subcutaneous insulin sliding scale Albuterol every 2 hours when necessary for shortness of breath and wheezing Rifaximin 550 mg twice a day by mouth Aldactone 100 mg twice a day by mouth Pantoprazole 40 mg by mouth daily Levothyroxine to 225 g every morning Chest x-ray 07/09/2017 1. Multifocal patchy opacities involving the left lung to a greater degree than the right. Given the presence of cardiomegaly and pulmonary vascular prominence, pulmonary edema cannot be excluded. However, multifocal pneumonia could appear similarly. 2. Decreased pleural effusions TTE 07/08/2017 * -- Conclusions -- * The left ventricle is normal in size. * There is mild concentric left ventricular hypertrophy. * Left ventricular systolic function is normal. * The left ventricular wall motion is normal. * Ejection Fraction = 60-65%. * The right ventricle is mildly dilated. * There is trace mitral regurgitation. * There is mild to moderate tricuspid regurgitation. * Right ventricular systolic pressure is elevated at 40-50mmHg. Assessment & Plan Dyspnea Acute on chronic Hypoxemia Bilateral effusions MEIER with cirrhosis Ascites Anemia Diastolic CHF Pulmonary hypertension Dyspnea is multifactorial in nature. Most likely due to increased abdominal distension from ascites as well as bilateral pleural effusions. Pleural effusions are mostly likely secondary to translocation of ascitic fluid across the diaphragm. She also has elevated proBNP and hypoalbuminemia that my be contributing. She also has some degree of pulmonary hypertension this is most likely secondary to underlying CHF and liver disease. Bedside thoracentesis performed, but no fluid was aspirated. This may be a loculated effusion. I offered possible right-sided thoracentesis however she declined at this time. She is now status post removal of 4 L ascitic fluid from the abdomen with mild improvement of dyspnea and effusions on x-ray. In the meantime, I would continue with nasal canula to maintain O2 saturation > 92%. Consider bubble study to rule out hepatopulmonary syndrome Continue with diuresis as kidney function tolerates Can continue with empiric antibiotics, although pneumonia is unlikely, with normal WBC, no fever and nonproductive cough. Will continue to follow with you. Data Medications: Current Inpatient Medications Medications (Trade) Dose Ordered Sig/Ana Luisa Route Start Time Stop Time Status Last Admin Dose Admin Acetaminophen (Tylenol Tab) 650 mg Q4H PRN PO 07/08/17 04:15 08/07/17 04:14 07/09/17 13:34 650 MG Al Hydrox/Mg Hydrox/Simethicone (Maalox Max Susp) 15 ml Q4H PRN PO 07/08/17 04:15 08/07/17 04:14 07/08/17 16:28 15 ML Magnesium Hydroxide (Milk Of Magnesia Susp) 30 ml Q6H PRN PO 07/08/17 04:15 08/07/17 04:14 Polyethylene (Miralax Powder Packet) 17 gm DAILY PRN PO 07/08/17 04:15 08/07/17 04:14 Ondansetron HCl (Zofran Inj) 4 mg Q6H PRN IV 07/08/17 04:15 08/07/17 04:14 Aripiprazole (Abilify Tab) 10 mg HS PO 07/08/17 21:00 08/07/17 20:59 07/08/17 21:23 10 MG Clonazepam (Klonopin Tab) 1 mg HS PRN PO 07/08/17 04:15 08/07/17 04:14 Insulin Glargine (Lantus Solostar Pen) 55 units HS SC 07/08/17 21:00 08/07/17 20:59 07/08/17 21:29 55 UNITS Lactulose (Chronulac Syrup) 30 gm DAILY PRN PO 07/08/17 04:15 08/07/17 04:14 Levothyroxine Sodium (Synthroid Tab) 25 mcg QAM@0600 PO 07/08/17 06:00 08/07/17 05:59 07/09/17 05:41 25 MCG Levothyroxine Sodium (Synthroid Tab) 200 mcg QAM@0600 PO 07/08/17 06:00 08/07/17 05:59 07/09/17 05:41 200 MCG Rifaximin (Xifaxan Tab) 550 mg BID PO 07/08/17 09:00 08/07/17 08:59 07/09/17 08:08 550 MG Spironolactone (Aldactone Tab) 100 mg BID17 PO 07/08/17 09:00 08/07/17 08:59 07/09/17 08:08 100 MG Pantoprazole Sodium (Protonix Tab) 40 mg DAILY PO 07/08/17 09:00 08/07/17 08:59 07/09/17 08:08 40 MG Insulin Aspart (novoLOG ASPART) SLIDING SCALE If C... ACHS SC 07/08/17 06:30 08/07/17 06:29 07/09/17 13:26 5 UNITS Glucose (Glucose 40% Gel) 15-30 GRAMS 15 GRAMS... UD PRN PO 07/08/17 04:15 08/07/17 04:14 Glucose (Glucose Chew Tab) 4-8 Tablets 4 Tabl... UD PRN PO 07/08/17 04:15 08/07/17 04:14 Dextrose (Dextrose 50% 50ML Syringe) 25-50ML OF 50% DW IV FOR... UD PRN IV 07/08/17 04:15 08/07/17 04:14 Glucagon (Glucagon Inj) 1 mg UD PRN SQ 07/08/17 04:15 08/07/17 04:14 Doxycycline Hyclate (Vibramycin Cap) 100 mg BID PO 07/08/17 04:30 07/15/17 04:29 07/09/17 08:09 100 MG Furosemide (Lasix Tab) 40 mg BID17 PO 07/09/17 09:00 08/07/17 08:59 07/09/17 08:09 40 MG Albuterol/ Ipratropium (Duoneb) 3 ml Q2H PRN INH 07/08/17 20:45 08/07/17 20:44 Piperacillin Sod/ Tazobactam Sod (Consult) 1 ea UD PRN N/A 07/09/17 09:00 08/08/17 08:59 Piperacillin Sod/ Tazobactam Sod 4.5 gm/Dextrose 120 ml @ 30 mls/hr Q8H IV 07/09/17 02:00 07/16/17 01:59 07/09/17 10:08 30 MLS/HR Vital Signs: Date Time Temp Pulse Resp B/P (MAP) Pulse Ox O2 Delivery O2 Flow Rate FiO2 07/09/17 12:00 97 Nasal Cannula 3.0 07/09/17 11:33 37.0 82 20 125/73 (90) 97 Nasal Cannula 5.0 07/09/17 08:00 94 Nasal Cannula 3.0 07/09/17 07:24 36.5 81 20 139/76 (97) 97 Nasal Cannula 5.0 07/09/17 04:05 Nasal Cannula 3.0 07/09/17 02:45 36.6 85 20 120/74 (89) 91 Nasal Cannula 4.5 07/09/17 00:05 Nasal Cannula 3.0 07/08/17 23:13 36.8 87 18 126/70 (88) 96 Nasal Cannula 5.0 07/08/17 21:56 90 18 94 Nasal Cannula 4.5 07/08/17 21:52 36.7 91 20 121/71 (88) 93 Nasal Cannula 4.0 07/08/17 20:52 123/72 (89) 07/08/17 20:15 36.8 93 22 126/75 91 3.0 07/08/17 20:09 91 Nasal Cannula 3.0 07/08/17 20:00 36.8 93 22 149/69 91 3.0 07/08/17 19:42 36.8 89 22 162/80 07/08/17 19:02 36.9 20 141/72 (95) 91 Nasal Cannula 2.0 07/08/17 16:00 91 Nasal Cannula 3.0 07/08/17 15:55 36.5 89 18 165/72 (103) 90 Nasal Cannula 3.0 Laboratory Results: Last 24 Hours Test 07/08/17 16:15 07/08/17 20:48 07/08/17 22:13 07/09/17 05:26 Bedside Glucose 186 mg/dl 263 mg/dl White Blood Count 6.05 K/uL Red Blood Count 3.37 M/uL Hemoglobin 7.3 g/dL Hematocrit 24.8 % Mean Corpuscular Volume 73.6 fL Mean Corpuscular Hemoglobin 21.7 pg Mean Corpuscular Hemoglobin Concent 29.4 g/dl Platelet Count 99 K/uL Mean Platelet Volume 9.8 fL Neutrophils (%) (Auto) 79.2 % Lymphocytes (%) (Auto) 9.4 % Monocytes (%) (Auto) 9.8 % Eosinophils (%) (Auto) 1.3 % Basophils (%) (Auto) 0.0 % Neutrophils # (Auto) 4.79 K/uL Lymphocytes # (Auto) 0.57 K/uL Monocytes # (Auto) 0.59 K/uL Eosinophils # (Auto) 0.08 K/uL Basophils # (Auto) 0.00 K/uL RDW Standard Deviation 58.7 fL RDW Coefficient of Variation 21.9 % Immature Granulocyte % (Auto) 0.3 % Immature Granulocyte # (Auto) 0.02 K/uL Platelet Estimate DECREASED Hypochromasia PRESENT Anisocytosis PRESENT Target Cells 1+ Stomatocytes 1+ Sodium Level 133 mmol/L Potassium Level 4.7 mmol/L Chloride Level 96 mmol/L Carbon Dioxide Level 33 mmol/L Anion Gap 4.0 mmol/L Blood Urea Nitrogen 47 mg/dl Creatinine 1.40 mg/dl Est Creatinine Clear Calc Drug Dose 69.3 ml/min Estimated GFR () 51.7 Estimated GFR (Non- 44.6 BUN/Creatinine Ratio 33.4 Random Glucose 243 mg/dl Calcium Level 8.2 mg/dl Magnesium Level 2.3 mg/dl Troponin I < 0.015 ng/ml Urine Color YELLOW Urine Appearance CLEAR Urine pH 5.0 Urine Specific [place] 1.021 Urine Protein NEG Urine Glucose (UA) NEG Urine Ketones NEG Urine Occult Blood NEG Urine Nitrite NEG Urine Bilirubin NEG Urine Urobilinogen NEG Urine Leukocyte Esterase TRACE Urine WBC (Auto) 1-5 /hpf Urine RBC (Auto) 0-4 /hpf Urine Hyaline Casts (Auto) 0 /lpf Urine Epithelial Cells (Auto) >30 /lpf Urine Bacteria (Auto) NEG Test 07/09/17 05:28 07/09/17 07:44 07/09/17 11:42 White Blood Count 5.73 K/uL Red Blood Count 3.88 M/uL Hemoglobin 8.2 g/dL Hematocrit 29.3 % Mean Corpuscular Volume 75.5 fL Mean Corpuscular Hemoglobin 21.1 pg Mean Corpuscular Hemoglobin Concent 28.0 g/dl RDW Standard Deviation 61.0 fL RDW Coefficient of Variation 22.1 % Platelet Count 112 K/uL Mean Platelet Volume 9.7 fL Sodium Level 135 mmol/L Potassium Level 4.6 mmol/L Chloride Level 96 mmol/L Carbon Dioxide Level 36 mmol/L Anion Gap 3.0 mmol/L Blood Urea Nitrogen 41 mg/dl Creatinine 1.20 mg/dl Est Creatinine Clear Calc Drug Dose 80.9 ml/min Estimated GFR () 62.3 Estimated GFR (Non- 53.8 BUN/Creatinine Ratio 33.8 Random Glucose 149 mg/dl Calcium Level 8.5 mg/dl Bedside Glucose 153 mg/dl 187 mg/dl
--- NOTE | 2017-07-09 17:15 | Progress Note ---
Medicine Progress Note Date & Time of Visit: Jul 09, 2017 at 16:32. Subjective Pt was seen and examined Lying in bed with no distress Last night during blood transfusion she developed dyspnea and transfusion was putting on hold Pt said that she feels much better today She wants to go home today she said that moved a little bit in the hallway denies any chest pain, palpitation, dizziness Objective Last 8 Hrs Date Time Temp Pulse Resp B/P (MAP) Pulse Ox O2 Delivery O2 Flow Rate FiO2 07/09/17 15:14 36.9 78 20 126/73 (90) 99 Nasal Cannula 5.0 07/09/17 12:00 97 Nasal Cannula 3.0 07/09/17 11:33 37.0 82 20 125/73 (90) 97 Nasal Cannula 5.0 Physical Exam: General- adult Head- atraumatic Eyes- PERRL, EOMI ENT- oropharynx clear Neck- supple, no JVD Lungs- Decreased breath sounds bilaterally at bilateral bases Heart- regular rhythm; +murmur Abdomen- normal bowel sounds, soft Extremities- No calf tenderness Neuro- alert, oriented x 3; PERRL, EOMI; no facial palsy Skin- warm & dry Laboratory Results: Last 24 Hours Test 07/08/17 20:48 07/08/17 22:13 07/09/17 05:26 07/09/17 05:28 Bedside Glucose 263 mg/dl White Blood Count 6.05 K/uL 5.73 K/uL Red Blood Count 3.37 M/uL 3.88 M/uL Hemoglobin 7.3 g/dL 8.2 g/dL Hematocrit 24.8 % 29.3 % Mean Corpuscular Volume 73.6 fL 75.5 fL Mean Corpuscular Hemoglobin 21.7 pg 21.1 pg Mean Corpuscular Hemoglobin Concent 29.4 g/dl 28.0 g/dl Platelet Count 99 K/uL 112 K/uL Mean Platelet Volume 9.8 fL 9.7 fL Neutrophils (%) (Auto) 79.2 % Lymphocytes (%) (Auto) 9.4 % Monocytes (%) (Auto) 9.8 % Eosinophils (%) (Auto) 1.3 % Basophils (%) (Auto) 0.0 % Neutrophils # (Auto) 4.79 K/uL Lymphocytes # (Auto) 0.57 K/uL Monocytes # (Auto) 0.59 K/uL Eosinophils # (Auto) 0.08 K/uL Basophils # (Auto) 0.00 K/uL RDW Standard Deviation 58.7 fL 61.0 fL RDW Coefficient of Variation 21.9 % 22.1 % Immature Granulocyte % (Auto) 0.3 % Immature Granulocyte # (Auto) 0.02 K/uL Platelet Estimate DECREASED Hypochromasia PRESENT Anisocytosis PRESENT Target Cells 1+ Stomatocytes 1+ Sodium Level 133 mmol/L 135 mmol/L Potassium Level 4.7 mmol/L 4.6 mmol/L Chloride Level 96 mmol/L 96 mmol/L Carbon Dioxide Level 33 mmol/L 36 mmol/L Anion Gap 4.0 mmol/L 3.0 mmol/L Blood Urea Nitrogen 47 mg/dl 41 mg/dl Creatinine 1.40 mg/dl 1.20 mg/dl Est Creatinine Clear Calc Drug Dose 69.3 ml/min 80.9 ml/min Estimated GFR () 51.7 62.3 Estimated GFR (Non- 44.6 53.8 BUN/Creatinine Ratio 33.4 33.8 Random Glucose 243 mg/dl 149 mg/dl Calcium Level 8.2 mg/dl 8.5 mg/dl Magnesium Level 2.3 mg/dl Troponin I < 0.015 ng/ml Urine Color YELLOW Urine Appearance CLEAR Urine pH 5.0 Urine Specific [place] 1.021 Urine Protein NEG Urine Glucose (UA) NEG Urine Ketones NEG Urine Occult Blood NEG Urine Nitrite NEG Urine Bilirubin NEG Urine Urobilinogen NEG Urine Leukocyte Esterase TRACE Urine WBC (Auto) 1-5 /hpf Urine RBC (Auto) 0-4 /hpf Urine Hyaline Casts (Auto) 0 /lpf Urine Epithelial Cells (Auto) >30 /lpf Urine Bacteria (Auto) NEG Test 07/09/17 07:44 07/09/17 11:42 07/09/17 16:29 Bedside Glucose 153 mg/dl 187 mg/dl Assessment & Plan BILATERAL PLEURAL EFFUSION Secondary to Hepatic Hydrothorax USG of lung-[id number]-[id number] and Lt-445 ml of effusion Pulmonary on board Failed Thoracentesis -likely secondary to layering of fluid and loculation She declined right sided thoracentesis Case discussed with Pulm Cont 02 supplement Continue Doxycycline for possible infiltration Has H/O CHF with Diastolic dysfunction ECHO: * The left ventricle is normal in size. * There is mild concentric left ventricular hypertrophy. * Left ventricular systolic function is normal. * The left ventricular wall motion is normal. * Ejection Fraction = 60-65%. * The right ventricle is mildly dilated. * There is trace mitral regurgitation. * There is mild to moderate tricuspid regurgitation. * Right ventricular systolic pressure is elevated at 40-50mmHg. 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/2016 , s/p revision on 06/2016 S/p paracentesis done yesterday with 4L fluid removed Continued with rifaximin , Aldactone , lactulose On Lasix 80 mg BID ,changed to 40mg BID by the GI Cont on Nadolol -hx of non bleeding esophageal varices GI on board Case discussed with Cas that recommended to discharge home on cipro daily for SBP prophylaxis ascites Fluid is negative for SBP Low Na diet CKD STAGE 3 Creatine 1.2 avoid nephrotoxic agents Monitor BMP TYPE 2 DM Hba1c 7.2 on 06/27 Cont Basal Lantus , insulin SSI Hold oral hypoglycemics monitor BS HYPOTHYROIDISM : Cont Levothyroxine DEPRESSION : Recent in patient admission in [place] for suicidal ideation Pt denies of any suicidal ideation at present Depressed due to ongoing illness Cont Abilify ANEMIA OF CHRONIC DISEASE : received 1 units PRBC yesterday, but transfusion was stopped after developing dyspnea Hbg today 8.2 Will check h/h at 1700 today continue monitor cbc CODE FULL CODE DVT PROPHYLAXIS: SCD AND TEDS due to thrombocytopenia associated with chronic liver disease DISPOSITION : PT/OT eval prior to discharge Social service consulted for discharge planning Consultants: Gastro Pulmonology Current Inpatient Medications: Current Inpatient Medications Medications (Trade) Dose Ordered Sig/Ana Luisa Route Start Time Stop Time Status Last Admin Dose Admin Acetaminophen (Tylenol Tab) 650 mg Q4H PRN PO 07/08/17 04:15 08/07/17 04:14 07/09/17 13:34 650 MG Al Hydrox/Mg Hydrox/Simethicone (Maalox Max Susp) 15 ml Q4H PRN PO 07/08/17 04:15 08/07/17 04:14 07/08/17 16:28 15 ML Magnesium Hydroxide (Milk Of Magnesia Susp) 30 ml Q6H PRN PO 07/08/17 04:15 08/07/17 04:14 Polyethylene (Miralax Powder Packet) 17 gm DAILY PRN PO 07/08/17 04:15 08/07/17 04:14 Ondansetron HCl (Zofran Inj) 4 mg Q6H PRN IV 07/08/17 04:15 08/07/17 04:14 Aripiprazole (Abilify Tab) 10 mg HS PO 07/08/17 21:00 08/07/17 20:59 07/08/17 21:23 10 MG Clonazepam (Klonopin Tab) 1 mg HS PRN PO 07/08/17 04:15 08/07/17 04:14 Insulin Glargine (Lantus Solostar Pen) 55 units HS SC 07/08/17 21:00 08/07/17 20:59 07/08/17 21:29 55 UNITS Lactulose (Chronulac Syrup) 30 gm DAILY PRN PO 07/08/17 04:15 08/07/17 04:14 Levothyroxine Sodium (Synthroid Tab) 25 mcg QAM@0600 PO 07/08/17 06:00 08/07/17 05:59 07/09/17 05:41 25 MCG Levothyroxine Sodium (Synthroid Tab) 200 mcg QAM@0600 PO 07/08/17 06:00 08/07/17 05:59 07/09/17 05:41 200 MCG Rifaximin (Xifaxan Tab) 550 mg BID PO 07/08/17 09:00 08/07/17 08:59 07/09/17 08:08 550 MG Spironolactone (Aldactone Tab) 100 mg BID17 PO 07/08/17 09:00 08/07/17 08:59 07/09/17 08:08 100 MG Pantoprazole Sodium (Protonix Tab) 40 mg DAILY PO 07/08/17 09:00 08/07/17 08:59 07/09/17 08:08 40 MG Insulin Aspart (novoLOG ASPART) SLIDING SCALE If C... ACHS SC 07/08/17 06:30 08/07/17 06:29 07/09/17 13:26 5 UNITS Glucose (Glucose 40% Gel) 15-30 GRAMS 15 GRAMS... UD PRN PO 07/08/17 04:15 08/07/17 04:14 Glucose (Glucose Chew Tab) 4-8 Tablets 4 Tabl... UD PRN PO 07/08/17 04:15 08/07/17 04:14 Dextrose (Dextrose 50% 50ML Syringe) 25-50ML OF 50% DW IV FOR... UD PRN IV 07/08/17 04:15 08/07/17 04:14 Glucagon (Glucagon Inj) 1 mg UD PRN SQ 07/08/17 04:15 08/07/17 04:14 Doxycycline Hyclate (Vibramycin Cap) 100 mg BID PO 07/08/17 04:30 07/15/17 04:29 07/09/17 08:09 100 MG Furosemide (Lasix Tab) 40 mg BID17 PO 07/09/17 09:00 08/07/17 08:59 07/09/17 08:09 40 MG Albuterol/ Ipratropium (Duoneb) 3 ml Q2H PRN INH 07/08/17 20:45 08/07/17 20:44 Piperacillin Sod/ Tazobactam Sod (Consult) 1 ea UD PRN N/A 07/09/17 09:00 08/08/17 08:59 Piperacillin Sod/ Tazobactam Sod 4.5 gm/Dextrose 120 ml @ 30 mls/hr Q8H IV 07/09/17 02:00 07/16/17 01:59 07/09/17 10:08 30 MLS/HR
[2017-07-09 17:22] LABS: HEMATOCRIT 27.9 % (37-47)
[2017-07-09] MEDS: ARIPIprazole TAB 10 MG TAB PO SCH (20:33)
[2017-07-09] MEDS: INSULIN GLARGINE SOLOSTAR 100 UNITS/ML 3 ML PEN SC SCH (21:14)
[2017-07-10] VITALS (8 sets, daily range): BP systolic 109–127; BP diastolic 66–75; PULSE 82–88; TEMP 36.6–36.9; O2SAT 93–98
[2017-07-10] MEDS: PIPERACILL/TAZOBAC IV 4.5 GM in DEXTROSE 5% 100ML IV SCH ×3 (02:24→18:00)
[2017-07-10] MEDS: ACETAMINOPHEN 325 MG TAB PO PRN ×3 (02:44→17:09)
[2017-07-10] MEDS: LEVOTHYROXINE 200 MCG TAB PO SCH (05:47)
[2017-07-10] MEDS: LEVOTHYROXINE 25 MCG TAB PO SCH (05:47)
[2017-07-10 06:35] LABS: HEMATOCRIT 27.4 % (37-47); MEAN CELL VOLUME 75.7 fL (80-100); MEAN CORPUSCULAR HEMOGLOBIN 22.1 pg (25-34); MEAN CORPUSCULAR HGB CONC 29.2 g/dl (32-36); RED BLOOD COUNT 3.62 M/uL (4.2-5.4); WHITE BLOOD COUNT 6.16 K/uL (4.8-10.8)
[2017-07-10 06:37] LABS: MEAN PLATELET VOLUME 9.3 fL (7.4-10.4); PLATELET COUNT 89 K/uL (130-400)
[2017-07-10 07:03] LABS: BUN/CREATININE RATIO 31.6 (10-20); CALCIUM 8.5 mg/dl (8.5-10.1); POTASSIUM 4.4 mmol/L (3.5-5.1)
[2017-07-10] MEDS: PANTOprazole SOD 40 MG TAB PO SCH (08:15)
[2017-07-10] MEDS: DOXYCYCLINE HYCLATE 100 MG CAP PO SCH (08:15)
[2017-07-10] MEDS: FUROSEMIDE 40 MG TAB PO SCH ×2 (08:18→17:08)
[2017-07-10] MEDS: RIFAXIMIN TAB 550 MG TAB PO SCH (08:18)
[2017-07-10] MEDS: SPIRONOLACTONE 100 MG TAB PO SCH ×2 (08:18→17:08)
[2017-07-10] MEDS: INSULIN ASPART 100 UNITS/ML 3 ML PEN SC SCH ×3 (08:25→17:16)
--- NOTE | 2017-07-10 13:52 | Pulmonology Progress Note ---
Pulmonary Progress Note Date of Service Jul 10, 2017. Attending Dr. Valentin Subjective Patient seen and examined at bedside. She is requesting right thoracentesis today. She feels it will help her breathing. Consent for ultrasound guided thoracentesis placed in chart. Objective Vital signs reviewed. MAXIMUM TEMPERATURE 36.9, BP 109/66-127/75, pulse 84-88, respiratory rate 20, saturating 93-98% on 4L nasal cannula. She s/p 1 U PRBCs overnight. 2 total PRBCs since admission. General: Obese female sitting in bed with 4 L nasal cannula CVS: S1-S2, regular rate and rhythm Chest/lungs: Decreased breath sounds bilaterally at bilateral bases Abdomen: Distended, nontender, soft, decreased bowel sounds Extremities: Trace peripheral edema bilaterally, no cyanosis, no clubbing Labs reviewed. CO2 36, BUN 32 , creatinine 1.0 Medications reviewed Lasix 40 mg by mouth twice a day Zosyn 4.5 g every 8 hours Abilify 10 mg by mouth daily at bedtime. Insulin glargine 55 units subcutaneous insulin sliding scale Albuterol every 2 hours when necessary for shortness of breath and wheezing Rifaximin 550 mg twice a day by mouth Aldactone 100 mg twice a day by mouth Pantoprazole 40 mg by mouth daily Levothyroxine to 225 g every morning Chest x-ray 07/09/2017 1. Multifocal patchy opacities involving the left lung to a greater degree than the right. Given the presence of cardiomegaly and pulmonary vascular prominence, pulmonary edema cannot be excluded. However, multifocal pneumonia could appear similarly. 2. Decreased pleural effusions TTE 07/08/2017 * -- Conclusions -- * The left ventricle is normal in size. * There is mild concentric left ventricular hypertrophy. * Left ventricular systolic function is normal. * The left ventricular wall motion is normal. * Ejection Fraction = 60-65%. * The right ventricle is mildly dilated. * There is trace mitral regurgitation. * There is mild to moderate tricuspid regurgitation. * Right ventricular systolic pressure is elevated at 40-50mmHg. Assessment & Plan Dyspnea Acute on chronic Hypoxemia Bilateral effusions MEIER with cirrhosis Ascites Anemia Diastolic CHF Pulmonary hypertension Dyspnea is multifactorial in nature. Most likely due to increased abdominal distension from ascites as well as bilateral pleural effusions. Pleural effusions are mostly likely secondary to translocation of ascitic fluid across the diaphragm. She also has elevated proBNP and hypoalbuminemia that my be contributing. She also has some degree of pulmonary hypertension this is most likely secondary to underlying CHF and liver disease. Bedside thoracentesis performed on left, but no fluid was aspirated. This may be a loculated effusion. She is now status post removal of 4 L ascitic fluid from the abdomen with mild improvement of dyspnea and effusions on x-ray. Patient has agreed to right sided ultrasound guided thoracentesis today. Consent in chart. In the meantime, I would continue with nasal canula to maintain O2 saturation > 92%.. Continue with diuresis as kidney function tolerates Can continue with empiric antibiotics, although pneumonia is unlikely, with normal WBC, no fever and nonproductive cough. Will continue to follow with you. Data Medications: Current Inpatient Medications Medications (Trade) Dose Ordered Sig/Ana Luisa Route Start Time Stop Time Status Last Admin Dose Admin Acetaminophen (Tylenol Tab) 650 mg Q4H PRN PO 07/08/17 04:15 08/07/17 04:14 07/10/17 08:15 650 MG Al Hydrox/Mg Hydrox/Simethicone (Maalox Max Susp) 15 ml Q4H PRN PO 07/08/17 04:15 08/07/17 04:14 07/08/17 16:28 15 ML Magnesium Hydroxide (Milk Of Magnesia Susp) 30 ml Q6H PRN PO 07/08/17 04:15 08/07/17 04:14 Polyethylene (Miralax Powder Packet) 17 gm DAILY PRN PO 07/08/17 04:15 08/07/17 04:14 Ondansetron HCl (Zofran Inj) 4 mg Q6H PRN IV 07/08/17 04:15 08/07/17 04:14 Aripiprazole (Abilify Tab) 10 mg HS PO 07/08/17 21:00 08/07/17 20:59 07/09/17 20:33 10 MG Clonazepam (Klonopin Tab) 1 mg HS PRN PO 07/08/17 04:15 08/07/17 04:14 07/10/17 13:40 1 MG Insulin Glargine (Lantus Solostar Pen) 55 units HS SC 07/08/17 21:00 08/07/17 20:59 07/09/17 21:14 55 UNITS Lactulose (Chronulac Syrup) 30 gm DAILY PRN PO 07/08/17 04:15 08/07/17 04:14 Levothyroxine Sodium (Synthroid Tab) 25 mcg QAM@0600 PO 07/08/17 06:00 08/07/17 05:59 07/10/17 05:47 25 MCG Levothyroxine Sodium (Synthroid Tab) 200 mcg QAM@0600 PO 07/08/17 06:00 08/07/17 05:59 07/10/17 05:47 200 MCG Rifaximin (Xifaxan Tab) 550 mg BID PO 07/08/17 09:00 08/07/17 08:59 07/10/17 08:18 550 MG Spironolactone (Aldactone Tab) 100 mg BID17 PO 07/08/17 09:00 08/07/17 08:59 07/10/17 08:18 100 MG Pantoprazole Sodium (Protonix Tab) 40 mg DAILY PO 07/08/17 09:00 08/07/17 08:59 07/10/17 08:15 40 MG Insulin Aspart (novoLOG ASPART) SLIDING SCALE If C... ACHS SC 07/08/17 06:30 08/07/17 06:29 07/10/17 13:00 7 UNITS Glucose (Glucose 40% Gel) 15-30 GRAMS 15 GRAMS... UD PRN PO 07/08/17 04:15 08/07/17 04:14 Glucose (Glucose Chew Tab) 4-8 Tablets 4 Tabl... UD PRN PO 07/08/17 04:15 08/07/17 04:14 Dextrose (Dextrose 50% 50ML Syringe) 25-50ML OF 50% DW IV FOR... UD PRN IV 07/08/17 04:15 08/07/17 04:14 Glucagon (Glucagon Inj) 1 mg UD PRN SQ 07/08/17 04:15 08/07/17 04:14 Doxycycline Hyclate (Vibramycin Cap) 100 mg BID PO 07/08/17 04:30 07/15/17 04:29 07/10/17 08:15 100 MG Furosemide (Lasix Tab) 40 mg BID17 PO 07/09/17 09:00 08/07/17 08:59 07/10/17 08:18 40 MG Albuterol/ Ipratropium (Duoneb) 3 ml Q2H PRN INH 07/08/17 20:45 08/07/17 20:44 Piperacillin Sod/ Tazobactam Sod (Consult) 1 ea UD PRN N/A 07/09/17 09:00 08/08/17 08:59 Piperacillin Sod/ Tazobactam Sod 4.5 gm/Dextrose 120 ml @ 30 mls/hr Q8H IV 07/09/17 02:00 07/16/17 01:59 07/10/17 11:02 30 MLS/HR Vital Signs: Date Time Temp Pulse Resp B/P (MAP) Pulse Ox O2 Delivery O2 Flow Rate FiO2 07/10/17 11:36 36.9 84 20 127/75 (92) 98 Nasal Cannula 4.0 07/10/17 08:00 93 Nasal Cannula 3.0 07/10/17 07:37 36.6 88 20 109/66 (80) 93 Nasal Cannula 4.0 07/10/17 05:44 36.7 85 20 111/68 (82) 95 Room Air 07/10/17 04:00 Nasal Cannula 3.0 07/10/17 01:16 36.7 85 20 111/68 (82) 95 Room Air 07/10/17 00:00 Nasal Cannula 3.0 07/09/17 22:25 36.9 85 18 124/70 95 4.0 07/09/17 21:25 37.0 85 18 142/71 96 4.0 07/09/17 20:25 36.8 84 20 135/67 95 4.0 07/09/17 20:00 94 Nasal Cannula 3.0 07/09/17 19:55 36.9 85 20 138/72 96 4.0 07/09/17 19:40 36.7 81 20 107/70 96 4.0 07/09/17 19:20 36.8 83 20 105/67 97 4.5 07/09/17 16:00 94 Nasal Cannula 3.0 07/09/17 15:14 36.9 78 20 126/73 (90) 99 Nasal Cannula 5.0 Laboratory Results: Last 24 Hours Test 07/09/17 16:38 07/09/17 16:45 07/09/17 21:07 07/10/17 06:20 Hemoglobin 7.6 g/dL 8.0 g/dL Hematocrit 27.9 % 27.4 % Bedside Glucose 195 mg/dl 180 mg/dl White Blood Count 6.16 K/uL Red Blood Count 3.62 M/uL Mean Corpuscular Volume 75.7 fL Mean Corpuscular Hemoglobin 22.1 pg Mean Corpuscular Hemoglobin Concent 29.2 g/dl RDW Standard Deviation 60.7 fL RDW Coefficient of Variation 21.8 % Platelet Count 89 K/uL Mean Platelet Volume 9.3 fL Sodium Level 136 mmol/L Potassium Level 4.4 mmol/L Chloride Level 96 mmol/L Carbon Dioxide Level 36 mmol/L Anion Gap 4.0 mmol/L Blood Urea Nitrogen 32 mg/dl Creatinine 1.00 mg/dl Est Creatinine Clear Calc Drug Dose 95.6 ml/min Estimated GFR () 77.7 Estimated GFR (Non- 67.0 BUN/Creatinine Ratio 31.6 Random Glucose 161 mg/dl Calcium Level 8.5 mg/dl Test 07/10/17 07:51 07/10/17 11:47 07/10/17 12:52 Bedside Glucose 150 mg/dl 203 mg/dl Lab Scanned Report Blood Transfusion
--- NOTE | 2017-07-10 14:57 | Procedure Note ---
Procedure Note Date of Service Jul 10, 2017. Procedure Note Procedures: Right sided Thoracentesis Consent: obtained via the patient and placed into the chart Pre-Procedural Dx: Right-sided pleural effusion Post-Procedural Dx: Right-sided loculated pleural effusion Analgesia: 8cc of 1% Liquid Lidocaine Procedure: The patient was placed in an upright position and thoracic US was used to select a spot for the procedure. A spot along the posterior axillary line was marked in the 7th intercostal space. The patient was then draped and prepped in a sterile fashion. A modified Seldinger technique was then used for catheter placement. 1200cc of straw colored fluid was removed. The patient was then cleaned and placed at a 60 degree angle in the bed were the US was used to evaluate for possible pneumothorax. The US showed good lung sliding and [place] signs. Post procedure chest x-ray was ordered. EBL: none Complications: none
--- NOTE | 2017-07-10 15:31 | DIAGNOSTIC IMAGING REPORT ---
CHEST ONE VIEW PORTABLE HISTORY: 47 years-old Female S/P Thoracentesis COMPARISON: Portable chest radiograph 07/09/2017 TECHNIQUE: Portable upright AP view of the chest FINDINGS: Cardiac silhouette is again moderately enlarged. No pneumothorax is seen status post thoracentesis. There is pulmonary vascular congestion with decreased size of right pleural effusion. There is only minimal fluid within the right pleural space. Multifocal mixed interstitial and alveolar opacities are again seen throughout the left lung with persistent small moderate left pleural effusion, stable. IMPRESSION: 1. Decreased size of right pleural effusion status post thoracentesis. No postprocedural pneumothorax. 2. Persistent left pleural effusion with multifocal left lung opacities. The above report was generated using voice recognition software. It may contain grammatical, syntax or spelling errors. Electronically signed by: Rinku Stock M.D. 07/10/2017 3:30 PM Dictated Date/Time: 07/10/2017 3:28 PM
[2017-07-10 16:22] LABS: PLEURAL FLUID APPEARANCE HAZY; PLEURAL FLUID COLOR AMBER; PLEURAL FLUID MONONUC RELAT 97.7 %; PLEURAL FLUID POLYNUC 2.3 %; PLEURAL FLUID SOURCE RIGHT LUNG; PLEURAL FLUID WBC (A) 693 /uL
--- NOTE | 2017-07-10 16:31 | Progress Note ---
Medicine Progress Note Date & Time of Visit: Jul 10, 2017 at 16:15. Subjective Pt was seen and examined Lying in bed with no distress Pt would like to go home today she said that she feels fine denies any chest pain, palpitation, dizziness Objective Last 8 Hrs Date Time Temp Pulse Resp B/P (MAP) Pulse Ox O2 Delivery O2 Flow Rate FiO2 07/10/17 16:00 Nasal Cannula 4.0 07/10/17 15:30 36.7 82 22 110/69 (83) 94 Nasal Cannula 4.0 07/10/17 12:00 96 Nasal Cannula 4.0 07/10/17 11:36 36.9 84 20 127/75 (92) 98 Nasal Cannula 4.0 Physical Exam: General- adult Head- atraumatic Eyes- PERRL, EOMI ENT- oropharynx clear Neck- supple, no JVD Lungs- Decreased breath sounds bilaterally at bilateral bases Heart- regular rhythm; +murmur Abdomen- normal bowel sounds, soft Extremities- No calf tenderness Neuro- alert, oriented x 3; PERRL, EOMI; no facial palsy Skin- warm & dry Laboratory Results: Last 24 Hours Test 07/09/17 16:38 07/09/17 16:45 07/09/17 21:07 07/10/17 00:00 Hemoglobin 7.6 g/dL Hematocrit 27.9 % Bedside Glucose 195 mg/dl 180 mg/dl Pleural Fluid pH 7.43 Test 07/10/17 06:20 07/10/17 07:51 07/10/17 11:47 07/10/17 12:52 White Blood Count 6.16 K/uL Red Blood Count 3.62 M/uL Hemoglobin 8.0 g/dL Hematocrit 27.4 % Mean Corpuscular Volume 75.7 fL Mean Corpuscular Hemoglobin 22.1 pg Mean Corpuscular Hemoglobin Concent 29.2 g/dl RDW Standard Deviation 60.7 fL RDW Coefficient of Variation 21.8 % Platelet Count 89 K/uL Mean Platelet Volume 9.3 fL Sodium Level 136 mmol/L Potassium Level 4.4 mmol/L Chloride Level 96 mmol/L Carbon Dioxide Level 36 mmol/L Anion Gap 4.0 mmol/L Blood Urea Nitrogen 32 mg/dl Creatinine 1.00 mg/dl Est Creatinine Clear Calc Drug Dose 95.6 ml/min Estimated GFR () 77.7 Estimated GFR (Non- 67.0 BUN/Creatinine Ratio 31.6 Random Glucose 161 mg/dl Calcium Level 8.5 mg/dl Bedside Glucose 150 mg/dl 203 mg/dl Lab Scanned Report Blood Transfusion Test 07/10/17 15:23 Total Bilirubin 1.3 mg/dl Lactate Dehydrogenase 133 U/L Total Protein 7.4 gm/dl Albumin 2.5 gm/dl Date/Time Source Procedure Growth Status 07/10/17 00:00 Pleural Fluid (Thoracentesis) Right Acid Fast Stain Pending Received 07/10/17 00:00 Pleural Fluid (Thoracentesis) Right Mycobacterial Culture Pending Received 07/10/17 00:00 Pleural Fluid (Thoracentesis) Right Gram Stain Pending Received 07/10/17 00:00 Pleural Fluid (Thoracentesis) Right Bacterial Culture Pending Received Assessment & Plan BILATERAL PLEURAL EFFUSION Secondary to Hepatic Hydrothorax USG of lung-Rt-670 and Lt-445 ml of effusion Pulmonary on board Failed Left side thoracentesis -likely secondary to layering of fluid and loculation Case discussed with Pulmonary Right sided thoracentesis done today and 1200cc of straw colored fluid was removed Fluid send for analysis Repeat cxr showed decreased size of right pleural effusion status post thoracentesis. Persistent left pleural effusion with multifocal left lung opacities. Continue oxygen supplement Continue Doxycycline and Zosyn H/O CHF with Diastolic dysfunction Continue lasix 40mg BID Clinically improved ECHO: * The left ventricle is normal in size. * There is mild concentric left ventricular hypertrophy. * Left ventricular systolic function is normal. * The left ventricular wall motion is normal. * Ejection Fraction = 60-65%. * The right ventricle is mildly dilated. * There is trace mitral regurgitation. * There is mild to moderate tricuspid regurgitation. * Right ventricular systolic pressure is elevated at 40-50mmHg. 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/2016 , s/p revision on 06/2016 S/p paracentesis done yesterday with 4L fluid removed Continued with rifaximin , Aldactone , lactulose On Lasix 80 mg BID ,changed to 40mg BID by the GI Cont on Nadolol -hx of non bleeding esophageal varices GI on board Case discussed with Cas that recommended to discharge home on cipro daily for SBP prophylaxis ascites Fluid is negative for SBP Low Na diet CKD STAGE 3 Creatine 1.2 avoid nephrotoxic agents Monitor BMP TYPE 2 DM Hba1c 7.2 on 06/27 Cont Basal Lantus , insulin SSI Hold oral hypoglycemics monitor BS HYPOTHYROIDISM : Cont Levothyroxine DEPRESSION : Recent in patient admission in [place] for suicidal ideation Pt denies of any suicidal ideation at present Depressed due to ongoing illness Cont Abilify ANEMIA OF CHRONIC DISEASE : received 1 units PRBC 07/08, but transfusion was stopped after developing dyspnea s/p 1 unit om 07/09 with no complication Hbg today 8 Will check h/h at 1700 today continue monitor cbc CODE FULL CODE DVT PROPHYLAXIS: SCD AND TEDS due to thrombocytopenia associated with chronic liver disease DISPOSITION : PT/OT eval prior to discharge Social service consulted for discharge planning Follow up appointment with Dr. Scott on Jul 12 at 12:30 pm Consultants: Gastro Pulmonology Current Inpatient Medications: Current Inpatient Medications Medications (Trade) Dose Ordered Sig/Ana Luisa Route Start Time Stop Time Status Last Admin Dose Admin Acetaminophen (Tylenol Tab) 650 mg Q4H PRN PO 07/08/17 04:15 08/07/17 04:14 07/10/17 08:15 650 MG Al Hydrox/Mg Hydrox/Simethicone (Maalox Max Susp) 15 ml Q4H PRN PO 07/08/17 04:15 08/07/17 04:14 07/08/17 16:28 15 ML Magnesium Hydroxide (Milk Of Magnesia Susp) 30 ml Q6H PRN PO 07/08/17 04:15 08/07/17 04:14 Polyethylene (Miralax Powder Packet) 17 gm DAILY PRN PO 07/08/17 04:15 08/07/17 04:14 Ondansetron HCl (Zofran Inj) 4 mg Q6H PRN IV 07/08/17 04:15 08/07/17 04:14 Aripiprazole (Abilify Tab) 10 mg HS PO 07/08/17 21:00 08/07/17 20:59 07/09/17 20:33 10 MG Clonazepam (Klonopin Tab) 1 mg HS PRN PO 07/08/17 04:15 08/07/17 04:14 07/10/17 13:40 1 MG Insulin Glargine (Lantus Solostar Pen) 55 units HS SC 07/08/17 21:00 08/07/17 20:59 07/09/17 21:14 55 UNITS Lactulose (Chronulac Syrup) 30 gm DAILY PRN PO 07/08/17 04:15 08/07/17 04:14 Levothyroxine Sodium (Synthroid Tab) 25 mcg QAM@0600 PO 07/08/17 06:00 08/07/17 05:59 07/10/17 05:47 25 MCG Levothyroxine Sodium (Synthroid Tab) 200 mcg QAM@0600 PO 07/08/17 06:00 08/07/17 05:59 07/10/17 05:47 200 MCG Rifaximin (Xifaxan Tab) 550 mg BID PO 07/08/17 09:00 08/07/17 08:59 07/10/17 08:18 550 MG Spironolactone (Aldactone Tab) 100 mg BID17 PO 07/08/17 09:00 08/07/17 08:59 07/10/17 08:18 100 MG Pantoprazole Sodium (Protonix Tab) 40 mg DAILY PO 07/08/17 09:00 08/07/17 08:59 07/10/17 08:15 40 MG Insulin Aspart (novoLOG ASPART) SLIDING SCALE If C... ACHS SC 07/08/17 06:30 08/07/17 06:29 07/10/17 13:00 7 UNITS Glucose (Glucose 40% Gel) 15-30 GRAMS 15 GRAMS... UD PRN PO 07/08/17 04:15 08/07/17 04:14 Glucose (Glucose Chew Tab) 4-8 Tablets 4 Tabl... UD PRN PO 07/08/17 04:15 08/07/17 04:14 Dextrose (Dextrose 50% 50ML Syringe) 25-50ML OF 50% DW IV FOR... UD PRN IV 07/08/17 04:15 08/07/17 04:14 Glucagon (Glucagon Inj) 1 mg UD PRN SQ 07/08/17 04:15 08/07/17 04:14 Doxycycline Hyclate (Vibramycin Cap) 100 mg BID PO 07/08/17 04:30 07/15/17 04:29 07/10/17 08:15 100 MG Furosemide (Lasix Tab) 40 mg BID17 PO 07/09/17 09:00 08/07/17 08:59 07/10/17 08:18 40 MG Albuterol/ Ipratropium (Duoneb) 3 ml Q2H PRN INH 07/08/17 20:45 08/07/17 20:44 Piperacillin Sod/ Tazobactam Sod (Consult) 1 ea UD PRN N/A 07/09/17 09:00 08/08/17 08:59 Piperacillin Sod/ Tazobactam Sod 4.5 gm/Dextrose 120 ml @ 30 mls/hr Q8H IV 07/09/17 02:00 07/16/17 01:59 07/10/17 11:02 30 MLS/HR
[2017-07-10 17:13] LABS: HEMATOCRIT 26.9 % (37-47)
[2017-07-10 17:51] LABS: PLEURAL FLUID TOTAL PROTEIN 3.4 g/dl
[2017-07-10] MEDS ORDERED: LSX40 PO (18:34)
[2017-07-10] MEDS ORDERED: DXY100 PO (18:34)
--- NOTE | 2017-07-10 18:47 | Discharge Instructions ---
Discharge Instructions Date of Service Jul 10, 2017. Admission Reason for Admission: Pleural Effusion, Sob Discharge Discharge Diagnosis / Problem: B/L pleural effusion, Ascites, Dyspnea, Anemia Discharge Goals Goal(s): Decrease discomfort, Improve function, Improve disease control Activity Recommendations Activity Limitations: resume your previous activity (as tolerated) . Instructions / Follow-Up Instructions / Follow-Up Follow up appointment with Dr. Scott on Jul 12 at 12:30 pm follow up with your pulmonary doctor Continue oxygen supplement Check CBC within 1 week Follow up a low salt diet and limited concentrated sweet intake complete course of doxycycline antibiotic Continue cipro 250mg antibiotic daily for spontaneous bacterial peritonitis prophylaxis Current Hospital Diet Patient's current hospital diet: Low Sodium Diet (2gm Na), Diabetes Type 2 Diet Discharge Diet Recommended Diet: Low Sodium Diet (2gm Na), Diabetes Type 2 Diet Procedures Procedures Performed: Paracentesis Right sided thoracentesis Pending Studies Studies pending at discharge: yes List of pending studies: pleural fluid studies pending Laboratory Results Hemoglobin A1c Test 07/08/17 04:34 Range/Units Estimated Average Glucose 160 mg/dl Hemoglobin A1c 7.2 H 4.5-5.6 % Medical Emergencies . Who to Call and When: Medical Emergencies: If at any time you feel your situation is an emergency, please call 911 immediately. . Non-Emergent Contact Non-Emergency issues call your: Primary Care Provider Call Non-Emergent contact if: you have any medication questions . . "Provider Documentation" section prepared by Anusha Hdez. . VTE Core Measure Inpt VTE Proph given/why not?: Elizabeth Pittman, SCD's
--- NOTE | 2017-07-11 08:02 | Discharge Summary ---
Discharge Summary Date of Service Jul 11, 2017. Discharge Summary Admission Date: Jul 08, 2017 at 00:09 Discharge Date: Jul 10, 2017 Discharge Disposition: Home Principal Diagnosis: BILATERAL PLEURAL EFFUSION Secondary Diagnoses/Problems: H/O CHF with Diastolic dysfunction MEIER CIRRHOSIS CKD STAGE 3 Ascites Dyspnea Anemia Procedures: Right sided thoracentesis Paracentesis Consultations: Gastro Pulmonology Medication Reconciliation New Medications: Doxycycline Hyclate (Doxycycline Hyclate) 100 Mg Cap 100 MG PO BID for 4 Days, #8 CAP Furosemide (Furosemide) 40 Mg Tab 40 MG PO BID17 for 30 Days, TAB Continued Medications: Aripiprazole (Aripiprazole) 10 Mg Tab 10 MG PO HS Ciprofloxacin Tab (Cipro) 250 Mg Tab 250 MG PO DAILY for 5 Days, #5 TAB Clonazepam (Clonazepam Odt) 1 Mg Tab 1-2 MG PO HS PRN for Anxiety Glipizide (Glucotrol) 10 Mg Tab 10 MG PO BID, TAB Insulin Glargine (Lantus Solostar) 100 Unit/Ml Inj 55 UNITS SC HS, PEN Lactulose (Chronulac) 10 Gm/15 Ml Syrp 30 GM PO DAILY PRN for Constipation takes additional dose to have 2 bowel movements per day Levothyroxine Sodium (Levothyroxine Sodium) 25 Mcg Tab 1 TAB PO QAM@0600, TAB 5 Refills Take total 225mcg PO daily Levothyroxine Sodium (Levothyroxine Sodium) 200 Mcg Tab 1 TAB PO QAM@0600 Take total 225mcg PO daily. Omeprazole (Prilosec) 40 Mg Cap 40 MG PO DAILY, CAP Rifaximin (Xifaxan) 550 Mg Tab 550 MG PO BID Sitagliptin (Januvia) 50 Mg Tab 50 MG PO DAILY, TAB Spironolactone (Aldactone) 100 Mg Tab 100 MG PO BID, TAB Discontinued Medications: Furosemide (Lasix) 40 Mg Tab 80 MG PO BID, TAB Admission Information HPI (per Admitting provider): This is a 47 yo F with complex medical hx of MEIER Cirrhosis . Esophageal varices /GAVE s/p TIPS procedure on 04/2016 then revised on 06/2016 . anemia of chronic disease , chronic pleural effusion , chronic respiratory failure on 2 L o2 via nasal canula , Type 2 DM , GERD . Hypothyroidism , Depression /OCD presented to ED with progressive SOB , WALKER , worsening of abdominal girth , swelling , wt gain Pt had prior thoracentesis and paracentesis most recent was on 06/14 with paracentesis of 4.4 L of ascitic fluid ; had rt sided thoracentesis on 06/15/17 was transported to [place] for possible hepatorenal syndrome pt later developed severe depression , suicidal ideation -required inpatient Psych admission Pt presents to ED with similar symptoms like previous admission , WALKER, Orthopnea , increased abdominal girth , wt gain was found to be Hypoxic Spo2 86 % , required increased 02 supplement Cxray shows bilateral pleural effusion , will be admitted to [facility] chest USG ordered to assess pleural effusion , Pulmonology consulted for thoracentesis given extra dose of IV Lasix in ED Physical Exam (per Admitting): General Appearance: + pertinent finding (chronically ill appearing ) Eyes: normal inspection Neck: + JVD Respiratory/Chest: + decreased breath sounds, + crackles, + rales Cardiovascular: regular rate, rhythm, + JVD Abdomen/GI: + distended Extremities/Musculoskelatal: + pedal edema, + swelling Neurologic/Psych: alert, oriented x 3, + depressed affect Hospital Course BILATERAL PLEURAL EFFUSION Secondary to Hepatic Hydrothorax USG of lung-Rt-670 and Lt-445 ml of effusion Pulmonary on board Failed Left side thoracentesis -likely secondary to layering of fluid and loculation Case discussed with Pulmonary Right sided thoracentesis done today and 1200cc of straw colored fluid was removed Fluid send for analysis Repeat cxr showed decreased size of right pleural effusion status post thoracentesis. Persistent left pleural effusion with multifocal left lung opacities. Continue oxygen supplement Continue Doxycycline and Zosyn H/O CHF with Diastolic dysfunction Continue lasix 40mg BID Clinically improved ECHO: * The left ventricle is normal in size. * There is mild concentric left ventricular hypertrophy. * Left ventricular systolic function is normal. * The left ventricular wall motion is normal. * Ejection Fraction = 60-65%. * The right ventricle is mildly dilated. * There is trace mitral regurgitation. * There is mild to moderate tricuspid regurgitation. * Right ventricular systolic pressure is elevated at 40-50mmHg. 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/2016 , s/p revision on 06/2016 S/p paracentesis done yesterday with 4L fluid removed Continued with rifaximin , Aldactone , lactulose On Lasix 80 mg BID ,changed to 40mg BID by the GI Cont on Nadolol -hx of non bleeding esophageal varices GI on board Case discussed with Cas that recommended to discharge home on cipro daily for SBP prophylaxis ascites Fluid is negative for SBP Low Na diet CKD STAGE 3 Creatine 1.2 avoid nephrotoxic agents Monitor BMP TYPE 2 DM Hba1c 7.2 on 06/27 Cont Basal Lantus , insulin SSI Hold oral hypoglycemics monitor BS HYPOTHYROIDISM : Cont Levothyroxine DEPRESSION : Recent in patient admission in [place] for suicidal ideation Pt denies of any suicidal ideation at present Depressed due to ongoing illness Cont Abilify ANEMIA OF CHRONIC DISEASE : received 1 units PRBC 07/08, but transfusion was stopped after developing dyspnea s/p 1 unit om 07/09 with no complication Hbg today 8 Will check h/h at 1700 today continue monitor cbc CODE FULL CODE DVT PROPHYLAXIS: SCD AND TEDS due to thrombocytopenia associated with chronic liver disease DISPOSITION : PT/OT eval prior to discharge Social service consulted for discharge planning Follow up appointment with Dr. Scott on Jul 12 at 12:30 pm Total time spent on discharge = 35 minutes This includes examination of the patient, discharge planning, medication reconciliation, and communication with other providers. Discharge Instructions Discharge Instructions Date of Service Jul 10, 2017. Admission Reason for Admission: Pleural Effusion, Sob Discharge Discharge Diagnosis / Problem: B/L pleural effusion, Ascites, Dyspnea, Anemia Discharge Goals Goal(s): Decrease discomfort, Improve function, Improve disease control Activity Recommendations Activity Limitations: resume your previous activity (as tolerated) . Instructions / Follow-Up Instructions / Follow-Up Follow up appointment with Dr. Scott on Jul 12 at 12:30 pm follow up with your pulmonary doctor Continue oxygen supplement Check CBC within 1 week Follow up a low salt diet and limited concentrated sweet intake complete course of doxycycline antibiotic Continue cipro 250mg antibiotic daily for spontaneous bacterial peritonitis prophylaxis Current Hospital Diet Patient's current hospital diet: Low Sodium Diet (2gm Na), Diabetes Type 2 Diet Discharge Diet Recommended Diet: Low Sodium Diet (2gm Na), Diabetes Type 2 Diet Procedures Procedures Performed: Paracentesis Right sided thoracentesis Pending Studies Studies pending at discharge: yes List of pending studies: pleural fluid studies pending Laboratory Results Hemoglobin A1c Test 07/08/17 04:34 Range/Units Estimated Average Glucose 160 mg/dl Hemoglobin A1c 7.2 H 4.5-5.6 % Medical Emergencies . Who to Call and When: Medical Emergencies: If at any time you feel your situation is an emergency, please call 911 immediately. . Non-Emergent Contact Non-Emergency issues call your: Primary Care Provider Call Non-Emergent contact if: you have any medication questions . . "Provider Documentation" section prepared by Anusha Hdez. . VTE Core Measure Inpt VTE Proph given/why not?: Elizabeth Pittman, HUMBERTO's Additional Copies To Leo Scott M.D.
[2017-07-24] MEDS ORDERED: ESCI1TAB9 PO (11:42)
[2017-07-24] MEDS ORDERED: ROPI0.25 PO (11:42)
[2017-07-24] MEDS ORDERED: CIPR1TAB11 PO (11:42)
[2017-07-24] MEDS ORDERED: RANI150T3 PO (11:42)
[2017-07-24] MEDS ORDERED: TRAM-10 PO (11:42)
[2017-07-24] MEDS ORDERED: LCTL45 PO (11:45)
[2017-07-24] MEDS ORDERED: LSX80 PO (11:45)
[2017-07-24] MEDS ORDERED: SPRN100 PO (11:45)
[2017-07-24] MEDS ORDERED: LSX40 PO (11:45)
== END 2017-07-10 20:27 | disposition home or self-care (01) | DRG 186 ==
LOC: C.EDB 21:51 → C.MED 07-08 00:09 → ENRESERV 07-08 00:31
PROVIDERS: ADMIT Hospitalist; ATTEND Internal Medicine
PROC: 0W9B3ZZ Drainage of Left Pleural Cavity, Percutaneous Approach (ICD-10-PCS; principal; 2017-07-08)
PROC: 0W993ZZ Drainage of Right Pleural Cavity, Percutaneous Approach (ICD-10-PCS; 2017-07-10)
DX: J90 Pleural effusion, not elsewhere classified (principal); J96.21 Acute and chronic respiratory failure with hypoxia; K76.7 Hepatorenal syndrome; I50.30 Unspecified diastolic (congestive) heart failure; R18.8 Other ascites; Z68.43 Body mass index [BMI] 50.0-59.9, adult; N18.3 Chronic kidney disease, stage 3 (moderate); K75.81 Nonalcoholic steatohepatitis (NASH); D63.8 Anemia in other chronic diseases classified elsewhere; K31.819 Angiodysplasia of stomach and duodenum without bleeding; E11.22 Type 2 diabetes mellitus with diabetic chronic kidney disease; K21.9 Gastro-esophageal reflux disease without esophagitis; E03.9 Hypothyroidism, unspecified; F32.9 Major depressive disorder, single episode, unspecified; F42.9 Obsessive-compulsive disorder, unspecified; I27.2 Other secondary pulmonary hypertension; E66.9 Obesity, unspecified; E78.5 Hyperlipidemia, unspecified; Z79.899 Other long term (current) drug therapy; Z79.4 Long term (current) use of insulin; Z79.84 Long term (current) use of oral hypoglycemic drugs

== ENCOUNTER 2017-07-20 01:14 | Inpatient (IN) | payer BC ==
[~2017-07-20] VITALS: Ht 170.2 cm; Wt 132.0 kg
[~2017-07-20 01:14] MED LIST changes: -CYM/30 PO; +DXY100 PO; -FRS/40 PO; +GLIP10TA3 PO; -GLIP5TAB11 PO; +LSX40 PO
--- NOTE | 2017-07-20 01:44 | EMERGENCY ROOM VISIT NOTE ---
History Report prepared by Yamil: Fidencio Richardson Under the Supervision of: Dr. Maninder Mark D.O. First contact with patient: 01:30 Chief Complaint: SHORTNESS OF BREATH Stated Complaint: SHORT OF BREATH History of Present Illness The patient is a 47 year old female who presents to the Emergency Room with complaints of worsening shortness of breath that began recently. The patient has a history of cirrhosis and ascites. She had her abdomen tapped 2 weeks ago with a lot of fluid removed. She notes some pain upon breathing. She denies any fevers. Source of History: patient Onset: recently Position: other (Respiratory System) Symptom Intensity: moderate Quality: other (Shortness of breath) Timing: worsening Associated Symptoms: + chest pain (pain with breathing), No fevers Review of Systems See HPI for pertinent positives and negatives. A total of ten systems were reviewed and were otherwise negative. 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 (12) OCD (obsessive compulsive disorder) (13) Pleural effusion (14) SOB (shortness of breath) Surgical Problems: (1) History of esophagogastroduodenoscopy (EGD) (2) S/P TIPS (transjugular intrahepatic portosystemic shunt) Family History Unobtainable family history due to adoption Social History Smoking Status: Never Smoker Alcohol Use: none Drug Use: none Marital Status: Housing Status: lives with significant other Current/Historical Medications Scheduled Aripiprazole (Aripiprazole), 10 MG PO HS Furosemide (Furosemide), 40 MG PO BID17 Glipizide (Glucotrol), 10 MG PO BID Insulin Glargine (Lantus Solostar), 55 UNITS SC HS Levothyroxine Sodium (Levothyroxine Sodium), 1 TAB PO QAM@0600 Levothyroxine Sodium (Levothyroxine Sodium), 1 TAB PO QAM@0600 Omeprazole (Prilosec), 40 MG PO DAILY Rifaximin (Xifaxan), 550 MG PO BID Sitagliptin (Januvia), 50 MG PO DAILY Spironolactone (Aldactone), 100 MG PO BID Scheduled PRN Clonazepam (Clonazepam Odt), 1-2 MG PO HS PRN for Anxiety Lactulose (Chronulac), 30 GM PO DAILY PRN for Constipation Allergies Coded Allergies: Ferrous Sulfate (Verified Allergy, Intermediate, IRON SUPPLEMENT--RASH, ABD PAIN AND DIARRHEA, 07/20/17) Cat Dander (Verified Allergy, Mild, rash, 07/20/17) Erythromycin (Verified Allergy, Mild, RASH, 07/20/17) Physical Exam Vital Signs Date Time Temp Pulse Resp B/P (MAP) Pulse Ox O2 Delivery O2 Flow Rate FiO2 07/20/17 02:14 95 99 07/20/17 02:13 98 Non-Rebreather 15.0 07/20/17 02:10 99 Non-Rebreather 15.0 07/20/17 01:44 98 22 100 07/20/17 01:42 96 07/20/17 01:34 96 07/20/17 01:32 100 Non-Rebreather 15.0 07/20/17 01:32 36.5 99 22 155/75 100 Non-Rebreather 15.0 Physical Exam GENERAL: Awake, alert, well-appearing, in no distress HENT: Normocephalic, atraumatic. Oropharynx unremarkable. EYES: Normal conjunctiva. Sclera non-icteric. NECK: Supple. No nuchal rigidity. FROM. No JVD. RESPIRATORY: Clear to auscultation. CARDIAC: Regular rate, normal rhythm. Extremities warm and well perfused. Pulses equal. ABDOMEN: Soft, distended. No tenderness to palpation. No rebound or guarding. No masses. RECTAL: Deferred. MUSCULOSKELETAL: Chest examination reveals no tenderness. The back is symmetrical on inspection without obvious abnormality. There is no CVA tenderness to palpation. No joint edema. LOWER EXTREMITIES: Ecchymosis and swelling to the bilateral legs. NEURO: Normal sensorium. No sensory or motor deficits noted. SKIN: No rash or jaundice noted. Medical Decision & Procedures ER Provider Diagnostic Interpretation: Radiology results as stated below per my review: CHEST X-RAY 1 VIEW: Cardiomegaly and congestive heart failure. Per me. Laboratory Results 07/20/17 00:50 Red Blood Count 3.81, Mean Corpuscular Volume 78.5, Mean Corpuscular Hemoglobin 21.8, Mean Corpuscular Hemoglobin Concent 27.8, Mean Platelet Volume 9.7, Neutrophils (%) (Auto) 81.2, Lymphocytes (%) (Auto) 8.3, Monocytes (%) (Auto) 9.1, Eosinophils (%) (Auto) 1.0, Basophils (%) (Auto) 0.1, Neutrophils # (Auto) 7.68, Lymphocytes # (Auto) 0.78, Monocytes # (Auto) 0.86, Eosinophils # (Auto) 0.09, Basophils # (Auto) 0.01 07/20/17 00:50 Test 07/20/17 00:50 07/20/17 03:22 White Blood Count 9.45 K/uL (4.8-10.8) Red Blood Count 3.81 M/uL (4.2-5.4) Hemoglobin 8.3 g/dL (12.0-16.0) Hematocrit 29.9 % (37-47) Mean Corpuscular Volume 78.5 fL (80-100) Mean Corpuscular Hemoglobin 21.8 pg (25-34) Mean Corpuscular Hemoglobin Concent 27.8 g/dl (32-36) Platelet Count 96 K/uL (130-400) Mean Platelet Volume 9.7 fL (7.4-10.4) Neutrophils (%) (Auto) 81.2 % Lymphocytes (%) (Auto) 8.3 % Monocytes (%) (Auto) 9.1 % Eosinophils (%) (Auto) 1.0 % Basophils (%) (Auto) 0.1 % Neutrophils # (Auto) 7.68 K/uL (1.4-6.5) Lymphocytes # (Auto) 0.78 K/uL (1.2-3.4) Monocytes # (Auto) 0.86 K/uL (0.11-0.59) Eosinophils # (Auto) 0.09 K/uL (0-0.5) Basophils # (Auto) 0.01 K/uL (0-0.2) RDW Standard Deviation 65.7 fL (36.4-46.3) RDW Coefficient of Variation 22.7 % (11.5-14.5) Immature Granulocyte % (Auto) 0.3 % Immature Granulocyte # (Auto) 0.03 K/uL (0.00-0.02) Platelet Estimate DECREASED Hypochromasia PRESENT Anisocytosis PRESENT Anion Gap 3.0 mmol/L (3-11) Est Creatinine Clear Calc Drug Dose 89.6 ml/min Estimated GFR () 69.2 Estimated GFR (Non- 59.7 BUN/Creatinine Ratio 36.9 (10-20) Calcium Level 8.3 mg/dl (8.5-10.1) Total Bilirubin 1.0 mg/dl (0.2-1) Aspartate Amino Transf (AST/SGOT) 50 U/L (15-37) Alanine Aminotransferase (ALT/SGPT) 43 U/L (12-78) Alkaline Phosphatase 353 U/L (45-117) Pro-B-Type Natriuretic Peptide 433 pg/ml (0-450) Total Protein 8.1 gm/dl (6.4-8.2) Albumin 2.6 gm/dl (3.4-5.0) Globulin 5.5 gm/dl (2.5-4.0) Albumin/Globulin Ratio 0.5 (0.9-2) Chemistry Specimen Hemolysis Laboratory results reviewed by me Medications Administered Medications (Trade) Dose Ordered Sig/Ana Luisa Route Start Time Stop Time Status Last Admin Dose Admin Furosemide (Lasix Inj) 80 mg STK-MED ONCE .ROUTE 07/20/17 03:30 07/20/17 03:31 DC 07/20/17 03:36 80 MG ECG Indication: SOB/dyspnea Rate (beats per minute): 99 Rhythm: normal sinus Findings: no acute ischemic change, other (Normal intervals and normal axis) ED Course 0130: The patient was evaluated in room B9. A complete history and physical exam was performed. 0256: Furosemide 80 mg/ Syringe 8 ml @ 4 mls/min IV 0308: Upon reexamination, the patient was resting. I discussed the test results and treatment plan with her. I discussed the patient's case with Dr. Alexei Sanchez Hospitalist. The patient will be evaluated for further management. Medical Decision Differential diagnosis: Etiologies such as infections, reactive airway disease, pneumonia, pneumothorax , COPD, CHF, cardiac ischemia, pulmonary embolism, musculoskeletal, gastrointestinal, as well as others were entertained. Patient found to be in fluid overload, will need to be admitted may need paracentesis and thoracentesis again. Patient was given IV Lasix, the case was discussed with the hospitalist for admission Medication Reconcilliation Current Medication List: was personally reviewed by me Blood Pressure Screening Patient's blood pressure: Elevated blood pressure Blood pressure disposition: Elevated BP felt to be situational Consults Time Called: [phone] Consulting Physician: Dr. Alexei Eaton Hospialist Returned Call: [phone] Discussed the patient's case. The patient will be evaluated for further treatment and disposition. Impression Primary Impression: Congestive heart failure Additional Impressions: Cirrhosis Cardiomegaly Scribe Attestation The scribe's documentation has been prepared under my direction and personally reviewed by me in its entirety. I confirm that the note above accurately reflects all work, treatment, procedures, and medical decision making performed by me. Departure Information Dispostion Being Evaluated By Hospitalist Referrals Leo Scott M.D. (PCP) Patient Instructions My [facility] Problem Qualifiers
[2017-07-20 02:20] LABS: ANISOCYTOSIS PRESENT; BASO % 0.1 %; BASO ABS # 0.01 K/uL (0-0.2); COMPLETE YES; HEMATOCRIT 29.9 % (37-47); HYPOCHROMIA PRESENT; IG% 0.3 %; LYMPH % 8.3 %; LYMPH ABS # 0.78 K/uL (1.2-3.4); MEAN CELL VOLUME 78.5 fL (80-100); MEAN CORPUSCULAR HEMOGLOBIN 21.8 pg (25-34); MEAN CORPUSCULAR HGB CONC 27.8 g/dl (32-36); MEAN PLATELET VOLUME 9.7 fL (7.4-10.4); MONO % 9.1 %; NEUT % 81.2 %; PLATELET COUNT 96 K/uL (130-400); PLT ESTIMATE DECREASED; RED BLOOD COUNT 3.81 M/uL (4.2-5.4); WHITE BLOOD COUNT 9.45 K/uL (4.8-10.8)
[2017-07-20 02:27] LABS: BUN/CREATININE RATIO 36.9 (10-20); CALCIUM 8.3 mg/dl (8.5-10.1); CREATININE 1.1 mg/dl (0.60-1.20); POTASSIUM 4.9 mmol/L (3.5-5.1)
[2017-07-20] MEDS ORDERED: FUROSEMIDE INJ 80 MG in SYRINGE 0 ML IV STA (02:56)
[2017-07-20 03:25] LABS: ALB/GLOB RATIO 0.5 (0.9-2)
[2017-07-20] MEDS ORDERED: FUROSEMIDE 40 MG/4 ML VIAL ONE (03:30)
[2017-07-20] MEDS ORDERED: LEVALBUTEROL/IPRATROPIUM NEB INH ONE (04:45)
[2017-07-20] MEDS ORDERED: DEXTROSE 50% 50 ML SYR IV PRN (04:45)
[2017-07-20] MEDS ORDERED: GLUCOSE 10 TABS/TUBE PO PRN (04:45)
[2017-07-20] MEDS ORDERED: LACTULOSE SYRUP 30 GM/45 ML UDP PO PRN (04:45)
[2017-07-20] MEDS ORDERED: GLUCOSE 40% GEL 15 GM TUBE PO PRN (04:45)
[2017-07-20] MEDS ORDERED: GLUCAGON FOR INJ 1 MG VIAL SQ PRN (04:45)
[2017-07-20 04:49] VITALS: BP 175/82; PULSE 99; O2SAT 100; Ht 170.2 cm; Wt 132.0 kg
[2017-07-20] MEDS ORDERED: IPRATROPIUM BROMIDE NEB SOLN 0.02% 2.5 ML VIAL INH STA (04:56)
[2017-07-20] MEDS ORDERED: LEVALBUTEROL 1.25MG/0.5ML NEB INH STA (04:56)
--- NOTE | 2017-07-20 05:00 | History and Physical ---
History & Physical Date & Time of Service: Jul 20, 2017 at 04:45 Chief Complaint: Short Of Breath Primary Care Physician: Leo Scott M.D. History of Present Illness Source: patient, clinic records, hospital records 47 female with history of MEIER Cirrhosis, CHF Diastolic Type, DM 2 on Insulin, CKD 3, Anemia of Chronic Disease, Depression presenting with shortness of breath x 1 day. Patient follows with Dr. Scott for Primary Care. Patient was discharged last 07/10/17 for Bilateral Pleural Effusion and Ascites requiring Thoracentesis and Paracentesis. She states that she has been adherent to her medications. She reports that 1 day ago, she started to have progressive shortness of breath , and increased abdominal girth. At the ER, patient arrived with non rebreather mask. CXR showed bilateral pleural effusion. She was given Lasix 80mg IV, On my exam, patient was sleepy but easily rousable. Saturating 87% on 4 liters nasal cannula, so switched back to non rebreather, improved to 95%. Oriented x 2, not in distress, speaks in sentences with no effort. States breathing is about the same. Lasix was being administered by RN. Denies other symptoms. Past Medical/Surgical History Medical Problems: (1) Ankle fracture Permanent Comment: s/p repair Status: Chronic (2) Anxiety Status: Chronic (3) Ascites of liver Status: Chronic (4) Chronic anemia Status: Chronic (5) Depression Status: Chronic (6) DM type 2 (diabetes mellitus, type 2) Status: Chronic (7) Dyslipidemia Status: Chronic (8) GERD (gastroesophageal reflux disease) Status: Chronic (9) Hypothyroidism Status: Chronic (10) Liver cirrhosis secondary to MEIER Status: Chronic (11) OCD (obsessive compulsive disorder) Status: Chronic Surgical Problems: (1) History of esophagogastroduodenoscopy (EGD) Permanent Comment: 02/2016 - large esophageal varices, GAVE Status: Chronic (2) S/P TIPS (transjugular intrahepatic portosystemic shunt) Permanent Comment: 04/2016 then revised in 06/2016 Status: Chronic Family History Unobtainable family history due to adoption Social History Smoking Status: Never Smoker Drug Use: none Marital Status: Immunizations History of Influenza Vaccine: Yes Influenza Vaccine Date: Oct 06, 2014 History of Tetanus Vaccine?: Yes Tetanus Immunization Date: Feb 22, 2009 History of Pneumococcal: Yes Pneumococcal Date: Apr 27, 2009 History of Hepatitis B Vaccine: Yes Hepatitis Immunization Date: March 15, 2014 Allergies Coded Allergies: Ferrous Sulfate (Verified Allergy, Intermediate, IRON SUPPLEMENT--RASH, ABD PAIN AND DIARRHEA, 07/20/17) Cat Dander (Verified Allergy, Mild, rash, 07/20/17) Erythromycin (Verified Allergy, Mild, RASH, 07/20/17) Home Medications Scheduled Aripiprazole (Aripiprazole), 10 MG PO HS Furosemide (Furosemide), 40 MG PO BID17 Glipizide (Glucotrol), 10 MG PO BID Insulin Glargine (Lantus Solostar), 55 UNITS SC HS Levothyroxine Sodium (Levothyroxine Sodium), 1 TAB PO QAM@0600 Levothyroxine Sodium (Levothyroxine Sodium), 1 TAB PO QAM@0600 Omeprazole (Prilosec), 40 MG PO DAILY Rifaximin (Xifaxan), 550 MG PO BID Sitagliptin (Januvia), 50 MG PO DAILY Spironolactone (Aldactone), 100 MG PO BID Scheduled PRN Clonazepam (Clonazepam Odt), 1-2 MG PO HS PRN for Anxiety Lactulose (Chronulac), 30 GM PO DAILY PRN for Constipation Review of Systems Constitutional- no fever; no weight loss Eyes- no acute visual changes ENT- no sinus drainage; no pharyngitis Pulmonary- (+) as noted above Cardiac- no chest pain, no palpitations, no orthopnea, no dependent edema GI- (+) as noted above - no dysuria, no hematuria Musculoskeletal- no arthralgias, no myalgias Derm- no rashes, no new skin lesions, no changing skin lesions Hematologic- no unusual bruising, no unusual bleeding Lymphatics- no adenopathy Endocrine- no polyuria or polydipsia; no heat or cold intolerance Neuro- no headaches, no focal neurologic symptoms Psych- no anxiety, no depression Physical Exam Vital Signs Date Time Temp Pulse Resp B/P (MAP) Pulse Ox O2 Delivery O2 Flow Rate FiO2 07/20/17 02:14 95 99 07/20/17 02:13 98 Non-Rebreather 15.0 07/20/17 02:10 99 Non-Rebreather 15.0 07/20/17 01:44 98 22 100 07/20/17 01:42 96 07/20/17 01:34 96 07/20/17 01:32 100 Non-Rebreather 15.0 07/20/17 01:32 36.5 99 22 155/75 100 Non-Rebreather 15.0 General Appearance: WD/WN, no apparent distress Head: normocephalic, atraumatic Eyes: normal inspection, EOMI, sclerae normal ENT: normal ENT inspection, hearing grossly normal, TMs normal, pharynx normal Neck: supple, no adenopathy, thyroid normal, + JVD (mild) Respiratory/Chest: no respiratory distress, no accessory muscle use, + pertinent finding (decreased breath sounds bilateral bases right >left) Cardiovascular: regular rate, rhythm, no JVD, no murmur Abdomen/GI: normal bowel sounds, non tender, soft Back: normal inspection, no CVA tenderness Extremities/Musculoskelatal: no calf tenderness, + pertinent finding (mild lower leg edema) Neurologic/Psych: project management engineer II-XII nml as tested, no motor/sensory deficits, alert, normal mood/affect, + pertinent finding (oriented x 2) Skin: normal color, warm/dry, no rash Lymphatic: no adenopathy Diagnostics Laboratory Results Results Past 24 Hours Test 07/20/17 00:50 07/20/17 03:22 Range/Units White Blood Count 9.45 4.8-10.8 K/uL Red Blood Count 3.81 4.2-5.4 M/uL Hemoglobin 8.3 12.0-16.0 g/dL Hematocrit 29.9 37-47 % Mean Corpuscular Volume 78.5 80-100 fL Mean Corpuscular Hemoglobin 21.8 25-34 pg Mean Corpuscular Hemoglobin Concent 27.8 32-36 g/dl Platelet Count 96 130-400 K/uL Mean Platelet Volume 9.7 7.4-10.4 fL Neutrophils (%) (Auto) 81.2 % Lymphocytes (%) (Auto) 8.3 % Monocytes (%) (Auto) 9.1 % Eosinophils (%) (Auto) 1.0 % Basophils (%) (Auto) 0.1 % Neutrophils # (Auto) 7.68 1.4-6.5 K/uL Lymphocytes # (Auto) 0.78 1.2-3.4 K/uL Monocytes # (Auto) 0.86 0.11-0.59 K/uL Eosinophils # (Auto) 0.09 0-0.5 K/uL Basophils # (Auto) 0.01 0-0.2 K/uL RDW Standard Deviation 65.7 36.4-46.3 fL RDW Coefficient of Variation 22.7 11.5-14.5 % Immature Granulocyte % (Auto) 0.3 % Immature Granulocyte # (Auto) 0.03 0.00-0.02 K/uL Platelet Estimate DECREASED Hypochromasia PRESENT Anisocytosis PRESENT Sodium Level 137 136-145 mmol/L Potassium Level 4.9 3.5-5.1 mmol/L Chloride Level 98 98-107 mmol/L Carbon Dioxide Level 36 21-32 mmol/L Anion Gap 3.0 3-11 mmol/L Blood Urea Nitrogen 41 7-18 mg/dl Creatinine 1.10 0.60-1.20 mg/dl Est Creatinine Clear Calc Drug Dose 89.6 ml/min Estimated GFR () 69.2 Estimated GFR (Non- 59.7 BUN/Creatinine Ratio 36.9 10-20 Random Glucose 164 70-99 mg/dl Calcium Level 8.3 8.5-10.1 mg/dl Total Bilirubin 1.0 0.2-1 mg/dl Aspartate Amino Transf (AST/SGOT) 50 15-37 U/L Alanine Aminotransferase (ALT/SGPT) 43 12-78 U/L Alkaline Phosphatase 353 45-117 U/L Pro-B-Type Natriuretic Peptide 433 0-450 pg/ml Total Protein 8.1 6.4-8.2 gm/dl Albumin 2.6 3.4-5.0 gm/dl Globulin 5.5 2.5-4.0 gm/dl Albumin/Globulin Ratio 0.5 0.9-2 Chemistry Specimen Hemolysis Diagnostic Radiology cxr: bilateral pleural effusion, moderate official read pending EKG HR 99, sinus rhythm, no signs of acute ischemia/infarct Impression Assessment and Plan 47 female with history of MEIER Cirrhosis, CHF Diastolic Type, DM 2 on Insulin, CKD 3, Anemia of Chronic Disease, Depression presenting with shortness of breath x 1 day. DYSPNEA SECONDARY TO: BILATERAL PLEURAL EFFUSION CHF, DIASTOLIC TYPE - on 4 liters NC at home currently on oxygen mask - Lasix 80mg IV one dose given at the ER - Chest US for marking for Thoracentesis ordered - Pulmonary consulted - continue usual Lasix 40mg BID, Spironolactone 100mg BID - may need additional Lasix IV RECURRENT ASCITES MEIER CIRRHOSIS - US guided paracentesis ordered to drain at least 2 liters - Ascitic fluid cell counts, cultures ordered - continue diuretics as noted above - check ammonia continue Rifaximin DM 2 - hold Glipizide, Sitagliptin - decrease Lantus from 55 to 30 units ISS CKD 3 at baseline monitor while on IV Lasix ANEMIA OF CHRONIC DISEASE Hg stable compared to last admission THROMBOCYTOPENIA Plt stable compared to last admission DEPRESSION stable SCDs for DVT prophylaxis FULL Code Disposition lives at home will need PT/OT follows with Dr. Scott for PCP VTE Prophylaxis VTE Risk Assessment Done? Y/N: Yes Risk Level: Moderate Given or contraindicated: SCD's
[2017-07-20 05:08] LABS: URINE APPEARANCE CLEAR (CLEAR); URINE BILIRUBIN NEG (NEG); URINE COLOR YELLOW; URINE NITRITE NEG (NEG); URINE PH 5.5 (4.5-7.5); URINE SPECIFIC GRAVITY 1.017 (1.000-1.030); UROBILINOGEN NEG (NEG)
[2017-07-20 05:18] LABS: MANUAL MICROSCOPIC REQUIRED? NO; REVIEW REQ? NO
--- NOTE | 2017-07-20 06:25 | DIAGNOSTIC IMAGING REPORT ---
CHEST ONE VIEW PORTABLE CLINICAL HISTORY: sob dyspnea COMPARISON STUDY: 07/10/2017 FINDINGS: Moderate cardiomegaly. Findings of pulmonary edema. Bilateral pleural effusions. IMPRESSION: Pulmonary edema. Bilateral pleural effusions. The above report was generated using voice recognition software. It may contain grammatical, syntax or spelling errors. Electronically signed by: Franklin Serrano M.D. 07/20/2017 6:24 AM Dictated Date/Time: 07/20/2017 6:23 AM
[2017-07-20] MEDS: LEVOTHYROXINE 25 MCG TAB PO SCH (06:29)
[2017-07-20] MEDS: LEVOTHYROXINE 200 MCG TAB PO SCH (06:29)
--- NOTE | 2017-07-20 06:44 | DIAGNOSTIC IMAGING REPORT ---
EFFUSION-CHEST/MEDIASTINUM CLINICAL HISTORY: pleural effusion TECHNIQUE: Ultrasound COMPARISON STUDY: 07/08/2017 FINDINGS: Bilateral pleural effusions. Effusions are septated. Right effusion has estimated volume of 1500 cc. This was marked for potential later thoracentesis. Left effusion isn't 900 cc. It was not marked. IMPRESSION: Bilateral septated pleural effusions with findings as noted. The right effusion was marked for potential later thoracentesis. The above report was generated using voice recognition software. It may contain grammatical, syntax or spelling errors. Electronically signed by: Franklin Serrano M.D. 07/20/2017 6:42 AM Dictated Date/Time: 07/20/2017 6:41 AM
[2017-07-20 07:42] VITALS: BP 155/81; PULSE 94; TEMP 36.5; O2SAT 96
[2017-07-20] MEDS: INSULIN ASPART 100 UNITS/ML 3 ML PEN SC SCH ×4 (08:45→19:49)
[2017-07-20] MEDS: RIFAXIMIN TAB 550 MG TAB PO SCH ×2 (08:49→19:48)
[2017-07-20] MEDS: PANTOprazole SOD 40 MG TAB PO SCH (08:49)
[2017-07-20] MEDS ORDERED: LEVALBUTEROL/IPRATROPIUM NEB INH SCH (09:00)
[2017-07-20] MEDS: IPRATROPIUM BROMIDE NEB SOLN 0.02% 2.5 ML VIAL INH SCH ×3 (09:00→21:00)
[2017-07-20] MEDS ORDERED: FUROSEMIDE 40 MG TAB PO SCH (09:00)
[2017-07-20] MEDS ORDERED: SPIRONOLACTONE 100 MG TAB PO SCH (09:00)
[2017-07-20] MEDS: LEVALBUTEROL 1.25MG/0.5ML NEB INH SCH ×3 (09:00→21:00)
[2017-07-20 10:42] LABS: THYROID STIMULATING HORMONE 12.3 uIu/ml (0.300-4.500)
[2017-07-20 11:30] VITALS: BP 111/60; PULSE 96; TEMP 36.7; O2SAT 93
--- NOTE | 2017-07-20 11:31 | Procedure Note ---
Procedure Note Date of Service Jul 20, 2017. Procedure Note Procedures: Right sided Thoracentesis Consent: obtained via the patient and placed into the chart Pre-Procedural Dx: Hepatic thorax Post-Procedural Dx: Hepatic thorax Analgesia: 8cc of 1% Liquid Lidocaine Procedure: The patient was placed in an upright position and thoracic US was used to select a spot for the procedure. A spot along the posterior axillary line was marked in the 7th intercostal space. The patient was then draped and prepped in a sterile fashion. A modified Seldinger technique was then used for catheter placement. Flowing this approximately 1500 cc of mildly serosanguineous pleural fluid was removed. The patient was then cleaned and placed at a 60 degree angle in the bed were the US was used to evaluate for possible pneumothorax. The US showed good lung sliding and starry night sign. EBL: 2 cc Complications: None
--- NOTE | 2017-07-20 11:47 | Pulmonary Consultation ---
History General Date of Service: Jul 20, 2017. Stated Complaint: Hepatic hydrothorax with associated shortness of breath HPI The patient is a 47 year old female who presents to [facility] with complaints of Shortness Of Breath. The patient's primary care provider is Leo Scott M.D.. CC: Hepatic hydrothorax with associated shortness of breath 47-year-old female with PmHx significant: MEIER (cirrhosis, hepatic encephalopathy, ascites, bilateral pleural effusions, respiratory insufficiency , hepatorenal syndrome and GAVE syndrome), JAQUELINE on CPAP, chronic hypoxia on 2 L nasal cannula oxygen support. She was admitted with a 1 day course of progressive shortness of breath and associated increased abdominal girth. She has had multiple admissions recently with for shortness of breath requiring invasive intervention such as thoracentesis as well as paracentesis. Patient initially presented to the emergency room on a non-rebreather mask which chest x -ray showing bilateral pleural effusions. She was treated with IV Lasix 80mg, and 4 L nasal cannula with saturations at 87% switching to a non-rebreather mask which improved to 95%. The patient continues to note severe fatigue and dyspnea at rest. She currently denies: Fever, chills, productive cough, pleurisy, classic cardiac chest pain. She does note increasing overall global edema especially in the gravity dependent regions. Admission respiratory insufficiency with ascites and bilateral pleural effusions Admission 06/14--07/28 acute respiratory distress secondary to hepatopulmonary syndrome Current workup: WBC: 10 K HGB: 8 HCT: 30 PLT: 96 K Na: 137 Cr: 1.10 BUN: 41 CO2: 36 ALB: 2.6 TPro: 8.1 UA: WNL Radiology: CXR 07/20/2017 compared to 07/10/2017 Increased hilar fullness, peribronchial cuffing, and right-sided opacification consistent with pleural effusion Thoracic ultrasound 07/2017 Large right-sided pleural effusion with signs of subdiaphragmatic fluid Previous workup: Thoracentesis Right-sided (07/10/2017) Microbiology: No growth Right-sided (06/18/2017) Microbiology: No growth Left-sided (06/08/2016) Microbiology: No growth Paracentesis (01/03/2016) Microbiology: No growth (01/20/2016) Microbiology: No growth Microbiology Urine 11/14/2015: [place] Urine 08/28/2016: [facility] Urine 01/28/2017: [place] Historian: patient, EMS Review of Systems Constitutional: reports: malaise, weakness Eyes: reports: no symptoms ENT: reports: no symptoms Cardiovascular: reports: no symptoms Respiratory: reports: as stated in HPI Gastrointestinal: reports: other (Bloating, increased abdominal distention) Genitourinary - Female: reports: no symptoms Musculoskeletal: reports: myalgias Integumentary: reports: no symptoms Neurologic: reports: dizziness, general weakness Psychiatric: reports: anxiety, depression Endocrine: no symptoms Hematologic / Lymphatic: no symptoms Allergic / Immunologic: no symptoms Past Medical History Past Medical History: 1) Type 2 diabetes 2) Hyperlipidemia 3) Hypothyroidism 4) MEIER--with progressive cirrhosis Cipro 250 mg QD Lasix 80 mg b.i.d. Riffaximin 550mg BID Spironolactone 100 mg b.i.d. Pantoprazole 40 mg q.d. Doxycycline 100 mg b.i.d. 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 5) JAQUELINE currently tree on CPAP 6) Chronic hypoxemia--chronically on 2 L nasal cannula oxygen support 7) Hypothyroidism 8) Depression/anxiety 9) Obesity 10) Diastolic CHF 11) CKD III 12) Ankle fracture 13) Chronic anemia 14) Dyslipidemia 15) Obsessive-compulsive disorder Past Surgical History: 1) TIPS (placed 04/2016 then revised 06/2016) 2) EGD Family History Unobtainable family history due to adoption Social History lifetime nonsmoker Denies any alcohol abuse or drug abuse and lives with Hx Tobacco Use In Past Year?: No Smoking Status: Never Smoker Marital status: Immunizations History of Influenza Vaccine: Yes Influenza Vaccine Date: Oct 06, 2014 History of Tetanus Vaccine?: Yes Tetanus Immunization Date: Feb 22, 2009 History of Pneumococcal: Yes Pneumococcal Date: Apr 27, 2009 History of Hepatitis B Vaccine: Yes Hepatitis Immunization Date: March 15, 2014 Allergies Coded Allergies: Ferrous Sulfate (Verified Allergy, Intermediate, IRON SUPPLEMENT--RASH, ABD PAIN AND DIARRHEA, 07/20/17) Cat Dander (Verified Allergy, Mild, rash, 07/20/17) Erythromycin (Verified Allergy, Mild, RASH, 07/20/17) Current Medications Reported Home Medications Medications Dose Route/Sig Max Daily Dose Days Date Category Dose Instructions Furosemide 40 Mg Tab 40 Mg PO BID17 30 07/10/17 Rx Glucotrol (Glipizide) 10 Mg Tab 10 Mg PO BID 07/07/17 Reported Prilosec (Omeprazole) 40 Mg Cap 40 Mg PO DAILY 06/15/17 Reported Levothyroxine Sodium 200 Mcg Tab 1 Tab PO QAM@0600 06/15/17 Reported Take total 225mcg PO daily. Levothyroxine Sodium 25 Mcg Tab 1 Tab PO QAM@0600 06/15/17 Reported Take total 225mcg PO daily Januvia (Sitagliptin) 50 Mg Tab 50 Mg PO DAILY 06/15/17 Reported Lantus Solostar (Insulin Glargine) 100 Unit/Ml Inj 55 Units SC HS 01/28/17 Reported Aldactone (Spironolactone) 100 Mg Tab 100 Mg PO BID 01/28/17 Reported Chronulac (Lactulose) 10 Gm/15 Ml Syrp 30 Gm PO DAILY PRN 08/28/16 Reported takes additional dose to have 2 bowel movements per day Xifaxan (Rifaximin) 550 Mg Tab 550 Mg PO BID 06/18/16 Reported Aripiprazole 10 Mg Tab 10 Mg PO HS 06/18/16 Reported Clonazepam Odt (Clonazepam) 1 Mg Tab 1-2 Mg PO HS PRN 12/14/15 Reported Physical Physical Exam Vital Signs: Date Time Temp Pulse Resp B/P (MAP) Pulse Ox O2 Delivery O2 Flow Rate FiO2 07/20/17 08:00 Mask 6.0 07/20/17 07:42 36.5 94 20 155/81 (105) 96 Oxymask 5.0 07/20/17 04:49 99 23 175/82 100 Non-Rebreather 15.0 07/20/17 04:19 94 20 97 07/20/17 03:49 98 22 99 07/20/17 03:19 100 21 96 07/20/17 02:49 97 18 97 07/20/17 02:44 141/72 07/20/17 02:19 97 99 07/20/17 02:14 95 99 07/20/17 02:13 98 Non-Rebreather 15.0 07/20/17 02:10 99 Non-Rebreather 15.0 07/20/17 01:44 98 22 100 07/20/17 01:42 96 07/20/17 01:34 96 07/20/17 01:32 100 Non-Rebreather 15.0 07/20/17 01:32 36.5 99 22 155/75 100 Non-Rebreather 15.0 General Appearance: moderate distress Head: NORMOCEPHALIC, ATRAUMATIC Eyes: PERRLA, NO DISCHARGE, EOMI, SCLERAE NORMAL ENT: NORMAL EAR EXAM, NORMAL NASAL EXAM, NORMAL MOUTH EXAM, NORMAL THROAT EXAM , NORMAL DENTAL EXAM Neck: NORMAL RANGE OF MOTION, NO TENDERNESS, TRACHEA MIDLINE, NO STRIDOR Respiratory: other (Decreased breath sounds bilaterally with dullness to percussion/thoracic ultrasound bilaterally shows pleural effusion with subdiaphragmatic fluid and signs of loculation on the left hemithorax) Cardiovasular: REGULAR RATE/RHYTHM, NORMAL S1S2 (Distant heart sounds unable to auscultate for murmurs rubs or gallops) Abdomen: other (Distended, notable fluid shift vent ultrasound shows signs of ascites) Genitourinary - Female: EXTERNAL GENITALIA NORMAL Back: NORMAL INSPECTION, NO MIDLINE TENDERNESS, NO CVA TENDERNESS Upper Extremities: NO EDEMA, NO DEFORMITY, NORMAL ROM Lower Extremities: edema, other Edema: Bilateral LE (2+) Pulses: carotid (R) (2+), carotid (L) (2+), dorsalis pedis (R) (2+), dorsalis pedis (L) (2+) Neuro: ALERT, ORIENTED x 3, NORMAL MOTOR EXAM, NORMAL SENSATION, NORMAL CEREBELLAR EXAM, NORMAL SPEECH Reflexes: biceps (R) (2+), bicpes (L) (2+), patellar (R) (2+), patellar (L) (2+ ) Babinski Testing: right (downgoing), left (downgoing) Psychiatric: depressed, anxious Diagnostics Labs Results Past 24 Hours Test 07/20/17 00:50 07/20/17 01:53 07/20/17 05:03 07/20/17 06:36 Range/Units White Blood Count 9.45 4.8-10.8 K/uL Red Blood Count 3.81 4.2-5.4 M/uL Hemoglobin 8.3 12.0-16.0 g/dL Hematocrit 29.9 37-47 % Mean Corpuscular Volume 78.5 80-100 fL Mean Corpuscular Hemoglobin 21.8 25-34 pg Mean Corpuscular Hemoglobin Concent 27.8 32-36 g/dl Platelet Count 96 130-400 K/uL Mean Platelet Volume 9.7 7.4-10.4 fL Neutrophils (%) (Auto) 81.2 % Lymphocytes (%) (Auto) 8.3 % Monocytes (%) (Auto) 9.1 % Eosinophils (%) (Auto) 1.0 % Basophils (%) (Auto) 0.1 % Neutrophils # (Auto) 7.68 1.4-6.5 K/uL Lymphocytes # (Auto) 0.78 1.2-3.4 K/uL Monocytes # (Auto) 0.86 0.11-0.59 K/uL Eosinophils # (Auto) 0.09 0-0.5 K/uL Basophils # (Auto) 0.01 0-0.2 K/uL RDW Standard Deviation 65.7 36.4-46.3 fL RDW Coefficient of Variation 22.7 11.5-14.5 % Immature Granulocyte % (Auto) 0.3 % Immature Granulocyte # (Auto) 0.03 0.00-0.02 K/uL Platelet Estimate DECREASED Hypochromasia PRESENT Anisocytosis PRESENT Sodium Level 137 136-145 mmol/L Potassium Level 4.9 3.5-5.1 mmol/L Chloride Level 98 98-107 mmol/L Carbon Dioxide Level 36 21-32 mmol/L Anion Gap 3.0 3-11 mmol/L Blood Urea Nitrogen 41 7-18 mg/dl Creatinine 1.10 0.60-1.20 mg/dl Est Creatinine Clear Calc Drug Dose 89.6 ml/min Estimated GFR () 69.2 Estimated GFR (Non- 59.7 BUN/Creatinine Ratio 36.9 10-20 Random Glucose 164 70-99 mg/dl Calcium Level 8.3 8.5-10.1 mg/dl Total Bilirubin 1.0 0.2-1 mg/dl Aspartate Amino Transf (AST/SGOT) 50 15-37 U/L Alanine Aminotransferase (ALT/SGPT) 43 12-78 U/L Alkaline Phosphatase 353 45-117 U/L Pro-B-Type Natriuretic Peptide 433 0-450 pg/ml Total Protein 8.1 6.4-8.2 gm/dl Albumin 2.6 3.4-5.0 gm/dl Globulin 5.5 2.5-4.0 gm/dl Albumin/Globulin Ratio 0.5 0.9-2 Chemistry Specimen Hemolysis Thyroid Stimulating Hormone (TSH) 12.300 0.300-4.500 uIu/ml Free Thyroxine 1.01 0.80-1.60 ng/dl Urine Color YELLOW Urine Appearance CLEAR CLEAR Urine pH 5.5 4.5-7.5 Urine Specific [place] 1.017 1.000-1.030 Urine Protein NEG NEG Urine Glucose (UA) NEG NEG Urine Ketones NEG NEG Urine Occult Blood NEG NEG Urine Nitrite NEG NEG Urine Bilirubin NEG NEG Urine Urobilinogen NEG NEG Urine Leukocyte Esterase NEG NEG Bedside Glucose 144 70-90 mg/dl Diagnostic Radiology CXR 07/20/2017 compared to 07/10/2017 Increased hilar fullness, peribronchial cuffing, and right-sided opacification consistent with pleural effusion Thoracic ultrasound 07/2017 Large right-sided pleural effusion with signs of subdiaphragmatic fluid EKG Normal sinus rhythm possible RBBB Impression Assessment and Plan 47-year-old female admitted for acute on chronic respiratory insufficiency/ hypoxia: 1. Respiratory Insufficiency/Hypoxia: The etiology of her respiratory issues is progressive cirrhosis secondary to MEIER. Patient has notable ascites as well as pleural effusion via thoracic ultrasound and abdominal ultrasound. I spoke to the patient at length about the possibility of performing right-sided thoracentesis as the left-hemithorax appears to be loculated. It appears at this time that the paracentesis cannot be performed until Saturday. I let the patient know that a thoracentesis would be most effective after the paracentesis but performing a thoracentesis today might relieve some of her signs and symptoms and she would like to move forward. The consent has been obtained and placed in the chart. 2. Liver transplant: This patient has undergone tips as well as revision. The only true course of action to help this patient is a liver transplant but does appear the [facility] is hesitant to move forward as the patient's obesity and depression are major issues. The only way for long-term respiratory relief would be a liver transplant. 3. Sleep apnea: Patient with history of sleep apnea at this time should continue on her home CPAP setting. 4. Hypothyroidism: Patient does have a history of hypothyroidism I did order a TSH as well as free T4 for further evaluation.
[2017-07-20 15:21] VITALS: BP 120/58; PULSE 79; TEMP 37; O2SAT 97
[2017-07-20 16:04] LABS: PLEURAL FLUID TOTAL PROTEIN 3.1 g/dl
[2017-07-20 16:28] LABS: PLEURAL FLUID APPEARANCE CLOUDY; PLEURAL FLUID COLOR AMBER; PLEURAL FLUID MONONUC RELAT 94.6 %; PLEURAL FLUID POLYNUC 5.4 %; PLEURAL FLUID SOURCE RIGHT LUNG; PLEURAL FLUID WBC (A) 290 /uL
[2017-07-20] MEDS: SPIRONOLACTONE 100 MG TAB PO SCH (17:02)
[2017-07-20] MEDS: FUROSEMIDE 40 MG TAB PO SCH (17:02)
--- NOTE | 2017-07-20 17:06 | Progress Note ---
Internal Med Progress Note Date of Service: Jul 20, 2017. Provider Documentation: SUBJECTIVE: has sob saturating ok on oxygen mask has some chest pain on deep breathing no cough no fevers no nausea or abdominal pain OBJECTIVE: Vital Signs-as noted below Exam: General-alert and oriented. Not in distress ENT-normal hearing Neck-no neck masses Lungs-cta b/l no wheezing bibasilar crackles present Heart-s1 and s2 heard regular rhythm, no murmurs Abdomen-soft bowel sounds present non tender distended Extremities lower edema present no erythema Neuro-alert and oriented moves extremities Lab data as noted below. ASSESSMENT & PLAN: 47 female with history of MEIER Cirrhosis, CHF Diastolic Type, DM 2 on Insulin, CKD 3, Anemia of Chronic Disease, Depression presenting with shortness of breath x 1 day. DYSPNEA SECONDARY TO: BILATERAL PLEURAL EFFUSION Acute on chronic CHF, DIASTOLIC TYPE Acute on chronic respiratory failure- on 4 liters NC at home currently on oxygen mask Received one dose of iv Lasix 80mg in the ER to continue home Lasix 40mg BID, Spironolactone 100mg BID s/p right side thoracocentesis and 1500ml fluid taken out will monitor RECURRENT ASCITES MEIER CIRRHOSIS diuretics as above on rifaximin plan for paracentesis when able to - mostly on Saturday DM 2 Holding Glipizide, Sitagliptin Decreased Lantus from 55 to 30 units On ISS Will monitor CKD 3 at baseline monitor while on IV Lasix ANEMIA OF CHRONIC DISEASE Hg stable compared to last admission THROMBOCYTOPENIA Plt stable compared to last admission hb 8.3 DEPRESSION stable SCDs for DVT prophylaxis FULL Code Disposition lives at home PT/OT prior to discharge follows with Dr. Scott for PCP Vital Signs: Date Time Temp Pulse Resp B/P (MAP) Pulse Ox O2 Delivery O2 Flow Rate FiO2 07/20/17 16:00 Mask 6.0 07/20/17 15:21 37.0 79 25 120/58 (78) 97 Nasal Cannula 6.0 07/20/17 12:00 Mask 6.0 07/20/17 11:30 36.7 96 20 111/60 (77) 93 6.0 07/20/17 08:00 Mask 6.0 07/20/17 07:42 36.5 94 20 155/81 (105) 96 Oxymask 5.0 07/20/17 04:49 99 23 175/82 100 Non-Rebreather 15.0 07/20/17 04:19 94 20 97 07/20/17 03:49 98 22 99 07/20/17 03:19 100 21 96 07/20/17 02:49 97 18 97 07/20/17 02:44 141/72 07/20/17 02:19 97 99 07/20/17 02:14 95 99 07/20/17 02:13 98 Non-Rebreather 15.0 07/20/17 02:10 99 Non-Rebreather 15.0 07/20/17 01:44 98 22 100 07/20/17 01:42 96 07/20/17 01:34 96 07/20/17 01:32 100 Non-Rebreather 15.0 07/20/17 01:32 36.5 99 22 155/75 100 Non-Rebreather 15.0 Lab Results: Results Past 24 Hours Test 07/20/17 00:50 07/20/17 01:53 07/20/17 05:03 07/20/17 06:36 Range/Units White Blood Count 9.45 4.8-10.8 K/uL Red Blood Count 3.81 4.2-5.4 M/uL Hemoglobin 8.3 12.0-16.0 g/dL Hematocrit 29.9 37-47 % Mean Corpuscular Volume 78.5 80-100 fL Mean Corpuscular Hemoglobin 21.8 25-34 pg Mean Corpuscular Hemoglobin Concent 27.8 32-36 g/dl Platelet Count 96 130-400 K/uL Mean Platelet Volume 9.7 7.4-10.4 fL Neutrophils (%) (Auto) 81.2 % Lymphocytes (%) (Auto) 8.3 % Monocytes (%) (Auto) 9.1 % Eosinophils (%) (Auto) 1.0 % Basophils (%) (Auto) 0.1 % Neutrophils # (Auto) 7.68 1.4-6.5 K/uL Lymphocytes # (Auto) 0.78 1.2-3.4 K/uL Monocytes # (Auto) 0.86 0.11-0.59 K/uL Eosinophils # (Auto) 0.09 0-0.5 K/uL Basophils # (Auto) 0.01 0-0.2 K/uL RDW Standard Deviation 65.7 36.4-46.3 fL RDW Coefficient of Variation 22.7 11.5-14.5 % Immature Granulocyte % (Auto) 0.3 % Immature Granulocyte # (Auto) 0.03 0.00-0.02 K/uL Platelet Estimate DECREASED Hypochromasia PRESENT Anisocytosis PRESENT Sodium Level 137 136-145 mmol/L Potassium Level 4.9 3.5-5.1 mmol/L Chloride Level 98 98-107 mmol/L Carbon Dioxide Level 36 21-32 mmol/L Anion Gap 3.0 3-11 mmol/L Blood Urea Nitrogen 41 7-18 mg/dl Creatinine 1.10 0.60-1.20 mg/dl Est Creatinine Clear Calc Drug Dose 89.6 ml/min Estimated GFR () 69.2 Estimated GFR (Non- 59.7 BUN/Creatinine Ratio 36.9 10-20 Random Glucose 164 70-99 mg/dl Calcium Level 8.3 8.5-10.1 mg/dl Total Bilirubin 1.0 0.2-1 mg/dl Aspartate Amino Transf (AST/SGOT) 50 15-37 U/L Alanine Aminotransferase (ALT/SGPT) 43 12-78 U/L Alkaline Phosphatase 353 45-117 U/L Pro-B-Type Natriuretic Peptide 433 0-450 pg/ml Total Protein 8.1 6.4-8.2 gm/dl Albumin 2.6 3.4-5.0 gm/dl Globulin 5.5 2.5-4.0 gm/dl Albumin/Globulin Ratio 0.5 0.9-2 Chemistry Specimen Hemolysis Thyroid Stimulating Hormone (TSH) 12.300 0.300-4.500 uIu/ml Free Thyroxine 1.01 0.80-1.60 ng/dl Urine Color YELLOW Urine Appearance CLEAR CLEAR Urine pH 5.5 4.5-7.5 Urine Specific [place] 1.017 1.000-1.030 Urine Protein NEG NEG Urine Glucose (UA) NEG NEG Urine Ketones NEG NEG Urine Occult Blood NEG NEG Urine Nitrite NEG NEG Urine Bilirubin NEG NEG Urine Urobilinogen NEG NEG Urine Leukocyte Esterase NEG NEG Bedside Glucose 144 70-90 mg/dl Test 07/20/17 11:31 07/20/17 11:32 07/20/17 16:01 Range/Units Bedside Glucose 204 144 70-90 mg/dl Pleural Fluid Source RIGHT LUNG Pleural Fluid Color JENNA Pleural Fluid Appearance CLOUDY Pleural Fluid WBC 290 /uL Pleural Fluid [place] [address] /uL Pleural Fluid pH 7.3-7.4 Pleural Fluid Polynuclear WBCs % 5.4 % Pleural Fluid Mononuclear WBCs % 94.6 % Pleural Fluid Total Protein 3.1 g/dl Pleural Fluid LDH 107 IU Pleural Fluid Glucose 162 mg/dl Pleural Fluid Amylase 19 U/L Microbiology Results 07/20/17 Acid Fast Stain, Received Pending 07/20/17 Mycobacterial Culture, Received Pending 07/20/17 Gram Stain - Final, Resulted 07/20/17 Bacterial Culture, Resulted Pending
[2017-07-20] MEDS ORDERED: ACETAMINOPHEN 325 MG TAB ONE (18:17)
[2017-07-20] MEDS ORDERED: ACETAMINOPHEN 500 MG TAB PO ONE (18:30)
[2017-07-20 19:08] VITALS: BP 116/50; PULSE 88; TEMP 36.8; O2SAT 97
[2017-07-20] MEDS: ARIPIprazole TAB 10 MG TAB PO SCH (19:48)
[2017-07-20] MEDS: INSULIN GLARGINE SOLOSTAR 100 UNITS/ML 3 ML PEN SC SCH (19:49)
[2017-07-21] VITALS (16 sets, daily range): BP systolic 110–153; BP diastolic 45–77; PULSE 82–92; TEMP 36.5–37; O2SAT 92–100
[2017-07-21] MEDS: CLONAZEPAM 1 MG TAB PO PRN ×2 (01:10→20:29)
[2017-07-21] MEDS: IPRATROPIUM BROMIDE NEB SOLN 0.02% 2.5 ML VIAL INH SCH ×4 (02:13→19:43)
[2017-07-21] MEDS: LEVALBUTEROL 1.25MG/0.5ML NEB INH SCH ×4 (02:13→19:43)
[2017-07-21] MEDS: LEVOTHYROXINE 200 MCG TAB PO SCH (06:04)
[2017-07-21] MEDS: LEVOTHYROXINE 25 MCG TAB PO SCH (06:04)
[2017-07-21 06:06] LABS: MEAN CELL VOLUME 78.3 fL (80-100); MEAN CORPUSCULAR HEMOGLOBIN 22.3 pg (25-34); MEAN CORPUSCULAR HGB CONC 28.5 g/dl (32-36); MEAN PLATELET VOLUME 9.4 fL (7.4-10.4); PLATELET COUNT 83 K/uL (130-400); RED BLOOD COUNT 3.32 M/uL (4.2-5.4); WHITE BLOOD COUNT 6.84 K/uL (4.8-10.8)
[2017-07-21 06:25] LABS: BUN/CREATININE RATIO 48.7 (10-20); CALCIUM 7.8 mg/dl (8.5-10.1); CREATININE 0.91 mg/dl (0.60-1.20); POTASSIUM 4.7 mmol/L (3.5-5.1)
[2017-07-21 07:08] LABS: ANISOCYTOSIS PRESENT; BASO % 0.1 %; BASO ABS # 0.01 K/uL (0-0.2); COMPLETE YES; EOS % 1.3 %; HYPOCHROMIA PRESENT; IG% 0.3 %; LYMPH % 8.9 %; LYMPH ABS # 0.61 K/uL (1.2-3.4); MICROCYTOSIS PRESENT; MONO % 9.1 %; NEUT % 80.3 %; TARGET CELLS 1+
[2017-07-21] MEDS: PANTOprazole SOD 40 MG TAB PO SCH (07:46)
[2017-07-21] MEDS: FUROSEMIDE 40 MG TAB PO SCH ×2 (07:47→16:52)
[2017-07-21] MEDS: RIFAXIMIN TAB 550 MG TAB PO SCH ×2 (07:47→19:55)
[2017-07-21] MEDS: SPIRONOLACTONE 100 MG TAB PO SCH ×2 (07:47→16:52)
[2017-07-21] MEDS: INSULIN ASPART 100 UNITS/ML 3 ML PEN SC SCH ×4 (07:50→20:31)
[2017-07-21] MEDS ORDERED: FUROSEMIDE INJ 40 MG in SYRINGE 0 ML IV SCH (10:15)
--- NOTE | 2017-07-21 10:44 | Pulmonology Progress Note ---
Pulmonary Progress Note Date of Service Jul 21, 2017. Attending Dr. Maynard Subjective Patient notes some moderate improvement overall pulmonary status after the thoracentesis. Objective Patient looks comfortable lying in bed flat able to complete full sentences mildly tachypneic but notable improvement from yesterday. Vital signs: Stable requiring 3-5 liters of nasal cannula/oxygen support Respiratory: Decreased breath sounds with dullness to percussion left greater than right Cardiac: S1-S2 regular rate and rhythm but distant heart sounds Abdomen: No rebound noted but positive fluid shift Extremities: 1 to 2+ pitting edema in the dependent regions Assessment & Plan 47-year-old female with progressive cirrhosis secondary to MEIER and volume overload with bilateral pleural effusions: 1. Shortness of breath: Patient shortness of breath is secondary to her volume overload status with ascites as well as bilateral pleural effusions. She did respond clinically well to the right-sided thoracentesis yesterday. The left side does continue to show signs of loculation. At this time agree with large volume paracentesis which is set up for Saturday both per the records. This would be done overall poor candidate to place a chest tube are IPC issue continue to drain her protein and create a malnourished state as well as intravascular dehydration most likely causing renal insufficiency. If the patient would like to move to off hospice situation then IVC catheter for symptomatic relief would be indicated at that time. The Pulmonary team could perform intermittent thoracentesis for respiratory relief. Sign off: At this time the Pulmonary service will sign off please contact us if needed. Data Medications: Current Inpatient Medications Medications (Trade) Dose Ordered Sig/Ana Luisa Route Start Time Stop Time Status Last Admin Dose Admin Insulin Aspart (novoLOG ASPART) SLIDING SCALE If C... ACHS SC 07/20/17 07:00 08/19/17 06:59 07/21/17 07:50 5 UNITS Glucose (Glucose 40% Gel) 15-30 GRAMS 15 GRAMS... UD PRN PO 07/20/17 04:45 08/19/17 04:44 Glucose (Glucose Chew Tab) 4-8 Tablets 4 Tabl... UD PRN PO 07/20/17 04:45 08/19/17 04:44 Dextrose (Dextrose 50% 50ML Syringe) 25-50ML OF 50% DW IV FOR... UD PRN IV 07/20/17 04:45 08/19/17 04:44 Glucagon (Glucagon Inj) 1 mg UD PRN SQ 07/20/17 04:45 08/19/17 04:44 Aripiprazole (Abilify Tab) 10 mg HS PO 07/20/17 21:00 08/19/17 20:59 07/20/17 19:48 10 MG Lactulose (Chronulac Syrup) 30 gm DAILY PRN PO 07/20/17 04:45 08/19/17 04:44 Levothyroxine Sodium (Synthroid Tab) 25 mcg QAM@0600 PO 07/20/17 06:00 08/19/17 05:59 07/21/17 06:04 25 MCG Levothyroxine Sodium (Synthroid Tab) 200 mcg QAM@0600 PO 07/20/17 06:00 08/19/17 05:59 07/21/17 06:04 200 MCG Rifaximin (Xifaxan Tab) 550 mg BID PO 07/20/17 09:00 08/19/17 08:59 07/21/17 07:47 550 MG Pantoprazole Sodium (Protonix Tab) 40 mg QAM PO 07/20/17 09:00 08/19/17 08:59 07/21/17 07:46 40 MG Insulin Glargine (Lantus Solostar Pen) 30 units HS SC 07/20/17 21:00 08/19/17 20:59 07/20/17 19:49 30 UNITS Ipratropium Lillie (Atrovent 0.02% 0.5MG/2.5ML Neb) 0.5 mg Q6R INH 07/20/17 09:00 08/19/17 08:59 07/21/17 07:22 0.5 MG Levalbuterol (Xopenex 1.25MG/ 0.5ML Neb) 1.25 mg Q6R INH 07/20/17 09:00 08/19/17 08:59 07/21/17 07:22 1.25 MG Furosemide (Lasix Tab) 40 mg BID17 PO 07/20/17 17:00 08/19/17 08:59 07/21/17 07:47 40 MG Spironolactone (Aldactone Tab) 100 mg BID17 PO 07/20/17 17:00 08/19/17 08:59 07/21/17 07:47 100 MG Tramadol HCl (Ultram Tab) 50 mg TID PRN PO 07/20/17 18:30 08/19/17 18:29 Clonazepam (Klonopin Tab) 1 mg HS PRN PO 07/20/17 20:15 08/19/17 20:14 07/21/17 01:10 1 MG Furosemide 40 mg/ Syringe 4 ml @ 4 mls/min TODAY@1015 IV 07/21/17 10:15 07/21/17 18:00 Vital Signs: Date Time Temp Pulse Resp B/P (MAP) Pulse Ox O2 Delivery O2 Flow Rate FiO2 07/21/17 08:18 82 16 100 Nasal Cannula 5.0 07/21/17 08:00 Nasal Cannula 3.0 07/21/17 07:34 36.9 88 20 151/75 (100) 98 Nasal Cannula 3.0 07/21/17 04:22 37.0 84 118/70 (86) 98 07/21/17 04:00 Nasal Cannula 3.0 07/21/17 02:13 89 16 93 Nasal Cannula 5.0 07/21/17 00:09 36.5 87 28 153/77 (102) 96 07/21/17 00:00 Nasal Cannula 3.0 07/20/17 20:00 Nasal Cannula 3.0 07/20/17 19:08 36.8 88 21 116/50 (72) 97 Nasal Cannula 3.0 07/20/17 16:00 Mask 6.0 07/20/17 15:21 37.0 79 25 120/58 (78) 97 Nasal Cannula 6.0 07/20/17 12:00 Mask 6.0 07/20/17 11:30 36.7 96 20 111/60 (77) 93 6.0 Laboratory Results: Last 24 Hours Test 07/20/17 11:31 07/20/17 11:32 07/20/17 16:01 07/20/17 17:00 Bedside Glucose 204 mg/dl 144 mg/dl 162 mg/dl Pleural Fluid Source RIGHT LUNG Pleural Fluid Color JENNA Pleural Fluid Appearance CLOUDY Pleural Fluid WBC 290 /uL Ple[place] Fluid [place] 88170 /uL Pleural Fluid pH Pleural Fluid Polynuclear WBCs % 5.4 % Pleural Fluid Mononuclear WBCs % 94.6 % Pleural Fluid Total Protein 3.1 g/dl Pleural Fluid LDH 107 IU Pleural Fluid Glucose 162 mg/dl Pleural Fluid Amylase 19 U/L Test 07/20/17 19:45 07/21/17 05:26 07/21/17 06:47 Bedside Glucose 200 mg/dl 135 mg/dl White Blood Count 6.84 K/uL Red Blood Count 3.32 M/uL Hemoglobin 7.4 g/dL Hematocrit 26.0 % Mean Corpuscular Volume 78.3 fL Mean Corpuscular Hemoglobin 22.3 pg Mean Corpuscular Hemoglobin Concent 28.5 g/dl Platelet Count 83 K/uL Mean Platelet Volume 9.4 fL Neutrophils (%) (Auto) 80.3 % Lymphocytes (%) (Auto) 8.9 % Monocytes (%) (Auto) 9.1 % Eosinophils (%) (Auto) 1.3 % Basophils (%) (Auto) 0.1 % Neutrophils # (Auto) 5.49 K/uL Lymphocytes # (Auto) 0.61 K/uL Monocytes # (Auto) 0.62 K/uL Eosinophils # (Auto) 0.09 K/uL Basophils # (Auto) 0.01 K/uL RDW Standard Deviation 63.9 fL RDW Coefficient of Variation 22.4 % Immature Granulocyte % (Auto) 0.3 % Immature Granulocyte # (Auto) 0.02 K/uL Hypochromasia PRESENT Anisocytosis PRESENT Microcytosis PRESENT Target Cells 1+ Sodium Level 135 mmol/L Potassium Level 4.7 mmol/L Chloride Level 96 mmol/L Carbon Dioxide Level 38 mmol/L Anion Gap 1.0 mmol/L Blood Urea Nitrogen 44 mg/dl Creatinine 0.91 mg/dl Est Creatinine Clear Calc Drug Dose 107.3 ml/min Estimated GFR () 87.1 Estimated GFR (Non- 75.1 BUN/Creatinine Ratio 48.7 Random Glucose 151 mg/dl Calcium Level 7.8 mg/dl
--- NOTE | 2017-07-21 11:15 | Progress Note ---
Internal Med Progress Note Date of Service: Jul 21, 2017. Provider Documentation: SUBJECTIVE: says she is doing fine slept fine denies sob no chest pain no nausea did not moved bowels today OBJECTIVE: Vital Signs-as noted below Exam: General-alert and oriented. Not in distress ENT-normal hearing Neck-no neck masses Lungs-cta b/l no wheezing bibasilar crackles present Heart-s1 and s2 heard regular rhythm, no murmurs Abdomen-soft bowel sounds present non tender distended Extremities lower edema present no erythema Neuro-alert and oriented moves extremities Lab data as noted below. ASSESSMENT & PLAN: 47 female with history of MEIER Cirrhosis, CHF Diastolic Type, DM 2 on Insulin, CKD 3, Anemia of Chronic Disease, Depression presenting with shortness of breath x 1 day. DYSPNEA SECONDARY TO: BILATERAL PLEURAL EFFUSION Acute on chronic CHF, DIASTOLIC TYPE Acute on chronic respiratory failure- on 4 liters NC at home was on oxygen mask initially Received one dose of iv Lasix 80mg in the ER to continue home Lasix 40mg BID, Spironolactone 100mg BID s/p right side thoracocentesis and 1500ml fluid taken out currently on 5lts oxygen. will monitor RECURRENT ASCITES MEIER CIRRHOSIS diuretics as above on rifaximin plan for paracentesis when able to - mostly on Saturday DM 2 Holding Glipizide, Sitagliptin Decreased Lantus from 55 to 30 units On ISS Will monitor CKD 3 at baseline monitor while on IV Lasix Acute on ANEMIA OF CHRONIC DISEASE Hg 7.4 today will f/u stool Hemoccult and iron studies' will transfuse one unit today THROMBOCYTOPENIA Plt stable compared to last admission DEPRESSION stable SCDs for DVT prophylaxis FULL Code Disposition lives at home PT/OT prior to discharge follows with Dr. cSott for PCP Vital Signs: Date Time Temp Pulse Resp B/P (MAP) Pulse Ox O2 Delivery O2 Flow Rate FiO2 07/21/17 08:18 82 16 100 Nasal Cannula 5.0 07/21/17 08:00 Nasal Cannula 3.0 07/21/17 07:34 36.9 88 20 151/75 (100) 98 Nasal Cannula 3.0 07/21/17 04:22 37.0 84 118/70 (86) 98 07/21/17 04:00 Nasal Cannula 3.0 07/21/17 02:13 89 16 93 Nasal Cannula 5.0 07/21/17 00:09 36.5 87 28 153/77 (102) 96 07/21/17 00:00 Nasal Cannula 3.0 07/20/17 20:00 Nasal Cannula 3.0 07/20/17 19:08 36.8 88 21 116/50 (72) 97 Nasal Cannula 3.0 07/20/17 16:00 Mask 6.0 07/20/17 15:21 37.0 79 25 120/58 (78) 97 Nasal Cannula 6.0 07/20/17 12:00 Mask 6.0 07/20/17 11:30 36.7 96 20 111/60 (77) 93 6.0 Lab Results: Results Past 24 Hours Test 07/20/17 11:31 07/20/17 11:32 07/20/17 16:01 07/20/17 17:00 Range/Units Bedside Glucose 204 144 162 70-90 mg/dl Pleural Fluid Source RIGHT LUNG Pleural Fluid Color JENNA Pleural Fluid Appearance CLOUDY Pleural Fluid WBC 290 /uL Pleural Fluid RBC 25745 /uL Pleural Fluid pH 7.3-7.4 Pleural Fluid Polynuclear WBCs % 5.4 % Pleural Fluid Mononuclear WBCs % 94.6 % Pleural Fluid Total Protein 3.1 g/dl Pleural Fluid LDH 107 IU Pleural Fluid Glucose 162 mg/dl Pleural Fluid Amylase 19 U/L Test 07/20/17 19:45 07/21/17 05:26 07/21/17 06:47 Range/Units Bedside Glucose 200 135 70-90 mg/dl White Blood Count 6.84 4.8-10.8 K/uL Red Blood Count 3.32 4.2-5.4 M/uL Hemoglobin 7.4 12.0-16.0 g/dL Hematocrit 26.0 37-47 % Mean Corpuscular Volume 78.3 80-100 fL Mean Corpuscular Hemoglobin 22.3 25-34 pg Mean Corpuscular Hemoglobin Concent 28.5 32-36 g/dl Platelet Count 83 130-400 K/uL Mean Platelet Volume 9.4 7.4-10.4 fL Neutrophils (%) (Auto) 80.3 % Lymphocytes (%) (Auto) 8.9 % Monocytes (%) (Auto) 9.1 % Eosinophils (%) (Auto) 1.3 % Basophils (%) (Auto) 0.1 % Neutrophils # (Auto) 5.49 1.4-6.5 K/uL Lymphocytes # (Auto) 0.61 1.2-3.4 K/uL Monocytes # (Auto) 0.62 0.11-0.59 K/uL Eosinophils # (Auto) 0.09 0-0.5 K/uL Basophils # (Auto) 0.01 0-0.2 K/uL RDW Standard Deviation 63.9 36.4-46.3 fL RDW Coefficient of Variation 22.4 11.5-14.5 % Immature Granulocyte % (Auto) 0.3 % Immature Granulocyte # (Auto) 0.02 0.00-0.02 K/uL Hypochromasia PRESENT Anisocytosis PRESENT Microcytosis PRESENT Target Cells 1+ Sodium Level 135 136-145 mmol/L Potassium Level 4.7 3.5-5.1 mmol/L Chloride Level 96 98-107 mmol/L Carbon Dioxide Level 38 21-32 mmol/L Anion Gap 1.0 3-11 mmol/L Blood Urea Nitrogen 44 7-18 mg/dl Creatinine 0.91 0.60-1.20 mg/dl Est Creatinine Clear Calc Drug Dose 107.3 ml/min Estimated GFR () 87.1 Estimated GFR (Non- 75.1 BUN/Creatinine Ratio 48.7 10-20 Random Glucose 151 70-99 mg/dl Calcium Level 7.8 8.5-10.1 mg/dl Microbiology Results 07/20/17 Acid Fast Stain, Received Pending 07/20/17 Mycobacterial Culture, Received Pending 07/20/17 Gram Stain - Final, Resulted 07/20/17 Bacterial Culture, Resulted Pending
[2017-07-21] MEDS: TRAMADOL HCL 50 MG TAB PO PRN (19:54)
[2017-07-21] MEDS: ARIPIprazole TAB 10 MG TAB PO SCH (19:55)
[2017-07-21] MEDS: INSULIN GLARGINE SOLOSTAR 100 UNITS/ML 3 ML PEN SC SCH (20:31)
[2017-07-22] VITALS (11 sets, daily range): BP systolic 123–151; BP diastolic 55–83; PULSE 88–97; TEMP 36.5–37; O2SAT 91–98
[2017-07-22] MEDS: LEVALBUTEROL 1.25MG/0.5ML NEB INH SCH ×4 (01:48→19:35)
[2017-07-22] MEDS: IPRATROPIUM BROMIDE NEB SOLN 0.02% 2.5 ML VIAL INH SCH ×4 (01:48→19:46)
[2017-07-22] MEDS: TRAMADOL HCL 50 MG TAB PO PRN ×2 (04:22→19:21)
[2017-07-22] MEDS: LEVOTHYROXINE 200 MCG TAB PO SCH (05:30)
[2017-07-22] MEDS: LEVOTHYROXINE 25 MCG TAB PO SCH (05:30)
[2017-07-22 06:32] LABS: HEMATOCRIT 29.5 % (37-47); MEAN CELL VOLUME 78.7 fL (80-100); MEAN CORPUSCULAR HEMOGLOBIN 21.9 pg (25-34); MEAN CORPUSCULAR HGB CONC 27.8 g/dl (32-36); MEAN PLATELET VOLUME 9.6 fL (7.4-10.4); PLATELET COUNT 92 K/uL (130-400); RED BLOOD COUNT 3.75 M/uL (4.2-5.4); WHITE BLOOD COUNT 7.44 K/uL (4.8-10.8)
[2017-07-22 06:33] LABS: INR 1.2 (0.9-1.1); PROTHROMBIN TIME (PATIENT) 12.5 SECONDS (9.0-12.0)
[2017-07-22 07:02] LABS: BUN/CREATININE RATIO 40.7 (10-20); CALCIUM 8.2 mg/dl (8.5-10.1); CREATININE 0.86 mg/dl (0.60-1.20); POTASSIUM 4.3 mmol/L (3.5-5.1)
[2017-07-22 07:07] LABS: FERRITIN 19.4 ng/ml (8.0-388.0)
[2017-07-22 07:11] LABS: ANISOCYTOSIS PRESENT; COMPLETE YES; EOS % 0.9 %; HYPOCHROMIA PRESENT; IG% 0.1 %; LYMPH % 10.1 %; LYMPH ABS # 0.75 K/uL (1.2-3.4); MONO % 8.6 %; NEUT % 80.3 %
[2017-07-22] MEDS: FUROSEMIDE 40 MG TAB PO SCH ×2 (07:30→16:51)
[2017-07-22] MEDS: RIFAXIMIN TAB 550 MG TAB PO SCH ×2 (07:30→19:59)
[2017-07-22] MEDS: SPIRONOLACTONE 100 MG TAB PO SCH ×2 (07:30→16:51)
[2017-07-22] MEDS: PANTOprazole SOD 40 MG TAB PO SCH (07:30)
[2017-07-22] MEDS: INSULIN ASPART 100 UNITS/ML 3 ML PEN SC SCH ×4 (08:33→21:06)
--- NOTE | 2017-07-22 09:04 | Gastrointestinal Consultation ---
Gastrointestinal Consultation Date of Consultation: Jul 22, 2017 Attending Physician: Jneny Consulting Physician: Rene Reason for Consultation: heme + stools, anemia History of Present Illness Patient is a 47 year old female w/ history of MEIER cirrhosis, hepatic hydrothorax, T2DM and others listed below presenting to the ED 9 days after [facility] discharge for worsening SOB and abdominal fullness - GI is consulted for anemia and heme + stool. Pt was seen and evaluated, chart reviewed. Pt tells me about three days ago developed worsening SOB and chest pressure with chest fullness. At this time she also had increased abdominal fullness. Given IV dosing of lasix with mild resolution of symptoms and is now s/p right sided thoracentesis with 1500cc removed. This AM, pt tells me she is feeling well. Her breathing is back to baseline, she is wearing O2. She is moving her bowels 1 -2 times daily on lactulose and xifaxan, stools are brown. No black or bloody stools. Of note she has not had a BM today, last BM was yesterday AM. She does not have any upper GI symptoms, specifically no nausea or vomiting. She does have a history of esophageal varices, not on BB due to hypotension and falls. Chest XR 07/20/17: Moderate cardiomegaly. Findings of pulmonary edema. Bilateral pleural effusions. EGD 02/14/17: medium/large varices, GAVE Colonoscopy: none, suggested before but pt deferred She has hx of NAFLD cirrhosis, complicated by refractory ascites despite TIPS placement, hx of hepatic encephalopathy, pleural effusions, non bleeding esophageal varices. She was previously evaluated by Liver [place] [facility] [place] but MELD score was low and thus not listed. Compliance w/ home doses of Lactulose 30ml daily, Xifaxan 550mg BID, Lasix 80mg BID, Spironolactone 100mg BID and low salt diet. Denies any new med changes. Past Medical/Surgical History Medical Problems: (1) Anemia Status: Acute (2) Ascites Status: Acute (3) Ascites Status: Acute (4) Cardiomegaly Status: Acute (5) Cirrhosis Status: Acute (6) Congestive heart failure Status: Acute (7) Diffuse abdominal pain Status: Acute (8) Dyspnea Status: Acute (9) Hypoxia Status: Acute (10) Liver failure Status: Acute (11) Pleural effusion Status: Acute (12) Pleural effusion, left Status: Acute (13) Serum ammonia increased Status: Acute (14) Shortness of breath Status: Acute Past Medical History: T2DM ,obesity, cirrhosis, hyperlipidemia, depression, hypothyroidism, hepatic hydrothorax, GAVE Past Surgical History: TIPS, Multiple paracentesis, Right thoracentesis, EGD 02/16/16 Dr. Dorado: medium to large varices in the lower esophagus. Family History Unobtainable family history due to adoption Social History Smoking Status: Never Smoker Alcohol Use: none Drug Use: none Marital Status: Housing Status: lives with significant other Allergies Coded Allergies: Ferrous Sulfate (Verified Allergy, Intermediate, IRON SUPPLEMENT--RASH, ABD PAIN AND DIARRHEA, 07/20/17) Cat Dander (Verified Allergy, Mild, rash, 07/20/17) Erythromycin (Verified Allergy, Mild, RASH, 07/20/17) Current Medications Home Meds and Scripts Medications Dose Route/Sig Max Daily Dose Days Date Category Dose Instructions Furosemide 40 Mg Tab 40 Mg PO BID17 30 07/10/17 Rx Glucotrol (Glipizide) 10 Mg Tab 10 Mg PO BID 07/07/17 Reported Prilosec (Omeprazole) 40 Mg Cap 40 Mg PO DAILY 06/15/17 Reported Levothyroxine Sodium 200 Mcg Tab 1 Tab PO QAM@0600 06/15/17 Reported Take total 225mcg PO daily. Levothyroxine Sodium 25 Mcg Tab 1 Tab PO QAM@0600 06/15/17 Reported Take total 225mcg PO daily Januvia (Sitagliptin) 50 Mg Tab 50 Mg PO DAILY 06/15/17 Reported Lantus Solostar (Insulin Glargine) 100 Unit/Ml Inj 55 Units SC HS 01/28/17 Reported Aldactone (Spironolactone) 100 Mg Tab 100 Mg PO BID 01/28/17 Reported Chronulac (Lactulose) 10 Gm/15 Ml Syrp 30 Gm PO DAILY PRN 08/28/16 Reported takes additional dose to have 2 bowel movements per day Xifaxan (Rifaximin) 550 Mg Tab 550 Mg PO BID 06/18/16 Reported Aripiprazole 10 Mg Tab 10 Mg PO HS 06/18/16 Reported Clonazepam Odt (Clonazepam) 1 Mg Tab 1-2 Mg PO HS PRN 12/14/15 Reported Review of Systems Constitutional: No fever, No chills Respiratory: + shortness of breath (baseline), No cough Cardiac: No chest pain Abdomen: No pain, No nausea, No vomiting, No diarrhea, No constipation Physical Exam Date Time Temp Pulse Resp B/P (MAP) Pulse Ox O2 Delivery O2 Flow Rate FiO2 07/22/17 07:22 36.5 93 20 123/64 (83) 97 Nasal Cannula 3.0 07/22/17 07:14 88 16 96 Nasal Cannula 3.0 07/22/17 04:06 36.8 97 20 150/83 (105) 97 07/22/17 04:06 Nasal Cannula 3.0 07/22/17 01:48 88 16 96 Mask 3.0 07/22/17 00:11 36.8 96 22 139/55 (83) 93 07/22/17 00:00 Nasal Cannula 3.0 07/21/17 20:21 37.0 92 18 133/57 (82) 94 Nasal Cannula 3.0 07/21/17 20:00 Nasal Cannula 3.0 07/21/17 19:43 91 16 96 Nasal Cannula 3.0 07/21/17 16:00 36.8 88 20 110/45 (66) 92 Nasal Cannula 3.0 07/21/17 16:00 Nasal Cannula 3.0 07/21/17 14:15 90 25 120/56 94 3.0 07/21/17 14:13 88 16 92 Nasal Cannula 3.0 07/21/17 13:45 91 30 121/54 92 3.0 07/21/17 13:15 36.9 89 25 120/54 92 3.0 07/21/17 13:00 36.9 89 20 115/53 95 3.0 07/21/17 12:45 36.9 90 20 118/52 93 3.0 07/21/17 12:30 36.8 91 16 146/73 93 07/21/17 12:00 Nasal Cannula 3.0 07/21/17 10:48 36.8 87 20 143/67 (92) 92 Nasal Cannula 3.0 General Appearance: no apparent distress (resting in bed, wearing O2 via nasal canula) Eyes: PERRL ENT: hearing grossly normal Neck: supple Respiratory/Chest: no respiratory distress, no accessory muscle use, + decreased breath sounds Cardiovascular: regular rate, rhythm, + systolic murmur Abdomen: normal bowel sounds, non tender, soft, no organomegaly, no pulsatile mass, + distended (mild distention, non-tense) Neurologic/Psych: alert, normal mood/affect, oriented x 3 Skin: normal color, no jaundice, warm/dry, no rash Laboratory Results Last 24 Hours Test 07/21/17 11:34 07/21/17 11:59 07/21/17 16:35 07/21/17 20:20 Bedside Glucose 232 mg/dl 158 mg/dl 202 mg/dl Stool Occult Blood POSITIVE Test 07/22/17 05:52 07/22/17 06:47 White Blood Count 7.44 K/uL Red Blood Count 3.75 M/uL Hemoglobin 8.2 g/dL Hematocrit 29.5 % Mean Corpuscular Volume 78.7 fL Mean Corpuscular Hemoglobin 21.9 pg Mean Corpuscular Hemoglobin Concent 27.8 g/dl Platelet Count 92 K/uL Mean Platelet Volume 9.6 fL Neutrophils (%) (Auto) 80.3 % Lymphocytes (%) (Auto) 10.1 % Monocytes (%) (Auto) 8.6 % Eosinophils (%) (Auto) 0.9 % Basophils (%) (Auto) 0.0 % Neutrophils # (Auto) 5.97 K/uL Lymphocytes # (Auto) 0.75 K/uL Monocytes # (Auto) 0.64 K/uL Eosinophils # (Auto) 0.07 K/uL Basophils # (Auto) 0.00 K/uL RDW Standard Deviation 64.5 fL RDW Coefficient of Variation 22.4 % Immature Granulocyte % (Auto) 0.1 % Immature Granulocyte # (Auto) 0.01 K/uL Hypochromasia PRESENT Anisocytosis PRESENT Prothrombin Time 12.5 SECONDS Prothromb Time International Ratio 1.2 Activated Partial Thromboplast Time 25.7 SECONDS Partial Thromboplastin Ratio 1.0 Sodium Level 134 mmol/L Potassium Level 4.3 mmol/L Chloride Level 95 mmol/L Carbon Dioxide Level 38 mmol/L Anion Gap 1.0 mmol/L Blood Urea Nitrogen 35 mg/dl Creatinine 0.86 mg/dl Est Creatinine Clear Calc Drug Dose 113.6 ml/min Estimated GFR () 93.2 Estimated GFR (Non- 80.4 BUN/Creatinine Ratio 40.7 Random Glucose 141 mg/dl Calcium Level 8.2 mg/dl Iron Level 33 mcg/dl Total Iron Binding Capacity 309 mcg/dl Transferrin 236 mg/dl Transferrin % Saturation 10 % Ferritin 19.4 ng/ml Vitamin B12 Level 564 pg/mL Folate 4.35 ng/mL Bedside Glucose 143 mg/dl Impression Ms. Martinez is a 47-year-old female with an NAFLD cirrhosis, status post TIPS, admitted with pleural effusions and moderate ascites causing shortness of breath - GI is consulted for anemia and heme + stool. HGB on arrival was 8.3 which trended down to 7.4 on 07/21. She is s/p transfusion of one unit on 07/21 with HGB this AM 8.2. She is moving her bowels 1-2 times daily, last BM was on . Stool was brown per patient. No black stools or bloody stools. No hematemesis or coffee ground emesis. History of esophageal varices s/p TIPS not on BB and GAVE. She has never had a colonoscopy before. Due to the absence of pino bleeding, her heme + stool is likely secondary to hemorrhoids, polyp or GAVE. She was advised that a colonoscopy should be obtained to rule out lower GI pathology - not currently agreeable to this. Plan - Abdominal US for ascites - Paracentesis w/ fluid to analysis is present - Lasix 40 twice daily - Spironolactone 100 mg twice daily - Low salt diet - Xifaxan 550 BID - Lactulose 30 GM once daily - Monitor stools for S/S GI blood loss - PPI once daily - Colonoscopy when agreeable and stable from cardiopulmonary standpoint I saw and evaluated the patient. She has a history of Meier induced cirrhosis and is undergone a prior TIPS placement due to refractory ascites and hepatic hydrothorax. The patient presents with continued shortness of breath and recurrent fluid within her right hemithorax. GI is consultative for assistance with her liver disease and a question of heme-positive stools. She denies having bright red blood per rectum, dark sticky stools or vomiting. Physical examination No obvious distress No scleral icterus Mild abdominal distention 2+ w edema Impression: Patient with a history of hepatic hydrothorax and cirrhosis as result of fatty infiltration of liver. Due to her history of hepatic encephalopathy it appears that her TIPS cannot be resides at the present time. I would suggest that we increase her diuretic dosing and re-educate the patient on sodium restriction. Recommendations Low-sodium diet, outpatient nutrition evaluation Lasix 80 mg every morning +40 mg every afternoon Aldactone 300 mg (can be given as an undivided dose) EGD + colonoscopy as OP (4-6 weeks) Please call with any questions or concerns
--- NOTE | 2017-07-22 11:49 | DIAGNOSTIC IMAGING REPORT ---
ULTRASOUND-GUIDED DIAGNOSTIC AND THERAPEUTIC PARACENTESIS: CLINICAL HISTORY: 47-year-old female with history of Muhammad cirrhosis status post TIPS, recurrent ascites COMPARISON: 07/08/2017. PROCEDURE: The procedure and its risks, benefits and alternatives were discussed with the patient and written informed consent was obtained. Preliminary ultrasound of the abdomen was performed to determine a safe needle entry site. The left lower quadrant was prepped and draped in the usual sterile fashion. 1% Lidocaine was used for local anesthesia. A paracentesis needle-sheath was inserted into the peritoneal space using ultrasound guidance. The needle was removed and the sheath was connected to tubing and a vacuum suction device. A total of 4 liters of clear brown ascites was aspirated. The sheath was removed and a sterile dressing applied. The patient tolerated the procedure well and there were no immediate complications. IMPRESSION: Ultrasound-guided diagnostic and therapeutic paracentesis with aspiration of 4 liters of ascites. Electronically signed by: Leo Allison M.D. 07/22/2017 11:47 AM Dictated Date/Time: 07/22/2017 11:46 AM
[2017-07-22 12:17] LABS: PERIT FL WBC 648 /uL (0-300); PERITONEAL FLUID RBC 19000 /uL
[2017-07-22] MEDS ORDERED: CEFEPIME CONSULT ACTIVE PRN ×2 (15:30)
[2017-07-22] MEDS: CEFEPIME IV 2,000 MG in DEXTROSE 5% 100ML 100 ML IV SCH (16:48)
--- NOTE | 2017-07-22 17:37 | Progress Note ---
Internal Med Progress Note Date of Service: Jul 22, 2017. Provider Documentation: SUBJECTIVE: s/p paracentesis today breathing is better eating ok no nausea afebrile OBJECTIVE: Vital Signs-as noted below Exam: General-alert and oriented. Not in distress ENT-normal hearing Neck-no neck masses Lungs-cta b/l no wheezing bibasilar crackles present Heart-s1 and s2 heard regular rhythm, no murmurs Abdomen-soft bowel sounds present non tender distended Extremities lower edema present no erythema Neuro-alert and oriented moves extremities Lab data as noted below. ASSESSMENT & PLAN: 47 female with history of MEIER Cirrhosis, CHF Diastolic Type, DM 2 on Insulin, CKD 3, Anemia of Chronic Disease, Depression presenting with shortness of breath x 1 day. DYSPNEA SECONDARY TO: BILATERAL PLEURAL EFFUSION Acute on chronic CHF, DIASTOLIC TYPE Acute on chronic respiratory failure- on 4 liters NC at home was on oxygen mask initially Received one dose of iv Lasix 80mg in the ER to continue home Lasix 40mg BID, Spironolactone 100mg BID s/p right side thoracocentesis and 1500ml fluid taken out currently on 5lts oxygen. will monitor RECURRENT ASCITES MEIER CIRRHOSIS diuretics as above on rifaximin s/p paracentesis today and 4lts taken out SBP? elevated wbc on ascitic fluid started on iv cefepime will f/u cx DM 2 Holding Glipizide, Sitagliptin Decreased Lantus from 55 to 30 units On ISS Will monitor CKD 3 at baseline monitor while on diuretics Acute on ANEMIA OF CHRONIC DISEASE Hg 7.4 on 07/21/17 s/p one unit prbc transfused hb 8.2 today Hemoccult positive seen by Gi and recommends egd/colonoscopy as out patient in 4-6 weeks will monitor THROMBOCYTOPENIA Plt stable compared to last admission DEPRESSION stable SCDs for DVT prophylaxis FULL Code Disposition lives at home PT/OT prior to discharge follows with Dr. Scott for PCP Vital Signs: Date Time Temp Pulse Resp B/P (MAP) Pulse Ox O2 Delivery O2 Flow Rate FiO2 07/22/17 15:45 37.0 90 20 151/70 (97) 96 Nasal Cannula 3.0 07/22/17 14:11 93 16 91 Nasal Cannula 4.0 07/22/17 12:00 Nasal Cannula 3.0 07/22/17 11:19 36.5 96 20 137/66 (89) 94 Nasal Cannula 3.0 07/22/17 08:00 Nasal Cannula 3.0 07/22/17 07:22 36.5 93 20 123/64 (83) 97 Nasal Cannula 3.0 07/22/17 07:14 88 16 96 Nasal Cannula 3.0 07/22/17 04:06 36.8 97 20 150/83 (105) 97 07/22/17 04:06 Nasal Cannula 3.0 07/22/17 01:48 88 16 96 Mask 3.0 07/22/17 00:11 36.8 96 22 139/55 (83) 93 07/22/17 00:00 Nasal Cannula 3.0 07/21/17 20:21 37.0 92 18 133/57 (82) 94 Nasal Cannula 3.0 07/21/17 20:00 Nasal Cannula 3.0 07/21/17 19:43 91 16 96 Nasal Cannula 3.0 Lab Results: Results Past 24 Hours Test 07/21/17 20:20 07/22/17 00:00 07/22/17 05:52 07/22/17 06:47 Range/Units Bedside Glucose 202 143 70-90 mg/dl Peritoneal Fluid Color JENNA Peritoneal Fluid Appearance HAZY Peritoneal Fluid WBC 648 0-300 /uL Peritoneal Fluid RBC 85627 /uL Peritoneal Fld Mononuclear WBCs (%) 97.5 % Peritoneal Fld Polynuclear WBCs (%) 2.5 % White Blood Count 7.44 4.8-10.8 K/uL Red Blood Count 3.75 4.2-5.4 M/uL Hemoglobin 8.2 12.0-16.0 g/dL Hematocrit 29.5 37-47 % Mean Corpuscular Volume 78.7 80-100 fL Mean Corpuscular Hemoglobin 21.9 25-34 pg Mean Corpuscular Hemoglobin Concent 27.8 32-36 g/dl Platelet Count 92 130-400 K/uL Mean Platelet Volume 9.6 7.4-10.4 fL Neutrophils (%) (Auto) 80.3 % Lymphocytes (%) (Auto) 10.1 % Monocytes (%) (Auto) 8.6 % Eosinophils (%) (Auto) 0.9 % Basophils (%) (Auto) 0.0 % Neutrophils # (Auto) 5.97 1.4-6.5 K/uL Lymphocytes # (Auto) 0.75 1.2-3.4 K/uL Monocytes # (Auto) 0.64 0.11-0.59 K/uL Eosinophils # (Auto) 0.07 0-0.5 K/uL Basophils # (Auto) 0.00 0-0.2 K/uL RDW Standard Deviation 64.5 36.4-46.3 fL RDW Coefficient of Variation 22.4 11.5-14.5 % Immature Granulocyte % (Auto) 0.1 % Immature Granulocyte # (Auto) 0.01 0.00-0.02 K/uL Hypochromasia PRESENT Anisocytosis PRESENT Prothrombin Time 12.5 9.0-12.0 SECONDS Prothromb Time International Ratio 1.2 0.9-1.1 Activated Partial Thromboplast Time 25.7 21.0-31.0 SECONDS Partial Thromboplastin Ratio 1.0 Sodium Level 134 136-145 mmol/L Potassium Level 4.3 3.5-5.1 mmol/L Chloride Level 95 98-107 mmol/L Carbon Dioxide Level 38 21-32 mmol/L Anion Gap 1.0 3-11 mmol/L Blood Urea Nitrogen 35 7-18 mg/dl Creatinine 0.86 0.60-1.20 mg/dl Est Creatinine Clear Calc Drug Dose 113.6 ml/min Estimated GFR () 93.2 Estimated GFR (Non- 80.4 BUN/Creatinine Ratio 40.7 10-20 Random Glucose 141 70-99 mg/dl Calcium Level 8.2 8.5-10.1 mg/dl Iron Level 33 35-150 mcg/dl Total Iron Binding Capacity 309 250-450 mcg/dl Transferrin 236 200-360 mg/dl Transferrin % Saturation 10 15-50 % Ferritin 19.4 8.0-388.0 ng/ml Vitamin B12 Level 564 211-911 pg/mL Folate 4.35 >5.38 ng/mL Test 07/22/17 11:29 07/22/17 16:15 Range/Units Bedside Glucose 191 229 70-90 mg/dl Microbiology Results 07/22/17 Gram Stain - Final, Resulted 07/22/17 Bacterial Culture, Resulted Pending
[2017-07-22] MEDS: ARIPIprazole TAB 10 MG TAB PO SCH (20:00)
[2017-07-22] MEDS: INSULIN GLARGINE SOLOSTAR 100 UNITS/ML 3 ML PEN SC SCH (21:07)
[2017-07-23] VITALS (13 sets, daily range): BP systolic 109–156; BP diastolic 58–84; PULSE 80–96; TEMP 36.5–36.8; O2SAT 93–99
[2017-07-23] MEDS: CLONAZEPAM 1 MG TAB PO PRN ×2 (00:50→21:19)
[2017-07-23] MEDS ORDERED: TRAMADOL HCL 50 MG TAB PO ONE (01:15)
[2017-07-23] MEDS: LEVALBUTEROL 1.25MG/0.5ML NEB INH SCH ×4 (01:51→19:26)
[2017-07-23] MEDS: IPRATROPIUM BROMIDE NEB SOLN 0.02% 2.5 ML VIAL INH SCH ×4 (01:51→19:26)
[2017-07-23] MEDS: CEFEPIME IV 2,000 MG in DEXTROSE 5% 100ML 100 ML IV SCH ×2 (04:21→16:21)
[2017-07-23] MEDS: LEVOTHYROXINE 25 MCG TAB PO SCH (05:03)
[2017-07-23] MEDS: LEVOTHYROXINE 200 MCG TAB PO SCH (05:03)
[2017-07-23 07:12] LABS: CALCIUM 8.4 mg/dl (8.5-10.1); CREATININE 0.76 mg/dl (0.60-1.20); POTASSIUM 4.7 mmol/L (3.5-5.1)
[2017-07-23 07:29] LABS: HEMATOCRIT 30.6 % (37-47); MEAN CELL VOLUME 80.3 fL (80-100); MEAN CORPUSCULAR HGB CONC 27.5 g/dl (32-36); MEAN PLATELET VOLUME 8.9 fL (7.4-10.4); PLATELET COUNT 76 K/uL (130-400); RED BLOOD COUNT 3.81 M/uL (4.2-5.4); WHITE BLOOD COUNT 7.62 K/uL (4.8-10.8)
[2017-07-23 07:33] LABS: ANISOCYTOSIS PRESENT; COMPLETE YES; EOS % 1.4 %; HYPOCHROMIA PRESENT; IG% 0.1 %; LYMPH % 8.3 %; LYMPH ABS # 0.63 K/uL (1.2-3.4); MICROCYTOSIS PRESENT; MONO % 7.7 %; NEUT % 82.5 %; POIKILOCYTOSIS PRESENT
[2017-07-23] MEDS: SPIRONOLACTONE 100 MG TAB PO SCH (08:27)
[2017-07-23] MEDS: FUROSEMIDE 40 MG TAB PO SCH (08:27)
[2017-07-23] MEDS: RIFAXIMIN TAB 550 MG TAB PO SCH ×2 (08:27→21:13)
[2017-07-23] MEDS: PANTOprazole SOD 40 MG TAB PO SCH (08:27)
[2017-07-23] MEDS: INSULIN ASPART 100 UNITS/ML 3 ML PEN SC SCH ×4 (08:32→21:15)
--- NOTE | 2017-07-23 09:04 | Gastroenterology Progress Note ---
Progress Note Date of Service: Jul 23, 2017 Subjective Pt evaluation today including: conversation w/ patient, physical exam, chart review Pt was seen and evaluated, chart reviewed. She tells me she is tired this AM, otherwise addresses no concerns. Denies abd pain, feels like her breathing is at baseline. No BM and has not taken her lactulose. She is agreeable to take this today, Review of Systems Constitutional: No fever Respiratory: + shortness of breath (unchanged, baseline), No cough Cardiac: No chest pain Abdomen: No pain, No nausea, No vomiting, No diarrhea Medications Current Inpatient Medications Medications (Trade) Dose Ordered Sig/[place] Route Start Time Stop Time Status Last Admin Dose Admin Insulin Aspart (novoLOG ASPART) SLIDING SCALE If C... ACHS SC 07/20/17 07:00 08/19/17 06:59 07/23/17 08:32 2 UNITS Glucose (Glucose 40% Gel) 15-30 GRAMS 15 GRAMS... UD PRN PO 07/20/17 04:45 08/19/17 04:44 Glucose (Glucose Chew Tab) 4-8 Tablets 4 Tabl... UD PRN PO 07/20/17 04:45 08/19/17 04:44 Dextrose (Dextrose 50% 50ML Syringe) 25-50ML OF 50% DW IV FOR... UD PRN IV 07/20/17 04:45 08/19/17 04:44 Glucagon (Glucagon Inj) 1 mg UD PRN SQ 07/20/17 04:45 08/19/17 04:44 Aripiprazole (Abilify Tab) 10 mg HS PO 07/20/17 21:00 08/19/17 20:59 07/22/17 20:00 10 MG Lactulose (Chronulac Syrup) 30 gm DAILY PRN PO 07/20/17 04:45 08/19/17 04:44 Levothyroxine Sodium (Synthroid Tab) 25 mcg QAM@0600 PO 07/20/17 06:00 08/19/17 05:59 07/23/17 05:03 25 MCG Levothyroxine Sodium (Synthroid Tab) 200 mcg QAM@0600 PO 07/20/17 06:00 08/19/17 05:59 07/23/17 05:03 200 MCG Rifaximin (Xifaxan Tab) 550 mg BID PO 07/20/17 09:00 08/19/17 08:59 07/23/17 08:27 550 MG Pantoprazole Sodium (Protonix Tab) 40 mg QAM PO 07/20/17 09:00 08/19/17 08:59 07/23/17 08:27 40 MG Insulin Glargine (Lantus Solostar Pen) 30 units HS SC 07/20/17 21:00 08/19/17 20:59 07/22/17 21:07 30 UNITS Ipratropium [place] (Atrovent 0.02% 0.5MG/2.5ML Neb) 0.5 mg Q6R INH 07/20/17 09:00 08/19/17 08:59 07/23/17 07:44 0.5 MG Levalbuterol (Xopenex 1.25MG/ 0.5ML Neb) 1.25 mg Q6R INH 07/20/17 09:00 08/19/17 08:59 07/23/17 07:44 1.25 MG Tramadol HCl (Ultram Tab) 50 mg TID PRN PO 07/20/17 18:30 08/19/17 18:29 07/22/17 19:21 50 MG Clonazepam (Klonopin Tab) 1 mg HS PRN PO 07/20/17 20:15 08/19/17 20:14 07/23/17 00:50 1 MG Cefepime HCl 2000 mg/Dextrose 112.5 ml @ 200 mls/hr Q12@0400,1600 IV 07/22/17 16:00 08/01/17 15:59 07/23/17 04:21 200 MLS/HR Cefepime HCl (Consult) 1 ea UD PRN N/A 07/22/17 15:30 08/21/17 15:29 Spironolactone (Aldactone Tab) 300 mg DAILY PO 07/23/17 09:00 08/19/17 08:59 UNV Furosemide (Lasix Tab) 80 mg QAM PO 07/23/17 09:00 08/22/17 08:59 UNV Furosemide (Lasix Tab) 40 mg PM PO 07/23/17 21:00 08/22/17 20:59 UNV Objective Vital Signs Date Time Temp Pulse Resp B/P (MAP) Pulse Ox O2 Delivery O2 Flow Rate FiO2 07/23/17 08:00 36.5 93 20 139/75 (96) 98 Room Air 4.0 93 07/23/17 07:44 87 16 98 Nasal Cannula 4.0 07/23/17 04:00 Nasal Cannula 3.0 07/23/17 03:25 36.6 96 20 155/63 (93) 94 Nasal Cannula 4.5 07/23/17 01:51 91 16 98 Nasal Cannula 4.0 07/23/17 00:00 Nasal Cannula 3.0 07/22/17 23:30 36.9 88 18 141/70 (93) 96 Nasal Cannula 4.5 07/22/17 20:00 Nasal Cannula 3.0 07/22/17 19:55 36.7 89 26 139/67 (91) 97 Nasal Cannula 4.0 07/22/17 19:46 88 16 98 Nasal Cannula 4.0 07/22/17 16:00 Nasal Cannula 3.0 07/22/17 15:45 37.0 90 20 151/70 (97) 96 Nasal Cannula 3.0 07/22/17 14:11 93 16 91 Nasal Cannula 4.0 07/22/17 12:00 Nasal Cannula 3.0 07/22/17 11:19 36.5 96 20 137/66 (89) 94 Nasal Cannula 3.0 Physical Exam General Appearance: no apparent distress Eyes: PERRL Respiratory/Chest: lungs clear Cardiovascular: regular rate, rhythm Abdomen: normal bowel sounds, non tender, soft, no organomegaly, no pulsatile mass Neurologic/Psych: alert, normal mood/affect, oriented x 3 Skin: normal color Laboratory Results Last 24 Hours Test 07/22/17 11:29 07/22/17 16:15 07/22/17 20:47 07/23/17 06:32 Bedside Glucose 191 mg/dl 229 mg/dl 192 mg/dl White Blood Count 7.62 K/uL Red Blood Count 3.81 M/uL Hemoglobin 8.4 g/dL Hematocrit 30.6 % Mean Corpuscular Volume 80.3 fL Mean Corpuscular Hemoglobin 22.0 pg Mean Corpuscular Hemoglobin Concent 27.5 g/dl Platelet Count 76 K/uL Mean Platelet Volume 8.9 fL Neutrophils (%) (Auto) 82.5 % Lymphocytes (%) (Auto) 8.3 % Monocytes (%) (Auto) 7.7 % Eosinophils (%) (Auto) 1.4 % Basophils (%) (Auto) 0.0 % Neutrophils # (Auto) 6.28 K/uL Lymphocytes # (Auto) 0.63 K/uL Monocytes # (Auto) 0.59 K/uL Eosinophils # (Auto) 0.11 K/uL Basophils # (Auto) 0.00 K/uL RDW Standard Deviation 66.6 fL RDW Coefficient of Variation 22.8 % Immature Granulocyte % (Auto) 0.1 % Immature Granulocyte # (Auto) 0.01 K/uL Hypochromasia PRESENT Poikilocytosis PRESENT Anisocytosis PRESENT Microcytosis PRESENT Sodium Level 135 mmol/L Potassium Level 4.7 mmol/L Chloride Level 95 mmol/L Carbon Dioxide Level 39 mmol/L Anion Gap 1.0 mmol/L Blood Urea Nitrogen 29 mg/dl Creatinine 0.76 mg/dl Est Creatinine Clear Calc Drug Dose 128.2 ml/min Estimated GFR () 108.3 Estimated GFR (Non- 93.4 BUN/Creatinine Ratio 38.0 Random Glucose 174 mg/dl Calcium Level 8.4 mg/dl Test 07/23/17 06:57 Bedside Glucose 161 mg/dl Assessment and Plan Ms. Martinez is a 47-year-old female with an NAFLD cirrhosis, status post TIPS, admitted with pleural effusions and moderate ascites causing shortness of breath - GI is consulted for anemia and heme + stool. HGB on arrival was 8.3 which trended down to 7.4 on 07/21. She is s/p transfusion of one unit on 07/21 with HGB this AM 8.2. She is moving her bowels 1-2 times daily, last BM was on . Stool was brown per patient. No black stools or bloody stools. No hematemesis or coffee ground emesis. History of esophageal varices s/p TIPS not on BB and GAVE. She has never had a colonoscopy before. Due to the absence of pino bleeding, her heme + stool is likely secondary to hemorrhoids, polyp or GAVE. She was advised that a colonoscopy should be obtained to rule out lower GI pathology - not currently agreeable to this. - Lasix 80 mg AM - Lasix 40 mg HS - Spironolactone 300 mg daily - Low salt diet - Xifaxan 550 BID - Lactulose 30 GM once daily - Monitor stools for S/S GI blood loss - PPI once daily - EGD/Colonoscopy outpatient - Outpatient GI nutrition evaluation I saw and evaluated the patient. We increased her diuretics a small amount of yesterday. It will take a few weeks for us to determine if this improves her symptoms. Please call with any questions or concerns during the rest of his hospital admission GI to sign off. Please call with questions or concerns.
[2017-07-23] MEDS ORDERED: LACTULOSE SYRUP 30 GM/45 ML UDP PO ONE (10:00)
[2017-07-23] MEDS: TRAMADOL HCL 50 MG TAB PO PRN ×2 (10:26→16:34)
--- NOTE | 2017-07-23 10:30 | Progress Note ---
Internal Med Progress Note Date of Service: Jul 23, 2017. Provider Documentation: SUBJECTIVE: s/p paracentesis yesterday no nausea or abdominal pain sob better no bowel movement today afebrile want to go home OBJECTIVE: Vital Signs-as noted below Exam: General-alert and oriented. Not in distress ENT-normal hearing Neck-no neck masses Lungs-cta b/l no wheezing bibasilar crackles present Heart-s1 and s2 heard regular rhythm, no murmurs Abdomen-soft bowel sounds present non tender distended Extremities lower edema present no erythema Neuro-alert and oriented moves extremities Lab data as noted below. ASSESSMENT & PLAN: 47 female with history of MEIER Cirrhosis, CHF Diastolic Type, DM 2 on Insulin, CKD 3, Anemia of Chronic Disease, Depression presenting with shortness of breath x 1 day. DYSPNEA SECONDARY TO: BILATERAL PLEURAL EFFUSION Acute on chronic CHF, DIASTOLIC TYPE Acute on chronic respiratory failure- on 4 liters NC at home was on oxygen mask initially Received one dose of iv Lasix 80mg in the ER increasing Lasix to 80mg in am and 40mg in pm and Spironolactone 300mg daily s/p right side thoracocentesis and 1500ml fluid taken out currently on 4ts oxygen. will monitor RECURRENT ASCITES MEIER CIRRHOSIS diuretics as above on rifaximin lactulose s/p paracentesis yesterday and 4lts taken out SBP? elevated wbc on ascitic fluid started on iv cefepime will f/u cx DM 2 Holding Glipizide, Sitagliptin Decreased Lantus from 55 to 30 units On ISS 229/192/174/161 Will monitor CKD 3 at baseline monitor while on diuretics Acute on ANEMIA OF CHRONIC DISEASE Hg 7.4 on 07/21/17 s/p one unit prbc transfused hb 8.4 today Hemoccult positive seen by Gi and recommends egd/colonoscopy as out patient in 4-6 weeks will monitor THROMBOCYTOPENIA Plt stable compared to last admission DEPRESSION stable SCDs for DVT prophylaxis FULL Code Disposition lives at home PT/OT prior to discharge possible d/c in 1-[address] Scott for PCP Vital Signs: Date Time Temp Pulse Resp B/P (MAP) Pulse Ox O2 Delivery O2 Flow Rate FiO2 07/23/17 09:59 95 93 07/23/17 09:46 98 Nasal Cannula 4.0 07/23/17 08:00 36.5 93 20 139/75 (96) 98 Room Air 4.0 93 07/23/17 07:44 87 16 98 Nasal Cannula 4.0 07/23/17 04:00 Nasal Cannula 3.0 07/23/17 03:25 36.6 96 20 155/63 (93) 94 Nasal Cannula 4.5 07/23/17 01:51 91 16 98 Nasal Cannula 4.0 07/23/17 00:00 Nasal Cannula 3.0 07/22/17 23:30 36.9 88 18 141/70 (93) 96 Nasal Cannula 4.5 07/22/17 20:00 Nasal Cannula 3.0 07/22/17 19:55 36.7 89 26 139/67 (91) 97 Nasal Cannula 4.0 07/22/17 19:46 88 16 98 Nasal Cannula 4.0 07/22/17 16:00 Nasal Cannula 3.0 07/22/17 15:45 37.0 90 20 151/70 (97) 96 Nasal Cannula 3.0 07/22/17 14:11 93 16 91 Nasal Cannula 4.0 07/22/17 12:00 Nasal Cannula 3.0 07/22/17 11:19 36.5 96 20 137/66 (89) 94 Nasal Cannula 3.0 Lab Results: Results Past 24 Hours Test 07/22/17 11:29 07/22/17 16:15 07/22/17 20:47 07/23/17 06:32 Range/Units Bedside Glucose 191 229 192 70-90 mg/dl White Blood Count 7.62 4.8-10.8 K/uL Red Blood Count 3.81 4.2-5.4 M/uL Hemoglobin 8.4 12.0-16.0 g/dL Hematocrit 30.6 37-47 % Mean Corpuscular Volume 80.3 80-100 fL Mean Corpuscular Hemoglobin 22.0 25-34 pg Mean Corpuscular Hemoglobin Concent 27.5 32-36 g/dl Platelet Count 76 130-400 K/uL Mean Platelet Volume 8.9 7.4-10.4 fL Neutrophils (%) (Auto) 82.5 % Lymphocytes (%) (Auto) 8.3 % Monocytes (%) (Auto) 7.7 % Eosinophils (%) (Auto) 1.4 % Basophils (%) (Auto) 0.0 % Neutrophils # (Auto) 6.28 1.4-6.5 K/uL Lymphocytes # (Auto) 0.63 1.2-3.4 K/uL Monocytes # (Auto) 0.59 0.11-0.59 K/uL Eosinophils # (Auto) 0.11 0-0.5 K/uL Basophils # (Auto) 0.00 0-0.2 K/uL RDW Standard Deviation 66.6 36.4-46.3 fL RDW Coefficient of Variation 22.8 11.5-14.5 % Immature Granulocyte % (Auto) 0.1 % Immature Granulocyte # (Auto) 0.01 0.00-0.02 K/uL Hypochromasia PRESENT Poikilocytosis PRESENT Anisocytosis PRESENT Microcytosis PRESENT Sodium Level 135 136-145 mmol/L Potassium Level 4.7 3.5-5.1 mmol/L Chloride Level 95 98-107 mmol/L Carbon Dioxide Level 39 21-32 mmol/L Anion Gap 1.0 3-11 mmol/L Blood Urea Nitrogen 29 7-18 mg/dl Creatinine 0.76 0.60-1.20 mg/dl Est Creatinine Clear Calc Drug Dose 128.2 ml/min Estimated GFR () 108.3 Estimated GFR (Non- 93.4 BUN/Creatinine Ratio 38.0 10-20 Random Glucose 174 70-99 mg/dl Calcium Level 8.4 8.5-10.1 mg/dl Test 07/23/17 06:57 Range/Units Bedside Glucose 161 70-90 mg/dl
[2017-07-23] MEDS ORDERED: FUROSEMIDE 40 MG TAB PO SCH (17:00)
[2017-07-23] MEDS ORDERED: ACETAMINOPHEN 325 MG TAB PO PRN (21:00)
[2017-07-23] MEDS: ARIPIprazole TAB 10 MG TAB PO SCH (21:13)
[2017-07-23] MEDS: INSULIN GLARGINE SOLOSTAR 100 UNITS/ML 3 ML PEN SC SCH (21:16)
[2017-07-24] VITALS (7 sets, daily range): BP systolic 117–141; BP diastolic 63–66; PULSE 86–120; TEMP 36.6–36.8; O2SAT 77–98
[2017-07-24] MEDS: LEVALBUTEROL 1.25MG/0.5ML NEB INH SCH ×2 (01:57→07:13)
[2017-07-24] MEDS: IPRATROPIUM BROMIDE NEB SOLN 0.02% 2.5 ML VIAL INH SCH ×2 (01:57→07:12)
[2017-07-24] MEDS: CEFEPIME IV 2,000 MG in DEXTROSE 5% 100ML 100 ML IV SCH (04:23)
[2017-07-24] MEDS: TRAMADOL HCL 50 MG TAB PO PRN (04:48)
[2017-07-24] MEDS: LEVOTHYROXINE 200 MCG TAB PO SCH (06:21)
[2017-07-24] MEDS: LEVOTHYROXINE 25 MCG TAB PO SCH (06:21)
[2017-07-24 06:53] LABS: CALCIUM 8.3 mg/dl (8.5-10.1); CREATININE 0.89 mg/dl (0.60-1.20); POTASSIUM 4.5 mmol/L (3.5-5.1)
[2017-07-24 07:10] LABS: HEMATOCRIT 29.3 % (37-47); MEAN CELL VOLUME 79.6 fL (80-100); MEAN CORPUSCULAR HEMOGLOBIN 22.6 pg (25-34); MEAN CORPUSCULAR HGB CONC 28.3 g/dl (32-36); MEAN PLATELET VOLUME 9.7 fL (7.4-10.4); PLATELET COUNT 75 K/uL (130-400); RED BLOOD COUNT 3.68 M/uL (4.2-5.4); WHITE BLOOD COUNT 7.41 K/uL (4.8-10.8)
[2017-07-24 07:16] LABS: ANISOCYTOSIS PRESENT; BASO % 0.1 %; BASO ABS # 0.01 K/uL (0-0.2); COMPLETE YES; EOS % 1.5 %; HYPOCHROMIA PRESENT; IG% 0.1 %; LYMPH % 8.5 %; LYMPH ABS # 0.63 K/uL (1.2-3.4); MICROCYTOSIS PRESENT; MONO % 7.6 %; NEUT % 82.2 %
[2017-07-24] MEDS: PANTOprazole SOD 40 MG TAB PO SCH (07:51)
[2017-07-24] MEDS: RIFAXIMIN TAB 550 MG TAB PO SCH (07:51)
[2017-07-24] MEDS: INSULIN ASPART 100 UNITS/ML 3 ML PEN SC SCH ×2 (07:55→12:03)
[2017-07-24] MEDS ORDERED: LACTULOSE SYRUP 30 GM/45 ML UDP PO SCH (09:00)
[2017-07-24] MEDS ORDERED: FUROSEMIDE 80 MG TAB PO SCH (09:00)
[2017-07-24] MEDS ORDERED: SPIRONOLACTONE 100 MG TAB PO SCH (09:00)
[2017-07-24] MEDS ORDERED: RANI150T3 PO (11:42)
[2017-07-24] MEDS ORDERED: ESCI1TAB9 PO (11:42)
[2017-07-24] MEDS ORDERED: CIPR1TAB11 PO (11:42)
[2017-07-24] MEDS ORDERED: TRAM-10 PO (11:42)
[2017-07-24] MEDS ORDERED: ROPI0.25 PO (11:42)
[2017-07-24] MEDS ORDERED: LSX80 PO (11:45)
[2017-07-24] MEDS ORDERED: LSX40 PO (11:45)
[2017-07-24] MEDS ORDERED: SPRN100 PO (11:45)
[2017-07-24] MEDS ORDERED: LCTL45 PO (11:45)
--- NOTE | 2017-07-24 11:47 | Discharge Instructions ---
Discharge Instructions Date of Service Jul 24, 2017. Admission Reason for Admission: Shortness Of Breath Discharge Discharge Diagnosis / Problem: sob, pleural effusion Discharge Goals Goal(s): Decrease discomfort, Improve function Activity Recommendations Activity Limitations: resume your previous activity . Instructions / Follow-Up Instructions / Follow-Up FOLLOWUP WITH FAMILY DOCTOR ON Jul AT 10:25AM FOLLOWUP WITH GI SCHEDULED. EGD AND COLONSCOPY OUT [facility]. LAB: CBC AND BMP IN ONE WEEK AND FOLLOW RESULTS WITH FAMILY DOCTOR. Current Hospital Diet Patient's current hospital diet: Diabetes Type 1 Diet, AHA Diet (Heart Healthy) Discharge Diet Recommended Diet: AHA Diet (Heart Healthy), Diabetes Type 1 Diet Pending Studies Studies pending at discharge: no Laboratory Results Hemoglobin A1c Test 07/08/17 04:34 Range/Units Estimated Average Glucose 160 mg/dl Hemoglobin A1c 7.2 H 4.5-5.6 % Medical Emergencies . Who to Call and When: Medical Emergencies: If at any time you feel your situation is an emergency, please call 911 immediately. . Non-Emergent Contact Non-Emergency issues call your: Primary Care Provider . . "Provider Documentation" section prepared by Girma Alvarado. . VTE Core Measure Inpt VTE Proph given/why not?: SCD's
--- NOTE | 2017-07-24 19:55 | Progress Note ---
Internal Med Progress Note Date of Service: Jul 24, 2017. Provider Documentation: SUBJECTIVE: resting on chair comfortably afebrile no sob no chest pain want to go home OBJECTIVE: Vital Signs-as noted below Exam: General-alert and oriented. Not in distress ENT-normal hearing Neck-no neck masses Lungs-cta b/l no wheezing bibasilar crackles present Heart-s1 and s2 heard regular rhythm, no murmurs Abdomen-soft bowel sounds present non tender distended Extremities lower edema present no erythema Neuro-alert and oriented moves extremities Lab data as noted below. ASSESSMENT & PLAN: 47 female with history of MEIER Cirrhosis, CHF Diastolic Type, DM 2 on Insulin, CKD 3, Anemia of Chronic Disease, Depression presenting with shortness of breath x 1 day. DYSPNEA SECONDARY TO: BILATERAL PLEURAL EFFUSION Acute on chronic CHF, DIASTOLIC TYPE Acute on chronic respiratory failure- on 4 liters NC at home was on oxygen mask initially Received one dose of iv Lasix 80mg in the ER increasing Lasix to 80mg in am and 40mg in pm and Spironolactone 300mg daily s/p right side thoracocentesis and 1500ml fluid taken out currently on 4ts oxygen. stable. f/u with pcp RECURRENT ASCITES MEIER CIRRHOSIS diuretics as above on rifaximin lactulose s/p paracentesis yesterday and 4lts taken out f/u with GI SBP? elevated wbc on ascitic fluid started on iv cefepime cx negative d/w GI _ to continue home Cipro prophylactic dose DM 2 Holding Glipizide, Sitagliptin Decreased Lantus from 55 to 30 units On ISS d/c on home meds CKD 3 at baseline monitor while on diuretics Acute on ANEMIA OF CHRONIC DISEASE Hg 7.4 on 07/21/17 s/p one unit prbc transfused hb 8.3 today Hemoccult positive seen by Gi and recommends egd/colonoscopy as out patient in 4-6 weeks f/u labs with pcp THROMBOCYTOPENIA Plt stable compared to last admission DEPRESSION stable discharged home with home health Vital Signs: Date Time Temp Pulse Resp B/P (MAP) Pulse Ox O2 Delivery O2 Flow Rate FiO2 07/24/17 12:10 36.8 86 20 98 Nasal Cannula 07/24/17 11:05 36.8 86 20 141/65 (90) 98 Nasal Cannula 3.0 07/24/17 09:51 120 77 07/24/17 08:00 Nasal Cannula 3.0 9/13/17 07:27 36.6 91 20 118/64 (82) 96 Nasal Cannula 3.0 07/24/17 07:15 95 16 97 Nasal Cannula 4.0 07/24/17 04:10 36.6 88 18 129/63 (85) 97 Nasal Cannula 4.0 07/24/17 04:00 Nasal Cannula 4.0 07/24/17 01:57 86 17 98 Nasal Cannula 4.0 07/23/17 23:59 Nasal Cannula 4.0 07/23/17 23:30 36.7 84 18 116/58 (77) 94 Nasal Cannula 4.0 07/23/17 20:00 Nasal Cannula 3.0 Lab Results: Results Past 24 Hours Test 07/23/17 20:36 07/24/17 05:37 07/24/17 06:30 07/24/17 11:09 Range/Units Bedside Glucose 150 175 175 70-90 mg/dl White Blood Count 7.41 4.8-10.8 K/uL Red Blood Count 3.68 4.2-5.4 M/uL Hemoglobin 8.3 12.0-16.0 g/dL Hematocrit 29.3 37-47 % Mean Corpuscular Volume 79.6 80-100 fL Mean Corpuscular Hemoglobin 22.6 25-34 pg Mean Corpuscular Hemoglobin Concent 28.3 32-36 g/dl Platelet Count 75 130-400 K/uL Mean Platelet Volume 9.7 7.4-10.4 fL Neutrophils (%) (Auto) 82.2 % Lymphocytes (%) (Auto) 8.5 % Monocytes (%) (Auto) 7.6 % Eosinophils (%) (Auto) 1.5 % Basophils (%) (Auto) 0.1 % Neutrophils # (Auto) 6.09 1.4-6.5 K/uL Lymphocytes # (Auto) 0.63 1.2-3.4 K/uL Monocytes # (Auto) 0.56 0.11-0.59 K/uL Eosinophils # (Auto) 0.11 0-0.5 K/uL Basophils # (Auto) 0.01 0-0.2 K/uL RDW Standard Deviation 67.3 36.4-46.3 fL RDW Coefficient of Variation 22.9 11.5-14.5 % Immature Granulocyte % (Auto) 0.1 % Immature Granulocyte # (Auto) 0.01 0.00-0.02 K/uL Hypochromasia PRESENT Anisocytosis PRESENT Microcytosis PRESENT Sodium Level 132 136-145 mmol/L Potassium Level 4.5 3.5-5.1 mmol/L Chloride Level 93 98-107 mmol/L Carbon Dioxide Level 38 21-32 mmol/L Anion Gap 1.0 3-11 mmol/L Blood Urea Nitrogen 27 7-18 mg/dl Creatinine 0.89 0.60-1.20 mg/dl Est Creatinine Clear Calc Drug Dose 110.7 ml/min Estimated GFR () 89.5 Estimated GFR (Non- 77.2 BUN/Creatinine Ratio 30.0 10-20 Random Glucose 181 70-99 mg/dl Calcium Level 8.3 8.5-10.1 mg/dl
--- NOTE | 2017-07-24 20:16 | Discharge Summary ---
Discharge Summary Date of Service Jul 24, 2017. Discharge Summary Admission Date: Jul 20, 2017 at 04:15 Discharge Date: Jul 24, 2017 Discharge Disposition: Home with services Principal Diagnosis: DYSPNEA SECONDARY TO: BILATERAL PLEURAL EFFUSION Acute on chronic CHF, DIASTOLIC TYPE Acute on chronic respiratory failure- on 4 liters NC at home RECURRENT ASCITES ANEMIA Secondary Diagnoses/Problems: (1) Ankle fracture Permanent Comment: s/p repair Status: Chronic (2) Anxiety Status: Chronic (3) Ascites of liver Status: Chronic (4) Chronic anemia Status: Chronic (5) Depression Status: Chronic (6) DM type 2 (diabetes mellitus, type 2) Status: Chronic (7) Dyslipidemia Status: Chronic (8) GERD (gastroesophageal reflux disease) Status: Chronic (9) Hypothyroidism Status: Chronic (10) Liver cirrhosis secondary to MEIER Status: Chronic (11) OCD (obsessive compulsive disorder) Status: Chronic Procedures: CXR: Pulmonary edema. Bilateral pleural effusions. CHEST US: Bilateral pleural effusions. Effusions are septated. Right effusion has estimated volume of 1500 cc. This was marked for potential later thoracentesis. Left effusion isn't 900 cc. It was not marked. S/P PARACENTESIS Consultations: GI PULMONARY Medication Reconciliation New Medications: Furosemide (Furosemide) 80 Mg Tab 80 MG PO QAM, #30 TAB 2 Refills Furosemide (Furosemide) 40 Mg Tab 40 MG PO DAILY@1700, #30 TAB 2 Refills Lactulose (Lactulose) 30 Gm/45 Ml Syrp 30 GM PO DAILY for 30 Days, 2 Refills Spironolactone (Spironolactone) 100 Mg Tab 300 MG PO DAILY for 30 Days, #90 TAB 2 Refills Continued Medications: Aripiprazole (Aripiprazole) 10 Mg Tab 10 MG PO HS Ciprofloxacin Tab (Cipro) 250 Mg Tab 250 MG PO DAILY, #30 TAB Clonazepam (Clonazepam Odt) 1 Mg Tab 1-2 MG PO HS PRN for Anxiety Escitalopram Oxalate (Lexapro) 10 Mg Tab 1 TAB PO DAILY for 30 Days, #30 TAB 3 Refills Glipizide (Glucotrol) 10 Mg Tab 10 MG PO BID, TAB Insulin Glargine (Lantus Solostar) 100 Unit/Ml Inj 55 UNITS SC HS, PEN Levothyroxine Sodium (Levothyroxine Sodium) 25 Mcg Tab 1 TAB PO QAM@0600, TAB 5 Refills Take total 225mcg PO daily Levothyroxine Sodium (Levothyroxine Sodium) 200 Mcg Tab 1 TAB PO QAM@0600 Take total 225mcg PO daily. Omeprazole (Prilosec) 40 Mg Cap 40 MG PO DAILY, CAP Ranitidine Hcl (Zantac) 150 Mg Tab 150 MG PO BID, #30 TAB Rifaximin (Xifaxan) 550 Mg Tab 550 MG PO BID Ropinirole (Requip) 0.25 Mg Tab 0.25 MG PO HS, #30 TAB Sitagliptin (Januvia) 50 Mg Tab 50 MG PO DAILY, TAB Tramadol (Ultram) 50 Mg Tab 50 MG PO BID PRN for Pain, #30 TAB Discontinued Medications: Furosemide (Furosemide) 40 Mg Tab 40 MG PO BID17 for 30 Days, TAB Lactulose (Chronulac) 10 Gm/15 Ml Syrp 30 GM PO DAILY PRN for Constipation takes additional dose to have 2 bowel movements per day Spironolactone (Aldactone) 100 Mg Tab 100 MG PO BID, TAB Admission Information HPI (per Admitting provider): 47 female with history of MEIER Cirrhosis, CHF Diastolic Type, DM 2 on Insulin, CKD 3, Anemia of Chronic Disease, Depression presenting with shortness of breath x 1 day. Patient follows with Dr. Scott for Primary Care. Patient was discharged last 07/10/17 for Bilateral Pleural Effusion and Ascites requiring Thoracentesis and Paracentesis. She states that she has been adherent to her medications. She reports that 1 day ago, she started to have progressive shortness of breath , and increased abdominal girth. At the ER, patient arrived with non rebreather mask. CXR showed bilateral pleural effusion. She was given Lasix 80mg IV, On my exam, patient was sleepy but easily rousable. Saturating 87% on 4 liters nasal cannula, so switched back to non rebreather, improved to 95%. Oriented x 2, not in distress, speaks in sentences with no effort. States breathing is about the same. Lasix was being administered by RN. Denies other symptoms. Physical Exam (per Admitting): General Appearance: WD/WN, no apparent distress Head: normocephalic, atraumatic Eyes: normal inspection, EOMI, sclerae normal ENT: normal ENT inspection, hearing grossly normal, TMs normal, pharynx normal Neck: supple, no adenopathy, thyroid normal, + JVD (mild) Respiratory/Chest: no respiratory distress, no accessory muscle use, + pertinent finding (decreased breath sounds bilateral bases right >left) Cardiovascular: regular rate, rhythm, no JVD, no murmur Abdomen/GI: normal bowel sounds, non tender, soft Back: normal inspection, no CVA tenderness Extremities/Musculoskelatal: no calf tenderness, + pertinent finding (mild lower leg edema) Neurologic/Psych: systems management consultant II-XII nml as tested, no motor/sensory deficits, alert , normal mood/affect, + pertinent finding (oriented x 2) Skin: normal color, warm/dry, no rash Lymphatic: no adenopathy Physical Exam (per Admitting): General Appearance: WD/WN, no apparent distress Head: normocephalic, atraumatic Eyes: normal inspection, EOMI, sclerae normal ENT: normal ENT inspection, hearing grossly normal, TMs normal, pharynx normal Neck: supple, no adenopathy, thyroid normal, + JVD (mild) Respiratory/Chest: no respiratory distress, no accessory muscle use, + pertinent finding (decreased breath sounds bilateral bases right >left) Cardiovascular: regular rate, rhythm, no JVD, no murmur Abdomen/GI: normal bowel sounds, non tender, soft Back: normal inspection, no CVA tenderness Extremities/Musculoskelatal: no calf tenderness, + pertinent finding (mild lower leg edema) Neurologic/Psych: systems management consultant II-XII nml as tested, no motor/sensory deficits, alert, normal mood/affect, + pertinent finding (oriented x 2) Skin: normal color, warm/dry, no rash Lymphatic: no adenopathy Hospital Course 47 female with history of MEIER Cirrhosis, CHF Diastolic Type, DM 2 on Insulin, CKD 3, Anemia of Chronic Disease, Depression presenting with shortness of breath x 1 day. DYSPNEA SECONDARY TO: BILATERAL PLEURAL EFFUSION Acute on chronic CHF, DIASTOLIC TYPE Acute on chronic respiratory failure- on 4 liters NC at home was on oxygen mask initially Received one dose of iv Lasix 80mg in the ER increasing Lasix to 80mg in am and 40mg in pm and Spironolactone 300mg daily s/p right side thoracocentesis and 1500ml fluid taken out currently on 4ts oxygen. stable. f/u with pcp RECURRENT ASCITES MEIER CIRRHOSIS diuretics as above on rifaximin lactulose s/p paracentesis yesterday and 4lts taken out f/u with GI SBP? elevated wbc on ascitic fluid started on iv cefepime cx negative d/w GI _ to continue home Cipro prophylactic dose DM 2 Holding Glipizide, Sitagliptin Decreased Lantus from 55 to 30 units On ISS d/c on home meds CKD 3 at baseline monitor while on diuretics Acute on ANEMIA OF CHRONIC DISEASE Hg 7.4 on 07/21/17 s/p one unit prbc transfused hb 8.3 today Hemoccult positive seen by Gi and recommends egd/colonoscopy as out patient in 4-6 weeks f/u labs with pcp THROMBOCYTOPENIA Plt stable compared to last admission DEPRESSION stable discharged home with home health Total time spent on discharge = 35MINUTES This includes examination of the patient, discharge planning, medication reconciliation, and communication with other providers. Discharge Instructions Discharge Instructions Date of Service Jul 24, 2017. Admission Reason for Admission: Shortness Of Breath Discharge Discharge Diagnosis / Problem: sob, pleural effusion Discharge Goals Goal(s): Decrease discomfort, Improve function Activity Recommendations Activity Limitations: resume your previous activity . Instructions / Follow-Up Instructions / Follow-Up FOLLOWUP WITH FAMILY DOCTOR ON Jul AT 10:25AM FOLLOWUP WITH GI SCHEDULED. EGD AND COLONSCOPY OUT [facility]. LAB: CBC AND BMP IN ONE WEEK AND FOLLOW RESULTS WITH FAMILY DOCTOR. Current Hospital Diet Patient's current hospital diet: Diabetes Type 1 Diet, AHA Diet (Heart Healthy) Discharge Diet Recommended Diet: AHA Diet (Heart Healthy), Diabetes Type 1 Diet Pending Studies Studies pending at discharge: no Laboratory Results Hemoglobin A1c Test 07/08/17 04:34 Range/Units Estimated Average Glucose 160 mg/dl Hemoglobin A1c 7.2 H 4.5-5.6 % Medical Emergencies . Who to Call and When: Medical Emergencies: If at any time you feel your situation is an emergency, please call 911 immediately. . Non-Emergent Contact Non-Emergency issues call your: Primary Care Provider . . "Provider Documentation" section prepared by Girma Alvarado. . VTE Core Measure Inpt VTE Proph given/why not?: SCD's
== END 2017-07-24 13:30 | disposition home health service (06) | DRG 186 ==
LOC: EDBD 01:14 → C.EDB 01:16 → C.2E 04:15 → ENRESERV 04:23
PROVIDERS: ADMIT Internal Medicine; ATTEND Internal Medicine
DX: J90 Pleural effusion, not elsewhere classified (principal); I50.33 Acute on chronic diastolic (congestive) heart failure; J96.20 Acute and chronic respiratory failure, unspecified whether with hypoxia or hypercapnia; E11.9 Type 2 diabetes mellitus without complications; E03.9 Hypothyroidism, unspecified; E78.5 Hyperlipidemia, unspecified; K21.9 Gastro-esophageal reflux disease without esophagitis; F41.9 Anxiety disorder, unspecified; K74.60 Unspecified cirrhosis of liver; F42.9 Obsessive-compulsive disorder, unspecified; K75.81 Nonalcoholic steatohepatitis (NASH); N18.3 Chronic kidney disease, stage 3 (moderate); D63.8 Anemia in other chronic diseases classified elsewhere; D69.6 Thrombocytopenia, unspecified; G47.30 Sleep apnea, unspecified; Z79.4 Long term (current) use of insulin

== ENCOUNTER 2017-07-31 16:17 | Emergency (ER) | payer BC ==
[~2017-07-31] VITALS: Ht 170.2 cm; Wt 137.2 kg
[~2017-07-31 16:17] MED LIST changes: -DXY100 PO; +ESCI1TAB9 PO; -LACT10SO17 PO; +LCTL45 PO; +LSX80 PO; +RANI150T3 PO; +ROPI0.25 PO; -SPIR100T PO; +SPRN100 PO; +TRAM-10 PO
[2017-07-31 16:26] VITALS: TEMP 36.7; Ht 170.2 cm; Wt 137.2 kg
--- NOTE | 2017-07-31 17:02 | EMERGENCY ROOM VISIT NOTE ---
History Report prepared by Yamil: Fidencio Richardson Under the Supervision of: Dr. Taryn Horvath M.D. First contact with patient: 16:46 Chief Complaint: OTHER COMPLAINT History of Present Illness The patient is a 47 year old female who presents to the Emergency Room with complaints of shortness of breath that began three days. The patient was sent to the ER from same day surgery. She receives paracentesis procedures every 2-3 weeks. Today, the radiologist found a pocket of fluid, but could not get it out after trying twice. They called the patient's instructor warper who recommended to go to the ER for a chest x-ray secondary to the patient's shortness of breath. She is on 2-3L of oxygen at baseline. She denies any fevers , cough, or constant chest pain. She has some chest pain when she tries to breath. She has never had a blood clot. Source of History: patient Onset: 3 days ago Position: other (Respiratory System) Symptom Intensity: moderate Quality: other (Shortness of breath) Timing: constant Associated Symptoms: + chest pain (intermittently while trying to breath), No fevers, No cough Review of Systems See HPI for pertinent positives & negatives. A total of 10 systems reviewed and were otherwise negative. 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 (12) OCD (obsessive compulsive disorder) (13) Pleural effusion (14) SOB (shortness of breath) Surgical Problems: (1) History of esophagogastroduodenoscopy (EGD) (2) S/P TIPS (transjugular intrahepatic portosystemic shunt) Family History Unobtainable family history due to adoption Social History Smoking Status: Never Smoker Alcohol Use: none Drug Use: none Marital Status: Housing Status: lives with significant other Current/Historical Medications Scheduled Aripiprazole (Aripiprazole), 10 MG PO HS Ciprofloxacin Tab (Cipro), 250 MG PO DAILY Escitalopram Oxalate (Lexapro), 1 TAB PO DAILY Furosemide (Furosemide), 80 MG PO QAM Furosemide (Furosemide), 40 MG PO DAILY@1700 Glipizide (Glucotrol), 10 MG PO BID Insulin Glargine (Lantus Solostar), 60 UNITS SC HS Lactulose (Lactulose), 30 GM PO DAILY Levothyroxine Sodium (Levothyroxine Sodium), 1 TAB PO QAM@0600 Levothyroxine Sodium (Levothyroxine Sodium), 1 TAB PO QAM@0600 Omeprazole (Prilosec), 40 MG PO DAILY Ranitidine Hcl (Zantac), 150 MG PO BID Rifaximin (Xifaxan), 550 MG PO BID Ropinirole (Requip), 0.25 MG PO HS Sitagliptin (Januvia), 50 MG PO DAILY Spironolactone (Spironolactone), 300 MG PO DAILY Scheduled PRN Clonazepam (Clonazepam Odt), 1-2 MG PO HS PRN for Anxiety Tramadol (Ultram), 50 MG PO BID PRN for Pain Allergies Coded Allergies: Ferrous Sulfate (Verified Allergy, Intermediate, IRON SUPPLEMENT--RASH, ABD PAIN AND DIARRHEA, 07/31/17) Cat Dander (Verified Allergy, Mild, rash, 07/31/17) Erythromycin (Verified Allergy, Mild, RASH, 07/31/17) Physical Exam Vital Signs Date Time Temp Pulse Resp B/P (MAP) Pulse Ox O2 Delivery O2 Flow Rate FiO2 07/31/17 18:59 92 26 150/75 93 07/31/17 18:33 92 26 150/75 93 Nasal Cannula 3.0 07/31/17 17:40 93 27 145/60 91 Nasal Cannula 3.0 07/31/17 17:38 93 07/31/17 16:26 36.7 94 28 139/77 94 Nasal Cannula 5.0 Physical Exam Vital signs reviewed. General: Chronically ill appearing obese female, on nasal cannula oxygen, in no significant distress. HEENT: No scleral icterus, PERRLA, neck supple. Atraumatic. Cardiovascular: Regular rate and rhythm, no extra sounds. Pulmonary: Right greater than left basilar crackles, increased work of breathing. Abdomen: Soft, nontender, nondistended, positive bowel sounds. Musculoskeletal: Atraumatic, minimal peripheral edema. Neurologic: Patient awake alert and oriented x 3 Skin: Warm, dry, no rash Medical Decision & Procedures ER Provider Diagnostic Interpretation: Radiology results as stated below per my review and radiologist interpretation: CHEST 2 VIEWS ROUTINE CLINICAL HISTORY: Shortness of breath, ascites. COMPARISON STUDY: 07/20/2017 FINDINGS: The heart remains enlarged. There is radiographic evidence of congestive failure with interstitial edema. There are bilateral pleural effusions.[ IMPRESSION: Persistent cardiomegaly, pulmonary edema, and bilateral pleural effusions. Electronically signed by: Chuck Jurado M.D. 07/31/2017 5:41 PM Dictated Date/Time: 07/31/2017 5:40 PM ED Course 1646: Past medical records reviewed. The patient was evaluated in room C2. A complete history and physical examination was performed. 1846: Upon reevaluation, the patient appeared to have improvement of her symptoms. She does not want a thoracentesis. She will call Dr. Maynard in the morning. I discussed findings with her. She verbalized agreement of the treatment plan. She was discharged home. Medical Decision Differential diagnosis: Etiologies such as infections, reactive airway disease, pneumonia, pneumothorax , pleural effusion, COPD, CHF, cardiac ischemia, pulmonary embolism, musculoskeletal, gastrointestinal, as well as others were entertained. This patient was evaluated and appeared to be in no significant distress. Chest x-ray was performed and reveals bilateral pleural effusions. On reevaluation, the patient was advised that her pleural effusions were reasonably sized are not significantly changed from her previous x-ray several weeks ago. She does not want to sit for a thoracentesis this evening. She is established with Dr. Maynard of pulmonary medicine. Patient seems comfortable with the plan for follow-up in the clinic. She will contact him tomorrow morning. She was advised to return to the ER for worsening of symptoms or any medical concerns. Medication Reconcilliation Current Medication List: was personally reviewed by me Blood Pressure Screening Patient's blood pressure: Elevated blood pressure Blood pressure disposition: Elevated BP felt to be situational Impression Primary Impression: Bilateral pleural effusion Scribe Attestation The scribe's documentation has been prepared under my direction and personally reviewed by me in its entirety. I confirm that the note above accurately reflects all work, treatment, procedures, and medical decision making performed by me. Departure Information Dispostion Home / Self-Care Referrals Leo Scott M.D. (PCP) Edd Maynard MD Forms HOME CARE DOCUMENTATION FORM, IMPORTANT VISIT INFORMATION, WORK / SCHOOL INSTRUCTIONS Patient Instructions My [facility] Additional Instructions Diagnosis: Bilateral pleural effusions. Please contact Dr. Maynard's office tomorrow for reevaluation and consideration of thoracentesis. Continue oxygen as needed for shortness of breath. Return to the emergency department for worsening of symptoms or any medical concerns.
--- NOTE | 2017-07-31 17:42 | DIAGNOSTIC IMAGING REPORT ---
CHEST 2 VIEWS ROUTINE CLINICAL HISTORY: Shortness of breath, ascites. COMPARISON STUDY: 07/20/2017 FINDINGS: The heart remains enlarged. There is radiographic evidence of congestive failure with interstitial edema. There are bilateral pleural effusions.[ IMPRESSION: Persistent cardiomegaly, pulmonary edema, and bilateral pleural effusions. Electronically signed by: Chuck Jurado M.D. 07/31/2017 5:41 PM Dictated Date/Time: 07/31/2017 5:40 PM
[2017-07-31 18:59] VITALS: BP 150/75; PULSE 92; O2SAT 93
== END 2017-07-31 19:00 | disposition home or self-care (01) ==
LOC: EDBD 16:17 → C.EDC 16:18
DX: J90 Pleural effusion, not elsewhere classified (principal); E11.9 Type 2 diabetes mellitus without complications; E78.5 Hyperlipidemia, unspecified; E03.9 Hypothyroidism, unspecified; F32.9 Major depressive disorder, single episode, unspecified; F41.9 Anxiety disorder, unspecified; K21.9 Gastro-esophageal reflux disease without esophagitis; K74.60 Unspecified cirrhosis of liver; D64.9 Anemia, unspecified; Z87.81 Personal history of (healed) traumatic fracture; Z98.890 Other specified postprocedural states; Z79.4 Long term (current) use of insulin; Z79.899 Other long term (current) drug therapy; Z88.3 Allergy status to other anti-infective agents; Z88.8 Allergy status to other drugs, medicaments and biological substances; Z91.09 Other allergy status, other than to drugs and biological substances